=== PATIENT | male | born 1940 | race Caucasian/White ===

== ENCOUNTER 2018-08-09 09:59 | Emergency (ER) | payer MEDICARE, OTHER, SELFPAY ==
[2018-08-09] VITALS (24 sets, daily range): BP systolic 102–160; BP diastolic 39–94; PULSE 69–107; RESP 4–23; TEMP 36.5; O2SAT 95–99
--- NOTE | 2018-08-09 10:22 | W.ED.GENAD ---
Discharge Plan Disposition Patient Disposition: HOME Condition: Good Discharge Details Chief Complaint: Chest Pain Clinical Impression: COPD exacerbation Primary Care Provider: Duncan Mccain ED Provider: Martin Rivera Home Meds and New Rx's Prescriptions: New prednisone 20 mg tablet 40 mg PO DAILY 5 Days Qty: 10 RF: 0 Continue aspirin [Aspir-81] 81 MG tablet,delayed release (DR/EC) 81 mg PO DAILY RF: 0 ascorbic acid (vitamin C) [Vitamin C] 500 MG tablet 500 mg PO DAILY RF: 0 nitroglycerin [Nitrostat] 0.4 MG tablet, sublingual 0.4 mg Sublingual PRN Qty: 25 RF: 4 furosemide 20 MG tablet 20 mg PO DAILY Qty: 60 RF: 6 amlodipine [Norvasc] 10 MG tablet 10 mg PO DAILY Qty: 90 RF: 4 lisinopril 40 MG tablet 40 mg PO DAILY Qty: 90 RF: 4 rosuvastatin [Crestor] 10 MG tablet 10 mg PO DAILY Qty: 90 RF: 4 iron ps [id number] acid [Poly-Iron 150 Forte] 1 EACH capsule 1 tab-cap PO DAILY Qty: 90 RF: 3 clonazepam 0.5 MG tablet 0.5 mg PO HS Qty: 30 RF: 1 Metoprolol Succinate 50 MG TAB.ER.24H 75 mg PO DAILY Qty: 135 RF: 4 Discharge Instructions Instructions: COPD (Chronic Obstructive Pulmonary Disease) (ED) Additional Instructions: Please follow-up with regular doctor for recheck next week. Call for an appointment. May use albuterol, if needed for chest tightness or shortness of breath every 4 hours. Please take prednisone as prescribed Return to the emergency department for any acute returns Medical Decision Making MDM Narrative Medical decision making narrative: This is a 78-year-old male who presents from home with 3 days of right-sided chest discomfort and some complaints of mild weakness and chills. He has end expiratory wheeze bilaterally on exam. He is afebrile and oxygenating normally. Differential diagnosis includes COPD exacerbation, bronchitis, mass, CHF. Patient had IV access established, given DuoNeb updraft, referred for chest x-ray and laboratory. His diagnostic studies are essentially reassuring and without acute findings. He had significant improvement with inhaled DuoNeb therapy. I do feel the cysts with mild COPD exacerbation. I will treat him with a burst of prednisone and offer an inhaler for home. Discussed with him further risk stratification of coronary artery disease including observation repeat troponin at 4 hours, he declines to stay for this. I do not feel he needs to be signed out AGAINST MEDICAL ADVICE, but simply discussed return precautions with patient and his . Patient was seen in the emergency department respiratory therapy and they will initiate outpatient pulmonary function testing. ECG Data Attestation: I personally reviewed and interpreted this ECG (s) as follows: Prior ECG tracings: available for review Interpretation: EKG reveals normal sinus rhythm with left bundle branch block. The rate is 75. There is associated T-wave inversions are unchanged versus comparison dated September 2007 HPI - General Adult General Mode of arrival: ambulatory. Date/Time Provider Initiated Documentation: 08/09/18 10:11. Limitations to Documentation: no limitations. Information obtained by: patient. History of Present Illness 78 year old M presents to the emergency department with the chief complaint of Chest discomfort, described as mild, Quality is described as aching, and is localized to the chest and right. Patient reports no radiation. Patient started experiencing this day(s) and it has been intermittent. No relieving factors improve symptom(s), Movement worsens symptoms . Patient notes cough. Patient did receive the following treatments prior to arrival, none HPI Narrative: 78-year-old male presents with approximately 3 days of achy, intermittent episodes of right chest pain associated with shortness of breath. He states he believes he has had subjective chills. He has had no change to diet. He has had no constant pain. No lower extremity pain or swelling. He is a former smoker who does not currently use an inhaler. He does complain of associated chest congestion Related Data Home Medications Medication Instructions Recorded Confirmed aspirin [Aspir-81] 81 mg PO DAILY tab-cap 04/29/13 08/09/18 ascorbic acid (vitamin C) [Vitamin 500 mg PO DAILY 11/25/14 08/09/18 C] nitroglycerin [Nitrostat] 0.4 mg SUBLINGUAL PRN #25 tab.sl 01/13/16 08/09/18 furosemide 20 mg PO DAILY #60 tab-cap 07/25/17 08/09/18 Previous Rx's Medication Instructions Recorded amlodipine [Norvasc] 10 mg PO DAILY #90 tab-cap 09/22/17 lisinopril 40 mg PO DAILY #90 tab-cap 09/22/17 rosuvastatin [Crestor] 10 mg PO DAILY #90 tab-cap 09/22/17 iron ps [id number] acid 1 tab-cap PO DAILY #90 tab-cap 11/21/17 [Poly-Iron 150 Forte] clonazepam 0.5 mg PO HS #30 tab 12/06/17 prednisone 40 mg PO DAILY 5 Days #10 tab 08/09/18 Allergies Allergy/AdvReac Type Severity Reaction Status Date / Time atorvastatin AdvReac Intermediate MYALGIAS Unverified 08/09/18 10:34 General Stated Complaint: Chest Pain VICTOR MANEUL: 2 Review of Systems Review of Systems 8 systems reviewed, otherwise negative PFSH Family History Mother Essential hypertension Heart disease Hyperlipidemia Father Essential hypertension Heart disease Hyperlipidemia Cerebrovascular accident Sister Essential hypertension Hyperlipidemia Brother Essential hypertension Hyperlipidemia SIBLINGS Diabetes PVD (peripheral vascular disease) Social History Smoking/Tobacco Use Status: Former Tobacco Use Surgical History Appendectomy (~2006) CARDIAC CATH (~2004) Colonoscopy - MAC Splenomegaly Stent placement Exam Narrative Exam Narrative: GEN: awake, alert, oriented 3. Pleasant, well groomed, interactive. HEAD: Normocephalic, atraumatic ENT: Mucous membranes moist, oropharynx unremarkable, External ear exam unremarkable EYES: PERRL, EOMI NECK: Full ROM, no NEGIN, no menigismus CHEST/RESP: Nontender, bilateral end expiratory wheeze, most prominent at the bases CARDIOVASCULAR: RRR, no murmur, rub damien. 2+ Rad pulse bilateral ABDOMEN: Soft, nontender, no mass. +Bowel sounds EXT: Full ROM, no edema, no rash Neuro: Grossly normal neurologic exam, conversant, interactive. Psych: Speech fluent, thoughts congruent, affect normal Course Vital Signs Temperature 36.5 C 08/09/18 10:10 Pulse 77 08/09/18 10:10 Respiratory Rate 17 08/09/18 10:10 Blood Pressure 137/53 L 08/09/18 10:10 Pulse Oximetry 99 08/09/18 10:10 Temperature 36.5 C 08/09/18 10:10 Pulse 77 08/09/18 10:10 Respiratory Rate 17 08/09/18 10:15 Blood Pressure 137/53 L 08/09/18 10:10 Pulse Oximetry 99 08/09/18 10:10
--- NOTE | 2018-08-09 10:25 | ED.GENADUL_ITS ---
Discharge Plan Disposition Patient Disposition: HOME Condition: Good Discharge Details Chief Complaint: Chest Pain Clinical Impression: COPD exacerbation Primary Care Provider: Duncan Mccain ED Provider: Martin Rivera Home Meds and New Rx's Prescriptions: New prednisone 20 mg tablet 40 mg PO DAILY 5 Days Qty: 10 RF: 0 Continue aspirin [Aspir-81] 81 MG tablet,delayed release (DR/EC) 81 mg PO DAILY RF: 0 ascorbic acid (vitamin C) [Vitamin C] 500 MG tablet 500 mg PO DAILY RF: 0 nitroglycerin [Nitrostat] 0.4 MG tablet, sublingual 0.4 mg Sublingual PRN Qty: 25 RF: 4 furosemide 20 MG tablet 20 mg PO DAILY Qty: 60 RF: 6 amlodipine [Norvasc] 10 MG tablet 10 mg PO DAILY Qty: 90 RF: 4 lisinopril 40 MG tablet 40 mg PO DAILY Qty: 90 RF: 4 rosuvastatin [Crestor] 10 MG tablet 10 mg PO DAILY Qty: 90 RF: 4 iron ps [id number] acid [Poly-Iron 150 Forte] 1 EACH capsule 1 tab-cap PO DAILY Qty: 90 RF: 3 clonazepam 0.5 MG tablet 0.5 mg PO HS Qty: 30 RF: 1 Metoprolol Succinate 50 MG TAB.ER.24H 75 mg PO DAILY Qty: 135 RF: 4 Discharge Instructions Instructions: COPD (Chronic Obstructive Pulmonary Disease) (ED) Additional Instructions: Please follow-up with regular doctor for recheck next week. Call for an appointment. May use albuterol, if needed for chest tightness or shortness of breath every 4 hours. Please take prednisone as prescribed Return to the emergency department for any acute returns Medical Decision Making MDM Narrative Medical decision making narrative: This is a 78-year-old male who presents from home with 3 days of right-sided chest discomfort and some complaints of mild weakness and chills. He has end expiratory wheeze bilaterally on exam. He is afebrile and oxygenating normally. Differential diagnosis includes COPD exacerbation, bronchitis, mass, CHF. Patient had IV access established, given DuoNeb updraft, referred for chest x-ray and laboratory. His diagnostic studies are essentially reassuring and without acute findings. He had significant improvement with inhaled DuoNeb therapy. I do feel the cysts with mild COPD exacerbation. I will treat him with a burst of prednisone and offer an inhaler for home. Discussed with him further risk stratification of coronary artery disease including observation repeat troponin at 4 hours, he declines to stay for this. I do not feel he needs to be signed out AGAINST MEDICAL ADVICE, but simply discussed return precautions with patient and his . Patient was seen in the emergency department respiratory therapy and they will initiate outpatient pulmonary function testing. ECG Data Attestation: I personally reviewed and interpreted this ECG (s) as follows: Prior ECG tracings: available for review Interpretation: EKG reveals normal sinus rhythm with left bundle branch block. The rate is 75. There is associated T-wave inversions are unchanged versus comparison dated September 2007 HPI - General Adult General Mode of arrival: ambulatory . Date/Time Provider Initiated Documentation: 08/09/18 10:11 . Limitations to Documentation: no limitations . Information obtained by: patient . History of Present Illness 78 year old M presents to the emergency department with the chief complaint of Chest discomfort, described as mild, Quality is described as aching, and is localized to the chest and right. Patient reports no radiation. Patient started experiencing this day(s) and it has been intermittent. No relieving factors improve symptom(s), Movement worsens symptoms . Patient notes cough. Patient did receive the following treatments prior to arrival, none HPI Narrative: 78-year-old male presents with approximately 3 days of achy, intermittent episodes of right chest pain associated with shortness of breath. He states he believes he has had subjective chills. He has had no change to diet. He has had no constant pain. No lower extremity pain or swelling. He is a former smoker who does not currently use an inhaler. He does complain of associated chest congestion Related Data Home Medications Medication Instructions Recorded Confirmed aspirin [Aspir-81] 81 mg PO DAILY tab-cap 04/29/13 08/09/18 ascorbic acid (vitamin C) [Vitamin 500 mg PO DAILY 11/25/14 08/09/18 C] nitroglycerin [Nitrostat] 0.4 mg SUBLINGUAL PRN #25 tab.sl 01/13/16 08/09/18 furosemide 20 mg PO DAILY #60 tab-cap 07/25/17 08/09/18 Previous Rx's Medication Instructions Recorded amlodipine [Norvasc] 10 mg PO DAILY #90 tab-cap 09/22/17 lisinopril 40 mg PO DAILY #90 tab-cap 09/22/17 rosuvastatin [Crestor] 10 mg PO DAILY #90 tab-cap 09/22/17 iron ps [id number] acid 1 tab-cap PO DAILY #90 tab-cap 11/21/17 [Poly-Iron 150 Forte] clonazepam 0.5 mg PO HS #30 tab 12/06/17 prednisone 40 mg PO DAILY 5 Days #10 tab 08/09/18 Allergies Allergy/AdvReac Type Severity Reaction Status Date / Time atorvastatin AdvReac Intermediate MYALGIAS Unverified 08/09/18 10:34 General Stated Complaint: Chest Pain VICTOR MANUEL: 2 Review of Systems Review of Systems 8 systems reviewed, otherwise negative PFSH Family History Mother Essential hypertension Heart disease Hyperlipidemia Father Essential hypertension Heart disease Hyperlipidemia Cerebrovascular accident Sister Essential hypertension Hyperlipidemia Brother Essential hypertension Hyperlipidemia SIBLINGS Diabetes PVD (peripheral vascular disease) Social History Smoking/Tobacco Use Status: Former Tobacco Use Surgical History Appendectomy (~2006) CARDIAC CATH (~2004) Colonoscopy - MAC Splenomegaly Stent placement Exam Narrative Exam Narrative: GEN: awake, alert, oriented 3. Pleasant, well groomed, interactive. HEAD: Normocephalic, atraumatic ENT: Mucous membranes moist, oropharynx unremarkable, External ear exam unremarkable EYES: PERRL, EOMI NECK: Full ROM, no NEGIN, no menigismus CHEST/RESP: Nontender, bilateral end expiratory wheeze, most prominent at the bases CARDIOVASCULAR: RRR, no murmur, rub damien. 2+ Rad pulse bilateral ABDOMEN: Soft, nontender, no mass. +Bowel sounds EXT: Full ROM, no edema, no rash Neuro: Grossly normal neurologic exam, conversant, interactive. Psych: Speech fluent, thoughts congruent, affect normal Course Vital Signs Temperature 36.5 C 08/09/18 10:10 Pulse 77 08/09/18 10:10 Respiratory Rate 17 08/09/18 10:10 Blood Pressure 137/53 L 08/09/18 10:10 Pulse Oximetry 99 08/09/18 10:10 Temperature 36.5 C 08/09/18 10:10 Pulse 77 08/09/18 10:10 Respiratory Rate 17 08/09/18 10:15 Blood Pressure 137/53 L 08/09/18 10:10 Pulse Oximetry 99 08/09/18 10:10
[2018-08-09] MEDS: Albuterol/Ipratropium 3 ML UPD VIAL UPD (10:29)
[2018-08-09 10:50] LABS: Abs Immature Grans 0.04 k/cumm (0.0-0.09); Absolute Basophil Count 0.03 k/cumm (0.0-0.2); Absolute Eosinophil Count 0.12 k/cumm (0.0-0.7); Absolute Lymphocyte Count 1.65 k/cumm (1.2-3.4); Absolute Monocyte Count 0.73 k/cumm (0.11-0.7); Absolute Neutrophil Count 5.33 k/cumm (1.2-6.7); Basophils % 0.4; Eosinophils % 1.5; HCT 43.4 % (40.0-50.0); HGB 14.8 g/dL (13.5-17.5); Immature Grans % 0.5; Lymphocytes % 20.9; Mean Corp. HGB Concentration 34.1 g/dL (32.0-36.0); Mean Corpuscular Hemoglobin 30.4 pg (27.0-33.0); Mean Corpuscular Volume 89.1 fL (80-95); Mean Platelet Volume 9.4 fL (8.0-11.0); Monocytes % 9.2; Neutrophils % 67.5; Platelet Count 219 x1000/uL (130-400); RBC 4.87 m/cumm (4.50-6.00); RBC Distribution Width 13.5 % (11.8-14.1)
[2018-08-09 11:09] LABS: ALT 28 U/L (12-78); AST 15 U/L (15-37); Alkaline Phosphatase 64 U/L (46-116); Anion Gap 9.6 mmol/L (3-11); BUN 10 mg/dL (7-18); Bilirubin, Total 1.1 mg/dL (0.2-1.0); CO2 27.4 mmol/L (21.0-32.0); CREATININE 0.93 mg/dL (0.70-1.30); Calcium 9.4 mg/dL (8.5-10.1); Chloride 103 mmol/L (98-107); Glucose 114 mg/dL (70-100); NT-proBNP 164 pg/mL; Potassium 4.1 mmol/L (3.5-5.1); Sodium 140 mmol/L (136-145); Total Protein 7.4 g/dL (6.4-8.2)
--- NOTE | 2018-08-09 11:10 | DI.RAD_ITS ---
SYMPTOMS/DIAGNOSIS: COUGH, RT PAIN PA AND LATERAL CHEST: Comparison 02/11/14. The heart size and pulmonary vasculature are within normal limits. Sternal wires are in place. The lungs show no evidence of congestive heart failure or pneumonia. The lungs are hyperinflated suggesting underlying COPD. No effusions or pneumothoraces are identified. Degenerative changes are seen in the spine. IMPRESSION: No acute pulmonary process.
[2018-08-09 11:11] LABS: Troponin I < 0.02 ng/mL (0.00-0.06)
[2018-08-09] MEDS: predniSONE 20 MG TAB 40 MG PO (12:14)
[2018-08-09] MEDS: Albuterol HFA 8 GM 60 PUFF INH IH (12:14)
--- NOTE | 2018-08-09 12:46 | PDOC.ERCMPRO ---
Care Management Progress Note 08/09/18-Pt seen today for Right sided chest pain, chills by Dr. Clarisa Rivera. Request for this cM to instruct Pt on spacer and MDI usage. Pt understands this is only for as needed. Pt has great breath hold technique. This CM went over Pt's smoking history . He quit over 30 years ago and smoked for over 30 years. He says he quit cold turkey as he had to have open heart surgery and dropped his alcohol intake down, as well. Pt states he is experiencing SOB with activity and the inability to bring up secretions in the am upon waking each day. I discussed with Pt the importance of him getting a PFT to see where is lung compliance and capacity is and whether daily MDI's may be beneficial to him. I discussed with Dr. Clarisa Rivera and he agreed. CM has sent referral request too Pt's PCP, Dr. Mccain to for a PFT.
--- NOTE | 2018-08-09 12:53 | CMPROGNOTE_ITS ---
Care Management Progress Note 08/09/18-Pt seen today for Right sided chest pain, chills by Dr. Clarisa Rivera. Request for this cM to instruct Pt on spacer and MDI usage. Pt understands this is only for as needed. Pt has great breath hold technique. This CM went over Pt' s smoking history . He quit over 30 years ago and smoked for over 30 years. He says he quit cold turkey as he had to have open heart surgery and dropped his alcohol intake down, as well. Pt states he is experiencing SOB with activity and the inability to bring up secretions in the am upon waking each day. I discussed with Pt the importance of him getting a PFT to see where is lung compliance and capacity is and whether daily MDI's may be beneficial to him. I discussed with Dr. Clarisa Rivera and he agreed. CM has sent referral request too Pt' s PCP, Dr. Mccain to for a PFT.
== END 2018-08-09 12:45 | disposition home or self-care (01) ==
PROVIDERS: Emergency Provider Emergency Medicine; PCP Emergency Medicine
DX: J44.1 Chronic obstructive pulmonary disease with (acute) exacerbation (principal); R07.9 Chest pain, unspecified; Z87.891 Personal history of nicotine dependence; I10 Essential (primary) hypertension; I25.10 Atherosclerotic heart disease of native coronary artery without angina pectoris; Z95.5 Presence of coronary angioplasty implant and graft; Z95.1 Presence of aortocoronary bypass graft
CPT/HCPCS: 36415; 80053; 93005; 94640; 99285; 71046; 83735; 83880; 84484; 85025; 93010; 99284; J7512; J7620

== ENCOUNTER 2018-09-03 08:10 | Emergency (ER) | payer MEDICARE, OTHER, SELFPAY ==
[2018-09-03] VITALS (31 sets, daily range): BP systolic 78–140; BP diastolic 29–64; PULSE 57–88; RESP 10–22; TEMP 36.5–36.7; O2SAT 97–100
--- NOTE | 2018-09-03 08:18 | DI.CT_ITS ---
SYMPTOMS/DIAGNOSIS: LOWER ABDOMINAL PAIN, BILATERAL LOWER EXTREMITY STENTS 08/31 CTA OF THE ABDOMEN AND PELVIS: CT angiography was performed with multi slice acquisition and multi planar and 3D reconstruction. CT angiography of the abdomen and pelvis was performed. The visualized lung bases are clear. The liver, spleen, gallbladder, bile ducts, pancreas and adrenal glands are unremarkable. The kidneys are unremarkable. There is a Suazo catheter in the urinary bladder. The reproductive organs are unremarkable. There is atherosclerosis of the abdominal aorta. No aneurysmal dilatation is seen. No extravasation of contrast is identified. No focal fluid collection is seen in the inguinal region. There is mild increased attenuation in the subcutaneous tissues in the left inguinal region, likely reflecting the patient' s recent arterial catheterization. There is calcification seen at the origins of the celiac axis, superior mesenteric artery and the renal arteries. The inferior mesenteric artery appears unremarkable. No significant abdominal or pelvic adenopathy, ascites or pneumoperitoneum is present. There is stool seen throughout the colon with a large amount of stool seen in the rectal vault, suggesting constipation. No evidence of a bowel inflammatory or infectious process is appreciated. No findings to suggest an acute appendicitis are present. There is a sclerotic density seen in the left iliac bone. This is unchanged compared to x-ray of the abdomen from 10/03/07. This likely reflects a bone island. Multilevel degenerative changes are present throughout the spine. IMPRESSION: 1. Constipation. 2. Calcification in the abdominal aorta. No evidence of arterial injury. 3. No evidence of an acute abdomen. The findings were discussed with the Emergency Department on the date of the examination.
--- NOTE | 2018-09-03 08:21 | W.ED.GENAD ---
Discharge Plan Disposition Patient Disposition: HOME Condition: Stable Discharge Details Chief Complaint: Abd Prob Clinical Impression: Constipation, Lower gastrointestinal bleed Reason For Visit: [place] Primary Care Provider: Duncan Mccain ED Provider: Domitila Goncalves Home Meds and New Rx's Prescriptions: Continue aspirin [Aspir-81] 81 MG tablet,delayed release (DR/EC) 81 mg PO DAILY RF: 0 ascorbic acid (vitamin C) [Vitamin C] 500 MG tablet 500 mg PO DAILY RF: 0 nitroglycerin [Nitrostat] 0.4 MG tablet, sublingual 0.4 mg Sublingual PRN Qty: 25 RF: 4 amlodipine [Norvasc] 10 MG tablet 10 mg PO DAILY Qty: 90 RF: 4 lisinopril 40 MG tablet 40 mg PO DAILY Qty: 90 RF: 4 rosuvastatin [Crestor] 10 MG tablet 10 mg PO DAILY Qty: 90 RF: 4 iron ps [id number] acid [Poly-Iron 150 Forte] 1 EACH capsule 1 tab-cap PO DAILY Qty: 90 RF: 3 clonazepam 0.5 MG tablet 0.5 mg PO HS Qty: 30 RF: 1 Metoprolol Succinate 50 MG TAB.ER.24H 75 mg PO DAILY Qty: 135 RF: 4 metoprolol succinate [Toprol XL] 50 mg tablet extended release 24 hr 75 mg PO DAILY Qty: 135 RF: 3 furosemide 20 mg tablet 20 mg PO DAILY Qty: 90 RF: 3 clopidogrel [Plavix] 75 mg Tablet 75 mg PO DAILY RF: 0 Discharge Instructions Instructions: Gastrointestinal Bleeding (ED), Constipation (ED) Additional Instructions: Please return immediately to the emergency department if you develop any new or worsening symptoms or if you become otherwise concerned. It is extremely important that you make an appointment to be seen by your primary care doctor within the next 1-2 weeks in follow-up for this visit. Referrals: Duncan Mccain, [Primary Care Provider] - Discharge Data Discharge Date/Time-TO BE ENTERED AT DEPARTURE: 09/03/18 13:15 Medical Decision Making Andrew Blackwood is a 78 y/o man with history of ischemic cardiomyopathy, hyperlipidemia, hypertension, coronary artery disease, anemia who presented to the emergency department with abdominal pain after undergoing balloon angioplasty of RLE several days ago. On exam Pt appears uncomfortable, TTP of the lower abd without peritoneal signs. +Dp pulses b/l. Concern for possible vascular post-procedure complication vs bowel obstruction vs urinary retention vs other. Caballero placed after bladder scan showed >500cc. Less than 500cc output, no change in Pt symptoms after caballero placement. Exam/hx not c/w ACS, PE, thoracic etiology, Plan for EKG, screening labs, CTA abd/pelv, IVF hydration, IV opiate pain control. EKG, labs non-diagnostic. CTA shows constipation. Suspect acute constipation as etiology of pain given pain began while trying to have a bowel movement, atypical constipation for past few days. Pt with significant continued pain. Plan for suppository, enema. No relief with initial enema. Manual disimpaction attempted, small amt of stool removed without significant pain relief, Pt did not tolerate procedure. Plan for second enema. BRB streaking in stool, hemoccult pos. Concern for internal hemorrhoids vs other lower GI bleed. Will obtain 4 hr H&H. 4 hr H&H okay. Pt had large BM after enema with complete resolution of symptoms. Reports that he feels very well and ready to go. Lengthy discussion with Pt re: RTED precautions and importance of outpt f/u with PCP. Pt is amenable to the plan. Medical Records Medical records reviewed: Yes I reviewed the patient's medical records. Imaging Data Radiologic Study: Attestation: I personally reviewed and interpreted this imaging study as follows: Radiologist's impression: CTA OF THE ABDOMEN AND PELVIS: CT angiography was performed with multi slice acquisition and multi planar and 3D reconstruction. CT angiography of the abdomen and pelvis was performed. The visualized lung bases are clear. The liver, spleen, gallbladder, bile ducts, pancreas and adrenal glands are unremarkable. The kidneys are unremarkable. There is a Caballero catheter in the urinary bladder. The reproductive organs are unremarkable. There is atherosclerosis of the abdominal aorta. No aneurysmal dilatation is seen. No extravasation of contrast is identified. No focal fluid collection is seen in the inguinal region. There is mild increased attenuation in the subcutaneous tissues in the left inguinal region, likely reflecting the patient's recent arterial catheterization. There is calcification seen at the origins of the celiac axis, superior mesenteric artery and the renal arteries. The inferior mesenteric artery appears unremarkable. No significant abdominal or pelvic adenopathy, ascites or pneumoperitoneum is present. There is stool seen throughout the colon with a large amount of stool seen in the rectal vault, suggesting constipation. No evidence of a bowel inflammatory or infectious process is appreciated. No findings to suggest an acute appendicitis are present. There is a sclerotic density seen in the left iliac bone. This is unchanged compared to x-ray of the abdomen from 10/03/07. This likely reflects a bone island. Multilevel degenerative changes are present throughout the spine. IMPRESSION: 1. Constipation. 2. Calcification in the abdominal aorta. No evidence of arterial injury. 3. No evidence of an acute abdomen. Lab Data Lab results reviewed: Yes I reviewed the patient's lab results. Laboratory Tests Range/Units 09/03/18 09/03/18 09/03/18 08:42 08:42 08:42 WBC (4.4-10.8) k/cumm 11.27 H RBC (4.50-6.00) m/cumm 4.81 Hgb (13.5-17.5) g/dL 14.7 Hct (40.0-50.0) % 43.1 MCV (80-95) fL 89.6 MCH (27.0-33.0) pg 30.6 MCHC (32.0-36.0) g/dL 34.1 RDW (11.8-14.1) % 13.7 Plt Count (130-400) x1000/uL 263 MPV (8.0-11.0) fL 9.0 Immature Gran % 0.5 Neutrophils % 83.6 Lymphocytes % 7.8 Monocytes % 7.0 Eosinophils % 0.9 Basophils % 0.2 Absolute Neutrophils (1.2-6.7) k/cumm 9.42 H Absolute Lymphocytes (1.2-3.4) k/cumm 0.88 L Absolute Monocytes (0.11-0.7) k/cumm 0.79 H Absolute Eosinophils (0.0-0.7) k/cumm 0.10 Absolute Basophils (0.0-0.2) k/cumm 0.02 Sodium (136-145) mmol/L 139 Potassium (3.5-5.1) mmol/L 3.7 Chloride (98-107) mmol/L 103 Carbon Dioxide (21.0-32.0) mmol/L 25.0 Anion Gap (3-11) mmol/L 11.0 BUN (7-18) mg/dL 15 Creatinine (0.70-1.30) mg/dL 1.05 Estimated GFR/1.73 m2 (mL/min/1.73m2) >= 60.00 Glucose (70-100) mg/dL 154 H Lactate (0.6-1.4) mmol/L 2.0 H Calcium (8.5-10.1) mg/dL 8.9 Total Bilirubin (0.2-1.0) mg/dL 1.1 H AST (15-37) U/L 13 L ALT (12-78) U/L 28 Alkaline Phosphatase (46-116) U/L 68 Total Protein (6.4-8.2) g/dL 6.8 Albumin (3.4-5.0) g/dL 3.7 Lipase (73-393) U/L 135 TSH (0.358-3.74) uIU/mL 2.55 Urine Color (Yellow) Urine Clarity Urine pH (5-8) Ur Specific [place] (1.005-1.025) Urine Protein (Negative) mg/dL Urine Ketones (Negative) mg/dL Urine Blood (Negative) Urine Nitrite (Negative) Urine Bilirubin (Negative) Urine Urobilinogen (Up TO 0.2) EU/dL Ur Leukocyte Esterase (Negative) Urine Glucose (Negative) mg/dL Range/Units 09/03/18 09/03/18 08:45 12:27 WBC (4.4-10.8) k/cumm RBC (4.50-6.00) m/cumm Hgb (13.5-17.5) g/dL 15.1 Hct (40.0-50.0) % 44.5 MCV (80-95) fL MCH (27.0-33.0) pg MCHC (32.0-36.0) g/dL RDW (11.8-14.1) % Plt Count (130-400) x1000/uL MPV (8.0-11.0) fL Immature Gran % Neutrophils % Lymphocytes % Monocytes % Eosinophils % Basophils % Absolute Neutrophils (1.2-6.7) k/cumm Absolute Lymphocytes (1.2-3.4) k/cumm Absolute Monocytes (0.11-0.7) k/cumm Absolute Eosinophils (0.0-0.7) k/cumm Absolute Basophils (0.0-0.2) k/cumm Sodium (136-145) mmol/L Potassium (3.5-5.1) mmol/L Chloride (98-107) mmol/L Carbon Dioxide (21.0-32.0) mmol/L Anion Gap (3-11) mmol/L BUN (7-18) mg/dL Creatinine (0.70-1.30) mg/dL Estimated GFR/1.73 m2 (mL/min/1.73m2) Glucose (70-100) mg/dL Lactate (0.6-1.4) mmol/L Calcium (8.5-10.1) mg/dL Total Bilirubin (0.2-1.0) mg/dL AST (15-37) U/L ALT (12-78) U/L Alkaline Phosphatase (46-116) U/L Total Protein (6.4-8.2) g/dL Albumin (3.4-5.0) g/dL Lipase (73-393) U/L TSH (0.358-3.74) uIU/mL Urine Color (Yellow) Yellow Urine Clarity Clear Urine pH (5-8) 6.5 Ur Specific [place] (1.005-1.025) 1.015 Urine Protein (Negative) mg/dL Negative Urine Ketones (Negative) mg/dL Negative Urine Blood (Negative) Negative Urine Nitrite (Negative) Negative Urine Bilirubin (Negative) Negative Urine Urobilinogen (Up TO 0.2) EU/dL 0.2 Ur Leukocyte Esterase (Negative) Negative Urine Glucose (Negative) mg/dL Negative ECG Data Attestation: I personally reviewed and interpreted this ECG (s) as follows: Interpretation: EKG shows normal sinus rhythm at 82 with normal axis, left bundle branch block present on prior, does not meet STEMI criteria HPI General Mode of arrival: EMS. Date/Time Provider Initiated Documentation: 09/03/18 08:28. Limitations to Documentation: no limitations. Information obtained by: patient. HPI Narrative: Andrew Blackwood is a 78 y/o man with history of ischemic cardiomyopathy, hyperlipidemia, hypertension, coronary artery disease, anemia presenting to the emergency department with abdominal pain. Patient reports that on 08/31 he had balloon angioplasty to the right lower extremity with a left femoral access site. Patient reports that he has had no pain or issues since the procedure was performed. He states that at approximately 6:00 this morning he developed moderate to severe lower abdominal pain that began while he was trying to have a bowel movement. He reports that pain has been constant and unchanged since onset. He does not recall having similar pain in the past. Patient reports that he has not had a bowel movement since the day of the procedure, which is unusual for him. He reports that he is not passing gas. He has been eating and drinking normally and has not had any vomiting. He states that he is unsure when he last urinated but also feels that he cannot urinate. He denies any other pain, shortness of breath, fevers, rash, numbness/tingling/weakness of the lower extremities. Takes Plavix/ASA and no other blood thinners. Related Data Home Medications Medication Instructions Recorded Confirmed aspirin [Aspir-81] 81 mg PO DAILY tab-cap 04/29/13 09/03/18 ascorbic acid (vitamin C) [Vitamin 500 mg PO DAILY 11/25/14 09/03/18 C] nitroglycerin [Nitrostat] 0.4 mg SUBLINGUAL PRN #25 tab.sl 01/13/16 09/03/18 amlodipine [Norvasc] 10 mg PO DAILY #90 tab-cap 09/22/17 09/03/18 lisinopril 40 mg PO DAILY #90 tab-cap 09/22/17 09/03/18 rosuvastatin [Crestor] 10 mg PO DAILY #90 tab-cap 09/22/17 09/03/18 iron ps [id number] acid 1 tab-cap PO DAILY #90 tab-cap 11/21/17 09/03/18 [Poly-Iron 150 Forte] clonazepam 0.5 mg PO HS #30 tab 12/06/17 09/03/18 metoprolol succinate ER 50 mg 75 mg PO DAILY #135 tab 08/22/18 09/03/18 tablet,extended release 24 hr furosemide 20 mg tablet 20 mg PO DAILY #90 tab-cap 08/28/18 09/03/18 clopidogrel [Plavix] 75 mg PO DAILY 09/03/18 09/03/18 Previous Rx's Medication Instructions Recorded amlodipine [Norvasc] 10 mg PO DAILY #90 tab-cap 09/22/17 lisinopril 40 mg PO DAILY #90 tab-cap 09/22/17 rosuvastatin [Crestor] 10 mg PO DAILY #90 tab-cap 09/22/17 iron ps [id number] acid 1 tab-cap PO DAILY #90 tab-cap 11/21/17 [Poly-Iron 150 Forte] clonazepam 0.5 mg PO HS #30 tab 12/06/17 metoprolol succinate ER 50 mg 75 mg PO DAILY #135 tab 08/22/18 tablet,extended release 24 hr furosemide 20 mg tablet 20 mg PO DAILY #90 tab-cap 08/28/18 Allergies Allergy/AdvReac Type Severity Reaction Status Date / Time atorvastatin AdvReac Intermediate MYALGIAS Verified 09/03/18 08:45 General Stated Complaint: Abd Prob VICTOR MANUEL: 2 Review of Systems Review of Systems Constitutional: denies fevers Eyes: denies eye pain ENT: denies facial pain, dental pain, sore throat Cardiovascular: denies chest pain, edema Respiratory: denies SOB, cough GI: reports abdominal pain, constipation, denies vomiting, diarrhea : denies flank pain MSK: denies back pain, neck pain, arthralgias, myalgias Skin: denies rash Neuro: denies headaches, lightheadedness, weakness Exam Narrative Exam Narrative: Constitutional: alert, appears uncomfortable, conversing normally HENT: head atraumatic, normocephalic normal inspection, mucous membranes moist Eyes: conjunctiva normal, sclera normal, pupils 3mm b/l Neck: no stridor, normal ROM, trachea midline Chest: normal inspection Resp: normal work of breathing, LCTAB Cardio: normal rate, normal rhythm, no murmur appreciated GI: abdomen soft, TTP across pelvis and lower abdomen, non-distended. no rebound or guarding. left inguinal insertion site C/D/I, NTTP, no edema, no erythema. : normal penis, testicles NTTP b/l, no scrotal edema, no skin changes Back: normal inspection, no rash Skin: warm, dry, normal color, no rash Neuro: alert, not altered, grossly non-focal, normal tone, b/l LEs 5/5 motor Ext: no edema, b/l feet WWP Psych: normal mood, normal affect, normal behavior Course Vital Signs Temperature 36.5 C 09/03/18 08:11 Pulse 77 09/03/18 08:11 Respiratory Rate 22 09/03/18 08:11 Blood Pressure 140/58 L 09/03/18 08:11 Pulse Oximetry 99 09/03/18 08:11 Temperature 36.5 C 09/03/18 08:11 Temperature Source Temporal Artery Scan 09/03/18 08:11 Pulse 77 09/03/18 08:11 Respiratory Rate 22 09/03/18 08:11 Respiratory Effort Non-Labored 09/03/18 08:18 Blood Pressure 140/58 L 09/03/18 08:11 Blood Pressure Position Supine 09/03/18 08:11 Pulse Oximetry 99 09/03/18 08:11 Oxygen Delivery Method Room Air 09/03/18 08:11 Oxygen Flow Rate 0 09/03/18 08:11 Pain Level 10 09/03/18 08:11
[2018-09-03] MEDS: Normal Saline 250 ML IV (08:30)
[2018-09-03] MEDS: MORPHine 10 MG/ML VIAL 2 MG IVP (08:31)
[2018-09-03] MEDS: Lidocaine 2% Jelly 11 ML SYR (08:40)
[2018-09-03 08:52] LABS: Abs Immature Grans 0.06 k/cumm (0.0-0.09); Absolute Basophil Count 0.02 k/cumm (0.0-0.2); Absolute Lymphocyte Count 0.88 k/cumm (1.2-3.4); Absolute Monocyte Count 0.79 k/cumm (0.11-0.7); Absolute Neutrophil Count 9.42 k/cumm (1.2-6.7); Basophils % 0.2; Eosinophils % 0.9; HCT 43.1 % (40.0-50.0); HGB 14.7 g/dL (13.5-17.5); Immature Grans % 0.5; Lymphocytes % 7.8; Mean Corp. HGB Concentration 34.1 g/dL (32.0-36.0); Mean Corpuscular Hemoglobin 30.6 pg (27.0-33.0); Mean Corpuscular Volume 89.6 fL (80-95); Neutrophils % 83.6; Platelet Count 263 x1000/uL (130-400); RBC 4.81 m/cumm (4.50-6.00); RBC Distribution Width 13.7 % (11.8-14.1); White Blood Cell Count 11.27 k/cumm (4.4-10.8)
[2018-09-03 08:52] LABS: Bilirubin Negative (Negative); Blood Negative (Negative); Clarity Clear; Glucose Negative (Negative); Ketones Negative (Negative); Leukocyte Esterase Negative (Negative); Nitrite Negative (Negative); Specific Gravity 1.015 (1.005-1.025); Urobilinogen 0.2 EU/dL (Up TO 0.2); pH 6.5 (5-8)
[2018-09-03] MEDS: Omnipaque 350 MG/ML 100 ML BTL IJ (09:09)
[2018-09-03] MEDS: Mineral Oil-Enema 133 ML BTL PR (10:29)
[2018-09-03 10:50] LABS: ALT 28 U/L (12-78); AST 13 U/L (15-37); Albumin 3.7 g/dL (3.4-5.0); Alkaline Phosphatase 68 U/L (46-116); BUN 15 mg/dL (7-18); Bilirubin, Total 1.1 mg/dL (0.2-1.0); CREATININE 1.05 mg/dL (0.70-1.30); Calcium 8.9 mg/dL (8.5-10.1); Chloride 103 mmol/L (98-107); Glucose 154 mg/dL (70-100); Lipase 135 U/L (73-393); Potassium 3.7 mmol/L (3.5-5.1); Sodium 139 mmol/L (136-145); TSH (W/Ref FT4) 2.55 uIU/mL (0.358-3.74); Total Protein 6.8 g/dL (6.4-8.2)
[2018-09-03] MEDS: Magnesium Citrate 300 ML BTL 150 ML PO (11:55)
[2018-09-03 12:40] LABS: HCT 44.5 % (40.0-50.0); HGB 15.1 g/dL (13.5-17.5)
== END 2018-09-03 13:15 | disposition home or self-care (01) ==
PROVIDERS: Emergency Provider Student in an Organized Health Care Education/Training Program; PCP Emergency Medicine
DX: K59.00 Constipation, unspecified (principal); K92.1 Melena; I10 Essential (primary) hypertension
CPT/HCPCS: 36415; 51702; 80053; 83690; 93005; 96361; 96374; 99285; 74174; 81003; 83605; 84443; 85014; 85018; 85025; 93010; 99284; J2270; J3490

== ENCOUNTER → 2019-01-07 13:13 | Outpatient (BNVA) | payer MEDICARE, OTHER, SELFPAY | PROVIDERS: PCP Emergency Medicine; Visit Provider Internal Medicine Cardiovascular Disease | DX: I25.10 Atherosclerotic heart disease of native coronary artery without angina pectoris (principal); I73.9 Peripheral vascular disease, unspecified; I25.5 Ischemic cardiomyopathy; I10 Essential (primary) hypertension; E78.5 Hyperlipidemia, unspecified; Z95.818 Presence of other cardiac implants and grafts | CPT/HCPCS: 99213 ==

== ENCOUNTER 2019-05-22 13:58 | Outpatient (CLI) | payer MEDICARE, OTHER, SELFPAY ==
[2019-05-22 14:26] LABS: HCT 45.3 % (40.0-50.0); HGB 15.4 g/dL (13.5-17.5); Mean Corpuscular Volume 91.3 fL (80-95); Mean Platelet Volume 8.9 fL (8.0-11.0); Platelet Count 279 x1000/uL (130-400); RBC 4.96 m/cumm (4.50-6.00); RBC Distribution Width 13.3 % (11.8-14.1); White Blood Cell Count 10.99 k/cumm (4.4-10.8)
[2019-05-22 15:31] LABS: Anion Gap 11.7 mmol/L (3-11); BUN 12 mg/dL (7-18); CO2 26.3 mmol/L (21.0-32.0); CREATININE 0.94 mg/dL (0.70-1.30); Calculated LDL 90 mg/dL; Chloride 104 mmol/L (98-107); Cholesterol 157 mg/dL (50-200); Glucose 113 mg/dL (70-100); HDL Cholesterol 53 mg/dL (40-60); NT-proBNP 105 pg/mL; Potassium 4.3 mmol/L (3.5-5.1); Sodium 142 mmol/L (136-145); TSH 1.81 uIU/mL (0.358-3.74); Triglyceride 74 mg/dL (30-150)
== END 2019-05-22 14:18 ==
PROVIDERS: PCP Emergency Medicine; Visit Provider Emergency Medicine
DX: I10 Essential (primary) hypertension (principal); I42.9 Cardiomyopathy, unspecified; I50.9 Heart failure, unspecified; E03.9 Hypothyroidism, unspecified
CPT/HCPCS: 36415; 80048; 80061; 83721; 85027; 71046; 83880; 84443

== ENCOUNTER 2019-05-22 14:50 | Outpatient (CLI) | payer MEDICARE, OTHER, SELFPAY ==
--- NOTE | 2019-05-22 14:30 | DI.RAD_ITS ---
SYMPTOMS/DIAGNOSIS: DYSPNEA ON EXERTION, CARDIOMYOPATHY, I42.9 PA AND LATERAL CHEST: The heart is not enlarged. There are multiple vascular clips consistent with previous CABG surgery. The lungs are clear and well expanded. No pleural effusions seen. CONCLUSION: No evidence of acute disease.
== END 2019-05-22 15:10 ==
PROVIDERS: PCP Emergency Medicine; Visit Provider Emergency Medicine
DX: I42.9 Cardiomyopathy, unspecified (principal); R06.09 Other forms of dyspnea; Z95.1 Presence of aortocoronary bypass graft
CPT/HCPCS: 71046

== ENCOUNTER 2019-06-18 00:38 | Outpatient (CLI) | payer MEDICARE, OTHER, SELFPAY ==
--- NOTE | 2019-06-18 10:30 | MERGE_ITS ---
*[facility]* *[facility]* [address] [place] [address] Date of study: 06/18/2019 Transthoracic Echocardiography M-mode, complete 2D, complete spectral Doppler, and color Doppler *STUDY CONCLUSIONS* Summary: 1. Left ventricle: The cavity size was normal. Wall thickness was normal. Systolic function was mildly to moderately reduced. The estimated ejection fraction was 40-45%. Severe hypokinesis of the mid-apicalanteroseptal and inferoseptal myocardium. 2. Aortic valve: Sclerosis without stenosis. 3. Right ventricle: The cavity size was normal. Wall thickness was normal. Systolic function was normal. *PATIENT PRESENTATION* Height: 170.2cm (67in ) S/D Pressure: 153 / 56 Weight: 89.8kg (197.6lb ) BSA: 2.09m^2 Test start time: 10:40 AM. Test stop time: 11:30 AM. CONSULTING Duncan Mccain ORDERING Duncan Mccain REFERRING Duncan Mccain PERFORMING Unknown PERFORMING [facility] TERMINAL CLERK [address] (R)(HEATHER)JASON *PROCEDURE DATA* Procedure information: The patient was identified by two identifiers. This study was interpreted by [facility]. Pertinent images and digital data are archived for permanent storage and are available for subsequent review. Comparison was made to the study of 10/26/2017. Study status: Routine. Transthoracic echocardiography. M-mode, complete 2D, complete spectral Doppler, and color Doppler. A Transthoracic Echocardiogram was performed. Scanning was performed from the parasternal, apical, subcostal, and suprasternal notch acoustic windows. Images were obtained using an [id number] cardiac ultrasound machine. Image quality was adequate. Study completion: The patient tolerated the procedure well. History: PMH: MCKNIGHT, CHF, HF, CM i50.9, i42.9. *CARDIAC ANATOMY* Left ventricle: The cavity size was normal. Wall thickness was normal. Systolic function was mildly to moderately reduced. The estimated ejection fraction was 40-45%. Regional wall motion abnormalities: Severe hypokinesis of the mid-apicalanteroseptal and inferoseptal myocardium. Diastolic parameters were not diagnostic. Aortic valve: Trileaflet. Sclerosis without stenosis. Mobility was not restricted. Doppler: Transvalvular velocity was within the normal range. There was no stenosis. There was no significant regurgitation. VTI ratio of LVOT to aortic valve: 0.66. Valve area (VTI): 2cm^2. Indexed valve area (VTI): 1cm^2/m^2. Peak velocity ratio of LVOT to aortic valve: 0.63. Valve area (Vmax): 1.9cm^2. Indexed valve area (Vmax): 0.9cm^2/m^2. Mean velocity ratio of LVOT to aortic valve: 0.67. Valve area (Vmean): 2cm^2. Indexed valve area (Vmean): 1cm^2/m^2. Mean gradient (S): 3.9mm Hg. Peak gradient (S): 6.6mm Hg. Aorta: Aortic root: The aortic root was normal in size. Ascending aorta: The ascending aorta was normal in size. Mitral valve: Structurally normal valve. Mobility was not restricted. Doppler: Transvalvular velocity was within the normal range. There was no evidence for stenosis. There was no significant regurgitation. Valve area by pressure half-time: 3.4cm^2. Indexed valve area by pressure half-time: 1.6cm^2/m^2. Left atrium: The atrium was normal in size. Right ventricle: The cavity size was normal. Wall thickness was normal. Systolic function was normal. Pulmonic valve: Structurally normal valve. Doppler: Transvalvular velocity was within the normal range. There was no evidence for stenosis. There was trivial regurgitation. Peak gradient (S): 5.8mm Hg. Tricuspid valve: Structurally normal valve. Doppler: Transvalvular velocity was within the normal range. There was no evidence for stenosis. There was no significant regurgitation. Pulmonary artery: Systolic pressure could not be accurately estimated. Right atrium: The atrium was normal in size. Pericardium: There was no pericardial effusion. Systemic veins: Inferior vena cava: Well visualized. The vessel was patent and normal in size. The respirophasic diameter changes were in the normal range (greater than or equal to 50%). Baseline ECG: Bradycardia. Measurements Left ventricle Value 10/26/2017 Reference LV ID, ED, PLAX 5.4 cm 4.8 3.5 - 6.0 LV ID, ES, PLAX 3.9 cm 3.6 2.1 - 4.0 LV PW thickness, ED, PLAX 1.1 cm 1.1 LV end-diastolic volume, 113 ml 105 1-p A2C LV ejection fraction, 1-p 49 % 42 A2C LV end-diastolic volume, 105 ml 101 1-p A4C LV ejection fraction, 1-p 41 % 39 A4C LV e', lateral 0.077 m/sec LV E/e', lateral 9 LV e', medial 0.042 m/sec LV E/e', medial 17 LV e', average 0.06 m/sec LV E/e', average 12 Ventricular septum Value 10/26/2017 Reference IVS thickness, ED, PLAX 1.0 cm 1.2 LVOT Value 10/26/2017 Reference LVOT ID, A-P 2.0 cm 1.9 LVOT area 3 cm^2 3 LVOT peak velocity, S 0.81 m/sec 0.77 LVOT mean velocity, S 0.64 m/sec LVOT VTI, S 20.5 cm 18.8 LVOT peak gradient, S 2.6 mm Hg LVOT mean gradient, S 1.7 mm Hg 1.4 Stroke volume (SV), LVOT 62 ml DP Stroke index (SV/bsa), 30 ml/m^2 LVOT DP Aortic valve Value 10/26/2017 Reference Aortic valve peak 1.3 m/sec velocity, S Aortic valve mean 1 m/sec 0 velocity, S Aortic valve VTI, S 31.0 cm Aortic mean gradient, S 3.9 mm Hg 4.3 Aortic peak gradient, S 6.6 mm Hg 7.4 VTI ratio, LVOT/AV 0.66 0.55 Aortic valve area, VTI 2 cm^2 1.6 Velocity ratio, peak, 0.63 0.59 LVOT/AV Aortic valve area, peak 1.9 cm^2 1.8 velocity Velocity ratio, mean, 0.67 LVOT/AV Aortic valve area, mean 2 cm^2 velocity Aortic valve area/bsa, 1 cm^2/m^2 mean velocity Aorta Value 10/26/2017 Reference Aortic root ID, ED 3.3 cm 3.2 Ascending aorta ID, A-P, S 3.2 cm 3.2 Left atrium Value 10/26/2017 Reference LA ID, A-P, ES 4.0 cm LA ID/bsa, A-P 1.9 cm/m^2 <=2.2 LA volume/bsa, ES, 1-p A4C 28 ml/m^2 27 LA volume, ES, 2-p 51 ml LA volume/bsa, ES, 2-p 24 ml/m^2 LA/aortic root ratio 1.21 1.25 Mitral valve Value 10/26/2017 Reference Mitral E-wave peak 0.7 m/sec 0.67 velocity Mitral A-wave peak 0.87 m/sec 0.85 velocity Mitral deceleration time 226 ms 340 150 - 230 Mitral pressure half-time 66 ms 99 Mitral E/A ratio, peak 0.81 0.79 Mitral valve area, PHT, DP 3.4 cm^2 2.2 Pulmonary veins Value 10/26/2017 Reference Pulmonary vein peak 0.58 m/sec 0.52 velocity, S Pulmonary vein peak 0.46 m/sec 0.45 velocity, D Pulmonary vein velocity 1.25 1.16 ratio, peak, S/D Pulmonary vein A-wave 0.35 m/sec 0.32 reversal peak velocity Pulmonary vein A-wave 188 ms 120 reversal duration Tricuspid valve Value 10/26/2017 Reference Tricuspid regurg peak 3 m/sec 2.5 velocity Tricuspid peak RV-RA 35.2 mm Hg 25.9 gradient Right atrium Value 10/26/2017 Reference RA area, ES, A4C 15.7 cm^2 14.6 8.3 - 19.5 Pulmonic valve Value 10/26/2017 Reference Pulmonic peak gradient, S 5.8 mm Hg Legend: (L) and (H) zully values outside specified reference range. I have personally reviewed the images and have reviewed and edited the reported findings. Electronically signed by Caio Syed 06/18/2019 12:21
== END 2019-06-18 00:58 ==
PROVIDERS: PCP Emergency Medicine; Visit Provider Emergency Medicine
DX: I42.9 Cardiomyopathy, unspecified (principal); I50.9 Heart failure, unspecified; R06.02 Shortness of breath; I35.8 Other nonrheumatic aortic valve disorders; I10 Essential (primary) hypertension
CPT/HCPCS: 93306

== ENCOUNTER → 2019-07-11 12:18 | Outpatient (BNVA) | payer MEDICARE, OTHER, SELFPAY | PROVIDERS: PCP Emergency Medicine; Visit Provider Internal Medicine Cardiovascular Disease | DX: I25.10 Atherosclerotic heart disease of native coronary artery without angina pectoris (principal); Z95.1 Presence of aortocoronary bypass graft; I25.5 Ischemic cardiomyopathy; I73.9 Peripheral vascular disease, unspecified; I10 Essential (primary) hypertension; E78.2 Mixed hyperlipidemia | CPT/HCPCS: 99214 ==

== ENCOUNTER → 2020-01-14 12:59 | Outpatient (BNVA) | payer MEDICARE, OTHER, SELFPAY | PROVIDERS: PCP Emergency Medicine; Referring Provider Emergency Medicine; Visit Provider Internal Medicine Cardiovascular Disease | DX: I25.10 Atherosclerotic heart disease of native coronary artery without angina pectoris (principal); I42.9 Cardiomyopathy, unspecified; E78.2 Mixed hyperlipidemia; I10 Essential (primary) hypertension | CPT/HCPCS: 99213 ==

== ENCOUNTER → 2020-12-01 10:37 | Outpatient (BNVA) | payer MEDICARE, OTHER, SELFPAY | PROVIDERS: PCP Emergency Medicine; Referring Provider Emergency Medicine; Visit Provider Internal Medicine Cardiovascular Disease | DX: I25.10 Atherosclerotic heart disease of native coronary artery without angina pectoris (principal); Z95.1 Presence of aortocoronary bypass graft; I42.9 Cardiomyopathy, unspecified; Z87.891 Personal history of nicotine dependence; I10 Essential (primary) hypertension | CPT/HCPCS: 99214; 99213 ==

== ENCOUNTER 2021-02-03 03:47 | Outpatient (CLI) | payer MEDICARE, OTHER, SELFPAY ==
[2021-02-03 13:01] LABS: Anion Gap 10.1 mmol/L (3-11); BUN 14 mg/dL (7-18); CO2 28.9 mmol/L (21.0-32.0); CREATININE 1.1 mg/dL (0.70-1.30); Calcium 9.6 mg/dL (8.5-10.1); Chloride 101 mmol/L (98-107); Glucose 137 mg/dL (74-106); Potassium 5.2 mmol/L (3.5-5.1); Sodium 140 mmol/L (136-145)
== END 2021-02-03 03:48 | disposition home or self-care (01) ==
LOC: LOS 03:48
PROVIDERS: PCP Emergency Medicine; Visit Provider Emergency Medicine
DX: I10 Essential (primary) hypertension (principal)
CPT/HCPCS: 36415; 80048

== ENCOUNTER 2021-03-08 03:56 | Outpatient (CLI) | payer MEDICARE, OTHER, SELFPAY ==
[2021-03-08 13:12] LABS: Anion Gap 8.2 mmol/L (3-11); BUN 18 mg/dL (7-18); CO2 27.8 mmol/L (21.0-32.0); CREATININE 1.2 mg/dL (0.70-1.30); Calcium 9.3 mg/dL (8.5-10.1); Chloride 102 mmol/L (98-107); Estimated GFR 58.11 (mL/min/1.73m2); Glucose 102 mg/dL (74-106); Potassium 5.4 mmol/L (3.5-5.1); Sodium 138 mmol/L (136-145)
== END 2021-03-08 03:57 | disposition home or self-care (01) ==
LOC: LOS 03:56
PROVIDERS: PCP Emergency Medicine; Visit Provider Emergency Medicine
DX: I10 Essential (primary) hypertension (principal)
CPT/HCPCS: 36415; 80048

== ENCOUNTER 2021-03-29 02:18 | Outpatient (CLI) | payer MEDICARE, OTHER, SELFPAY ==
[2021-03-29 12:58] LABS: Anion Gap 10.1 mmol/L (3-11); BUN 15 mg/dL (7-18); CO2 28.9 mmol/L (21.0-32.0); Calcium 9.4 mg/dL (8.5-10.1); Chloride 103 mmol/L (98-107); Glucose 103 mg/dL (74-106); Potassium 4.6 mmol/L (3.5-5.1); Sodium 142 mmol/L (136-145)
== END 2021-03-29 02:19 | disposition home or self-care (01) ==
LOC: LOS 02:19
PROVIDERS: PCP Emergency Medicine; Visit Provider Emergency Medicine
DX: I10 Essential (primary) hypertension (principal)
CPT/HCPCS: 36415; 80048

== ENCOUNTER → 2021-06-28 10:22 | Outpatient (BNVA) | payer MEDICARE, OTHER, SELFPAY | PROVIDERS: PCP Emergency Medicine; Referring Provider Emergency Medicine; Visit Provider Internal Medicine Cardiovascular Disease | DX: I25.10 Atherosclerotic heart disease of native coronary artery without angina pectoris (principal); I73.9 Peripheral vascular disease, unspecified; Z95.1 Presence of aortocoronary bypass graft; I10 Essential (primary) hypertension; Z79.899 Other long term (current) drug therapy | CPT/HCPCS: 99214 ==

== ENCOUNTER 2021-07-09 02:09 | Outpatient (CLI) | payer MEDICARE, OTHER, SELFPAY ==
[2021-07-09 12:54] LABS: Absolute Basophil Count 0.05 10^3/uL (0.0-0.2); Absolute Eosinophil Count 0.39 10^3/uL (0.0-0.7); Absolute Lymphocyte Count 1.72 10^3/uL (1.2-3.4); Absolute Monocyte Count 1.03 10^3/uL (0.1-0.8); Absolute Neutrophil Count 5.73 10^3/uL (1.2-6.7); Basophils % 0.6; Eosinophils % 4.3; HGB 13.4 g/dL (13.5-17.5); Immature Grans % 1.1; Lymphocytes % 19.1; MCH 31.4 pg (27.0-33.0); MCHC 33.5 % (32.0-36.0); MCV 93.7 fL (80-95); MPV 9.2 fL (8.0-11.0); Monocytes % 11.4; Neutrophils % 63.5; Nucleated RBC 0 %; Platelet Count 258 10^3/uL (130-400); RBC 4.27 10^6/uL (4.36-5.78); RDW 12.6 % (11.8-14.1); RDW-SD 43.3 fL; WBC 9.02 10^3/uL (4.4-10.8)
[2021-07-09 13:33] LABS: ALT 27 U/L (16-63); AST 16 U/L (15-37); Albumin 4.5 g/dL (3.4-5.0); Alkaline Phosphatase 59 U/L (46-116); Anion Gap 7.6 mmol/L (3-11); BUN 22 mg/dL (7-18); Bilirubin, Total 0.5 mg/dL (0.2-1.0); CO2 28.4 mmol/L (21.0-32.0); CREATININE 1.1 mg/dL (0.70-1.30); Calcium 9.5 mg/dL (8.5-10.1); Calculated LDL 58 mg/dL (<100); Chloride 103 mmol/L (98-107); Cholesterol 133 mg/dL (<200); GGT 33 U/L (15-85); Glucose 110 mg/dL (74-106); HDL Cholesterol 48 mg/dL (40-60); Sodium 139 mmol/L (136-145); TSH 2.41 uIU/mL (0.36-3.74); Total Protein 7.2 g/dL (6.4-8.2); Triglyceride 139 mg/dL (<150)
== END 2021-07-09 02:10 | disposition home or self-care (01) ==
PROVIDERS: PCP Emergency Medicine; Visit Provider Emergency Medicine
DX: E03.9 Hypothyroidism, unspecified (principal); E78.2 Mixed hyperlipidemia; I73.9 Peripheral vascular disease, unspecified; I25.10 Atherosclerotic heart disease of native coronary artery without angina pectoris; I67.89 Other cerebrovascular disease
CPT/HCPCS: 36415; 80053; 80061; 82977; 84443; 85025

== ENCOUNTER → 2022-06-14 00:44 | Outpatient (CLI) | payer MEDICARE, OTHER, SELFPAY ==
--- OUTSIDE RECORDS SUMMARY | 2022-06-14 00:49 | XMS_ITS | Encounter Summary ---
:1940 Author Organization [facility] [address] Care Team Providers Name Role Phone Duncan Mccain DO Primary Care Provider Encounter Details Date Type Department Care Team Description 06/28/2017 Orders Only Vascular Surgery at [place] Gasparosis of carotid artery, unspecified laterality; [facility] [place] [id number] Social History Tobacco Use Types Packs/Day Years Used Date Former Smoker Quit: 01/07/19 89 Smokeless Tobacco: Never Used Alcohol Use Standard Drinks/Week Comments Yes 1 (1 standard drink = 0.6 oz pure alcoho l) Infrequently [place] Alcohol Habits Answer Date Recorded How often do you have a drink containing Not asked alcohol? How many drinks containing alcohol do you have Not asked on a typical day when you are drinking? How often do you have six or more drinks on one Not asked occasion? Comment: Infrequently [place] 10/25/2016 Sex Assigned at Date Recorded Not on file documented as of this encounter Plan of Treatment Not on filedocumented as of this encounter Results BAKARI, legs, multiple levels (05/04/2018 10:57 AM EDT) Component Value Ref Test Analysis Performed At [facility] [place] Range Method Time Signature VB Text Department: Vascular Surgery Lab VASCUBASE Report Patient: [id number] (MASOUD BLACKWOOD) CPT: 13178 ICD10: I70.213;I73.9 Referring Physician: REYES KHAN ?? Indications: Bilateral LE claudication, R>L, ? peripheral pe rfusion Diabetes mellitus: No ICD10 Diagnosis Code: I70.213, I73.9 Findings: Right ?Pressure (mm Hg) ?? BAKARI ??Waveform ? Brachial Artery ?130 ? Common Femoral Artery ?Triphasic ?? Popliteal Artery ? Monophasic ?? Dorsalis Pedis (Ankle) Arter y ?46 ?0.34 ??Monophasic ?? Posterior Tibial (Ankle) Art abdulaziz ??54 ?0.39 ??Monophasic ?? Left ? Pressure (mm Hg) ?? BAKARI ??Waveform ?? Brachial Artery ?137 ? Common Femoral Artery ?Biphasic ?? Popliteal Artery ? Biphasic ?? Dorsalis Pedis (Ankle) Arter y ?84 ?0.61 ??Biphasic ?? Posterior Tibial (Ankle) Artery ??100 ? 0.73 ??Biphasic ?? Interpretation: RIGHT: Moderately severe lower extremity arterial occl usive disease. Disease level, femoral. LEFT: Mild lower extremity arterial occlusive disease. Comparison: ??No previous study in our vascular lab da tabase for comparison. Electronically Signed by: MENDOZA BE on 2018-05-06 09:19 :39 PM VB Text End of Report VASCUBASE Report Specimen (Source) Anatomical Collection Method Collection Time Re ceived Time Location / / Volume Laterality 05/04/2018 10:57 AM EDT Reyes Khan MD VASCULAR ORDERABLES Performing Organization Address City/State/ZIP Code Phon e Number VASCUBASE Cerebrovascular Duplex, Bilateral (05/04/2018 10:57 AM EDT) Component Value Ref Test Analysis Performed At [facility] Range Method Time Signature VB Text Department: Vascular Surgery Lab VASCUBASE Report Patient: [id number] (MASOUD BLACKWOOD) CPT: 34936 ICD10: I65.23 Referring Physician: REYES KHAN ?? Indications: Bilateral carotid stenosis, hx right CEA, ? babar nosis ICD10 Diagnosis Code: I65.23 Findings: ICA Proximal, Right ? PSV (cm/s): 146 ? EDV (cm/s): 14 ? ICA/CCA: 1.2 ? Plaque Structure: Echogenic ? Plaque Surface: Smooth ? %Stenosis: <15% ICA Distal, Right ? PSV (cm/s): 116 ? EDV (cm/s): 14 ? ICA/CCA: 1.0 CCA Distal, Right ? PSV (cm/s): 118 ? EDV (cm/s): 16 ? %Stenosis: <50% CCA Proximal, Right ? PSV (cm/s): 82 ? EDV (cm/s): 8 External Carotid Artery, Right ? PSV (cm/s): 125 ? EDV (cm/s): 0 ? %Stenosis: <50% Vertebral, Right ? PSV (cm/s): 81 ? EDV (cm/s): 13 ? Direction of Flow: Antegrade ICA Proximal, Left ? PSV (cm/s): 93 ? EDV (cm/s): 12 ? ICA/CCA: 0.8 ? Plaque Structure: Echogenic ? Plaque Surface: Irregular ? %Stenosis: 16-49% ICA Distal, Left ? PSV (cm/s): 80 ? EDV (cm/s): 17 ? ICA/CCA: 0.7 CCA Distal, Left ? PSV (cm/s): 115 ? EDV (cm/s): 11 ? %Stenosis: Minimal CCA Proximal, Left ? PSV (cm/s): 147 ? EDV (cm/s): 17 External Carotid Artery, Left ? PSV (cm/s): 202 ? EDV (cm/s): 0 ? %Stenosis: >50% Vertebral, Left ? PSV (cm/s): 70 ? EDV (cm/s): 11 ? Direction of Flow: Antegrade Interpretation: RIGHT: There is smooth plaque in the proximal in ternal carotid artery causing <15% stenosis when compared to the more distal internal ca rotid artery. The bifurcation level is in the mid neck. No significant change compared to previous exam. LEFT: There is irregular doreen que in the proximal internal carotid artery causing 16-49% stenosis when compared to the more distal internal carotid artery. The bifurcation level is in the mid neck. No significant change compared to previous exam. Vertebral Artery Data: Patent vertebral arteries with normal antegrade Doppler waveforms and velocities bilaterally. Previous Carotid Studies: Date ?RIGHT ICA St enosis ??PSV ?? Ratio ?? LEFT ICA Stenosis ?? PSV ?? Ratio ? 70-99% ? 545 ?? 7.10 ? 16-49% ? 95 ?1.20 ? 70-99% ? 671 ?? 7.40 ? n/a ?n/a ?? n/a ? n/a ?97 ?n/a ?n/a ?n/a ?? n/a ? <15% ? 104 ?? 1.40 ? n/a ?n/a ?? n/a ? <15% ? 108 ?? 1.40 ? 16-49% ? 85 ?0.90 Current Exam ? <15% ? 146 ?? 1.20 ? 16-49% ? 93 ?0.80 Electronically Signed by: MENDOZA BE on 2018-05-06 09:22 :42 PM VB Text End of Report VASCUBASE Report Specimen (Source) Anatomical Collection Method Collection Time Re ceived Time Location / / Volume Laterality 05/04/2018 10:57 AM EDT Reyes Khan MD VASCULAR ORDERABLES Performing Organization Address City/State/ZIP Code Phon e Number VASCUBASE documented in this encounter Visit Diagnoses Diagnosis Stenosis of carotid artery, unspecified laterality Intermittent claudication Peripheral vascular disease, unspecified documented in this encounter Care Teams Plaster Die Maker Relationship Specialty Start Date End Date Duncan Mccain DO PCP - General 04/25/[address] [place] [address] documented as of this encounter
--- OUTSIDE RECORDS SUMMARY | 2022-06-14 00:49 | XMS_ITS | Encounter Summary ---
:1940 Author Organization [place] [address] Care Team Providers Name Role Phone Duncan Mccain DO Primary Care Provider Reason for Visit Reason Comments Carotid Stenosis s/p R CEA Encounter Details Date Type Department Care Team Description 12/26/2016 Office Visit Vascular Surgery at Elder Jha S/P carotid [facility] endarterectomy [facility] [address] [place] VASCULAR SURGERY [id number] [place] [address] [phone] Social History Tobacco Use Types Packs/Day Years Used Date Former Smoker Quit: 01/07/19 89 Smokeless Tobacco: Never Used Alcohol Use Standard Drinks/Week Comments Yes 1 (1 standard drink = 0.6 oz pure alcoho l) Infrequently [place] Alcohol Habits Answer Date Recorded How often do you have a drink containing Not asked alcohol? How many drinks containing alcohol do you have Not asked on a typical day when you are drinking? How often do you have six or more drinks on one Not asked occasion? Comment: Infrequently [place] 10/25/2016 Sex Assigned at Date Recorded Not on file documented as of this encounter Last Filed Vital Signs Vital Sign Reading Time Taken Comments Blood Pressure 152/60 12/26/2016 3:08 PM EST Pulse 82 12/26/2016 3:08 PM EST Temperature - - Respiratory Rate 18 12/26/2016 3:08 PM EST Oxygen Saturation - - Inhaled Oxygen Concentration - - Weight 86.2 kg (190 lb) 12/26/2016 3:08 PM EST Height 170.2 cm (5' 7) 12/26/2016 3:08 PM EST Body Mass Index 29.76 12/26/2016 3:08 PM EST documented in this encounter Progress Notes Elder Jha MD - 12/26/2016 3:30 PM EST Reason for Visit Post-discharge visit following right carotid endarterectomy on 11/29/16. CORRY Blackwood is a 76 year-old man who was found to have a severe but asymptomatic right internal carotid artery stenosis in Aug 2016. He had simultaneous recurrent CAD symptoms, and on 10/25/16 a ZEYAD was placed in his circ. His carotid endarterectomy was uneventful on 11/29/16. In clinic today, he reports feeling well and being entirely asymptomatic. His thinks he has a mild right sided lip droop. They both deny interval TIA, stroke, amaurosis fugax. Mr. Blackwood has a very distant h/o stroke 15 years ago. Symptoms affected his vision, speech and left upper extremity, but they all eventually resolved. He cannot recall the work-up done at that time, but carotid surgery was not recommended. He has had no stroke, TIA or amaurosis fugax symptoms since that single event many years ago. He is a former smoker (quit 1988). He is not a diabetic. He takes aspirin and statin. Past Vascular Hx HTN Hyperlipidemia LBBB CABG in 1988. Coronary stenting in 1998. Nitro responsive angina occurred on 12/03/15. Nuclear stress test on 12/30/15 showed severe scar pattern in the proximal to distal LAD territory with a minimal amount of joe-infarct ischemia. Anteroseptal & apical hypokinesis with a calculated LVEF of 57%. TTE on 08/19/16 showed LV chamber size normal. Normal global LV systolic function. LVEF 64% with hypokinesis at the mid to apical septum - although this is confounded by the LBBB that can contribute to abnormal septal motion. RV normal size. RV global systolic function probably normal. No significant valvular abnormalities. Symptoms c/w intermittent claudication but no ABIs in chart. Cardiac Cath was performed on 10/25/16 with a new drug-eluting stent placed in his left circumflex. The bypass graft to his LAD was patent with moderate diffuse disease. The right coronary was calcified, moderate in size, and had mild diffuse disease through its entire length. Recent history is positive for intermittent MCKNIGHT with occasional chest discomfort concerning for recurrent CAD. Other PMH Minimal PSH CABG 1988 Coronary stents 1998 Coronary ZEYAD 2015 Right CEA 11/29/16 Vascular meds Aspirin Yes Plavix Yes Statin Crestor 10 mg daily Beta elisabeth Metoprolol 50 mg twice daily Coumadin No Other meds Updated and reconciled in eDH Allergies NKDA SH , lives with . Prior smoker. Minimal EtOH. Retired. ROS Constitutional Denies fever, chills, fatigue Cardiac Denies recent chest pain, chest pressure Pulmonary Mostly resolved MCKNIGHT. No chronic cough GI Denies nausea, vomiting, diarrhea, constipation Denies UTI symptoms Musculoskeletal No specific symptoms Endocrine No s/s DM Derm Denies new skin lesions Psyche No s/s psychiatric issues Neuro Denies stroke, TIA, amaurosis fugax, dysarthria Physical Exam General Pleasant senior, NAD, 152/60 RIGHT arm, 85 rrr HEENT Normocephalic. Completely healed right CEA incision. Difficult for me to appreciate a lip droop. Carotid pulses Normal pulses. No bruits Radial pulses Normal pulses bilat Upper extremities Full range of motion, no lesions Lungs / chest Clear Heart Distant sounds, no mgr Abdomen Soft, nontender, aorta not readily palpable Lower extremities Full ROM. No gangrenous toes. No ulcers Femoral pulses Normal bilat Popliteal pulses Not readily palpable DP pulses Palpable right only PT pulses Not readily palpable Neuro Grossly normal Psyche Fully oriented Carotid duplex today Widely patent right carotid bifurcation CTA None since carotid surgery Other studies None Impression Nicely recovered from right CEA. Perhaps a mild marginal mandibular deficit, but resolving if actually present. He remains on Plavix & aspirin. The Plavix is for his recent coronary ZEYAD. No cardiac symptoms. 14-49% LEFT carotid stenosis was not reassessed today. No need to do so. Will recheck when he returns in 6 months. Recommendations Continue meds as current RTC 6 months with bilat carotid duplex. Call sooner for any TIA symptoms. Patient wanted to express thanks to Susan Eldridge???Petty. Signed Elder Jha M.D. [facility] Section of Vascular Surgery CC: Susan Norwood DO???Petty TAMAYO documented in this encounter Plan of Treatment Not on filedocumented as of this encounter Visit Diagnoses Diagnosis S/P carotid endarterectomy Other postprocedural status documented in this encounter Care Teams Dragline Operator Helper Relationship Specialty Start Date End Date Duncan Mccain DO PCP - General 04/25/14 [address] [place] [address] documented as of this encounter
--- OUTSIDE RECORDS SUMMARY | 2022-06-14 00:49 | XMS_ITS | Encounter Summary ---
:1940 Author Organization [facility] [place] [address] Care Team Providers Name Role Phone Duncan Mccain DO Primary Care Provider Reason for Visit Reason Onset Date Comments Other 06/19/2018 Encounter Details Date Type Department Care Team Description 06/19/2018 Telephone Vascular Surgery [place] [facility] [place] [address] Social History Tobacco Use Types Packs/Day Years Used Date Former Smoker Quit: 01/07/19 89 Smokeless Tobacco: Never Used Alcohol Use Standard Drinks/Week Comments Yes 1 (1 standard drink = 0.6 oz pure alcoho l) Infrequently [place] Alcohol Habits Answer Date Recorded How often do you have a drink containing Not asked alcohol? How many drinks containing alcohol do you have Not asked on a typical day when you are drinking? How often do you have six or more drinks on one Not asked occasion? Comment: Infrequently [place] 10/25/2016 Sex Assigned at Date Recorded Not on file documented as of this encounter Miscellaneous Notes Telephone Encounter - Almaz Porras - 06/19/2018 10:46 AM EDT Patient called requesting test results from 06/06/18. Emailed Dr. Rojas the patient information. documented in this encounter Plan of Treatment Not on filedocumented as of this encounter Visit Diagnoses Not on filedocumented in this encounter Care Teams Refractory Tile Helper Relationship Specialty Start Date End Date Duncan Mccain DO PCP - General 04/25/[address] [place] [address] [address] [place] [address] documented as of this encounter
--- OUTSIDE RECORDS SUMMARY | 2022-06-14 00:49 | XMS_ITS | Encounter Summary ---
:1940 Author Organization [facility] [place] [address] Care Team Providers Name Role Phone Duncan Mccain DO Primary Care Provider Encounter Details Date Type Department Care Team Description 06/06/2018 Laboratory Appointment Lab 3L Gilbert Cruz PAD ([facility] artery disease) [place] [address] Social History Tobacco Use Types Packs/Day Years Used Date Former Smoker Quit: 01/07/19 89 Smokeless Tobacco: Never Used Alcohol Use Standard Drinks/Week Comments Yes 1 (1 standard drink = 0.6 oz pure alcoho l) Infrequently [place] Alcohol Habits Answer Date Recorded How often do you have a drink containing Not asked alcohol? How many drinks containing alcohol do you have Not asked on a typical day when you are drinking? How often do you have six or more drinks on one Not asked occasion? Comment: Infrequently [place] 10/25/2016 Sex Assigned at Date Recorded Not on file documented as of this encounter Plan of Treatment Not on filedocumented as of this encounter Procedures Procedure Name Priority Date/Time Associated Diagnosis Comme nts CREATININE STAT 06/06/2018 10:32 AM PAD (peripheral Resul ts for this EDT artery disease) procedure ar e in the results section . documented in this encounter Results Creatinine (06/06/2018 10:32 AM EDT) P athologist Signature Creatinine 1.06 0.80 - GILBERT CRUZ 1.50 mg/dL [facility] Estimated GFR 67 >=60 GILBERT CRUZ mL/min/1.7 [facility] 3 m? [facility] Comment: The eGFR was calculated using the CKD-EP I equation. As with all creatinine based estimates of kidney function, eGFR values calculated with the CKD-EPI equation are not accurate in patients wi th acute kidney failure, extremes of body mass or the acutely ill. [email or web address].comnkdep [email or web address]/kozaza.comMCnkf eGFR 78 >=60 mL/min/1.73 m?? [facility] Comment: The eGFR was calculated using the CKD-EP I equation. As with all creatinine based estimates of kidney function, eGFR values calculated with the CKD-EPI equation are not accurate in patients wi th acute kidney failure, extremes of body mass or the acutely ill. [email or web address].comnkdep http://[employer]/Avenda Systemsnkf Specimen Anatomical Collection Method Collection Time Receive d Time (Source) Location / / Volume Laterality Blood specimen 06/06/2018 10:32 8 (specimen) AM EDT 10:41 AM EDT Resulting Agency Comment Spec In Lab Kain Rojas MD CHEMISTRY ORDERABLES Performing Organization Address City/State/[place] [address] documented in this encounter Visit Diagnoses Diagnosis PAD (peripheral artery disease) Peripheral vascular disease, unspecified documented in this encounter Care Teams Service Clerk Relationship Specialty Start Date End Date Duncan Mccain DO PCP - General 04/25/[address] [place] [address] documented as of this encounter
--- OUTSIDE RECORDS SUMMARY | 2022-06-14 00:49 | XMS_ITS | Encounter Summary ---
:1940 Author Organization [facility] [place] [address] Care Team Providers Name Role Phone Duncan Mccain DO Primary Care Provider Reason for Visit Reason Comments Medication Refill Encounter Details Date Type Department Care Team Description 06/13/2019 Refill Vascular Surgery at [place] Bashir Waddell MD [facility] [place] [address] VASCULAR SURGERY [phone] [place] [id number] (Wo rk) Social History Tobacco Use Types Packs/Day Years Used Date Former Smoker Quit: 01/07/19 89 Smokeless Tobacco: Never Used Alcohol Use Standard Drinks/Week Comments Yes 1 (1 standard drink = 0.6 oz pure alcoho l) Infrequently [place] Light Alcohol Habits Answer Date Recorded How often do you have a drink containing Not asked alcohol? How many drinks containing alcohol do you have Not asked on a typical day when you are drinking? How often do you have six or more drinks on one Not asked occasion? Comment: Infrequently [place] 10/25/2016 Sex Assigned at Date Recorded Not on file documented as of this encounter Plan of Treatment Not on filedocumented as of this encounter Visit Diagnoses Not on filedocumented in this encounter Care Teams Messenger Copy Relationship Specialty Start Date End Date Duncan Mccain DO PCP - General 04/25/[address] [place] [address] documented as of this encounter
--- OUTSIDE RECORDS SUMMARY | 2022-06-14 00:49 | XMS_ITS | Encounter Summary ---
:1940 Author Organization [facility] [place] [address] Care Team Providers Name Role Phone Duncan Mccain DO Primary Care Provider Encounter Details Date Type Department Care Team Description 10/30/2019 Orders Only Vascular Surgery at [place] Gaspar tenosis of carotid artery, unspecified laterality; [facility] [place], RN PAD (peripheral artery dise[place] se) [place] [id number] Social History Tobacco Use Types Packs/Day Years Used Date Former Smoker Quit: 01/07/19 89 Smokeless Tobacco: Never Used Alcohol Use Standard Drinks/Week Comments Yes 1 (1 standard drink = 0.6 oz pure alcoho l) Infrequently [place] Light Alcohol Habits Answer Date Recorded How often do you have a drink containing Not asked alcohol? How many drinks containing alcohol do you have Not asked on a typical day when you are drinking? How often do you have six or more drinks on one Not asked occasion? Comment: Infrequently [place] Light 10/25/2016 Sex Assigned at Date Recorded Not on file documented as of this encounter Plan of Treatment Not on filedocumented as of this encounter Visit Diagnoses Diagnosis Stenosis of carotid artery, unspecified laterality PAD (peripheral artery disease) Peripheral vascular disease, unspecified documented in this encounter Care Teams Batch Maker Relationship Specialty Start Date End Date Duncan Mccain DO PCP - General 04/25/[address] [place] [address] documented as of this encounter
--- OUTSIDE RECORDS SUMMARY | 2022-06-14 00:49 | XMS_ITS | Encounter Summary ---
:1940 Author Organization [facility] [place] [address] Care Team Providers Name Role Phone Duncan Mccain DO Primary Care Provider Reason for Referral Diagnostic Test (Routine) - Closed Specialty Diagnoses / Procedures Referred By Contact Refer red To Contact Radiology Diagnoses PAD (peripheral artery disease) [facility] Vascular Surg [facility] Rad [facility] Scan Procedures CT Angiogram Aorta Lower [place] [address] [place] [address] Phone: Referral ID Status Reason Start Date Expiration Date Visits V isits Requested Authorized [id number] Closed Specialty 05/08/2018 05/08/2019 1 1 Service Requested Encounter Details Date Type Department Care Team Description 05/08/2018 Orders Only Vascular Surgery at [facility], [facility] (per ipheral artery [facility] Tracey Pedersen RN disease) [place] [address] Social History Tobacco Use Types Packs/Day Years Used Date Former Smoker Quit: 01/07/19 89 Smokeless Tobacco: Never Used Alcohol Use Standard Drinks/Week Comments Yes 1 (1 standard drink = 0.6 oz pure alcoho l) Infrequently [place] Alcohol Habits Answer Date Recorded How often do you have a drink containing Not asked alcohol? How many drinks containing alcohol do you have Not asked on a typical day when you are drinking? How often do you have six or more drinks on one Not asked occasion? Comment: Infrequently [place] 10/25/2016 Sex Assigned at Date Recorded Not on file documented as of this encounter Plan of Treatment Not on filedocumented as of this encounter Results CT Angiogram Aorta Lower Extremity Runoff (06/06/2018 1:26 PM EDT) Anatomical Region Laterality Modality Abdomen Computed Tomography Specimen (Source) Anatomical Location Collection Method / Collectio n Time Received Time / Laterality Volume Impressions 06/06/2018 4:23 PM EDT SFA and proximal popliteal artery dominant disease with severe stenoses in the RIGHT and mild to moderate stenosis on t he LEFT as detailed above. Narrative 06/06/2018 4:23 PM EDT EXAMINATION: CT ANGIOGRAM AORTA LOWER EXTREMITY RUNOFF CLINICAL HISTORY: PAD, Right leg rest pa in, left leg claudication TECHNIQUE: Helical CTA of the abdomen, p [place] and lower extremities was performed following intravenous administ ration of 150cc of Omnipaque 350. MPRs were performed. 3-D images were generate d on an independent workstation. COMPARISON: None FINDINGS: VASCULAR FINDINGS Abdominal aorta: No stenosis or aneurysm . Celiac: Mild, less than 50%, focal steno sis at the origin. No splenic artery aneurysm is present. SMA: No stenosis. LEFT renal artery: No stenosis. RIGHT renal artery: There are 2 RIGHT re nal arteries with the accessory renal artery supplying the lower pole having o rigin approximately 9 cm inferior to the dominant vessel coming from the aorta ju st above the bifurcation. MERCEDES: No stenosis. RIGHT LOWER EXTREMITY Common iliac artery: Widely patent. External iliac artery: Widely patent. Internal iliac artery: Widely patent. Common femoral artery: Mild, less than 5 0% stenosis in the proximal half. Superficial femoral artery: 2 cm moderat e to severe stenosis in the mid vessel segment Profundus femoral artery: Widely patent. Popliteal artery: 8 cm long segment of s evere stenosis in the above the joint space popliteal artery. Anterior tibial artery: Widely patent. Tibio-peroneal trunk: Desiccation in the distal segment resulting in moderate to severe stenosis. Posterior tibial artery: Widely patent. Peroneal artery: Widely patent. Dorsalis pedis: Widely patent. Plantar arteries: Widely patent. LEFT LOWER EXTREMITY Common iliac artery: Widely patent. External iliac artery: Widely patent. Internal iliac artery: Widely patent. Common femoral artery: Widely patent. Superficial femoral artery: Approximatel y 8 cm long segment of scattered mild to moderate stenoses in the distal SFA and proximal popliteal artery. Profundus femoral artery: Segment of mil d to moderate stenoses in the proximal popliteal artery segment as detailed abo ve. Popliteal artery: Widely patent Anterior tibial artery: Widely patent. Tibio-peroneal trunk: Widely patent. Posterior tibial artery: Widely patent. Peroneal artery: Widely patent. Dorsalis pedis: Widely patent. Plantar arteries: Widely patent. NON-VASCULAR FINDINGS Lower chest: Normal. Liver: Normal. Bile ducts: Nondilated. Gallbladder: Respiratory motion artifact limits evaluation for the presence of the gallbladder. The gallbladder is pres ent. Is likely decompressed. Pancreas: Normal attenuation without nargis jose e dilatation. Spleen: Normal. Kidneys/adrenals: Normal. Urinary Bladder: Normal. Lymph Nodes: No enlarged lymph nodes. Bowel: Nondilated, no wall thickening. ? ? Peritoneum and mesentery: No ascites, fr ee air, or loculated fluid collection. No mesenteric inflammation. Osseous structures: Mild age-related deg enerative changes present throughout the visualized spine which include anterior disc osteophyte complexes and facet hypertrophy. Procedure Note Elder Chino MD - 06/06/2018Form atting of this note might be different from the original. EXAMINATION: CT ANGIOGRAM AORTA LOWER EX TREMITY RUNOFF CLINICAL HISTORY: PAD, Right leg rest pa in, left leg claudication TECHNIQUE: Helical CTA of the abdomen, p [place] and lower extremities was performed following intravenous administ ration of 150cc of Omnipaque 350. MPRs were performed. 3-D images were generate d on an independent workstation. COMPARISON: None FINDINGS: VASCULAR FINDINGS Abdominal aorta: No stenosis or aneurysm . Celiac: Mild, less than 50%, focal steno sis at the origin. No splenic artery aneurysm is present. SMA: No stenosis. LEFT renal artery: No stenosis. RIGHT renal artery: There are 2 RIGHT re nal arteries with the accessory renal artery supplying the lower pole having o rigin approximately 9 cm inferior to the dominant vessel coming from the aorta ju st above the bifurcation. MERCEDES: No stenosis. RIGHT LOWER EXTREMITY Common iliac artery: Widely patent. External iliac artery: Widely patent. Internal iliac artery: Widely patent. Common femoral artery: Mild, less than 5 0% stenosis in the proximal half. Superficial femoral artery: 2 cm moderat e to severe stenosis in the mid vessel segment Profundus femoral artery: Widely patent. Popliteal artery: 8 cm long segment of s evere stenosis in the above the joint space popliteal artery. Anterior tibial artery: Widely patent. Tibio-peroneal trunk: Desiccation in the distal segment resulting in moderate to severe stenosis. Posterior tibial artery: Widely patent. Peroneal artery: Widely patent. Dorsalis pedis: Widely patent. Plantar arteries: Widely patent. LEFT LOWER EXTREMITY Common iliac artery: Widely patent. External iliac artery: Widely patent. Internal iliac artery: Widely patent. Common femoral artery: Widely patent. Superficial femoral artery: Approximatel y 8 cm long segment of scattered mild to moderate stenoses in the distal SFA and proximal popliteal artery. Profundus femoral artery: Segment of mil d to moderate stenoses in the proximal popliteal artery segment as detailed abo ve. Popliteal artery: Widely patent Anterior tibial artery: Widely patent. Tibio-peroneal trunk: Widely patent. Posterior tibial artery: Widely patent. Peroneal artery: Widely patent. Dorsalis pedis: Widely patent. Plantar arteries: Widely patent. NON-VASCULAR FINDINGS Lower chest: Normal. Liver: Normal. Bile ducts: Nondilated. Gallbladder: Respiratory motion artifact limits evaluation for the presence of the gallbladder. The gallbladder is pres ent. Is likely decompressed. Pancreas: Normal attenuation without nargis jose e dilatation. Spleen: Normal. Kidneys/adrenals: Normal. Urinary Bladder: Normal. Lymph Nodes: No enlarged lymph nodes. Bowel: Nondilated, no wall thickening. Peritoneum and mesentery: No ascites, fr ee air, or loculated fluid collection. No mesenteric inflammation. Osseous structures: Mild age-related deg enerative changes present throughout the visualized spine which include anterior disc osteophyte complexes and facet hypertrophy. IMPRESSION SFA and proximal popliteal artery domina nt disease with severe stenoses in the RIGHT and mild to moderate stenosis on t he LEFT as detailed above. Kain Rojas MD IMG CT ORDERABLES Creatinine (06/06/2018 10:32 AM EDT) P athologist Signature Creatinine 1.06 0.80 - [facility] 1.50 mg/dL [facility] Estimated GFR 67 >=60 [facility] mL/min/1.7 [facility] 3 m?? [facility] Comment: The eGFR was calculated using the CKD-EP I equation. As with all creatinine based estimates of kidney function, eGFR values calculated with the CKD-EPI equation are not accurate in patients wi th acute kidney failure, extremes of body mass or the acutely ill. [email or web address] [email or web address] eGFR 78 >=60 mL/min/1.73 m?? [facility] Comment: The eGFR was calculated using the CKD-EP I equation. As with all creatinine based estimates of kidney function, eGFR values calculated with the CKD-EPI equation are not accurate in patients wi th acute kidney failure, extremes of body mass or the acutely ill. [email or web address] [email or web address]/DHMCnkf Specimen Anatomical Collection Method Collection Time Receive d Time (Source) Location / / Volume Laterality Blood specimen 06/06/2018 10:32 8 (specimen) AM EDT 10:41 AM EDT Resulting Agency Comment Spec In Lab Kain Rojas MD CHEMISTRY ORDERABLES Performing Organization Address City/State/ZIP [place] [address] documented in this encounter Visit Diagnoses Diagnosis PAD (peripheral artery disease) Peripheral vascular disease, unspecified PAD (peripheral artery disease) Peripheral vascular disease, unspecified documented in this encounter Care Teams Exerciser Horse Relationship Specialty Start Date End Date Duncan Mccain DO PCP - General 04/25/[address] [place] [address] documented as of this encounter
--- OUTSIDE RECORDS SUMMARY | 2022-06-14 00:49 | XMS_ITS | Encounter Summary ---
:1940 Author Organization [facility] [place] [address] Care Team Providers Name Role Phone Duncan Mccain DO Primary Care Provider Reason for Visit Reason Onset Date Comments Appointment 04/30/2018 bilateral leg pain x 6 months Encounter Details Date Type Department Care Team Description 04/30/2018 Telephone [facility] at [facility] (bilateral [facility] Nuvia RN leg pain x 6 months) [place] [address] Social History Tobacco Use Types Packs/Day Years Used Date Former Smoker Quit: 01/07/19 89 Smokeless Tobacco: Never Used Alcohol Use Standard Drinks/Week Comments Yes 1 (1 standard drink = 0.6 oz pure alcoho l) Infrequently [place] Alcohol Habits Answer Date Recorded How often do you have a drink containing Not asked alcohol? How many drinks containing alcohol do you have Not asked on a typical day when you are drinking? How often do you have six or more drinks on one Not asked occasion? Comment: Infrequently [place] 10/25/2016 Sex Assigned at Date Recorded Not on file documented as of this encounter Miscellaneous Notes Telephone Encounter - [facility] RN - 04/30/2018 8:10 AM EDT Caller: sydni Morales name & Andrew reports ongoing issue with bilateral leg pain. Last appt in Vascular one year ago. Leg pain is now making it difficult for him to walk outside in the yard. Has increased activity withthe warmer weather. Gave call to [place] to [facility] with Dr Jha or an associate provider Ms Z understands and agrees to plan of care. documented in this encounter Plan of Treatment Not on filedocumented as of this encounter Visit Diagnoses Not on filedocumented in this encounter Care Teams Ship Officer Relationship Specialty Start Date End Date Duncan Mccain DO PCP - General 04/25/14 [address] [place] [address] documented as of this encounter
--- OUTSIDE RECORDS SUMMARY | 2022-06-14 00:49 | XMS_ITS | Encounter Summary ---
:1940 Author Organization [facility] [address] Care Team Providers Name Role Phone Duncan Mccain DO Primary Care Provider Reason for Referral Diagnostic Test (Routine) - Closed Specialty Diagnoses / Procedures Referred By Contact Refer red To Contact Radiology Diagnoses PAD (peripheral artery disease) Kain Rojas MD [facility] Rad Procedures VS Arteriogram Lower Extremity Vascular Surgery [facility] [place] [address] [place] [address] Referral ID Status Reason Start Date Expiration Date Visits V isits Requested Authorized [id number] Closed Specialty 07/06/2018 07/06/2019 1 1 Service Requested Reason for Visit Diagnostic Test (Routine) - Closed Specialty Diagnoses / Procedures Referred By Contact Refer red To Contact Radiology Diagnoses PAD (peripheral artery disease) Kain Rojas MD [facility] Rad Procedures VS Arteriogram Lower Extremity Vascular Surgery [facility] [place] [address] [place] [address] Referral ID Status Reason Start Date Expiration Date Visits V isits Requested Authorized [id number] Closed Specialty 07/06/2018 07/06/2019 1 1 Service Requested Encounter Details Date Type Department Care Team Description 08/31/2018 Hospital Encounter Radiology at [facility] Kain Rojas PAD ([facility] MD artery disease) [place], [place] [address] VASCULAR SURGERY [phone] [place] [address] Social History Tobacco Use Types Packs/Day Years Used Date Former Smoker Quit: 01/07/19 89 Smokeless Tobacco: Never Used Alcohol Use Standard Drinks/Week Comments Yes 1 (1 standard drink = 0.6 oz pure alcoho l) Infrequently [place] Alcohol Habits Answer Date Recorded How often do you have a drink containing Not asked alcohol? How many drinks containing alcohol do you have Not asked on a typical day when you are drinking? How often do you have six or more drinks on one Not asked occasion? Comment: Infrequently [place] Light 10/25/2016 Sex Assigned at Date Recorded Not on file documented as of this encounter Last Filed Vital Signs Vital Sign Reading Time Taken Comments Blood Pressure 112/75 08/31/2018 12:00 PM EDT Pulse 72 08/31/2018 9:45 AM EDT Temperature 36 ??C (96.8 ??F) 08/31/2018 9:55 AM EDT Respiratory Rate 28 08/31/2018 11:30 AM EDT Oxygen Saturation 97% 08/31/2018 12:00 PM EDT Inhaled Oxygen Concentration - - Weight 86.6 kg (191 lb) 08/31/2018 7:00 AM EDT Height - - Body Mass Index 30.83 07/06/2018 1:39 PM EDT documented in this encounter Discharge Instructions Discharge Regis Hammond RN - 08/31/2018 8:47 AM EDT [facility] Interventional Radiology Post Angiography Instructions Procedure: Right Lower Extremity Angiogram Puncture Site: Left Groin Date: 08/31/18 Physician: Dr. Rojas/ Dr. Waddell 1. At home we advise you to rest quietly in bed or on the couch with your hip straight until the next morning. Until the next morning you may get up only to go to the bathroom. 2. Resume your previous diet. Drink 6-8 ounces of fluid per hour for the next 8 hours. Avoid alcoholic or caffeinated beverages for 24 hours. 3. Avoid strenuous activity for the next 48 hours, particularly in the next 24 hours. Stair climbingshould be kept to a minimum. Do not lift objects heavier than 10-15 pounds for the next 48 hours Avoid straining for bowel movements as you can pop open the clot that has formed on the artery. 4. If you develop bulging under the skin or bleeding at the puncture site, put direct pressure on the puncture site for 15 minutes and call your doctor. If the bleeding persists, reapply pressure, and go to your local Emergency Department. 5. If you notice a sudden change in the feeling (numbness, tingling and/or pain) of your leg on the side of the puncture call your doctor. 6. You may develop a bruise at the puncture site. This should go away within a week to 10 days. If abulge develops after the first three days, call your doctor or the Radiology/Vascular Department here. Report signs of infection (redness, swelling, discharge, soreness, or fever) to your doctor. 7. Leave the bandage on for 24-48 hours. You may shower the following day after the procedure. You should NOT swim or tub bathe for [address] for 24 hours after the procedure. Do not sign any important documents or smoke unattended for 24 hours. You may return to work with the above restrictions on . 9. If you have any questions or concerns, please call Interventional Radiology Department at until 6pm. After 6pm, or on weekends or hoildays, call and ask for the vice president network correctional nurse. OR XX Vascular Department at until 4:45pm. After 4:45pm call and ask forthe Vascular resident correctional nurse. 10. If you are a diabetic and take Metformin or Janumet, Do not take it for 2 days after the procedure. XX You have received medication during your procedure to help lesson anxiety and keep you comfortable and which affects judgement and reaction time. We recommend that you do not drive, operate equipment, sign any important documents, or smoke unattended for 24 hours following your procedure. Because of the sedation please be careful on stairs, as you may be unsteady on your feet. You may resume your regular diet as tolerated. IV site -- slight redness, or tenderness is normal, you can use a warm compress. If tenderness and redness increases or foul drainage occurs, please contact your M. D. Revised 12/11/15 documented in this encounter Medications at Time of Discharge Medication Sig Dispensed Refills Start Date End Date furosemide (LASIX) 20 0 07/01/2018 mg Tablet metoprolol succinate 0 06/26/2018 (TOPROL-XL) 50 mg Tablet Sustained Release 24 hr acetaminophen (TYLENOL) Take 1 tablet by mouth 30 tablet 1 11/30/2016 500 mg Tablet every 4 hours as needed for Pain or Fever. ascorbic acid, vitamin Take 500 mg by mouth. 0 C, (VITAMIN C) 500 mg Tablet, Chewable FLUZONE HIGH-DOSE 0 08/18/20152014-, PF, 180 mcg/0.5 mL Syringe POLY-IRON 150 FORTE 0 12/23/2015 150-25-1 mg-mcg-mg Capsule amLODIPine (NORVASC) 10 Take 10 mg by mouth 0 11/2015 mg Tablet daily. metoprolol tartrate Take 50 mg by mouth 2 0 (LOPRESSOR) 50 mg times daily. tabletIndications: Indications: hypertension Hypertension aspirin 81 mg EC Take 81 mg by mouth 0 tabletIndications: daily. Indications: thrombosis prevention Thrombosis Prevention after PCI after PCI lisinopril Take 40 mg by mouth 0 (PRINIVIL;ZESTRIL) 40 daily. Indications: mg tabletIndications: Hypertension hypertension nitroGLYcerin Place 0.4 mg under the 0 (NITROSTAT) 0.4 mg SL tongue every 5 minutes tabletIndications: as needed. Reported on angina 11/15/2016 Indications: Angina rosuvastatin (CRESTOR) Take 10 mg by mouth 0 10 mg tablet daily. clopidogrel (PLAVIX) 75 Take 1 tablet by mouth 90 tablet 0 08/31/2018 11/29/2018 mg Tablet daily for 90 days. documented as of this encounter Progress Notes Regis Cochran RN - 08/31/2018 7:40 AM EDT To procedure room 1 via stretcher. Onto table Supine. All monitors, O2, safety strap in place. Med'sper protocol. Angio only post procedure: Time sheath removed: 932 Side: LEFT Closure device used: Mynx Hematoma present? No Site release time: 944 Anticipated up time: 1145 Regis Cochran RN - 08/28/2018 10:21 AM EDT ANGIO NURSING DATABASE Name: MASOUD BLACKWOOD Date of : 1940 AGE 78 y.o. Address: [address] [place] [phone] (home) Mobile: No relevant phone numbers on file. Referring Provider: Kain Rojas REASON FOR VISIT: Laterality Right Reason for exam and clinical history: PVD Exam/Procedure requested: RLE angio/intervention Is the patient on anticoagulant / anitplatelet therapy ? Aspirin continue Date/time of procedure: 08/31 @ 3206 Pertinent info from Pre-call (if any): Labs ordered: Creatinine Med's stopped: Furosemide to hold that day A/P: 78yo male s/p R CEA in 2017 for asymptomatic severe stenosis, now with worsening short distanceRLE claudication. Plan for RLE angiogram/intervention. ?? -con't asa and statin -RLE angiogram/intervention, tentatively scheduled for 08/31/18 -will need repeat carotid duplex in 04/2019 ?? Kain Rojas MD No Known Allergies Pertinent PMH: Patient Active Problem List Diagnosis Code ??? ASCVD (arteriosclerotic cardiovascular disease) I25.10 ??? Elevated blood pressure [id number] ??? Hyperlipemia E78.5 ??? LBBB (left bundle branch block) I44.7 ??? Carotid stenosis I65.29 ??? PAD (peripheral artery disease) I73.9 Pertinent PSH: Past Surgical History: Procedure Laterality Date ??? PRO COLONOSCOPY, DIAGNOSTIC 05/28/2014 COLONOSCOPY, DIAGNOSTIC performed by Philippe Khan MD at [facility] ENDOSCOPY ??? PRO THROMBOENDARTECTMY NECK, NECK INCIS Right 11/29/2016 @ENDARTERECTOMY, CAROTID, VERTEBRAL,SUBCLAVIAN W\WO PATCH GRAFT (WRVU 21.16) performed by Elder Jha MD at [facility] MAIN OR ??? PRO UPPER GI ENDOSCOPY, DIAGNOSTIC 05/28/2014 EGD, UPPER GI ENDOSCOPY performed by Philippe Khan MD at [facility] ENDOSCOPY Date/Procedure Med's given/comments 08/31/18 RLE Angiogram Fentanyl 225 mcg IV Versed 3 mg IV Ancef 2 gm IV Heparin 8000 units IV Protamine 20 mg IVPB Laboratory Results: Lab Results Component Value Date CREATININE 1.06 06/06/2018 Lab Results Component Value Date K 4.2 11/15/2016 Lab Results Component Value Date PLATELET 278 11/15/2016 Medications: Prior to Admission medications Medication Sig Start Date End Date Taking? Authorizing Provider furosemide (LASIX) 20 mg Tablet 07/01/18 PROVIDER, HISTORICAL metoprolol succinate (TOPROL-XL) 50 mg Tablet Sustained Release 24 hr 06/26/18 PROVIDER, HISTORICAL acetaminophen (TYLENOL) 500 mg Tablet Take 1 tablet by mouth every 4 hours as needed for Pain or Fever. 11/30/16 Elder Jha MD ascorbic acid, vitamin C, (VITAMIN C) 500 mg Tablet, Chewable Take 500 mg by mouth. PROVIDER, HISTORICAL FLUZONE HIGH-DOSE , PF, 180 mcg/0.5 mL Syringe 08/18/15 PROVIDER, HISTORICAL POLY-IRON 150 FORTE 150-25-1 mg-mcg-mg Capsule 12/23/15 PROVIDER, HISTORICAL amLODIPine (NORVASC) 10 mg Tablet Take 10 mg by mouth daily. 12/28/15 PROVIDER, HISTORICAL metoprolol tartrate (LOPRESSOR) 50 mg tablet Take 50 mg by mouth 2 times daily. Indications: Hypertension PROVIDER, HISTORICAL aspirin 81 mg EC tablet Take 81 mg by mouth daily. Indications: Thrombosis Prevention after PCI PROVIDER, HISTORICAL lisinopril (PRINIVIL;ZESTRIL) 40 mg tablet Take 40 mg by mouth daily. Indications: Hypertension PROVIDER, HISTORICAL nitroGLYcerin (NITROSTAT) 0.[address] 0.4 mg under the tongue every 5 minutes as needed. Reported on 11/15/2016 Indications: Angina PROVIDER, HISTORICAL rosuvastatin (CRESTOR) 10 mg tablet Take 10 mg by mouth daily. PROVIDER, HISTORICAL documented in this encounter H&P Notes Bashir Waddell MD - 08/31/2018 7:10 AM EDT Vascular Surgery History and Physical HPI: Masoud Blackwood is a 78 y.o. male with history of HTN, HLD, CAD s/p CABG (1988) and PCI (1994 & 2015), CVA (2001) without residual deficits, UBALDO s/p R CEA (2016) for asymptomatic stenosis and RLE claudication following only 2-3 minutes of ambulation. Denies rest pain or tissue loss. Patient presents today for RLE arteriogram with intervention as indicated. Patient denies recent changes to his health. Denies recent CP, SOB, MCKNIGHT, PND, orthopnea. Patient is maintained on daily ASA and statin (previously took plavix). Review of Systems: A full review encompassing at least 10 organ systems including general, neuro, pulm, cardiac, GI, , MSK, Endo, and psych was negative other than that listed in the HPI. Past Medical History: Past Medical History: Diagnosis Date ??? Carotid stenosis 09/13/2016 Past Surgical History: Past Surgical History: Procedure Laterality Date ??? PRO COLONOSCOPY, DIAGNOSTIC 05/28/2014 COLONOSCOPY, DIAGNOSTIC performed by Philippe Khan MD at [facility] ENDOSCOPY ??? PRO THROMBOENDARTECTMY NECK, NECK INCIS Right 11/29/2016 @ENDARTERECTOMY, CAROTID, VERTEBRAL,SUBCLAVIAN W\WO PATCH GRAFT (WRVU 21.16) performed by Elder Jha MD at [facility] MAIN OR ??? PRO UPPER GI ENDOSCOPY, DIAGNOSTIC 05/28/2014 EGD, UPPER GI ENDOSCOPY performed by Philippe Khan MD at [facility] ENDOSCOPY Functional Status/Social Hx: Lives at home, Former smoker Family Hx: Negative for Thrombosis, Bleeding Disorders Medications: Current Outpatient Prescriptions on File Prior to Encounter Medication Sig Dispense Refill ??? ascorbic acid, vitamin C, (VITAMIN C) 500 mg Tablet, Chewable Take 500 mg by mouth. ??? POLY-IRON 150 FORTE 150-25-1 mg-mcg-mg Capsule 0 ??? amLODIPine (NORVASC) 10 mg Tablet Take 10 mg by mouth daily. 0 ??? aspirin 81 mg EC tablet Take 81 mg by mouth daily. Indications: Thrombosis Prevention after PCI ??? lisinopril (PRINIVIL;ZESTRIL) 40 mg tablet Take 40 mg by mouth daily. Indications: Hypertension ??? rosuvastatin (CRESTOR) 10 mg tablet Take 10 mg by mouth daily. ??? acetaminophen (TYLENOL) 500 mg Tablet Take 1 tablet by mouth every 4 hours as needed for Pain orFever. 30 tablet 1 ??? FLUZONE HIGH-DOSE 2014-, PF, 180 mcg/0.5 mL Syringe 0 ??? metoprolol tartrate (LOPRESSOR) 50 mg tablet Take 50 mg by mouth 2 times daily. Indications: Hypertension ??? nitroGLYcerin (NITROSTAT) 0.[address] 0.4 mg under the tongue every 5 minutes as needed. Reported on 11/15/2016 Indications: Angina No current facility-administered medications on file prior to encounter. Allergies: Review of patient's allergies indicates no known allergies. Physical Exam: Temp: -- Heart Rate: -- Resp: -- BP: -- SpO2: -- Heart Rate from SPO2: -- General: NAD, resting comfortably HEENT: PERRL, anicteric sclerae CVS: Regular rate Pulm: Clear bilaterally Abd: Soft, non tender, non distended Ext: RLE: No edema. Skin warm and pink. No tissue loss. LLE: No edema. Skin warm and pink. No tissue loss. Neuro: Grossly nonfocal, moving all extremities. Vascular Exam: R L Carotid 2/2 2/2 Radial 2/2 2/2 Femoral 2/2 2/2 DP Signal Signal PT Signal Signal Labs: No results for input(s): WBC, HGB, HCT, PLATELET in the last 72 hours. No results for input(s): NA, K, CL, CO2, BUN, CREATININE, PHOS, CALCIUM in the last 72 hours. Studies/Imaging: CTA BLE Runoff (06/06/2018): SFA and proximal popliteal artery dominant disease with severe stenoses in the RIGHT and mild to moderate stenosis on the LEFT as detailed above. ABIs (05/04/2018): Findings: Right ?Pressure (mm Hg) ?? BAKARI ??Waveform ? Brachial Artery ?130 ? Common Femoral Artery ?Triphasic ?? Popliteal Artery ? Monophasic ?? Dorsalis Pedis (Ankle) Artery ?46 ?0.34 ??Monophasic ?? Posterior Tibial (Ankle) Artery ??54 ?0.39 ??Monophasic ?? Left ? Pressure (mm Hg) ?? BAKARI ??Waveform ?? Brachial Artery ?137 ? Common Femoral Artery ?Biphasic ?? Popliteal Artery ? Biphasic ?? Dorsalis Pedis (Ankle) Artery ?84 ?0.61 ??Biphasic ?? Posterior Tibial (Ankle) Artery ??100 ? 0.73 ??Biphasic ?? Interpretation: RIGHT: Moderately severe lower extremity arterial occlusive disease. Disease level, femoral. LEFT: Mild lower extremity arterial occlusive disease. Assessment and Plan: Masoud Blackwood is a 78 y.o. male with history as outlined above with RLE claudication. Plan for RLE arteriogram with intervention as indicated. Risks, benefits, and alternatives were discussed and patient elects to proceed. ASA: 3 Mal: II Cr: PENDING this AM Sedation Plan: Moderate sedation with versed & fentanyl Sindhu Waddell Vascular Surgery, PGY3 Pager #[phone] documented in this encounter Procedure Notes Bashir Waddell MD - 08/31/2018 9:30 AM EDT Vascular Surgery Procedure Note Pre-procedure Dx: RLE claudication Post-procedure Dx: R SFA and popliteal arterial occlusive disease Procedure: 1. left femoral arterial access under ultrasound and fluoroscopic guidance 2. Selective catheterization of R peroneal artery 3. RLE angiogram 4. Balloon angioplasty of R SFA and AK pop with 5x220 Ridge balloon 5. Mynx closure Surgeons: Sindhu Rojas Anesthesia: Conscious sedation, local 6 cc 1% lidocaine Medications: Fentanyl: 225 mcg Versed: 3 mg Heparin: 8000 units Antibiotics: Ancef 2 gm Protamine: 20 mg Fluoro Time: 18.1 min Contrast: 60 cc EBL: 10cc Indications for the Procedure: 78 y.o. male with history of HTN, HLD, CAD s/p CABG (1988) and PCI (1994 & 2015), CVA (2001) without residual deficits, UBALDO s/p R CEA (2016) for asymptomatic stenosisand RLE claudication following only 2-3 minutes of ambulation. Denies rest pain or tissue loss. Patient presents today for RLE arteriogram with intervention as indicated. ?? Patient denies recent changes to his health. Denies recent CP, SOB, MCKNIGHT, PND, orthopnea. Patient is maintained on daily ASA and statin (previously took plavix). Findings: - Sheath access in left groin. - RLE angiogram demonstrated: Patent R [employer]. Patent R profunda femoris with mild ostial stenosis. R SFA patent with diffuse severe disease beginning at the mid- portion of the artery and extending into the popliteal artery to the level of the joint space. Remainder of popliteal patent and minimally disease. R AT patent with runoff to the foot visualized. R TPT with mild disease. R peroneal artery patent with flow visualized to just proximal to the ankle. R PT patent with runoff visualized to the foot. - Intervention: Balloon angioplasty of SFA and AK pop with 5x220 Ridge balloon - Completion angiogram demonstrated: Significant improvement in R SFA and AK popliteal arteries without evidence of dissection or extravasation. - Closure device: Mynx Technical Procedure: The patient was correctly identified in the pre-procedure holding area. After a discussion of the risks and benefits, operative consent was obtained. The patient was brought to the angio suite and placed supine upon the angio table. The patient was prepped and draped in the usual sterile fashion. A time-out was performed by the attending surgeon. Retrograde percutaneous access was obtained in the left common femoral artery via micropuncture technique under ultrasound and flouroscopic guidance afterinfiltration with local anesthetic. This was then up-sized to a 10 cm 5F sheath over a stiff glide wire. The wire was advanced into the infra-renal aorta. A 5F omni-flush catheter was advanced into the infrarenal aorta over the wire. Diagnostic aortography was performed with the above findings. The wire and catheter were then used to selectively catheterize the right common iliac artery. The wire was advanced down to the common femoral artery. Catheter was exchanged for a Vert catheter whichwas advanced to the level of the common femoral artery. The right lower extremity was then imaged inbolus-gerardo fashion. Findings are as described above. The stiff glide wire was then used to select the R SFA and the sheath was exchanged for 6F 65cm Destination. The stiff glide was then used to cross the heavily diseased R SFA and popliteal artery. TheR peroneal artery was selected. Palmer catheter was inserted but wound not cross the lesion. Wire was exchanged for V18 and 0.018 QuickCross catheter was inserted and intra-arterial location was confirmed with hand injection. 0.018 ThroughWay was then inserted and the R SFA and AK pop were treated with Ridge 5x220 for 3 inflations for 2 minutes each. Completion arteriogram was performed in stationed fashion. Findings are as described above. The sheath was then exchanged for 10cm 6F over stiff glide wire. Closure and sheath removal was performed with a Mynx under flouroscopic guidance. Direct pressure was held for 15 minutes. Excellent hemostasis was achieved. The puncture site was dressed with a dry gauze and tegaderm. Dr. Rojas, the attending surgeon, was scrubbed and present for the entire procedure. Due to the painful nature of the procedure, split doses of fentanyl and Versed were administered by the IR nurse during continuous monitoring of pulse, blood pressure and oxygen saturation. Closure method: Mynx Complications: None apparent Disposition: To recovery, flat for 2 hours Plavix 300 mg in recovery Plavix 75mg and ASA 81 daily for 3 months, prescription provided ASA 81 daily thereafter Follow up in [address] Rojas with ABIs Associated attestation - Kain Rojas MD - 09/05/2018 6:40 PM EDT I was the attending physician supervising the resident/fellow in the above care and I was present with the resident/fellow for the entire procedure. ? I was present during the intraservice time as documented by the sedation RN. Kain Rojas MD documented in this encounter Plan of Treatment Not on filedocumented as of this encounter Procedures Procedure Name Priority Date/Time Associated Comments Diagnosis VS ARTERIOGRAM LOWER Routine 08/31/2018 8:40 AM PAD (periphera l Results for this EXTREMITY VASCULAR EDT artery disease) proced ure are in SURGERY the results section. documented in this encounter Results VS Arteriogram Lower Extremity Vascular Surgery (08/31/2018 8:40 AM EDT) Anatomical Region Laterality Modality X-Ray Angiography Specimen (Source) Anatomical Location Collection Method / Collectio n Time Received Time / Laterality Volume Narrative 09/10/2018 2:27 PM EDT I was the attending physician supervising the resident/fellow in the above care and I was present with the resident/fell ow for the entire procedure. ?? I was present during the intraservice ti me as documented by the sedation RN. Kain Rojas MD Vascular Surgery Procedure Note Pre-procedure Dx: RLE claudication Post-procedure Dx: R SFA and popliteal a rterial occlusive disease Procedure: 1. left femoral arterial access under ul trasound and fluoroscopic guidance 2. Selective catheterization of R perone al artery 3. RLE angiogram 4. Balloon angioplasty of R SFA and AK p op with 5x220 Ridge balloon 5. Mynx closure Surgeons: Sindhu Rojas Anesthesia: Conscious sedation, local 6 cc 1% lidocaine Medications: Fentanyl: 225 mcg ?? Versed: 3 mg Heparin: 8000 units ?? Antibiotics: Ancef 2 gm Protamine: 20 mg Fluoro Time: 18.1 min Contrast: 60 cc EBL: 10cc Indications for the Procedure: 78 y.o. m jake with history of HTN, HLD, CAD s/p CABG (1988) and PCI (1994 & 2015), CVA ( 2001) without residual deficits, UBALDO s/p R CEA (2016) for asymptomatic stenos is and RLE claudication following only 2-3 minutes of ambulation. Denies rest p ain or tissue loss. Patient presents today for RLE arteriogram with intervent ion as indicated. Patient denies recent changes to his hea lth. Denies recent CP, SOB, MCKNIGHT, PND, orthopnea. Patient is maintained on dipak y ASA and statin (previously took plavix). Findings: - Sheath access in left groin. - RLE angiogram demonstrated: Patent R C FA. Patent R profunda femoris with mild ostial stenosis. R SFA patent with diffu se severe disease beginning at the mid-portion of the artery and extending into the popliteal artery to the level of the joint space. Remainder of poplite al patent and minimally disease. R AT patent with runoff to the foot visualize d. R TPT with mild disease. R peroneal artery patent with flow visualized to ju st proximal to the ankle. R PT patent with runoff visualized to the foot. - Intervention: Balloon angioplasty of S FA and AK pop with 5x220 Ridge balloon - Completion angiogram demonstrated: Sig nificant improvement in R SFA and AK popliteal arteries without evidence of d issection or extravasation. - Closure device: Mynx Technical Procedure: ?The patient was correc tly identified in the pre-procedure holding area. ??After a discussion of the risks and benefits, operative consent was obtained. ??The patient was brought to [facility] angio suite and placed supine upon the angio table. The patient was prepped and draped in the usual sterile fashion. A time-out was performed by the attending surgeon. Retrograde percutaneous access was obtained in the left common femoral artery via micropuncture technique under ultrasound and flouroscopic guidance aft er infiltration with local anesthetic. This was then up-sized to a 10 cm 5F she ath over a stiff glide wire. The wire was advanced into the infra-renal aorta. A 5F omni-flush catheter was advanced into the infrarenal aorta over the wire. Diagnostic aortography was performed with the above findings. ?The wire and catheter were then used to selectively catheterize the right common iliac artery. The wire was advanced down to the common femoral artery. Catheter was exchanged for a Eva t catheter which was advanced to the level of the common femoral artery. The right lower extremity was then imaged in bolus-gerardo fashion. ??Findings are as d escribed above. ?The stiff glide wire w as then used to select the R SFA and the sheath was exchanged for 6F 65cm Destina tion. The stiff glide was then used to cross the heavily diseased R SFA and pop liteal artery. The R peroneal artery was selected. Palmer catheter was inserted but wound not cross the lesion. Wire was exchanged for V18 and 0.018 QuickCross c atheter was inserted and intra-arterial location was confirmed with hand injecti on. 0.018 ThroughWay was then inserted and the R SFA and AK pop were treated wi th Ridge 5x220 for 3 inflations for 2 minutes each. Completion arteriogram was performed in stationed fashion. Findings are as described above. ?The sheath was then ex changed for 10cm 6F over stiff glide wire. Closure and sheath removal was performed with a Mynx under flouroscopic guidance. Direct pressure was held for 1 5 minutes. Excellent hemostasis was achieved. The puncture site was dressed with a dry gauze and tegaderm. ?Dr. Rojas, the attendin g surgeon, was scrubbed and present for the entire procedure. ??Due to the painful n ature of the procedure, split doses of fentanyl and Versed were administered by the IR nurse during continuous monitoring of pulse, blood pressure and oxygen saturation. Closure method: Mynx Complications: None apparent Disposition: To recovery, flat for 2 hours Plavix 300 mg in recovery Plavix 75mg and ASA 81 daily for 3 month s, prescription provided ASA 81 daily thereafter Follow up in [address] Rojas with ABIs Procedure Note Kain Rojas MD - 09/10/2018 I was the attending physician supervisin g the resident/fellow in the above care and I was present with the resident/fell ow for the entire procedure. I was present during the intraservice ti me as documented by the sedation RN. Kain Rojas MD Vascular Surgery Procedure Note Pre-procedure Dx: RLE claudication Post-procedure Dx: R SFA and popliteal a rterial occlusive disease Procedure: 1. left femoral arterial access under ul trasound and fluoroscopic guidance 2. Selective catheterization of R perone al artery 3. RLE angiogram 4. Balloon angioplasty of R SFA and AK p op with 5x220 Ridge balloon 5. Mynx closure Surgeons: Sindhu Rojas Anesthesia: Conscious sedation, local 6 cc 1% lidocaine Medications: Fentanyl: 225 mcg Versed: 3 mg Heparin: 8000 units Antibiotics: Ancef 2 gm Protamine: 20 mg Fluoro Time: 18.1 min Contrast: 60 cc EBL: 10cc Indications for the Procedure: 78 y.o. m jake with history of HTN, HLD, CAD s/p CABG (1988) and PCI (1994 & 2015), CVA ( 2001) without residual deficits, UBALDO s/p R CEA (2016) for asymptomatic stenos is and RLE claudication following only 2-3 minutes of ambulation. Denies rest p ain or tissue loss. Patient presents today for RLE arteriogram with intervent ion as indicated. Patient denies recent changes to his hea lth. Denies recent CP, SOB, MCKNIGHT, PND, orthopnea. Patient is maintained on dipak y ASA and statin (previously took plavix). Findings: - Sheath access in left groin. - RLE angiogram demonstrated: Patent R C FA. Patent R profunda femoris with mild ostial stenosis. R SFA patent with diffu se severe disease beginning at the mid-portion of the artery and extending into the popliteal artery to the level of the joint space. Remainder of poplite al patent and minimally disease. R AT patent with runoff to the foot visualize d. R TPT with mild disease. R peroneal artery patent with flow visualized to ju st proximal to the ankle. R PT patent with runoff visualized to the foot. - Intervention: Balloon angioplasty of S FA and AK pop with 5x220 Ridge balloon - Completion angiogram demonstrated: Sig nificant improvement in R SFA and AK popliteal arteries without evidence of d issection or extravasation. - Closure device: Mynx Technical Procedure: The patient was correctly identified in the pre-procedure holding area. After a discussion of the risks an d benefits, operative consent was obtained. The patient was brought to the angio suite and placed supine upon the angio table. The patient was prepped and draped in the usual sterile fashion. A time-out was performed by the attending surgeon. Retrograde percutaneous access was obtained in the left common femoral artery via micropuncture technique under ultrasound and flouroscopic guidance aft er infiltration with local anesthetic. This was then up-sized to a 10 cm 5F she ath over a stiff glide wire. The wire was advanced into the infra-renal aorta. A 5F omni-flush catheter was advanced into the infrarenal aorta over the wire. Diagnostic aortography was performed with the above findings. The wire and catheter were then used to selectively catheterize the right common iliac artery. The wire was advanced down to the common femoral artery. Catheter was exchanged for a Eva t catheter which was advanced to the level of the common femoral artery. The right lower extremity was then imaged in bolus-gerardo fashion. Findings are as javy cribed above. The stiff glide wire was then used to s elect the R SFA and the sheath was exchanged for 6F 65cm Destina tion. The stiff glide was then used to cross the heavily diseased R SFA and pop liteal artery. The R peroneal artery was selected. Palmer catheter was inserted but wound not cross the lesion. Wire was exchanged for V18 and 0.018 QuickCross c atheter was inserted and intra-arterial location was confirmed with hand injecti on. 0.018 ThroughWay was then inserted and the R SFA and AK pop were treated wi th Ridge 5x220 for 3 inflations for 2 minutes each. Completion arteriogram was performed in stationed fashion. Findings are as described above. The sheath was then exchanged for 10cm 6F over stiff glide wire. Closure and sheath removal was performed with a Mynx under flouroscopic guidance. Direct pressure was held for 1 5 minutes. Excellent hemostasis was achieved. The puncture site was dressed with a dry gauze and tegaderm. Dr. Rojas, the attending surgeon, was sc rubbed and present for the entire procedure. Due to the painful maria [place] carmen ure of the procedure, split doses of fentanyl and Versed were administered by the IR nurse during continuous monitoring of pulse, blood pressure and oxygen saturation. Closure method: Mynx Complications: None apparent Disposition: To recovery, flat for 2 hours Plavix 300 mg in recovery Plavix 75mg and ASA 81 daily for 3 month s, prescription provided ASA 81 daily thereafter Follow up in [address] Rojas with ABIs Kain Rojas MD IMG IR ORDERABLES documented in this encounter Visit Diagnoses Diagnosis PAD (peripheral artery disease) Peripheral vascular disease, unspecified documented in this encounter Administered Medications Inactive Administered Medications - up to 3 most recent administrations Medication Order MAR Action Action Date Dose Rate Site ceFAZolin (ANCEF) 2g in New Bag 08/31/2018 7:49 AM EDT 2 g 200 mL/hr dextrose 5% 100 mL 2 g, Intravenous, ONCE, 1 dose, On Mon08/31/18 at 0745, Administer over 30 Minutes, Redose every 3 hours if CrCl is greater than 20. Redose every 8 hours if CrCl is less than 20., Angio/IR (Intra-Procedure), Indication for (Active or Suspected): Prophylaxis clopidogrel (PLAVIX) tablet 300 mg Given 08/31/2018 11:44 AM EDT 300 mg 300 mg, Oral, ONCE, 1 dose, On Mon08/31/18 at 1030, Routine fentaNYL 50 mcg/mL multi-dose injection Given 08/31/2018 9:38 AM EDT 25 mcg 25-50 mcg, Intravenous, EVERY 5 MIN PRN, Starting on Mon08/31/18 at 0716, Until Mon08/31/18 at 0943, Pain, per unit protocol, - Start dose 50 mcg (reduce dose to 25 mcg if history of sedation sensitivity). - Titration dose 25-50 mcg IV, (based on patient response) every 3 minutes PRN, to maintain procedural pain less than 2 per pain Scale. Maximum dose: 50 mcg/dose, 250 mcg/hour For use in Interventional Radiology (IR) only for procedural sedation with direct provider supervision and verbal order., Angio/IR (Intra-Procedure), Routine Given 08/31/2018 9:21 AM EDT 25 mcg Given 08/31/2018 8:41 AM EDT 25 mcg heparin (porcine) injection 1,000-10,000 Given 018 8:23 AM EDT 8,000 Units Units 1,000-10,000 Units, Intravenous, ONCE, 1 dose, On Mon08/31/18 at 0745, For use in Interventional Radiology (IR) only for procedural sedation with direct provider supervision and verbal order., Angio/IR (Intra-Procedure), Routine iodixanol (VISIPAQUE) 320 mg iodine/mL Given 08/31/2018 1:35 PM EDT 60 mLs injection 150 mL 150 mL, Intra-arterial, ONCE PRN, 1 dose, Starting on Mon08/31/18 at 1335, Until Mon08/31/18 at 1335, Per Protocol, Angio/IR (Intra-Procedure), Routine lidocaine (XYLOCAINE) 10 mg/mL (1 %) injection Given 1 8:24 AM EDT 10 mg 10 mg 10 mg, Subcutaneous, ONCE, 1 dose, On Mon08/31/18 at 0745, For use in Interventional Radiology (IR) only for procedure with direct provider supervision and verbal order., Angio/IR (Intra-Procedure), Routine midazolam (PF) (VERSED) 1 mg/mL multi-dose Given 08/31/2018 8:41 AM EDT 0.5 mg injection 0.5-1 mg 0.5-1 mg, Intravenous, EVERY 3 MIN PRN, Starting on Mon08/31/18 at 0716, Until Mon08/31/18 at 0943, Sleep, - Start dose; 1 mg (Reduce dose to 0.5 mg if history of sedation sensitivity). - Titration dose: 0.5 mg - 1 mg (based on patient response) every 3 minutes PRN to obtain RASS score of -3. Maximum dose: 1 mg per dose, 5 mg/hour. For use in Interventional Radiology (IR) only for procedural sedation with direct provider supervision and verbal order., Angio/IR (Intra-Procedure), Routine Given 08/31/2018 8:35 AM EDT 0.5 mg Given 08/31/2018 8:06 AM EDT 1 mg protamine injection 10-40 mg Given 08/31/2018 9:29 AM EDT 20 mg 10-40 mg, Intravenous, ONCE, 1 dose, On Mon08/31/18 at 0745, Angio/IR (Intra-Procedure), Routine sodium chloride 0.9% infusion New Bag 08/31/2018 7:45 AM EDT 1,000 mLs 100 mL/hr 1,000 mL, at 100 mL/hr, Intravenous, CONTINUOUS, Starting on Mon08/31/18 at 0745, Until Mon08/31/18 at 1209, Angio/IR (Intra-Procedure) documented in this encounter Care Teams Manager Occupational Relationship Specialty Start Date End Date Duncan Mccain DO PCP - General 04/25/14 [address] [place] [address] documented as of this encounter
--- OUTSIDE RECORDS SUMMARY | 2022-06-14 00:49 | XMS_ITS | Encounter Summary ---
:1940 Author Organization [facility] [place] [address] Care Team Providers Name Role Phone Duncan Mccain DO Primary Care Provider Encounter Details Date Type Department Care Team Description 08/31/2018 Laboratory Appointment Lab at [facility] PAD ([facility] artery di [place]ase) [place] [id number] Social History Tobacco Use Types Packs/Day Years Used Date Former Smoker Quit: 01/07/19 89 Smokeless Tobacco: Never Used Alcohol Use Standard Drinks/Week Comments Yes 1 (1 standard drink = 0.6 oz pure alcoho l) Infrequently [place] Light Alcohol Habits Answer Date Recorded How often do you have a drink containing Not asked alcohol? How many drinks containing alcohol do you have Not asked on a typical day when you are drinking? How often do you have six or more drinks on one Not asked occasion? Comment: Infrequently [place] Light 10/25/2016 Sex Assigned at Date Recorded Not on file documented as of this encounter Plan of Treatment Not on filedocumented as of this encounter Procedures Procedure Name Priority Date/Time Associated Diagnosis Comme nts CREATININE STAT 08/31/2018 6:28 AM PAD (peripheral Result s for this EDT artery disease) procedure ar e in the results section . documented in this encounter Results Creatinine (08/31/2018 6:28 AM EDT) P athologist Signature Creatinine 0.85 0.80 - [place] 1.50 mg/dL [facility] Estimated GFR 83 >=60 [place] mL/min/1.7 [facility] 3 m?? [facility] Comment: The eGFR was calculated using the CKD-EP I equation. As with all creatinine based estimates of kidney function, eGFR values calculated with the CKD-EPI equation are not accurate in patients wi th acute kidney failure, extremes of body mass or the acutely ill. http://[employer]/[facility] eGFR 97 >=60 mL/min/1.73 m?? [facility] Comment: The eGFR was calculated using the CKD-EP I equation. As with all creatinine based estimates of kidney function, eGFR values calculated with the CKD-EPI equation are not accurate in patients wi th acute kidney failure, extremes of body mass or the acutely ill. http://[employer]/[facility]nkf Specimen Anatomical Collection Method Collection Time Receive d Time (Source) Location / / Volume Laterality Blood specimen 08/31/2018 6:28 AM 018 6:39 (specimen) EDT AM EDT Resulting Agency Comment Spec In Lab Kain Rojas MD CHEMISTRY ORDERABLES Performing Organization Address City/State/[place] [address] documented in this encounter Visit Diagnoses Diagnosis PAD (peripheral artery disease) Peripheral vascular disease, unspecified documented in this encounter Care Teams Hose Tubing Backer Relationship Specialty Start Date End Date Duncan Mccain DO PCP - General 04/25/[address] [place] [address] documented as of this encounter
--- OUTSIDE RECORDS SUMMARY | 2022-06-14 00:49 | XMS_ITS | Encounter Summary ---
:1940 Author Organization [facility] [place] [address] Care Team Providers Name Role Phone Duncan Mccain DO Primary Care Provider Reason for Visit Reason Comments Medication Refill Encounter Details Date Type Department Care Team Description 07/26/2019 Refill Vascular Surgery at [facility] Bashir Waddell MD [facility] [place] [address] VASCULAR SURGERY [phone] [place] [id number] (Wo rk) Social History Tobacco Use Types Packs/Day Years Used Date Former Smoker Quit: 01/07/19 89 Smokeless Tobacco: Never Used Alcohol Use Standard Drinks/Week Comments Yes 1 (1 standard drink = 0.6 oz pure alcoho l) Infrequently [place] Light Alcohol Habits Answer Date Recorded How often do you have a drink containing Not asked alcohol? How many drinks containing alcohol do you have Not asked on a typical day when you are drinking? How often do you have six or more drinks on one Not asked occasion? Comment: Infrequently [place] 10/25/2016 Sex Assigned at Date Recorded Not on file documented as of this encounter Plan of Treatment Not on filedocumented as of this encounter Visit Diagnoses Not on filedocumented in this encounter Care Teams Auto Striper Relationship Specialty Start Date End Date Duncan Mccain DO PCP - General 04/25/[address] [place] [address] documented as of this encounter
--- OUTSIDE RECORDS SUMMARY | 2022-06-14 00:49 | XMS_ITS | Encounter Summary ---
:1940 [place] [address] Care Team Providers Name Role Phone Duncan Mccain DO Primary Care Provider Encounter Details Date Type Department Care Team Description 12/26/2016 Hospital Encounter Vascular Lab at [facility] [place], Stenosis of right [facility] [place] [phone] Social History Tobacco Use Types Packs/Day Years Used Date Former Smoker Quit: 01/07/19 89 Smokeless Tobacco: Never Used Alcohol Use Standard Drinks/Week Comments Yes 1 (1 standard drink = 0.6 oz pure alcoho l) Infrequently [place] Light Alcohol Habits Answer Date Recorded How often do you have a drink containing Not asked alcohol? How many drinks containing alcohol do you have Not asked on a typical day when you are drinking? How often do you have six or more drinks on one Not asked occasion? Comment: Infrequently [place] 10/25/2016 Sex Assigned at Date Recorded Not on file documented as of this encounter Medications at Time of Discharge Medication Sig Dispensed Refills Start Date End Date acetaminophen (TYLENOL) Take 1 tablet by mouth 30 tablet 1 11/30/2016 500 mg Tablet every 4 hours as needed for Pain or Fever. ascorbic acid, vitamin Take 500 mg by mouth. 0 C, (VITAMIN C) 500 mg Tablet, Chewable FLUZONE HIGH-DOSE 0 08/18/20152014-16, PF, 180 mcg/0.5 mL Syringe POLY-IRON 150 [...] 40 mg by mouth 0 (PRINIVIL;ZESTRIL) 40 mg daily. Indications: tabletIndications: Hypertension hypertension nitroGLYcerin Place 0.4 mg under the 0 (NITROSTAT) 0.4 mg SL tongue every 5 minutes tabletIndications: as needed. Reported on angina 11/15/2016 Indications: Angina rosuvastatin (CRESTOR) Take 10 mg by mouth 0 10 mg tablet daily. documented as of this encounter Plan of Treatment Not on filedocumented as of this encounter Procedures Procedure Name Priority Date/Time Associated Comments Diagnosis CAROTID DUPLEX, Routine 12/26/2016 2:34 PM Stenosis of right R esults for this UNILATERAL EST carotid artery procedure are in the results section. documented in this encounter Results Carotid Duplex, Unilateral (12/26/2016 2:34 PM EST) Component Value Ref Test Analysis Performed At [facility] Range Method Time Signature VB Text Department: Vascular Surgery Lab [facility] Report Patient: [id number] (MASOUD BLACKWOOD) CPT: 94991 ICD10: I65.21 Referring Physician: REYES KHAN ?? Indications: ??s/p RIGHT CEA, ? patency ICD10 Diagnosis Code: I65.21 Findings: ICA Proximal, Right ? PSV (cm/s): 104 ? EDV (cm/s): 13 ? ICA/CCA: 1.2 ? Plaque Structure: Echogenic ? Plaque Surface: Irregular ? %Stenosis: <15% ICA Distal, Right ? PSV (cm/s): 127 ? EDV (cm/s): 25 ? ICA/CCA: 1.4 CCA Distal, Right ? PSV (cm/s): 88 ? EDV (cm/s): 9 ? %Stenosis: <50% CCA Proximal, Right ? PSV (cm/s): 67 ? EDV (cm/s): 6 External Carotid Artery, Right ? PSV (cm/s): 231 ? EDV (cm/s): 6 ? %Stenosis: >50% Vertebral, Right ? PSV (cm/s): 72 ? EDV (cm/s): 10 ? Direction of Flow: Antegrade Interpretation: RIGHT: There is minimal hyperplasia in the proximal network internship al carotid artery causing <15 stenosis when compared to th e more distal internal carotid artery. The bifurcation level is in the mid neck. Improved com pared to pre-operative exam done . Vertebral Artery Data: Patent vertebral artery with no rmal antegrade Doppler waveforms and velocities. Previous Carotid Studies: Date ?RIGHT ICA St enosis ??PSV ?? Ratio ?? LEFT ICA Stenosis ?? PSV ?? Ratio ? 70-99% ? 545 ?? 7.10 ? 16-49% ? 95 ?1.20 ? 70-99% ? 671 ?? 7.40 ? n/a ?n/a ?? n/a Current Exam ? <15% ? 104 ?? 1.40 ? n/a ?n/a ?? n/a Electronically Signed by: REYES KHAN on 2016-12-26 03:34: 46 PM VB Text End of Report [facility] Report Specimen (Source) Anatomical Collection Method Collection Time Re ceived Time Location / / Volume Laterality 12/26/2016 2:34 PM EST Reyes Khan MD VASCULAR ORDERABLES Performing Organization Address City/State/ZIP Code Phon e Number [facility] documented in this encounter Visit Diagnoses Diagnosis Stenosis of right carotid artery Occlusion and stenosis of carotid artery without mention of cerebral infarction documented in this encounter Care Teams Precision Lens Polisher Relationship Specialty Start Date End Date Dunacn Mccain DO PCP - General 04/25/[address] [place] [address] documented as of this encounter
--- OUTSIDE RECORDS SUMMARY | 2022-06-14 00:49 | XMS_ITS | Encounter Summary ---
:1940 Author Organization [place] [address] Care Team Providers Name Role Phone Duncan Mccain DO Primary Care Provider Reason for Visit Reason Comments Carotid Stenosis S/P R CEA Leg Pain PT ALSOE REPORT RLE CALF ALLA N WHILE AMBULATING AND AT NIGHT UPON SLEEPING PT STATES AT TIME H E NEED TO GET UP AND WALK AROUND TO GET THE PAIN TO GO AWAY Encounter Details Date Type Department Care Team Description 06/26/2017 Office Visit Vascular Surgery at [facility] S/P carotid endarterectomy[place] [facility] Atherosclerosis of [place] artery of rig t lower extremity with intermittent claudication [facility] DR Urbina MD VASCULAR SURGERY [address] [place] [address] [phone] Social History Tobacco Use Types Packs/Day Years Used Date Former Smoker Quit: 01/07/19 89 Smokeless Tobacco: Never Used Alcohol Use Standard Drinks/Week Comments Yes 1 (1 standard drink = 0.6 oz pure alcoho l) Infrequently [place] Alcohol Habits Answer Date Recorded How often do you have a drink containing Not asked alcohol? How many drinks containing alcohol do you have Not asked on a typical day when you are drinking? How often do you have six or more drinks on one Not asked occasion? Comment: Infrequently [place] 10/25/2016 Sex Assigned at Date Recorded Not on file documented as of this encounter Last Filed Vital Signs Vital Sign Reading Time Taken Comments Blood Pressure 132/60 06/26/2017 2:12 PM EDT Pulse 72 06/26/2017 2:12 PM EDT Temperature - - Respiratory Rate 18 06/26/2017 2:12 PM EDT Oxygen Saturation - - Inhaled Oxygen Concentration - - Weight 88.5 kg (195 lb) 06/26/2017 2:12 PM EDT Height 167.6 cm (5' 6) 06/26/2017 2:12 PM EDT Body Mass Index 31.47 06/26/2017 2:12 PM EDT documented in this encounter Progress Notes Elder Jha MD - 06/26/2017 2:00 PM EDT Reason for Visit Post right carotid endarterectomy surveillance. CORRY Blackwood is a 77 year-old man who underwent CEA for a critical asymptomatic right internal carotid artery stenosis on 11/29/16. He did well post-operatively. In clinic today, he reports feeling well and being entirely asymptomatic from the perspective of cerebrovascular symptoms. He denies TIA, stroke, amaurosis fugax. He does complain of recurrent fatigue, and he believes the symptoms are similar to those he sufferedbefore his most recent coronary ZEYAD that was placed on 10/25/16. Mr. Blackwood also c/o right calf pain when walking uphill. He denies calf pain when walking on flatground. He has no symptoms of critical limb ischemia. Mr. Blackwood has a very distant h/o stroke 15 years ago. Symptoms affected his vision, speech and left upper extremity, but they all eventually resolved. He cannot recall the work-up done at that time, but carotid surgery was not recommended. He is a former smoker (quit 1988). He is not a diabetic. He takes aspirin, Plavix and statin. He is anxious to d/c Plavix. I reviewed his chart, and he was started on Plavix at the time of his ZEYAD in Sep 2016. Past Vascular Hx HTN Hyperlipidemia LBBB CABG [...] systolic function probably normal. No significant valvular abnormality Cardiac Cath was performed on 10/25/16 with a new drug-eluting stent placed in his left circumflex. The bypass graft to his LAD was patent with moderate diffuse disease. The right coronary was calcified, moderate in size, and had mild diffuse disease through its entire length. Stroke in 2001. Other PMH Minimal PSH CABG 1988 Coronary [...] dysarthria Physical Exam General Pleasant senior, NAD, 122/58 RIGHT arm, 132/60 LEFT arm, 72 rrr HEENT Normocephalic. Completely healed right CEA [...] Popliteal pulses Not readily palpable DP pulses Weakly palpable on RIGHT, normal on LEFT PT pulses Not palpable RIGHT, normal on LEFT Neuro Grossly normal Psyche Fully oriented Carotid duplex today Widely patent right carotid bifurcation. 16-49% LEFT ICA stenosis CTA None since carotid surgery Other studies None Impression Remains asymptomatic 6 months s/p right CEA. Right carotid bifurcation is widely patent. Ongoing medical therapy with recheck in one year is indicated. 14-49% LEFT carotid stenosis was not reassessed today. No need to do so. Will recheck in one year. Right lower extremity pain when walking uphill or stressing the limb could likely be vascular. Thesesymptoms are not lifestyle limiting for him. When I brought up possibility of More formal assessment, he said no. Will order ABIs for his next visit in one year. He remains on Plavix & aspirin. The Plavix is for his recent coronary ZEYAD. I told him he needs to check with Cards regarding possibility to D/C. He is worried that his recurrent fatigue may reflect a cardiac etiology. This could certainly be possible. He does not have a Cardiology RTC scheduled. He is seeing PCP, Dr. Mccain, tomorrow. It maybe that Cardiology follow-up is indicated. There [place] none scheduled currently [place] [facility] [place] I can find. Recommendations Continue aspirin, Plavix, statin as current Ask Cardiology if safe to d/c Plavix since has a ZEYAD. Ask Cardiology to reach out to him. RTC 12 months with bilat carotid duplex. Call sooner for any TIA symptoms. Will check ABIs when he returns in one year I warned him to call anytime if his leg symptoms worsen. Signed Elder Jha M.D. [facility] Section of Vascular Surgery CC: Susan Norwood DO???Petty TAMAYO documented in this encounter Plan of Treatment Not on filedocumented as of this encounter Visit Diagnoses Diagnosis S/P carotid endarterectomy Other postprocedural status Atherosclerosis of port gra[place] artery of righ t lower extremity with intermittent claudication Atherosclerosis of [place] arteries of th e extremities with intermittent claudication documented in this encounter Care Teams Gate Services Supervisor Relationship Specialty Start Date End Date Duncan Mccain DO PCP - General 04/25/[address] [place] [address] [address] [place] [address] documented as of this encounter
--- OUTSIDE RECORDS SUMMARY | 2022-06-14 00:49 | XMS_ITS | Encounter Summary ---
:1940 Author Organization [facility] [place] [address] Care Team Providers Name Role Phone Duncan Mccain DO Primary Care Provider Reason for Referral Diagnostic Test (Routine) - Closed Specialty Diagnoses / Procedures Referred By Contact Refer red To Contact Radiology Diagnoses PAD (peripheral artery disease) [facility] Vascular Surg [address] [place] [address] Angiogram Aorta Lower [place] [address] [place] [address] Phone: Referral ID Status Reason Start Date Expiration Date Visits V isits Requested Authorized [id number] Closed Specialty 05/08/2018 05/08/2019 1 1 Service Requested Reason for Visit Diagnostic Test (Routine) - Closed Specialty Diagnoses / Procedures Referred By Contact Refer red To Contact Radiology Diagnoses PAD (peripheral artery disease) [facility] Vascular Surg [address] [place] [address] Angiogram Aorta Lower [place] [address] [place] [address] Phone: Referral ID Status Reason Start Date Expiration Date Visits V isits Requested Authorized [id number] Closed Specialty 05/08/2018 05/08/2019 1 1 Service Requested Encounter Details Date Type Department Care Team Description 06/06/[address] Scan at [facility] Kain Rojas PAD (peripheral [facility] MD artery disease) [place], [place] CATINA SMITH [address] VASCULAR SURGERY [phone] [place] [address] Social History Tobacco Use Types Packs/Day Years Used Date Former Smoker Quit: 01/07/19 89 Smokeless Tobacco: Never Used Alcohol Use Standard Drinks/Week Comments Yes 1 (1 standard drink = 0.6 oz pure alcoho l) Infrequently [place] Alcohol Habits Answer Date Recorded How often do you have a drink containing Not asked alcohol? How many drinks containing alcohol do you have Not asked on a typical day when you are drinking? How often do you have six or more drinks on one Not asked occasion? Comment: Infrequently [place] 10/25/2016 Sex Assigned at Date Recorded [...] Name Priority Date/Time Associated Diagnosis Comme nts CT ANGIOGRAM AORTA Routine 06/06/2018 1:26 PM PAD (peripheral Results for this LOWER EXTREMITY EDT artery disease) procedure are in RUNOFF the results section. documented in this encounter Results CT Angiogram Aorta Lower [...] above. Kain Rojas MD IMG CT ORDERABLES documented in this encounter Visit Diagnoses Diagnosis PAD (peripheral artery disease) Peripheral vascular disease, unspecified documented in this encounter Administered Medications Inactive Administered Medications - up to 3 most recent administrations Medication Order MAR Action Action Date Dose Rate Site iohexol (OMNIPAQUE) 350 mg/mL Given 06/06/2018 1:11 PM EDT 150 m Ls solution 150 mL 150 mL, Intravenous, ONCE PRN, 1 dose, Starting on Mon06/06/18 at 1311, Until Mon06/06/18 at 1311, Per Protocol, Warning Vesicant/Irritant Medication , Routine documented in this encounter Care Teams Air Press Operator Relationship Specialty Start Date End Date Duncan Mccain DO PCP - General 04/25/[address] [place] [address] documented as of this encounter
--- OUTSIDE RECORDS SUMMARY | 2022-06-14 00:49 | XMS_ITS | Encounter Summary ---
:1940 Author Organization [place] [address] Care Team Providers Name Role Phone Duncan Mccain DO Primary Care Provider Reason for Visit Reason Comments Medication Refill Encounter Details Date Type Department Care Team Description 10/28/2019 Refill Vascular Surgery at [facility] Bashir Waddell MD [facility] [place] [address] VASCULAR SURGERY [phone] [place] [id number] (Wo rk) Social History Tobacco Use Types Packs/Day Years Used Date Former Smoker Quit: 01/07/19 89 Smokeless Tobacco: Never Used Alcohol Use Standard Drinks/Week Comments Yes 1 (1 standard drink = 0.6 oz pure alcoho l) Infrequently [place] Alcohol Habits Answer Date Recorded How often do you have a drink containing Not asked alcohol? How many drinks containing alcohol do you have Not asked on a typical day when you are drinking? How often do you have six or more drinks on one Not asked occasion? Comment: Infrequently [place] 10/25/2016 Sex Assigned at Date Recorded Not on file documented as of this encounter Plan of Treatment Not on filedocumented as of this encounter Visit Diagnoses Not on filedocumented in this encounter Care Teams Motion Picture Cameraman Relationship Specialty Start Date End Date Duncan Mccain DO PCP - General 04/25/[address] [place] [address] documented as of this encounter
--- OUTSIDE RECORDS SUMMARY | 2022-06-14 00:49 | XMS_ITS | Encounter Summary ---
:1940 [place] [address] Care Team Providers Name Role Phone Duncan Mccain DO Primary Care Provider Encounter Details Date Type Department Care Team Description 06/26/2017 [facility], [place] [id number] Social History Tobacco Use Types Packs/Day Years Used Date Former Smoker Quit: 01/07/19 89 Smokeless Tobacco: Never Used Alcohol Use Standard Drinks/Week Comments Yes 1 (1 standard drink = 0.6 oz pure alcoho l) Infrequently [place] Light Alcohol Habits Answer Date Recorded How often do you have a drink containing Not asked alcohol? How many drinks containing alcohol do you have Not asked on a typical day when you are drinking? How often do you have six or more drinks on one Not asked occasion? Comment: Infrequently [place] 10/25/2016 Sex Assigned at Date Recorded [...] Name Priority Date/Time Associated Diagnosis Comme nts CAROTID DUPLEX, Routine 06/26/2017 1:04 PM Bilateral carotid R esults for this BILATERAL EDT artery stenosis procedure ar e in the results section. documented in this encounter Results Cerebrovascular Duplex, Bilateral (06/26/2017 1:04 PM EDT) Component Value Ref Test Analysis Performed At [facility] [employer] Range Method Time Signature VB Text Department: Vascular Surgery Lab VASCUBASE Report Patient: [id number] (MASOUD BLACKWOOD) CPT: 52211 ICD10: I65.23 Referring Physician: REYES KHAN ?? Indications: Right CEA, ? carotid stenosis ICD10 Diagnosis Code: I65.23 Findings: ICA Proximal, Right ? PSV (cm/s): 108 ? EDV (cm/s): 12 ? ICA/CCA: 1.1 ? Plaque Structure: Echogenic ? Plaque Surface: Smooth ? %Stenosis: <15% ICA Distal, Right ? PSV (cm/s): 130 ? EDV (cm/s): 19 ? ICA/CCA: 1.4 CCA Distal, Right ? PSV (cm/s): 96 ? EDV (cm/s): 14 ? %Stenosis: <50% CCA Proximal, Right ? PSV (cm/s): 74 ? EDV (cm/s): 10 External Carotid Artery, Right ? PSV (cm/s): 126 ? EDV (cm/s): 0 ? %Stenosis: <50% Vertebral, Right ? PSV (cm/s): 90 ? EDV (cm/s): 7 ? Direction of Flow: Antegrade ICA Proximal, Left ? PSV (cm/s): 85 ? EDV (cm/s): 9 ? ICA/CCA: 0.9 ? Plaque Structure: Echogenic ? Plaque Surface: Irregular ? %Stenosis: 16-49% ICA Distal, Left ? PSV (cm/s): 77 ? EDV (cm/s): 11 ? ICA/CCA: 0.8 CCA Distal, Left ? PSV (cm/s): 96 ? EDV (cm/s): 8 ? %Stenosis: Minimal CCA Proximal, Left ? PSV (cm/s): 122 ? EDV (cm/s): 12 External Carotid Artery, Left ? PSV (cm/s): 174 ? EDV (cm/s): 10 ? %Stenosis: <50% Vertebral, Left ? PSV (cm/s): 66 ? EDV (cm/s): 12 ? Direction of Flow: Antegrade Interpretation: RIGHT: There is minimal smooth plaque in the pro ximal internal carotid artery causing <15% stenosis when c ompared to the more distal internal carotid artery. The bifurcation level is in the mid neck. No significant c hange compared to previous exam. LEFT: There is [...] 7.40 ? n/a ?n/a ?? n/a ? <15% ? 104 ?? 1.40 ? n/a ?n/a ?? n/a Current Exam ? <15% ? 108 ?? 1.40 ? 16-49% ? 85 ?0.90 Electronically Signed by: REYES KHAN on 2017-06-26 02:12: 04 PM VB Text End of Report VASCUBASE Report Specimen (Source) Anatomical Collection Method Collection Time Re ceived Time Location / / Volume Laterality 06/26/2017 1:04 PM EDT Reyes Khan MD VASCULAR ORDERABLES Performing Organization Address City/State/ZIP Code Phon e Number VASCUBASE documented in this encounter Visit Diagnoses Diagnosis Bilateral carotid artery stenosis Occlusion and stenosis of multiple and b ilateral precerebral arteries without mention of cerebral infarction documented in this encounter Care Teams Pensionholder Information Clerk Relationship Specialty Start Date End Date Duncan Mccain DO PCP - General 04/25/[address] [place] [address] documented as of this encounter
--- OUTSIDE RECORDS SUMMARY | 2022-06-14 00:49 | XMS_ITS | Encounter Summary ---
:1940 Author Organization [facility] [place] [address] Care Team Providers Name Role Phone Duncan Mccain DO Primary Care Provider Reason for Visit Reason Comments Medication Refill Encounter Details Date Type Department Care Team Description 12/14/2019 Refill Vascular Surgery at [facility] Bashir Waddell MD [facility] Jaz[facility]yn [facility] [place] [address] VASCULAR SURGERY [phone] [place] [id number] (Wo rk) Social History Tobacco Use Types Packs/Day Years Used Date Former Smoker Quit: 01/07/19 89 Smokeless Tobacco: Never Used Alcohol Use Standard Drinks/Week Comments Yes 1 (1 standard drink = 0.6 oz pure alcoho l) Infrequently [place] Alcohol Habits Answer Date Recorded How often do you have a drink containing Not asked alcohol? How many drinks containing alcohol do you have Not asked on a typical day when you are drinking? How often do you have six or more drinks on one Not asked occasion? Comment: Infrequently [place] 10/25/2016 Sex Assigned at Date Recorded Not on file documented as of this encounter Plan of Treatment Not on filedocumented as of this encounter Visit Diagnoses Not on filedocumented in this encounter Care Teams Franchise Broker Relationship Specialty Start Date End Date Duncan Mccain DO PCP - General 04/25/[address] [place] [address] documented as of this encounter
--- OUTSIDE RECORDS SUMMARY | 2022-06-14 00:49 | XMS_ITS | Encounter Summary ---
:1940 Author Organization [facility] [place] [address] Care Team Providers Name Role Phone Duncan Mccain DO Primary Care Provider Reason for Referral Diagnostic Test (Routine) - Closed Specialty Diagnoses / Procedures Referred By Contact Refer red To Contact Radiology Diagnoses PAD (peripheral artery disease) Kain Rojas MD [facility] Interventionl Rad Procedures VS Arteriogram Lower Extremity Vascular Surgery [facility] [place] [address] [place] [address] Referral ID Status Reason Start Date Expiration Date Visits V isits Requested Authorized [id number] Closed Specialty 07/06/2018 07/06/2019 1 1 Service Requested Reason for Visit Reason Comments Follow-up PT HERE FOR F/U AND PLAN OF CARE Encounter Details Date Type Department Care Team Description 07/06/2018 Office Visit Vascular Surgery at Alysha Rojas MD PAD (peripheral artery [facility] Adolfo VASCULAR SURGERY [place], [place] [phone] Social History Tobacco Use Types Packs/Day Years Used Date Former Smoker Quit: 01/07/19 89 Smokeless Tobacco: Never Used Alcohol Use Standard Drinks/Week Comments Yes 1 (1 standard drink = 0.6 oz pure alcoho l) Infrequently [place] Alcohol Habits Answer Date Recorded How often do you have a drink containing Not asked alcohol? How many drinks containing alcohol do you have Not asked on a typical day when you are drinking? How often do you have six or more drinks on one Not asked occasion? Comment: Infrequently [place] 10/25/2016 Sex Assigned at Date Recorded Not on file documented as of this encounter Last Filed Vital Signs Vital Sign Reading Time Taken Comments Blood Pressure 146/48 07/06/2018 1:39 PM EDT Pulse 88 07/06/2018 1:39 PM EDT Temperature - - Respiratory Rate 18 07/06/2018 1:39 PM EDT Oxygen Saturation - - Inhaled Oxygen Concentration - - Weight 89.4 kg (197 lb) 07/06/2018 1:39 PM EDT Height 167.6 cm (5' 6) 07/06/2018 1:39 PM EDT Body Mass Index 31.8 07/06/2018 1:39 PM EDT documented in this encounter Progress Notes Kain Rojas MD - 07/06/2018 1:45 PM EDT Vascular Surgery Clinic Visit July 06, 2018 CC: Patient is a 78 y.o. male who is here for follow up of RLE claudication. 11/2016 R CEA for asymptomatic severe stenosis (Dr Jha) Last seen on 05/04/18. Has undergone CTA with BLE runoff since his last visit for further evaluation of RLE claudication.?? Reports worsening RLE claudication - now only able to walk 2-3 minutes before getting symptoms. Denies rest pain or non-healing wounds. Continues to deny any symptoms concerning for stroke, TIA, or amaurosis fugax. ?? ROS significant for history of CAD s/p CABG , PTCA . No recent CP or SOB. History of stroke in affecting his vision, speech, and LUE. No residual symptoms. Patient cannotrecall work up at that time but there was no mention of need for carotid surgery. No history of DM. Past smoker, having quit in 1988. ? PMH: h/o of stroke in as above, CAD s/p CABG /PTCA , HTN, HLD All: NKDA Meds include: asa, norvasc, lopresor, lisinopril, crestor Tob: quit 1988 Physical Exam: On exam, patient in NAD. Neuro non-focal with well-healed incision on the right neck. Palpable carotid and radial pulses bilaterally. Palpable femoral pulses. No open lesions on either foot. Labs: 2 Year Olds Preschool Teacher (06/06/18): 1.06 Lipids (10/26/16): TC 111, HDL 42, LDL 55 No results available for HA1C. Imaging studies: I have personally reviewed the following imaging studies. CTA with BLE runoff (06/06/18): IMPRESSION SFA and proximal popliteal artery dominant disease with severe stenoses in the RIGHT and mild to moderate stenosis on the LEFT as detailed above. A/P: 78yo male s/p R CEA in 2017 for asymptomatic severe stenosis, now with worsening short distanceRLE claudication. Plan for RLE angiogram/intervention. -con't asa and statin -RLE angiogram/intervention, tentatively scheduled for 08/31/18 -will need repeat carotid duplex in 04/2019 ?? Kain Rojas MD documented in this encounter Plan of Treatment Not on filedocumented as of this encounter Results VS Arteriogram Lower Extremity [...] was obtained. ??The [facility] angio suite and placed supine upon [...] artery. The R peroneal artery was selected. [place] catheter was inserted but wound not cross [...] [address] Rojas with ABIs Electronically signed by: Kain [facility] Radiology, at 09/10/2018 2:27 PM Procedure Note Kain Rojas MD - 09/10/2018 [...] artery. The R peroneal artery was selected. [place] catheter was inserted but wound not cross [...] ABIs Kain Rojas MD IMG IR ORDERABLES Creatinine (08/31/2018 6:28 AM EDT) athologist Signature Creatinine 0.85 0.80 - [facility] 1.50 mg/dL [facility] Estimated GFR 83 >=[address] [facility] mL/min/1.7 [facility] 3 ?? HOSPITAL LABOR[facility]ORY Comment: The eGFR was calculated using the CKD-EP I equation. As with all creatinine based estimates of kidney function, eGFR values calculated with the CKD-EPI equation are not accurate in patients wi th acute kidney failure, extremes of body mass or the acutely ill. [email or web address]/[facility] MUSKOGEEnkf eGFR 97 >=60 mL/min/1.73 m?? [facility] Comment: The eGFR was calculated using the CKD-EP I equation. As with all creatinine based estimates of kidney function, eGFR values calculated with the CKD-EPI equation are not accurate in patients wi th acute kidney failure, extremes of body mass or the acutely ill. [email or web address]/[facility]GEEnkf Specimen Anatomical Collection Method Collection Time Receive d Time (Source) Location / / Volume Laterality Blood specimen 08/31/2018 6:28 AM 018 6:39 (specimen) EDT AM EDT Resulting Agency Comment Spec In Lab Kain Rojas MD CHEMISTRY ORDERABLES Performing Organization Address City/State/ZIP [place] [address] documented in this encounter Visit Diagnoses Diagnosis PAD (peripheral artery disease) Peripheral vascular disease, unspecified PAD (peripheral artery disease) Peripheral vascular disease, unspecified documented in this encounter Care Teams Legal Secretary Receptionist Relationship Specialty Start Date End Date Duncan Mccain DO PCP - General 04/25/[address] [place] [address] [address] [place] [address] documented as of this encounter
--- OUTSIDE RECORDS SUMMARY | 2022-06-14 00:49 | XMS_ITS | Encounter Summary ---
:1940 [place] [address] Care Team Providers Name Role Phone Duncan Mccain DO Primary Care Provider Encounter Details Date Type Department Care Team Description 05/04/2018 Hospital Encounter Vascular Lab at [facility], [place] Intermittent claudication; [facility], RVT Stenosis of carotid artery, [place] [phone] Social History Tobacco Use Types Packs/Day Years Used Date Former Smoker Quit: 01/07/19 89 Smokeless Tobacco: Never Used Alcohol Use Standard Drinks/Week Comments Yes 1 (1 standard drink = 0.6 oz pure alcoho l) Infrequently [place] Alcohol Habits Answer Date Recorded How often do you have a drink containing Not asked alcohol? How many drinks containing alcohol do you have Not asked on a typical day when you are drinking? How often do you have six or more drinks on one Not asked occasion? Comment: Infrequently [place] 10/25/2016 Sex Assigned at Date Recorded [...] Name Priority Date/Time Associated Diagnosis Comme nts BAKARI, LEGS, MULTIPLE Routine 05/04/2018 10:57 Intermittent Resu lts for this LEVELS AM EDT claudication procedure are i n the results section. CAROTID DUPLEX, Routine 05/04/2018 10:57 Stenosis of carotid R esults for this BILATERAL AM EDT artery, unspecified procedur e are in laterality the results section. documented in this encounter Results Cerebrovascular Duplex, Bilateral (05/04/2018 10:57 AM EDT) Component Value Ref Test Analysis Performed At [facility] Range Method Time Signature VB Text Department: Vascular Surgery Lab VASCUBASE Report Patient: [id number] (MASOUD BLACKWOOD) CPT: 18806 ICD10: I65.23 Referring Physician: REYES KHAN ?? [...] Address City/State/ZIP Code Phon e Number VASCUBASE BAKARI, legs, multiple levels (05/04/2018 10:57 AM EDT) Component Value Ref Test Analysis Performed At [facility] Range Method Time Signature VB Text Department: Vascular Surgery Lab VASCUBASE Report Patient: [id number] (MASOUD BLACKWOOD) CPT: 15057 ICD10: I70.213;I73.9 Referring Physician: REYES KHAN ?? [...] documented in this encounter Visit Diagnoses Diagnosis Intermittent claudication Peripheral vascular disease, unspecified Stenosis of carotid artery, unspecified laterality documented in this encounter Care Teams Project Asst Relationship Specialty Start Date End Date Duncan Mccain DO PCP - General 04/25/14 [address] [place] [address] documented as of this encounter
--- OUTSIDE RECORDS SUMMARY | 2022-06-14 00:49 | XMS_ITS | Encounter Summary ---
:1940 Author Organization [facility] [place] [address] Care Team Providers Name Role Phone Duncan Mccain DO Primary Care Provider Reason for Visit Reason Comments Medication Refill Encounter Details Date Type Department Care Team Description 09/11/2019 Refill Vascular Surgery at [facility] Bashir Waddell MD [facility] [place] [phone] VASCULAR SURGERY [phone] [place] [id number] (Wo rk) Social History Tobacco Use Types Packs/Day Years Used Date Former Smoker Quit: 01/07/19 89 Smokeless Tobacco: Never Used Alcohol Use Standard Drinks/Week Comments Yes 1 (1 standard drink = 0.6 oz pure alcoho l) Infrequently [place] Alcohol Habits Answer Date Recorded How often do you have a drink containing Not asked alcohol? How many drinks containing alcohol do you have Not asked on a typical day when you are drinking? How often do you have six or more drinks on one Not asked occasion? Comment: Infrequently [place] 10/25/2016 Sex Assigned at Date Recorded Not on file documented as of this encounter Plan of Treatment Not on filedocumented as of this encounter Visit Diagnoses Not on filedocumented in this encounter Care Teams Auction Assistant Relationship Specialty Start Date End Date Duncan Mccain DO PCP - General 04/25/[address] [place] [address] documented as of this encounter
--- OUTSIDE RECORDS SUMMARY | 2022-06-14 00:49 | XMS_ITS | Encounter Summary ---
:1940 Author Organization [facility] [place] [address] Care Team Providers Name Role Phone Duncan Mccain DO Primary Care Provider Encounter Details Date Type Department Care Team Description 12/27/2016 Orders Only Vascular Surgery at [facility] carotid [facility] [address] Social History Tobacco Use Types Packs/Day Years Used Date Former Smoker Quit: 01/07/19 89 Smokeless Tobacco: Never Used Alcohol Use Standard Drinks/Week Comments Yes 1 (1 standard drink = 0.6 oz pure alcoho l) Infrequently [place] Light Alcohol Habits Answer Date Recorded How often do you have a drink containing Not asked alcohol? How many drinks containing alcohol do you have Not asked on a typical day when you are drinking? How often do you have six or more drinks on one Not asked occasion? Comment: Infrequently [place] 10/25/2016 Sex Assigned at Date Recorded Not on file documented as of this encounter Plan of Treatment Not on filedocumented as of this encounter Results Cerebrovascular Duplex, Bilateral (06/26/2017 1:04 PM EDT) Component Value Ref Test Analysis Performed At [facility] reBounces Range Method Time Signature VB Text Department: Vascular Surgery Lab VASCUBASE Report Patient: [id number] (MASOUD BLACKWOOD) CPT: 25763 ICD10: I65.23 Referring Physician: REYES KHAN ?? [...] infarction documented in this encounter Care Teams Channeler Relationship Specialty Start Date End Date Duncan Mccain DO PCP - General 04/25/14 [address] [place] [address] documented as of this encounter
--- OUTSIDE RECORDS SUMMARY | 2022-06-14 00:49 | XMS_ITS | Encounter Summary ---
:1940 Author Organization [facility] Address [facility] [place] [address] Care Team Providers Name Role Phone Duncan Mccain DO Primary Care Provider Encounter Details Date Type Department Care Team Description 05/04/2018 [facility]osis of right [facility] artery; [facility] PVD (peripheral vascular dis ease) with claudication [facility] [address] VASCULAR SURGERY [place] [phone] Social History Tobacco Use Types Packs/Day Years Used Date Former Smoker Quit: 01/07/19 89 Smokeless Tobacco: Never Used Alcohol Use Standard Drinks/Week Comments Yes 1 (1 standard drink = 0.6 oz pure alcoho l) Infrequently [place] Alcohol Habits Answer Date Recorded How often do you have a drink containing Not asked alcohol? How many drinks containing alcohol do you have Not asked on a typical day when you are drinking? How often do you have six or more drinks on one Not asked occasion? Comment: Infrequently [place] 10/25/2016 Sex Assigned at Date Recorded Not on file documented as of this encounter Last Filed Vital Signs Vital Sign Reading Time Taken Comments Blood Pressure 140/70 05/04/2018 11:58 AM EDT Pulse 70 05/04/2018 11:58 AM EDT Temperature - - Respiratory Rate - - Oxygen Saturation - - Inhaled Oxygen Concentration - - Weight 88.5 kg (195 lb) 05/04/2018 11:58 AM EDT Height 170.2 cm (5' 7) 05/04/2018 11:58 AM EDT Body Mass Index 30.54 05/04/2018 11:58 AM EDT documented in this encounter Progress Notes Yadira Krishnamurthy MD - 05/04/2018 1:30 PM EDT Reason for Visit 1. Right lower extremity short distance calf claudication, mild rest pain 2. Hx R CEA 1, surveillance HPI Andrew Blackwood is a 78 year-old man with significant coronary artery disease (KEENAN to LAD CABG at age 49, multiple coronary stents) followed by vascular surgery for right carotid disease sp R CEA (asymptomatic carotid stenosis) and right leg claudication. The patient has a history of bilateral lower extremity pain. The notes from summer 2016 the patient was having right calf claudication with long distance ambulation no claudication on the left. Patientnotes that over the last few months his symptoms have progressed. He now has quite severe claudication in the right calf after walking about 100 feet and claudication in the left calf after walking 300-500 feet. In addition while at night he has some numbness in the forefoot on the right side. He has no ulcerations or tissue loss that he has noted. With respect to his carotid he remained asymptomatic. No symptoms of TIA or stroke. The patient is maintained on daily aspirin and statin. He has been taking Plavix following a drug-eluting stent in 2016 but per cardiology he stopped approximately 12 months after the accident. The patient is able to walk for a few minutes. He does not have any chest pain with walking but on occasion he does have dyspnea. The patient underwent a one-vessel CABG at age 49, KEENAN to LAD. He then underwent stenting in 1998 and a drug-eluting stent to the left circumflex in 2015 that was done at [facility]. He has never had harvesting of his greater saphenous vein. Mr. Blackwood has a very distant h/o stroke 15 years ago. Symptoms affected his vision, speech and left upper extremity, but they all eventually resolved. He cannot recall the work-up done at that time, but carotid surgery was not recommended. He is a former smoker (quit 1988). His is currently undergoing radiation treatments for cancer. He helps in her care and she is due for radiation in the next 2 weeks therefore in terms of follow-up he would like to be seen at approximately 4 weeks. The patient follows with a food truck caterer who comes to [place] from [place]. He was scheduled to see this food truck caterer at the end of the month. Past Vascular Hx HTN Hyperlipidemia LBBB CABG [...] CEA 11/29/16 Vascular meds Aspirin Yes Plavix No (stopped several months ago) Statin Crestor 10 mg daily Beta elisabeth Metoprolol 50 mg twice daily Coumadin No Other meds Updated and reconciled in eDH Allergies NKDA [facility] , lives with . Prior smoker - quit 1988. Minimal EtOH. Retired. ROS Constitutional Denies fever, chills, fatigue Cardiac Denies recent chest pain, chest pressure +dyspnea with exertion Pulmonary Dyspnea. No chronic cough GI Denies nausea, vomiting, diarrhea, constipation Denies UTI symptoms Musculoskeletal No specific symptoms Endocrine No s/s DM Derm Denies new skin lesions Psyche No s/s psychiatric issues Neuro Denies stroke, TIA, amaurosis fugax, dysarthria Physical Exam General Pleasant senior Walks independently Most Recent Vitals: 05/04/18 1158 BP: 140/70 Pulse: 70 PainSc: 8 HEENT Normocephalic. Completely healed right CEA incision. Carotid pulses Normal pulses. No bruits Radial pulses Normal pulses bilat Upper extremities Full range of motion, no lesions Lungs / chest Clear Heart Distant sounds, no mgr Abdomen Soft, nontender, aorta not readily palpable Lower extremities Full ROM. No gangrenous toes. No ulcers Femoral pulses Palpable femoral pulses bilaterally, not bounding but pulses are palpable Popliteal pulses Not readily palpable DP pulses Weakly palpable left DP, unable to palpate right DP PT pulses Not palpable Neuro Grossly normal Psyche Fully oriented Carotid duplex today Widely patent right carotid bifurcation. 16-49% LEFT ICA stenosis CTA None since carotid surgery Other studies None Impression 78M with significant coronary hx (KEENAN to LAD bypass at age 49, stents in 1998 and 2015) with bilateral claudication - short distance claudication on right with mild forefoot numbness at night. Mild claudication on left. BAKARI 0.4 on right and 0.7 on left. On asa statin, plavix has been discon tinued (see HPI). Cr 0.8 in 2016. Femoral pulses weakly palpable bilaterally. Considering cardiac hx it would be preferable if pt could undergo endovascular rather than open intervention. He will require something soon as with mild forefoot numbness sx consistent with rest pain. We will plan for a CTA aorta with lower ext runoff in one month with appt with MD following to discuss revascularization options. Pt is scheduled to see food truck caterer at the end of this month. I asked him to mention to his food truck caterer that we are considering endovascular intervention and he should call if there are any concerns. With respect to his carotid disease, his R carotid remains widely patent sp R CEA in Nov, 2016. Leftcarotid has very mild disease. Carotid duplex should be repeated in one year. Remains asymptomatic 6 months s/p right CEA. Right carotid bifurcation is widely patent. Ongoing medical therapy with recheck in one year is indicated. 14-49% LEFT carotid stenosis was not reassessed today. No need to do so. Will recheck in one year. Recommendations Continue aspirin, statin as current Ask Cardiology to contact our office if there are concerns for endovascular intervention (pt has appt later this month) RTC in 1 month with CTA to determine appropriate intervention for RLE short distance claudication/mild rest pain (would hope to avoid open bypass considering high cardiac risk in this patient and proceed with endovascular intervention if possible) Pt should call if he develops any ulcerations/tissue loss to be seen sooner Signed Yadira Krishnamurthy MD/Kain Rojas MD [facility] Section of Vascular Surgery CC: Duncan Mccain DO, Susan Eldridge???Petty TAMAYO I have seen the patient and reviewed the resident's above history and I agree with the details as written. The assessment and plan were formulated in discussion with me and I agree with them as documented. Briefly, this is a 78yo male here for follow up of carotid stenosis and RLE claudication. 11/2016 R CEA for asymptomatic severe stenosis (Dr Jha) Denies any symptoms concerning for stroke, TIA, or amaurosis fugax. Reports worsening RLE claudication - has had symptoms for many years but now only able to walk 2-3 minutes before getting symptoms. Denies rest pain or non-healing wounds. ROS significant for history of CAD s/p CABG , PTCA //. No recent CP or SOB. History of stroke in affecting his vision, speech, and LUE. No residual symptoms. Patient cannotrecall work up at that time but there was no mention of need for carotid surgery. No history of DM. Past smoker, having quit in 1988. Medications include: asa, norvasc, lopresor, lisinopril, crestor On exam, patient in NAD. Neuro non-focal with well-healed incision on the right neck. Palpable carotid and radial pulses bilaterally. Palpable right femoral pulse, diminished left femoral pulse. No open lesions on either foot. Carotid duplex - right carotid widely patent s/p CEA, left with mild stenosis. ABIs - R 0.39, L 0.73. A/P: 78yo male s/p R CEA for asymptomatic severe stenosis with widely patent carotid and no significant stenosis on the contralateral side. Does have worsening RLE claudication affecting his daily activities. Will plan for CTA with BLE runoff for further evaluation. -con't asa and statin -CTA with BLE runoff -f/u after above -will need repeat carotid duplex in 1 year Kain Rojas MD documented in this encounter Plan of Treatment Not on filedocumented as of this encounter Visit Diagnoses Diagnosis Stenosis of right carotid artery Occlusion and stenosis of carotid artery without mention of cerebral infarction PVD (peripheral vascular disease) with c laudication Peripheral vascular disease, unspecified documented in this encounter Care Teams Hand Expansion Envelope Maker Relationship Specialty Start Date End Date Duncan Mccain DO PCP - General 04/25/[address] [place] [address] documented as of this encounter
--- OUTSIDE RECORDS SUMMARY | 2022-06-14 00:50 | XMS_ITS | Encounter Summary ---
:1940 Author Organization [facility] [place] [address] Care Team Providers Name Role Phone Adán Duncan HICKS Primary Care Provider Encounter Details Date Type Department Care Team Description 11/15/2016 Clinical Support Same Day at [facility] Stenosis of right [facility] [place] [address] Social History Tobacco Use Types Packs/Day Years Used Date Former Smoker Quit: 01/07/19 89 Smokeless Tobacco: Never Used Alcohol Use Standard Drinks/Week Comments Yes 1 (1 standard drink = 0.6 oz pure alcoho l) Infrequently [place] Alcohol Habits Answer Date Recorded How often do you have a drink containing Not asked alcohol? How many drinks containing alcohol do you have Not asked on a typical day when you are drinking? How often do you have six or more drinks on one Not asked occasion? Comment: Infrequently [place] 10/25/2016 Sex Assigned at Date Recorded Not on file documented as of this encounter Progress Notes Bella Degroot RN - 11/15/2016 4:00 PM EST PAT questionnaire reviewed with patient and umair while in Pre Admission testing. Pt has tolerated anesthesia in the past. +VIKRAM will bring CPAP on DOS. Pre-operative instruction booklet reviewed. Patient verbalizes a good understanding of all information reviewed. PLAN: Testing: Blood work. EKG Special medication instructions: Per cardiology note pt to continue plavix and aspirin. Procedure date: Not booked Dr Jha documented in this encounter Plan of Treatment Not on filedocumented as of this encounter Procedures Procedure Name Priority Date/Time Associated Comments Diagnosis EKG 12-LEAD Routine 11/15/2016 4:38 PM Stenosis of right Resu lts for this EST carotid artery procedure are in the results section. HEMOGRAM Routine 11/15/2016 4:28 PM Stenosis of right Resu lts for this EST carotid artery procedure are in the results section. PREALBUMIN Routine 11/15/2016 4:28 PM Stenosis of right Resu lts for this EST carotid artery procedure are in the results section. BASIC METABOLIC Routine 11/15/2016 4:28 PM Stenosis of right R esults for this PANEL (NON-FASTING) EST carotid artery proced ure are in the results section. documented in this encounter Results EKG 12 Lead (11/15/2016 4:38 PM EST) Component Value Ref Range Test Analysis Performed Pathologis t Method Time At Signature Ventricular rate 73 BPM MUSE SYSTEM Atrial Rate 73 BPM MUSE SYSTEM P-R Interval 172 ms MUSE SYSTEM QRS Duration 168 ms MUSE SYSTEM Q-T Interval 432 ms MUSE SYSTEM QTC Calculated 475 ms MUSE SYSTEM (Bezet) Calculated P [place] -17 degrees MUSE SYSTEM Calculated R [place] 37 degrees MUSE SYSTEM Calculated T [place] -171 degrees MUSE SYSTEM INTERPRETATION Normal sinus rhythm MUSE SYSTEM Left bundle branch block Abnormal ECG When compared with ECG of 26-OCT-2016 07:12, No significant change was found Confirmed by MD MICHAEL, NAVID ([id number]) on 11/16/2016 1:26:22 PM Specimen Anatomical Collection Method Collection Time Receive d Time (Source) Location / / Volume Laterality 11/15/2016 4:38 PM 6 1:26 EST PM EST Elder Jha MD ECG ORDERABLES Performing Organization Address City/State/ZIP Code Phon e Number MUSE SYSTEM Prealbumin (11/15/2016 4:28 PM EST) P athologist Signature Prealbumin 29 20 - 40 [place] mg/dL [facility] Comment: Prealbumin levels are generally lower in the pediatric population; adult concentrations are usually attained near puberty. Specimen Anatomical Collection Method Collection Time Receive d Time (Source) Location / / Volume Laterality Blood specimen 11/15/2016 4:28 PM 016 4:36 (specimen) EST PM EST Resulting Agency Comment Spec In Lab Elder Jha MD CHEMISTRY ORDERABLES Performing Organization Address City/State/[place] [address] (ABNORMAL) Basic Metabolic Panel (non-fasting) (11/15/2016 4:28 PM EST) P athologist Signature Glucose Lvl 108 65 - 199 [facility] mg/dL [facility] Comment: Diabetes: >=200 mg/dL plus symp toms BUN 12 10 - 20 mg/dL [facility] Creatinine 0.98 0.80 - 1.50 mg/dL [facility] Comment: Please note that the pediatric reference intervals supplied above were not validated at [facility]. Results from pediatri c patients should be interpreted in conjunction to the patient's age, height and muscle mass. Sodium 140 135 - 145 mmol/L [facility] Potassium 4.2 3.5 - 5.0 mmol/L [facility] Comment: Please note: ??Patients with WBC >100,00 0 may have falsely elevated Potassium levels. ??For accurate Potassium quantif ication in these patients send serum separator tube (gold top) for subsequent determinations. ??Contact the Clinical Chemistry Laboratory if there are any qu estions. Chloride 100 98 - 107 mmol/L [facility] CO2 24 22 - 31 mmol/L [facility] Anion Gap 16 (H) 5 - 15 mmol/L [facility] Calcium 9.6 8.5 - 10.5 mg/dL [facility] Estimated GFR >60 >=60 [facility] Comment: This estimated GFR (eGFR) value was calc ulated using the MDRD equation which has been validated on patients between t he ages of 18 and 70. The MDRD should not be used to assess kidney function in patients < 18 years of age or in patients with extremes of body mass, or in patients with acute kidney failure. This value should be multiplied by 1.2 f or patients. For further information please copy and past e the following links into your internet browser. [email or web address]/DHnkdep http://[email or web address]/DHMCnkf Specimen Anatomical Collection Method Collection Time Receive d Time (Source) Location / / Volume Laterality Blood specimen 11/15/2016 4:28 PM 016 4:35 (specimen) EST PM EST Resulting Agency Comment Spec In Lab Elder Jha MD CHEMISTRY ORDERABLES Performing Organization Address City/[facility]/[place] [address] (ABNORMAL) Hemogram (11/15/2016 4:28 PM EST) P athologist Signature WBC 9.8 (H) 4.0 - 9.5 [facility] x[facility](3[facility] LABORATORY RBC 5.24 4.58 - [place] 5.54 [facility] x10(6)/[facility] LABORATORY Hemoglobin 15.8 13.7 - [facility] [place] 16.5 gm/dL [facility] Hematocrit 46.6 40.5 - [place] 48.5 % [facility] MCV 88.9 82.9 - [facility] [place] 93.1 [facility] LABORATORY MCH 30.2 27.5 - Ordr.inG[facility] 32.1 pg [facility] MCHC 33.9 32.0 - [place] 35.7 gm/dL [facility] Platelets 278 145 - 357 [facility] x10(3)/[facility] LABORATORY RDWSD 40.8 36.0 - [facility] [place] 45.0 [facility] LABORATORY RDWCV 12.5 11.4 - [place] 13.8 % [facility] MPV 8.5 7.6 - 12.9 [facility] nRBC % Auto 0.0 % [facility] nRBC Abs Auto 0.000 0.000 - [place] 0.000 [facility] x10(3)/[facility] LABORATORY Specimen Anatomical Collection Method Collection Time Receive d Time (Source) Location / / Volume Laterality Blood specimen 11/15/2016 4:28 PM 016 4:35 (specimen) EST PM EST Resulting Agency Comment Spec In Lab Elder Jha MD HEMATOLOGY ORDERABLES Performing Organization Address City/State/[place] [address] documented in this encounter Visit Diagnoses Diagnosis Stenosis of right carotid artery Occlusion and stenosis of carotid artery without mention of cerebral infarction documented in this encounter Care Teams Family Development Extension Specialist Relationship Specialty Start Date End Date Duncan Mccain DO PCP - General 04/25/[address] [place] [address] documented as of this encounter
--- OUTSIDE RECORDS SUMMARY | 2022-06-14 00:50 | XMS_ITS | Encounter Summary ---
:1940 Author Organization [facility] [place] [address] Care Team Providers Name Role Phone Duncan Mccain DO Primary Care Provider Reason for Referral Consultation (Routine) - Closed Specialty Diagnoses / Procedures Referred By Contact Refer red To Contact Vascular Surgery Diagnoses ASCVD (arteriosclerotic cardiovascular disease) Tuan Gibbs PA [facility] Vascular Surg [facility] D R 3[place] [address] [place] [address] Phone: Referral ID Status Reason Start Date Expiration Date Visits V isits Requested Authorized [id number] Closed Consult, 09/02/2016 09/02/2017 1 1 Test & Treat Encounter Details Date Type Department Care Team Description 09/02/2016 Orders Only Cardiology [place] [facility] [place]uan Gibbs ASCVD (arteriosclerotic [facility] RONI Davis cardiovascular disease) [place], [place] C[place] [address] CARDIOLOGY DEPT. [phone] [place] [id number] Social History Tobacco Use Types Packs/Day Years Used Date Former Smoker Quit: 01/07/19 89 Sex Assigned at Date Recorded Not on file documented as of this encounter Plan of Treatment Scheduled Referrals Name Type Priority Associated Diagnoses Order S chedule Referral to Outpatient Referral Routine ASCVD (arteriosclerot ic Ordered: Vascular Surgery cardiovascular disease) 09/02/2016 documented as of this encounter Visit Diagnoses Diagnosis ASCVD (arteriosclerotic cardiovascular d isease) Unspecified cardiovascular disease documented in this encounter Care Teams Kelp Gatherer Relationship Specialty Start Date End Date Duncan Mccain DO PCP - General 04/25/14 [address] [place] [address] documented as of this encounter
--- OUTSIDE RECORDS SUMMARY | 2022-06-14 00:50 | XMS_ITS | Encounter Summary ---
:1940 [place] [address] Care Team Providers Name Role Phone Duncan Mccain DO Primary Care Provider Reason for Visit Auth/Cert Specialty Diagnoses / Procedures Referred By Contact Refer red To Contact Diagnoses Carotid stenosis carotid stenosis . Procedures PRO THROMBOENDARTECTMY NECK, NECK INCIS @ENDARTERECTOMY, CAROTID, VERTEBRAL,SUBCLAVIAN W\WO PATCH GRAFT (WRVU 21.16) Referral ID Status Reason Start Date Expiration Date Visits Requ ested Visits Authorized [id number] 1 1 Encounter Details Date Type Department Care Team Description 11/29/2016 Hospital Encounter [place] [address] Social History Tobacco Use Types Packs/Day Years Used Date Former Smoker Quit: 01/07/19 89 Smokeless Tobacco: Never Used Alcohol Use Standard Drinks/Week Comments Yes 1 (1 standard drink = 0.6 oz pure alcoho l) Infrequently [place] Alcohol Habits Answer Date Recorded How often do you have a drink containing Not asked alcohol? How many drinks containing alcohol do you have Not asked on a typical day when you are drinking? How often do you have six or more drinks on one Not asked occasion? Comment: Infrequently [place] 10/25/2016 Sex Assigned at Date Recorded [...] 500 mg Tablet, Chewable FLUZONE HIGH-DOSE 0 08/18/2015 2015-16, PF, 180 mcg/0.5 mL Syringe POLY-IRON 150 [...] on filedocumented in this encounter Care Teams Coal Mine Inspector Relationship Specialty Start Date End Date Duncan Mccain DO PCP - General 04/25/[address] [place] [address] documented as of this encounter
--- OUTSIDE RECORDS SUMMARY | 2022-06-14 00:50 | XMS_ITS | Encounter Summary ---
:1940 Author Organization [facility] [address] Care Team Providers Name Role Phone AdánDuncan lim DO Primary Care Provider Reason for Visit Reason Comments Carotid Stenosis carotid critical stenosis Encounter Details Date Type Department Care Team Description 10/04/2016 Office Visit Vascular Surgery at [facility] J[facility] Ste nosis of right carotid artery; [facility] ASCVD (arteriosclerotic cardiovascular d isease) [facility] [address] [place] VASCULAR SURGERY [id number] [place] [address] [phone] Social History Tobacco Use Types Packs/Day Years Used Date Former Smoker Quit: 01/07/19 89 Sex Assigned at Date Recorded Not on file documented as of this encounter Last Filed Vital Signs Vital Sign Reading Time Taken Comments Blood Pressure 178/56 10/04/2016 10:49 AM EST Pulse 60 10/04/2016 10:33 AM EST Temperature - - Respiratory Rate 18 10/04/2016 10:33 AM EST Oxygen Saturation - - Inhaled Oxygen Concentration - - Weight 90.7 kg (200 lb) 10/04/2016 10:33 AM EST Height 167.6 cm (5' 6) 10/04/2016 10:33 AM EST Body Mass Index 32.28 10/04/2016 10:33 AM EST documented in this encounter Progress Notes Elder Jha MD - 10/04/2016 9:30 AM EST Reason for Visit Review carotid CTA results, discuss treatment options HPI Andrew Blackwood is a 76 year-old man who was found to have a 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 A high-pitched bruit was noted on 09/02/16 by Susan Eldridge???Petty in the Cardiology clinic, and a 70-99% right ICA stenosis was identified by carotid duplex ultrasound. Mr. Blackwood has a very distant h/o stroke 15 years ago. Symptoms affected his vision, speech and left upper extremity, but they all eventually resolved. He cannot recall the work-up performed at thattime, but carotid surgery was not recommended. He has had no stroke, TIA or amaurosis fugax symptoms since that single event many years ago. He is a former smoker (quit 1988). He is not a diabetic. He takes aspirin and statin. Recent history is positive for intermittent MCKNIGHT with occasional chest discomfort. Symptoms are not reminiscent of what he experienced prior to CABG in 1988, or those prior to subsequent coronary stenting in 1998. Nitro responsive angina on 12/03/15. Nuclear stress test on 12/30/15 [...] function probably normal. No significant valvular abnormalities. Cardiac Cath was discussed with patient on 09/02/16, but he deferred. Regular exercise was recommended at that cardiology visit. The patient told me today he can climb one flight of stairs without stopping. 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 Past Vascular Hx HTN Hyperlipidemia LBBB Symptoms c/w intermittent claudication but no ABIs in chart. Other PMH Minimal PSH CABG 1988 Coronary stents 1998 Vascular meds Aspirin Yes Plavix No Statin Crestor 10 mg daily Beta elisabeth Metoprolol 50 mg twice daily Coumadin No Other meds Updated and reconciled in eDH Allergies NKDA [facility] , lives with . Prior smoker. Minimal EtOH. Retired. ROS Constitutional Denies fever, chills, fatigue Cardiac Denies recent chest pain, chest pressure Pulmonary +++ MCKNIGHT. No chronic cough GI Denies nausea, vomiting, diarrhea, constipation Denies UTI symptoms Musculoskeletal No specific symptoms Endocrine No s/s DM Derm Denies new skin lesions Psyche No s/s psychiatric issues Neuro Denies stroke, TIA, amaurosis fugax, dysarthria Physical Exam General Pleasant senior, NAD, 151/59 RIGHT arm, 178/56 LEFT arm, 60 rrr HEENT Normocephalic, unremarkable Carotid pulses Normal pulses, bruit on right Radial pulses Normal pulses bilat Upper extremities [...] Grossly normal Psyche Fully oriented Carotid duplex 09/02/16 I reviewed all images. Some plaque in RT CCA, not severe. Agree with 70-99% RUSTAM stenosis. Patent ICA beyond focal plaque. 14-49% LEFT ICA stenosis. Patent verts. CT scan I reviewed all images. Very tight RUSTAM stenosis. Mild plaque in arch vessels. Left carotid bifurcation with minimal stenosis. Vertebrals with mild stenosis bilat. Intracranial arteries unremarkable. 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 Other studies None Impression Severe RIGHT internal carotid artery stenosis described as 70-99% by duplex ultrasound, and ???with minimal residual lumen?? by CTA. Patient has had prior right hemispheric strokes, but no recent strokes or TIAs. He is on maximal medical therapy, with the exception of possibly adding Plavix, or switching aspirin to Plavix. I discussed RIGHT carotid endarterectomy with patient and . His natural history for unheralded stroke is in the 3% range annually. Risk for CEA-related stroke would be less than that in our hands, but risk for cardiac complication would be substantially higher than average. We discussed carotid stenting briefly, but stroke risk associated with carotid stenting in patients >75 years of age is substantially higher than that of carotid endarterectomy. Overall, I think the chances are good that we could get him through a right CEA safely, but I was very clear that he is higher risk than most asymptomatic patients we operate on. One driving factor here is that his stenosis is very tight. By duplex, his right PSV is 545 and EDV is 174. By CTA, it is difficult to actually see the lumen on several of the images. Mr. Blackwood did not make a decision in clinic. He plans to think about this and get back to us. Cira to discuss the issue with his PCP, Dr. Mccain. I will arrange a follow-up appointment in one month as a backstop. I warned him to call immediately should he suffer any TIA symptoms. Recommendations Suggest begin Plavix 75 mg daily. Overlap Plavix with aspirin x 1 week, then d/c aspirin Continue Crestor Call if any symptoms of LEFT arm or leg weakness/numbness Will CC Dr. Arechiga in case he has additional thoughts from Cardiology perspective RTC one month as back-up appointment Signed Elder Jha M.D. [facility] Section of Vascular Surgery CC: Duncan Mccain DO documented in this encounter Plan of Treatment Not on filedocumented as of this encounter Visit Diagnoses Diagnosis Stenosis of right carotid artery Occlusion and stenosis of carotid artery without mention of cerebral infarction ASCVD (arteriosclerotic cardiovascular d isease) Unspecified cardiovascular disease documented in this encounter Care Teams Car Oiler Relationship Specialty Start Date End Date Duncan Mccain DO PCP - General 04/25/[address] [place] [address] [address] [place] [address] documented as of this encounter
--- OUTSIDE RECORDS SUMMARY | 2022-06-14 00:50 | XMS_ITS | Encounter Summary ---
:1940 [place] [address] Care Team Providers Name Role Phone Adán Duncan HICKS Primary Care Provider Encounter Details Date Type Department Care Team Description 09/02/2016 [facility] [place] ([facility] cardiovascular [facility] disease) [place] [phone] Social History Tobacco Use Types Packs/Day Years Used Date Former Smoker Quit: 01/07/19 89 Sex Assigned at Date Recorded Not on file documented as of this encounter Medications at Time of Discharge Medication Sig Dispensed Refills Start Date End Date FLUZONE HIGH-DOSE 0 08/18/20152014-16, PF, 180 mcg/0.5 [...] Associated Diagnosis Comme nts CAROTID DUPLEX, Routine 09/02/2016 1:59 PM ASCVD (arterioscler otic Results for this BILATERAL EDT cardiovascular disease) proc edure are in the results section. documented in this encounter Results Cerebrovascular Duplex, Bilateral (09/02/2016 1:59 PM EDT) Component Value Ref Test Analysis Performed At [facility] Range Method Time Signature VB Text Department: Vascular Surgery Lab VASCUBASE Report Patient: [id number] (MASOUD BLACKWOOD) CPT: 42967 ICD10: I25.10 Referring Physician: ROSA CLARK ?? Indications: ??Asymptomatic R carotid bruit ICD10 Diagnosis Code: I25.10 Findings: ICA Proximal, Right ? PSV (cm/s): 545 ? EDV (cm/s): 174 ? ICA/CCA: 7.1 ? Plaque Structure: Echogenic ? Plaque Surface: Irregular ? %Stenosis: 70-99% ICA Middle, Right ? PSV (cm/s): 123 ? EDV (cm/s): 6 ? ICA/CCA: 1.6 ICA Distal, Right ? PSV (cm/s): 63 ? EDV (cm/s): 22 ? ICA/CCA: 0.8 CCA Distal, Right ? PSV (cm/s): 77 ? EDV (cm/s): 16 ? %Stenosis: <50% CCA Proximal, Right ? PSV (cm/s): 104 ? EDV (cm/s): 10 External Carotid Artery, Right ? PSV (cm/s): 157 ? EDV (cm/s): 4 ? %Stenosis: <50% Vertebral, Right ? PSV (cm/s): 89 ? EDV (cm/s): 16 ? Direction of Flow: Antegrade ICA Proximal, Left ? PSV (cm/s): 95 ? EDV (cm/s): 19 ? ICA/CCA: 1.1 ? Plaque Structure: Echogenic ? Plaque Surface: Irregular ? %Stenosis: 16-49% ICA Distal, Left ? PSV (cm/s): 104 ? EDV (cm/s): 23 ? ICA/CCA: 1.2 CCA Distal, Left ? PSV (cm/s): 87 ? EDV (cm/s): 14 ? %Stenosis: <50% CCA Proximal, Left ? PSV (cm/s): 96 ? EDV (cm/s): 10 External Carotid Artery, Left ? PSV (cm/s): 149 ? EDV (cm/s): 5 ? %Stenosis: <50% Vertebral, Left ? PSV (cm/s): 52 ? EDV (cm/s): 13 ? Direction of Flow: Antegrade Interpretation: RIGHT: Plaque is present in the distal common carotid luis ry causing 20-25% stenosis by e-calipers. There is bulky irregular calcified p laque in the proximal internal carotid artery causing 70-99% stenosis when compared to the more distal internal carotid artery. The bifurcation level is in the upper mid neck. LEFT: Plaque is present in the distal common carotid artery causing 20-25% stenosis by e-calipers. Ther e is bulky irregular plaque in the proximal internal carotid artery causing 16-49% stenosis (at low e nd of range) when compared to the more distal internal carotid artery. The bifurcati on level is in the mid neck. Vertebral Artery Data: Patent vertebral arteries with normal antegrade Doppler waveforms and velocities bilaterally. Comments: RONI [place] ??was notified of the findings. No previous exam for comparison. Electronically Signed by: HALLIE VILLATORO on 2016-09-02 05:31 :42 PM VB Text End of Report VASCUBASE Report Specimen (Source) Anatomical Collection Method Collection Time Re ceived Time Location / / Volume Laterality 09/02/2016 1:59 PM EDT Rosa Clark MD VASCULAR ORDERABLES Performing Organization Address City/State/ZIP Code Phon e Number VASCUBASE documented in this encounter Visit Diagnoses Diagnosis ASCVD (arteriosclerotic cardiovascular d isease) Unspecified cardiovascular disease documented in this encounter Care Teams Junior Account Executive Relationship Specialty Start Date End Date Duncan Mccain DO PCP - General 04/25/[address] [place] [address] documented as of this encounter
--- OUTSIDE RECORDS SUMMARY | 2022-06-14 00:50 | XMS_ITS | Encounter Summary ---
:1940 Author Organization [place] [address] Care Team Providers Name Role Phone Duncan Mccain DO Primary Care Provider Reason for Visit Reason Onset Date Comments Other 08/24/2016 Please call MD Encounter Details Date Type Department Care Team Description 08/24/2016 Telephone Cardiology at [facility] Leif Arechiga Other (Please call MD ) [place] [address] CARDIOLOGY DEPT. [place] [id number] (Wo rk) Social History Tobacco Use Types Packs/Day Years Used Date Former Smoker Quit: 01/07/19 89 Sex Assigned at Date Recorded Not on file documented as of this encounter Miscellaneous Notes Telephone Encounter - Darling Hardy - 08/24/2016 9:[address] Adán Burrell would like to speak to you in regards to Andrew Katie - Patient has increased angina and will need appointment in 1-2 weeks per PCP. You are book out to 09/15 here at [place] - wherewould you like to add on if you deem this necessary? Dr. Mccain- [phone] 8-5 excluding 12-. Thank you, Darling documented in this encounter Plan of Treatment Not on filedocumented as of this encounter Visit Diagnoses Not on filedocumented in this encounter Care Teams Adoption Coordinator Relationship Specialty Start Date End Date Duncan Mccain DO PCP - General 04/25/[address] [place] [address] documented as of this encounter
--- OUTSIDE RECORDS SUMMARY | 2022-06-14 00:50 | XMS_ITS | Encounter Summary ---
:1940 Author Organization [facility] [address] Care Team Providers Name Role Phone Duncan Mccain DO Primary Care Provider Encounter Details Date Type Department Care Team Description 10/10/2016 Orders Only Vascular Surgery at [facility] S tenosis of carotid [facility] DEPARTMENT CLERK artery, unspecified [facility] [place] [phone] Social History Tobacco Use Types Packs/Day Years Used Date Former Smoker Quit: 01/07/19 89 Sex Assigned at Date Recorded Not on file documented as of this encounter Plan of Treatment Not on filedocumented as of this encounter Results Carotid Duplex, Unilateral (11/15/2016 2:32 PM EST) Component Value Ref Test Analysis Performed At [facility] Range Method Time Signature VB Text Department: Vascular Surgery Lab VASCUBASE Report Patient: [id number] (MASOUD BLACKWOOD) CPT: 48237 ICD10: I65.29;I65.21 Referring Physician: REYES KHAN ?? Indications: Carotid stenosis, ? progression in right ICA st enosis ICD10 Diagnosis Code: I65.21 Findings: ICA Proximal, Right ? PSV (cm/s): 671 ? EDV (cm/s): 178 ? ICA/CCA: 7.4 ? Plaque Structure: Echogenic ? Plaque Surface: Irregular ? %Stenosis: 70-99% ICA Middle, Right ? PSV (cm/s): 590 ? EDV (cm/s): 113 ? ICA/CCA: 6.5 ICA Distal, Right ? PSV (cm/s): 69 ? EDV (cm/s): 18 ? ICA/CCA: 0.8 CCA Distal, Right ? PSV (cm/s): 91 ? EDV (cm/s): 10 ? %Stenosis: <50% CCA Proximal, Right ? PSV (cm/s): 92 ? EDV (cm/s): 9 External Carotid Artery, Right ? PSV (cm/s): 128 ? EDV (cm/s): 7 ? %Stenosis: <50% Vertebral, Right ? PSV (cm/s): 103 ? EDV (cm/s): 9 ? Direction of Flow: Antegrade Interpretation: RIGHT: There is bulky irregular plaque i n the proximal internal carotid artery causing 70-99% stenosis when compared to the more distal int ernal carotid artery. The bifurcation leve l is in the mid neck. There has been an increase in PSV and ICA/CCA ratio in the proximal ICA, compared to the p revious exam, however, no change in disease category. Vertebral Artery Data: Patent vertebral arteries with normal antegrade Doppler waveforms and velocities. Previous Carotid Studies: Date ?RIGHT ICA St enosis ??PSV ?? Ratio ?? LEFT ICA Stenosis ?? PSV ?? Ratio ? 70-99% ? 545 ?? 7.10 ? 16-49% ? 95 ?1.20 Current Exam ? 70-99% ? 671 ?? 7.40 ? n/a ?n/a ?? n/a Electronically Signed by: REYES KHAN on 2016-11-15 03:08: 08 PM VB Text End of Report VASCUBASE Report Specimen (Source) Anatomical Collection Method Collection Time Re ceived Time Location / / Volume Laterality 11/15/2016 2:32 PM EST Reyes Khan MD VASCULAR ORDERABLES Performing Organization Address City/State/ZIP Code Phon e Number VASCUBASE documented in this encounter Visit Diagnoses Diagnosis Stenosis of carotid artery, unspecified laterality documented in this encounter Care Teams Flight Information Expediter Relationship Specialty Start Date End Date Duncan Mccain DO PCP - General 04/25/[address] [place] [address] documented as of this encounter
--- OUTSIDE RECORDS SUMMARY | 2022-06-14 00:50 | XMS_ITS | Encounter Summary ---
:1940 Author Organization [facility] [place] [address] Care Team Providers Name Role Phone Duncan Mccain DO Primary Care Provider Encounter Details Date Type Department Care Team Description 10/19/2016 Orders Only Cardiology at [facility] Tuan Gibbs ASCVD (arteriosclerotic [facility] [place] cardiovascular disease) [place], [place] CENTER [id number] CARDIOLOGY DEPT. [phone] [place] [id number] Social History Tobacco Use Types Packs/Day Years Used Date Former Smoker Quit: 01/07/19 89 Smokeless Tobacco: Never Used Alcohol Use Standard Drinks/Week Comments Yes 1 (1 standard drink = 0.6 oz pure alcoho l) Infrequently [place] Alcohol Habits Answer Date Recorded How often do you have a drink containing Not asked alcohol? How many drinks containing alcohol do you have Not asked on a typical day when you are drinking? How often do you have six or more drinks on one Not asked occasion? Comment: Infrequently [place] 10/25/2016 Sex Assigned at Date Recorded Not on file documented as of this encounter Plan of Treatment Not on filedocumented as of this encounter Procedures Procedure Name Priority Date/Time Associated Diagnosis Comme nts CARDIAC CATHETERIZATION Routine 10/25/2016 11:36 ASCVD Results for this AM EST (arteriosclerotic procedure are in cardiovascular the results disease) section. documented in this encounter Results CARDIAC CATHETERIZATION (10/25/2016 11:36 AM EST) Specimen (Source) Anatomical Location Collection Method / Collectio n Time Received Time / Laterality Volume Narrative CARDIOMAC SYSTEM - 10/25/2016 12:[address] ?[facility] ? Cardiac Cathete rization/Intervention Report ? Patient Name: Zebrowski, Andrew J. ? Procedure Date: 10/25/2016 ? A #: [id number] ? Primary Physician: Jaye, Fish Zayas ? Case #: [id number] ? File Name: [id number] ? Catheterization Order Number: [id number] ? [facility] ? Final Report [place], [place] ? Patient Name: ? Andrew espinosa ? ID#: ?[id number] ? : ?1940 ? Procedure Date: ? October 25, 16 ?Case #: ? [id number] ? Room: ? 1 ? Case Physician: ? Dagmar Tate ? Start: ?10:28 ?Fellow: ? Che caldera, M.D. ? Admission: ??10/25/2016 ? Discharge: ??10/26/2016 ? Referring Physician: ??Duncan Mccain M.D. ? Procedures: ?* Coronary Angiography ?* Left Heart Catheterization ?* Bypass Graft Study ?* Coronary Instantaneous Wave-F ree Ratio (iFR) ?* Coronary Stent Insertion ?* Access Site Angiography ? History ?Andrew Blackwood is a 76 ye ar old man. He has hypertension. The ?patient has a history of smokin g. He has hypercholesterolemia managed ?with lipid therapy. The patient has stable angina, a history of chest ?pain and a prior history of cor onary artery disease. He had a remote ?coronary intervention procedure . The patient had remote coronary artery ?bypass surgery. He has a histor y of dyspnea with NYHA functional class ?II. The patient has a history o f carotid artery disease. He also has a ?history of an abnormal EKG, an abnormal stress test and an abnormal ?echocardiogram. Prior to the in itiation of this procedure, the patient ?was designated as ASA Class III . ? Patient Status at Catheterization: ?The patient presented with: sta ble angina (w/i 42 days). [place] ?Cardiovascular Society angina c lass was II. This patient was on beta ?blockers prior to the procedure . No stress or imaging studies were ?performed prior to this procedu re ? Technique: ?A 6Fr sheath was inserted in th e right femoral artery utilizing the ?Seldinger technique. The left c oronary artery was injected utilizing a ?6Fr JL 4.5 catheter. A 6Fr MERCEDES catheter was used to inject the right ?coronary artery. The mammary ar andie was injected utilizing a 6Fr MERCEDES ?catheter. Left ventricular pres sure was performed with a 6Fr MERCEDES ?catheter. Coronary stent insert ion was performed and the equipment ?utilized will be described in [facility] intervention summary section. 7,000 ?units of heparin were administe red. Intracoronary nitroglycerin was given ?during this case. A total of 20 0cc of Omnipaque were opened, 125cc of ?Omnipaque were administered and 75cc of Omnipaque were wasted. Radiation: ?Fluoro time was 11.2 minutes, d ose area product was 111,099 mGYcm2 and ?air kerma was 1,606 mGY. ?The patient received the follow ing medications prior to and during the ?procedure: Aspirin (any), Clopi dogrel and Unfractionated Heparin (any). ? Hemodynamics: ?Left Heart Pressures ? Resting: ? Syst D iast ? EDP ?a ?v ? m ?Ao 140 ?? 45 ?48 ?LV 145 ? 15 ? Post Contrast: ? Syst D iast ? EDP ?a ?v ? m ?Ao 146 ?? 50 ?LV 146 ? 15 ?Comments: ??No gradient on pull back from proximal left subclavian to ? descending aort a. ? Coronary Angiography: ?Dominance: Right ?Left Main ?Left Anterior Descending ? There was a single discr ete total occlusion of the ostial segment of ? the left anterior descen ding artery (LAD). ??Distal flow was via a ? bypass graft. ??The prox imal segment of the LAD had moderate diffuse ? disease. ?Left Circumflex ? There was mild diffuse d isease of the proximal segment of the left ? circumflex artery (LCX). ??The mid segment of the LCX had an ? eccentric single discret e 80% stenosis. ?Right Coronary Artery ? There was mild diffuse d isease of the entire vessel segment of the ? right coronary artery (R CA) and it was calcified. ??The RCA was ? moderate in size. ?Ramus ? There was a 20% single d iscrete stenosis of the proximal segment of ? the ramus. ??The ramus w as small. ? Intravascular Imaging/Physiology: ?Instantaneous wave-free ratio ( iFR) was determined across the 80% ?stenosis in the mid LCX using a 6 Fr EBU 4.0 guiding catheter and a ?Verrata wire. ??Wire delivery w as successful. ??The IFR across the 80% mid ?LCX lesion was 0.85. ??This les ion was hemodynamically significant. ?Lesions are generally considere d to be hemodynamically significant if the ?iFR is less than or equal to 0. 85, and are considered to be indeterminate ?in the range from 0.86 to 0.93. ? Bypass Grafts: ?There was one bypass graft eval uated during this procedure. ?1. ?? Left internal mammary art abdulaziz graft to the LAD ? There was a left interna l mammary artery graft with a single ? anastomosis to the left anterior descending artery (LAD). ? There was no evidence of obstruction in this graft. Distal flow was ? normal. ? Indication for Intervention: ?Coronary intervention was indic ated for treatment of stable angina, CCS ?Class II. Left ventricular Ejec tion Fraction was estimated at 64 percent. ?The priority for the procedure was Elective. The NCDR indication for the ?procedure was Stable angina. ? Intervention Summary: ?Left Circumflex Artery ? Mid 80% ? Stent insertion was performed on the 80% stenosis in the mid ? segment of the LCX. This was a de stacey lesion. According to ? the ACC/AHA cla ssification system, this lesion was a type B1 ? low risk lesion . Primary prevention of restenosis was the ? indication for stent insertion. This was the culprit lesion. ? Vessel flow pre intervention was BRAULIO 3. ? Stent insertion was accomplished through a 6 Fr. EBU 4.0 ? guide. ??The carlo salazaron was predilated with a 2.25mm NC EMERGE 12 ? MM balloon with a maximum inflation pressure of 14 ? atmospheres. ?? A premounted 2.50 x 14 mm Resolute (ZEYAD) was ? deployed with a maximum inflation pressure of 16 atmospheres. ? Following stent deployment, the lesion was dilated using a ? 2.50mm NC EMERG E 12 MM balloon with a maximum inflation ? pressure of 20 atmospheres. ? The final outco me was defined as successful. There was no ? residual stenos is following this intervention. The final BRAULIO ? flow was 3. ? Typical chest p ain with vessel manipulation. ? Vascular Access: ?Vascular Access Angiogram: ? A selective angiogram at the right femoral artery revealed mild ? diffuse disease. A closu re device is contraindicated due to ? calcification of vessel. ?Vascular Access Management: ? Manual Compression of th e right femoral artery access site was ? performed. ? Conclusions: ?* Two vessel coronary artery di sease (LAD and LCX) ?* Patent left internal mammary artery graft to the LAD ?* Successful stent insertion of the mid LCX lesion ?* ZEYAD (drug eluting stent) plac ed in mid LCX. ? Complications/Events: ?The patient had no complication s during these procedures. ? Recommendations: ?The patient's medical regimen w as changed as follows: Drug eluting stent ?implanted in treatment of stabl e ischemic heart disease (SIHD). 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 Recommend dual antiplatelet ?therapy (DAPT) with low dose as pirin (81 mg daily) + clopidogrel 75 mg ?daily for a minimum 6 months. L ow dose aspirin to be continued ?indefinitely unless contraindic ated. ?The attending physician was presen t for the entire procedure. ?Dr. Fish Cee M.D. performed t he coronary angiography, left heart ?catheterization, bypass graft stud y, IFR-coronary, stent insertion-coronary ?and access site angiography. ? Fish Cee, M.D. ? Electronically Signed by: Fish Cee, M.D. ? Report Finalized: 10/25/2016 ??12:00 ? Report Last Ammended: 01/19/2017 ??14:22 ? Procedure Note Fish Cee MD - 01/19/2017 [facility] Cardiac Catheterization/Intervention Re port Patient Name: Andrew Blackwood Procedure Date: 10/25/2016 A #: [id number] Primary Physician: Fish Cee Case #: [id number] File Name: [id number] Catheterization Order Number: [id number] [facility] Final Report [place], [place] Patient Name: Andrew Blackwood ID#: [id number] : 1940 Procedure Date: October 25, 2016 Case # : [id number] Room: 1 Case Physician: Fish Cee M.D. Start : 10:28 Fellow: Che Lawson M.D. Admission: 1 12/25/2015 Discharge: 10/26/2016 Referring Physician: Dagmar Norwood Procedures: * Coronary Angiography * Left Heart Catheterization * Bypass Graft Study * Coronary Instantaneous Wave-Free Rati o (iFR) * Coronary Stent Insertion * Access Site Angiography History Andrew Blackwood is a 76 year old m an. He has hypertension. The patient has a history of smoking. He cardona s hypercholesterolemia managed with lipid therapy. The patient has sta ble angina, a history of chest pain and a prior history of coronary ar andie disease. He had a remote coronary intervention procedure. The precious lisa had remote coronary artery bypass surgery. He has a history of dys pnea with NYHA functional class II. The patient has a history of caroti d artery disease. He also has a history of an abnormal EKG, an abnormal stress test and an abnormal echocardiogram. Prior to the initiation of this procedure, the patient was designated as ASA Class III. Patient Status at Catheterization: The patient presented with: stable zarina na (w/i 42 days). [place] Cardiovascular Society angina class was II. This patient was on beta blockers prior to the procedure. No str ess or imaging studies were performed prior to this procedure Technique: A 6Fr sheath was inserted in the right femoral artery utilizing the Seldinger technique. The left coronary artery was injected utilizing a 6Fr JL 4.5 catheter. A 6Fr MERCEDES catheter was used to inject the right coronary artery. The mammary artery was injected utilizing a 6Fr MERCEDES catheter. Left ventricular pressure was performed with a 6Fr MERCEDES catheter. Coronary stent insertion was performed and the equipment utilized will be described in the inter vention summary section. 7,000 units of heparin were administered. Int racoronary nitroglycerin was given during this case. A total of 200cc of O mnipaque were opened, 125cc of Omnipaque were administered and 75cc of Omnipaque were wasted. Radiation: Fluoro time was 11.2 minutes, dose area product was 111,099 mGYcm2 and air kerma was 1,606 mGY. The patient received the following medi cations prior to and during the procedure: Aspirin (any), Clopidogrel a nd Unfractionated Heparin (any). Hemodynamics: Left Heart Pressures Resting: Syst Diast EDP a v m Ao 140 45 48 LV 145 15 Post Contrast: Syst Diast EDP a v m Ao 146 50 LV 146 15 Comments: No gradient on pullback from proximal left subclavian to descending aorta. Coronary Angiography: Dominance: Right Left Main Left Anterior Descending There was a single discrete total occlu lubna of the ostial segment of the left anterior descending artery (LA D). Distal flow was via a bypass graft. The proximal segment of t he LAD had moderate diffuse disease. Left Circumflex There was mild diffuse disease of the p roximal segment of the left circumflex artery (LCX). The mid segmen t of the LCX had an eccentric single discrete 80% stenosis. Right Coronary Artery There was mild diffuse disease of the e ntire vessel segment of the right coronary artery (RCA) and it was calcified. The RCA was moderate in size. Ramus There was a 20% single discrete stenosi s of the proximal segment of the ramus. The ramus was small. Intravascular Imaging/Physiology: Instantaneous wave-free ratio (iFR) was determined across the 80% stenosis in the mid LCX using a 6 Fr EB U 4.0 guiding catheter and a Verrata wire. Wire delivery was success ful. The IFR across the 80% mid LCX lesion was 0.85. This lesion was he modynamically significant. Lesions are generally considered to be hemodynamically significant if the iFR is less than or equal to 0.85, and are considered to be indeterminate in the range from 0.86 to 0.93. Bypass Grafts: There was one bypass graft evaluated du ring this procedure. 1. Left internal mammary artery graft t o the LAD There was a left internal mammary arter y graft with a single anastomosis to the left anterior descen ding artery (LAD). There was no evidence of obstruction in this graft. Distal flow was normal. Indication for Intervention: Coronary intervention was indicated for treatment of stable angina, CCS Class II. Left ventricular Ejection Fra ction was estimated at 64 percent. The priority for the procedure was Elec tive. The NCDR indication for the procedure was Stable angina. Intervention Summary: Left Circumflex Artery Mid 80% Stent insertion was performed on the 80 % stenosis in the mid segment of the LCX. This was a de stacey lesion. According to the ACC/AHA classification system, this lesion was a type B1 low risk lesion. Primary prevention of restenosis was the indication for stent insertion. This wa s the culprit lesion. Vessel flow pre intervention was BRAULIO 3 . Stent insertion was accomplished throug h a 6 Fr. EBU 4.0 guide. The lesion was predilated with a 2.25mm NC EMERGE 12 MM balloon with a maximum inflation pre ssure of 14 atmospheres. A premounted 2.50 x 14 mm Resolute (ZEYAD) was deployed with a maximum inflation press ure of 16 atmospheres. Following stent deployment, the lesion was dilated using a 2.50mm NC EMERGE 12 MM balloon with a m aximum inflation pressure of 20 atmospheres. The final outcome was defined as succes sful. There was no residual stenosis following this interv ention. The final BRAULIO flow was 3. Typical chest pain with vessel manipula tion. Vascular Access: Vascular Access Angiogram: A selective angiogram at the right femo ral artery revealed mild diffuse disease. A closure device is co ntraindicated due to calcification of vessel. Vascular Access Management: Manual Compression of the right femoral artery access site was performed. Conclusions: * Two vessel coronary artery disease (L AD and LCX) * Patent left internal mammary artery g raft to the LAD * Successful stent insertion of the mid LCX lesion * ZEYAD (drug eluting stent) placed in mi d LCX. Complications/Events: The patient had no complications during these procedures. Recommendations: The patient's medical regimen was vazquez ed as follows: Drug eluting stent implanted in treatment of stable ischem ic heart disease (SIHD). Loading dose of clopidogrel 600 mg given in cat h lab. Recommend dual antiplatelet therapy (DAPT) with low dose aspirin (8 1 mg daily) + clopidogrel 75 mg daily for a minimum 6 months. Low dose aspirin to be continued indefinitely unless contraindicated. The attending physician was present for the entire procedure. Dr. Fish Cee M.D. performed the co ronary angiography, left heart catheterization, bypass graft study, IF R-coronary, stent insertion-coronary and access site angiography. Fish Cee M.D. Electronically Signed by: Fish Cee M.D. Report Finalized: 10/25/2016 12:00 Report Last Ammended: 01/19/2017 14:22 Fish Cee MD CARDIAC CATH ORDERABLES Performing Organization Address City/State/ZIP Code Phon e Number CARDIOMAC SYSTEM documented in this encounter Visit Diagnoses Diagnosis ASCVD (arteriosclerotic cardiovascular d isease) Unspecified cardiovascular disease ASCVD (arteriosclerotic cardiovascular d isease) Unspecified cardiovascular disease documented in this encounter Care Teams Line Closer Relationship Specialty Start Date End Date Duncan Mccain DO PCP - General 04/25/[address] [place], [place] [address]Y [address] [place] [address] documented as of this encounter
--- OUTSIDE RECORDS SUMMARY | 2022-06-14 00:50 | XMS_ITS | Encounter Summary ---
:1940 [place] [address] Care Team Providers Name Role Phone Duncan Mccain DO Primary Care Provider Reason for Visit Auth/Cert Specialty Diagnoses / Procedures Referred By Contact Refer red To Contact Diagnoses Carotid stenosis carotid stenosis . Procedures PRO THROMBOENDARTECTMY NECK, NECK INCIS @ENDARTERECTOMY, CAROTID, VERTEBRAL,SUBCLAVIAN W\WO PATCH GRAFT (WRVU 21.16) Referral ID Status Reason Start Date Expiration Date Visits Requ ested Visits Authorized [id number] 1 1 Encounter Details Date Type Department Care Team Description 11/29/2016 - Hospital Encounter 4 Lynch Reyes Small s of right 11/30/2016 [facility] MD [place] [facility] [address] [place] [id number] [phone] Social History Tobacco Use Types Packs/Day Years Used Date Former Smoker Quit: 01/07/19 89 Smokeless Tobacco: Never Used Alcohol Use Standard Drinks/Week Comments Yes 1 (1 standard drink = 0.6 oz pure alcoho l) Infrequently [place] Alcohol Habits Answer Date Recorded How often do you have a drink containing Not asked alcohol? How many drinks containing alcohol do you have Not asked on a typical day when you are drinking? How often do you have six or more drinks on one Not asked occasion? Comment: Infrequently [place] 10/25/2016 Sex Assigned at Date Recorded Not on file documented as of this encounter Last Filed Vital Signs Vital Sign Reading Time Taken Comments Blood Pressure 126/56 11/30/2016 8:10 AM EST Pulse 92 11/30/2016 8:10 AM EST Temperature 37.2 ??C (99 ??F) 11/30/2016 8:10 AM EST Respiratory Rate 12 11/30/2016 8:10 AM EST Oxygen Saturation 91% 11/30/2016 8:10 AM EST Inhaled Oxygen Concentration - - Weight 87 kg (191 lb 12.8 oz) 11/29/2016 6:20 AM EST Height 167.6 cm (5' 6) 11/29/2016 6:20 AM EST Body Mass Index 30.96 11/29/2016 6:20 AM EST documented in this encounter Discharge Summaries Bashir Waddell MD - 11/30/2016 9:31 AM EST Inpatient - Discharge Summary Patient Name: Masoud Blackwood Patient Age: 76 y.o. Birthdate: 1940 Admit date: 11/29/2016 Discharge date and time: 11/30/2016 Attending Physician: Reyes Khan MD Discharge Diagnoses (Hospital Problems) and Secondary Diagnoses (Chronic Problems): Active Hospital Problems Diagnosis ??? Carotid stenosis 11/29/2016: Right carotid endarterectomy Resolved Hospital Problems Diagnosis Date Resolved No resolved problems to display. Active Non-Hospital Problems Diagnosis ??? ASCVD (arteriosclerotic cardiovascular disease) ?? CABG [facility] about 1988 ?? Stent to unspecified coronary artery 1994 ?? Episode of nitro-responsive angina 12/03/15 ?? Regadenoson sestamibi 12/30/15 showing a severe predominantly fixed perfusion defect in the proximal to distal anteroseptal wall extending to the apex with minimal border reversibility; normal perfusion elsewhere; severe hypokinesia of the mid to distal anterior septal wall and apex with ejection fraction of 57% ??? Elevated blood pressure ??? Hyperlipemia ??? LBBB (left bundle branch block) Operations/Major Procedures: 11/29/2016: Right carotid endarterectomy History of Presentation: 76 y/o M found to have a severe but asymptomatic R ICA stenosis. A high-pitched bruit was noted on 09/02/16 by Susan Eldridge???Petty in the Cardiology clinic, and a 70-99% right ICA stenosis was identified by carotid duplex ultrasound.? Mr. Blackwood has a very distant h/o stroke 15 years ago. Symptoms affected his vision, speech and left upper extremity, but they all eventually resolved. He cannot recall the work-up performed at thattime, but carotid surgery was not recommended. He has had no stroke, TIA or amaurosis fugax symptomssince that single event many years ago. He is a former smoker (quit 1988). He is not a diabetic. He takes aspirin and statin. ??Recent history is positive for intermittent MCKNIGHT with occasional chest discomfort concerning for recurrent CAD. He has undergone CABG in 1988 and coronary stenting in 1998. Nitro responsive angina occurred [...] No significant valvular abnormalities. Cardiac Cath was performed on 10/25/16 with a new drug-eluting stent placed in his left circumflex. The bypass graft to his LAD was patent with moderate diffuse disease. The right coronary was calcified, moderate in size, and had mild diffuse disease through its entire length. ??He denies recent fevers/chills, CP SOB. He denies any interval neurologic symptoms. Last took ASA last night and Plavix this morning. ?? Hospital Course: In surgery, nearly occlusive friable carotid bifurcation plaque. Peak velocity of completion duplex was 80 cm/s. Pt admitted for postop monitoring. Caballero removed at [place] and pt voiding spontaneously with minimal PVR. Minimal pain complaints, relieved with PO meds. Neuro intact, good PO intake and independent ambulation. Pt's right neck incisional toño removed and replaced with steri-strips, c/d/i. Cleared for d/c to home on all home meds. BP 126/56 (BP Location (NBP): Right arm) Pulse 92 Temp 37.2 ??C (99 ??F) (Oral) Resp 12 Ht 167.6 cm (5' 6) Wt 87 kg (191 lb 12.8 oz) SpO2 91% BMI 30.96 kg/m2 Important Studies and Lab Data: Labs: none Studies: none Discharge Conditions/Prognosis: Good Discharge to: Home Discharge Medications: Your Medications New Medications Dose Details acetaminophen 500 mg Tab Commonly known as: TYLENOL Take 1 tablet by mouth every 4 hours as needed for Pain or Fever. 500 mg Quantity: 30 tablet Refills: 1 Continued medications, unchanged Dose Details amLODIPine 10 mg Tab Commonly known as: NORVASC Take 10 mg by mouth daily. 10 mg Refills: 0 ascorbic acid (vitamin C) 500 mg Chew Commonly known as: VITAMIN C Take 500 mg by mouth. 500 mg Refills: 0 aspirin 81 mg Tbec Take 81 mg by mouth daily. Indications: Thrombosis Prevention after PCI 81 mg Refills: 0 clopidogrel 75 mg Tab Commonly known as: PLAVIX Take 1 tablet by mouth daily. 75 mg Quantity: 90 tablet Refills: 1 CRESTOR 10 mg Tab Take 10 mg by mouth daily. Generic drug: rosuvastatin 10 mg Refills: 0 FLUZONE HIGH-DOSE (PF) 180 mcg/0.5 mL Syrg Generic drug: flu vacc ts (65yr+)(PF) Refills: 0 lisinopril 40 mg Tab Commonly known as: PRINIVIL;ZESTRIL Take 40 mg by mouth daily. Indications: Hypertension 40 mg Refills: 0 meTOPROLOL tartrate 50 mg Tab Commonly known as: LOPRESSOR Take 50 mg by mouth 2 times daily. Indications: Hypertension 50 mg Refills: 0 NITROSTAT 0[address] 0.4 mg under the tongue every 5 minutes as needed. Reported on 11/15/2016 Indications: Angina Generic drug: nitroGLYcerin 0.4 mg Refills: 0 POLY-IRON 150 FORTE 150-25-1 mg-mcg-mg Cap Generic drug: Iron Polysacch [place]-N01-FR Refills: 0 Updated Allergies/ADRs: No Known Allergies Instructions Given to Patient at Discharge: Patient Instructions You were admitted to the hospital after having a right carotid endarterectomy. This operation went very well. Dr. Khan will want you to be seen in approximately one month with a carotid ultrasound ofyour neck first. This will be scheduled and sent to you in the mail. If for some reason you don't receive this in a week, please call our office at the number below as your follow-up is very important. Call your doctor if: Any change in vision, numbness or inability to move any extremity, inability tospeak and or a headache unresponsive to Tylenol. Activity level: up as tolerated but take it easy for a week or so. Diet: regular Driving: ok after a week if you feel perfect and you were driving before Shower/Bath: showering or bath is ok Wound Care: wash with soap and water, careful shaving as your neck may be a little numb. This will gradually disappear. You should see your Primary Care Physician within 1-2 weeks for a post hospital follow-up. For any problems or questions please call our office at [phone] FLAVIA Almendarez, territory service representative Nurse Clinician For issues on weeknights after 5pm and weekends please call [phone] and ask for the Vascular Fellow director of operations for therapy. General Instructions None Future Appointments and Orders Future Appointments Provider Department Dept Phone 12/26/2016 2:30 PM [place] [facility] [phone] 12/26/2016 3:30 PM Ryees Khan MD Vascular Surgery [phone] Future Orders Complete By Expires Carotid Duplex, Unilateral [VAS2 Custom] 12/31/2016 (Approximate) 11/30/2017 Process Instructions: Scheduling Instructions: Please schedule with one month clinic f/u Questions: Laterality: Right Indication for study/signs & symptoms: s/p right carotid endarterectomy Question to be answered: patency Should this service/procedure be billed to the research sponsor?: Which location will this be performed?: [place] Discharge References/Attachments: Discharge References/Attachments None Electronically Signed By: Bashir Waddell MD 11/30/2016 documented in this encounter Discharge Instructions Patient Bridgett Ozuna RN - 11/29/2016 5:40 PM EST You were admitted to the hospital after having a right carotid endarterectomy. This operation went very well. Dr. Khan will want you to be seen in approximately one month with a carotid ultrasound ofyour neck first. This will be scheduled and sent to you in the mail. If for some reason you don't receive this in a week, please call our office at the number below as your follow-up is very important. Call your doctor if: Any change in vision, numbness or inability to move any extremity, inability tospeak and or a headache unresponsive to Tylenol. Activity level: up as tolerated but take it easy for a week or so. Diet: regular Driving: ok after a week if you feel perfect and you were driving before Shower/Bath: showering or bath is ok Wound Care: wash with soap and water, careful shaving as your neck may be a little numb. This will gradually disappear. You should see your Primary Care Physician within 1-2 weeks for a post hospital follow-up. For any problems or questions please call our office at [phone] FLAVIA Almendarez, territory service representative Nurse Clinician For issues on weeknights after 5pm and weekends please call [phone] and ask for the Vascular Fellow director of operations for therapy. documented in this encounter Medications at Time [...] tablet daily. documented as of this encounter Progress Notes Crystal Loera RN - 11/30/2016 11:46 AM EST Record reviewed and patient discussed with multidisciplinary team. Patient is medically ready to discharge to home today. No discharge needs identified at this time. María Reynoso RN - 11/30/2016 10:30 AM EST Pt and were given DC instructions, they verbalized their understanding. IV's have been removed,belongings packed, instructions in hand. Pt going home today now to avoid weather instead of stayingin a hotel as previously planned. Wheeled out with . Raj Esquivel RN - 11/29/2016 12:07 PM EST 1207: Break relief; pt resting quietly, denies HACKETT; VSS 1217: Paged Mehnaz RODRIGUEZ to clarify order for plavix (Pt took 75 mg at 0430 today); stated she would like Plavix to be given on 11/30/16 a.m., but would like Aspirin started in PACU as ordered. 1227: Pt to 2L NC; also encouraged deep breathing. Reyes Khan MD - 11/29/2016 11:43 AM EST Vascular Surgery Inpatient Progress Note Patient Name: Masoud BOWER; Age: 3 1940; 76 y.o. Room/Bed: [address] Today's Date: 11/29/16 ID: Masoud Blackwood is a 76 y.o. male with PMH HTN, HLD, LBBB, and PVD who is now Day of Surgery s/p RIGHT CEA for severe ICA stenosis. OR Findings: Nearly occlusive friable carotid bifurcation plaque. Peak velocity of completion duplexwas 80 cm/s Subjective: Denies headache, pain, chest pain, shortness of breath, nausea, or vomiting. O: Physical Exam VS - (Temp: [36.6 ??C (97.9 ??F)-36.9 ??C (98.4 ??F)] ) Temp: 36.8 ??C (98.2 ??F), (Heart Rate: [62-85] ) Heart Rate: 67, (BP: (110-141)/(43-53) ) BP: 117/52, (Resp: [6-18] ) Resp: 13, (SpO2: [87 %-100%] ) SpO2: 99 % GP - NAD, resting comfortably Neuro - awake and alert, CN grossly intact, extremity motor/sensation grossly intact HEENT - EOMI CV - RRR Pulm - non-labored breathing Abd - non-distended, nontender Incisions - RIGHT neck dressings with light serosanguinous saturation Extr - warm, well-perfused; distal pulses 2+ bilaterally Drain - caballero with clear yellow OP 24 Hour I/O's: Not recorded. Labs: No results for input(s): WBC, HGB, HCT, PLATELET, PT, INR, PTT in the last 72 hours. No results for input(s): NA, K, CL, CO2, BUN, CREATININE, GLUCOSE, CALCIUM, MAGNESIUM, PHOS in the last 72 hours. Assessment & Plan: Masoud Blackwood is a 76 y.o. male Day of Surgery s/p RIGHT CEA. - monitor for headache resilient to tylenol and please notify MD - maintain SBP <150 with PRN hydralazine/labetalol - plavix and aspirin - LR @ 75cc/hr - remove arterial line and transfer to the floor Georgie Arellano MD 11/29/2016 Vascular Surgery, [id number] Vascular attending addendum I also evaluated Mr. Blackwood in the PACU and found him without complaint. He denied chest pain, neck pain, dyspnea. Exam was notable for normal vital signs and absence of neck hematoma. Motor and sensory exams were intact. Tongue is midline. Impression: Doing very well following right CEA. Plan: Ongoing neurovascular checks. Reyes Khan M.D. Section of Vascular Surgery Mariana Delaney RN - 11/29/2016 11:41 AM EST Pt to PACU via bed from OR; monitors applied, alarms set and audible. VSS, no neuro deficits. 1300: in to bedside. Her phone/room # at [facility] left on front of chart ( reports no cell phone service there). 1400: VSS, no c/o headache. documented in this encounter H&P Notes Reyes Khan MD - 11/29/2016 6:48 AM EST Vascular Surgery - H&P Patient Name: Masoud Blackwood : [id number] MR#: [id number] (Not on file) Hospital Day 0 days HPI: 76 year-old man who was found to have a 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 A high-pitched bruit was noted on 09/02/16 by Susan Eldridge??Jason in the Cardiology clinic, and a 70-99% right ICA stenosis was identified by carotid duplex ultrasound. ?? Mr. Blackwood has a very distant h/o stroke 15 years ago. Symptoms affected his vision, speech and left upper extremity, but they all eventually resolved. He cannot recall the work-up performed at thattime, but carotid surgery was not recommended. ?? He has had no stroke, TIA or amaurosis fugax symptoms since that single event many years ago. He is a former smoker (quit 1988). He is not a diabetic. He takes aspirin and statin. ?? Recent history is positive for intermittent MCKNIGHT with occasional chest discomfort concerning for recurrent CAD. He has undergone CABG in 1988 and coronary stenting in 1998. Nitro responsive angina occurred on 12/03/15. Nuclear stress test on 12/30/15 showed severe scar pattern in the proximal to distal LADterritory with a minimal amount of joe-infarct ischemia. Anteroseptal & apical hypokinesis witha calculated LVEF of 57%. TTE on 08/19/16 showed LV chamber size normal. Normal global LV systolic function. LVEF 64% with hypokinesis at the mid to apical septum - although this is confounded by the LBBB that can contribute to abnormal septal motion. RV normal size. RV global systolic function probably normal. No significant valvular abnormalities. Cardiac Cath was performed on 10/25/16 with a new drug-eluting stent placed in his left circumflex. The bypass graft to his LAD was patent with moderate diffuse disease. The right coronary was calcified, moderate in size, and had mild diffuse disease through its entire length. ?? He denies recent fevers/chills, CP SOB. He denies any interval neurologic symptoms. Last took ASA last night and Plavix this morning. Past Medical and Surgical History: HTN HLD VIKRAM on CPAP LBBB Symptoms c/w intermittent claudication but no ABIs in chart. Sp CABG 1988 Sp Coronary stents 1998 and 2015 ([facility]YAD). Allergies/Intolerances: No Known Allergies Medications: Amlodipine 10mg daily ASA 81mg daily Plavix 75mg daily Lisinopril 40mg daily Metoprolol 50mg BID Crestor 10mg daily Social History and Habits: . Lives with . Prior smoker. Minimal EtOH. Retired. Physical Exam: Gen: Awake and alert, in NAD Card: Regular by periphery Pulm: Non-labored breathing Abd: Soft, NT; no appreciable pulsatile masses Neuro: Normal speech, no facial droop; 5/5 strength in UE and LE; LTSI throughout. Laboratory: 11-15-16 WBC 9.8 Hgb 15.8 Plts 278 Lytes WNL Cr 0.98 Imaging/Studies: Carotid Duplex 11-15-16: R ICA PSV 671, EDV 178, 70-99% stenosis L carotid not assessed since : PSV 95, EDV 19, ratio 16-49% EKG 11-15-16: NSR. LBBB. No change from . CTA 10-04-16: IMPRESSION 1. High-grade stenosis/near occlusion of the right ICA at the carotid bifurcation. 2. No left ICA stenosis. There are areas of narrowing of the vertebral arteries due to osteophyte, most pronounced on the right side. 3. Multifocal areas of hypodensity in the brain consistent with prior infarct including in the rightPCA territory, right anterolateral frontal lobe, and adjacent to the left caudate head. CXR: none performed Assessment/Plan: 76yo man with severe RIGHT internal carotid artery stenosis who has had prior righthemispheric strokes, but no recent strokes or TIAs. He is on maximal medical therapy, which now includes Plavix and aspirin. His cardiac symptoms have improved. Cardiac risk is now acceptable for surgery. He thus presents today for R CEA. MIRIAN VILLALOBOS MD 11/25/2016 Vascular Attending Addendum I interviewed and examined Mr. Blackwood this morning. He is alert and denies chest pain or dyspnea.He reports being able to climb a flight of stairs without difficulty. He denies neuro symptoms sinceI saw him in clinic. He took both aspirin and Plavix in the last 12 hours. He expressed understanding of the risks associated with surgery, and he asked us to proceed. Reyes Khan M.D. Section of Vascular Surgery documented in this encounter Miscellaneous Notes Plan of Care - Lolita Matthew RN - 11/30/2016 4:32 AM EST Problem: Patient Care Overview Goal: Plan of Care Review Outcome: Ongoing (Interventions Implemented as Appropriate) 11/29/16199911/30/16 0428 Plan of Care Review Progress -- improving Coping/Psychosocial Plan Of Care Reviewed With patient -- OUTCOME EVALUATION NOTE: OUTCOME SUMMARY: Matt had a great night. He reported being in good spirits and being happy with care. He slept the majority of the night. He reported excitement about the possibility of going home. PLAN MOVING FORWARD: Ensure Matt is able to void post caballero removal; good PO intake; safe ambulation INDIVIDUALIZED FALL PREVENTION INTERVENTIONS: Patient-specific fall risk factors per assessment: [current deficits]: Age related changes, IV access, intermittent pain, generalized weakness Assistance [level of assistance required for transfers and ambulation]: 1 assist Supervision [direct monitoring required during toileting and ADLs]: Hands on Surveillance [continuous indirect monitoring]: [place]ac Patient-specific fall prevention interventions for sensory deficits provided, if applicable: [X] N/A CPG GOAL OUTCOME EVALUATION: Goal: Fall Prevention-Safe Patient Handling Outcome: Ongoing (Interventions Implemented as Appropriate) 11/29/16199911/29/16 2100 [place] Fall Risk History of Falling 0 -- Secondary Diagnosis 15 -- Ambulatory Aids 0 -- Intravenous Therapy/Heparin/Saline Lock 20 -- Gait/Transferring 10 -- Mental Status 0 -- Score 45 -- OTHER [place] Fall Risk High -- Restraint Interventions Safety Promotion/Fall Prevention activity supervised;nonskid shoes/slippers when out of bed;muscle strengthening facilitated;safety round/check completed -- Positioning Body Position -- independent Goal: Infection Control Outcome: Ongoing (Interventions Implemented as Appropriate) 11/29/161999 Safety Interventions Isolation Precautions standard precautions maintained Infection Prevention personal protective equipment utilized;rest/sleep promoted Coping Strategies Supportive Measures active listening utilized;decision-making supported;goal setting facilitated;relaxation techniques promoted Goal: Discharge Needs Assessment Outcome: Ongoing (Interventions Implemented as Appropriate) 11/29/16 1756 Discharge Needs Assessment Concerns To Be Addressed no discharge needs identified;denies needs/concerns at this time Readmission Within The Last 30 Days no previous admission in last 30 days Equipment Needed After Discharge none Current Health Anticipated Changes Related to Illness none Activity/Self Care Review of Systems Equipment Currently Used at Home none Living Environment Transportation Available family or friend will provide Goal: Interdisciplinary Rounds/Family Conf Outcome: Ongoing (Interventions Implemented as Appropriate) 11/30/16 0428 Interdisciplinary Rounds/Family Conf Participants nursing;patient Plan of Care - María Reynoso RN - 11/29/2016 6:00 PM EST Problem: Patient Care Overview Goal: Plan of Care Review Outcome: Ongoing (Interventions Implemented as Appropriate) 11/29/16 1625 Coping/Psychosocial Plan Of Care Reviewed With patient OUTCOME EVALUATION NOTE: OUTCOME SUMMARY: Matt has been tired since arriving to the unit, he has not eaten his dinner but has tolerated sips of remington jake. He has no c/o nausea, no HACKETT, just fatigue. His incision is noted for a firmness at the top, MD aware. Small amount of serous drainage at bottom of dressing, MD noted, no change since arriving to floor. He is otherwise resting comfortably, will continue to monitor. PLAN MOVING FORWARD: [place] caballero at 0000. Monitor pain, especially HACKETT, SBP between 90-150. INDIVIDUALIZED FALL PREVENTION INTERVENTIONS: Patient-specific fall risk factors per assessment: [current deficits]: Fatigue, IV pole Assistance [level of assistance required for transfers and ambulation]: Not OOB yet, 1-2 assist for first time up. Supervision [direct monitoring required during toileting and ADLs]: Eyes on for first time Surveillance [continuous indirect monitoring]: Masimo, purposeful rounding, call trevino in reach. CPG GOAL OUTCOME EVALUATION: Goal: Fall Prevention-Safe Patient Handling Outcome: Ongoing (Interventions Implemented as Appropriate) 11/29/16 1625 [place] Fall Risk History of Falling 0 Secondary Diagnosis 15 Ambulatory Aids 0 Intravenous Therapy/Heparin/Saline Lock 20 Gait/Transferring 10 Mental Status 0 Score 45 OTHER [place] Fall Risk High Restraint Interventions Safety Promotion/Fall Prevention nonskid shoes/slippers when out of bed;activity supervised Positioning Body Position independent Goal: Infection Control Outcome: Ongoing (Interventions Implemented as Appropriate) 11/29/16 1625 Safety Interventions Isolation Precautions standard precautions maintained Infection Prevention environmental surveillance performed Coping Strategies Supportive Measures active listening utilized;self-care encouraged Goal: Discharge Needs Assessment Outcome: Ongoing (Interventions Implemented as Appropriate) 11/29/16 1756 Discharge Needs Assessment Concerns To Be Addressed no discharge needs identified;denies needs/concerns at this time Readmission Within The Last 30 Days no previous admission in last 30 days Equipment Needed After Discharge none Current Health Anticipated Changes Related to Illness none Activity/Self Care Review of Systems Equipment Currently Used at Home none Living Environment Transportation Available family or friend will provide Op Note - Mirian Villalobos - 11/29/2016 1:30 PM EST [facility] [place] Patient Name: Masoud Blackwood : [id number] MR#: [id number] Case Date: 11/29/2016 ?? Surgeon: Surgeon(s) and Role: * Reyes Khan MD - Primary * Mirian Villalobos MD - Fellow ?? Preoperative diagnosis: Severe right internal carotid stenosis ?? Postoperative diagnosis: Severe right internal carotid stenosis ?? Procedure: Right carotid endarterectomy with bovine pericardial patch angioplasty using Mahmood-Inahara shunt and completion duplex exam Anesthesia: General ET ?? Findings: Nearly occlusive friable carotid bifurcation plaque. Peak velocity of completion duplex was 80 cm/s ?? Complications: None ? Fluids: 1500 mL crystalloid ?? Estimated Blood Loss: 200 mL ?? Drains: None ?? Disposition: awakened from anesthesia, extubated and taken to the recovery room in a stable condition, having suffered no apparent untoward event. ?? Condition: doing well without problems ?? Implants: ?? Implant Name Type Inv. Item Serial No. Distributed Generation Project Manager Lot No. LRB No. Used Action PATCH,BIOL,XENOSURE,.8X8CM ([id number]) - [id number] IMPLANTS PATCH,BIOL,XENOSURE,.8X8CM ([id number]) ?[employer] - [id number] Right 1 Implanted ? Specimen: None ?? Infection Bundle used? 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 He is on maximal medical therapy, whichnow includes Plavix and aspirin. He underwent cardiac cath with stent in September. Cardiac risk is now acceptable for surgery. He thus presents today for R CEA. Procedure Description: After informed consent was obtained the patient was brought back to the operating room and placed supine on the OR table. General anesthesia was induced and the patient was intubated with an ETT. Additional support lines (caballero, arterial line, PIVs) were placed. Preoperative antibiotics were given. A timeout was performed. Attention was then turned to the patient's right neck, which was prepped and draped in the standard sterile fashion. A longituidnal incision was made along the anterior border of the sternocleidomastoid. The subcutaneous tissue and platysma were divided using a combination of blunt, sharp, and electrocautery dissection. The sternocleidomastoid and internal jugular vein was retracted laterally to expose the bifurcation. The common carotid artery, external carotid artery, superior thyroid artery and internal carotid artery were each circumferentially dissected and encircled with vessel loops.The vagus and hypoglossal nerves were identified and preserved. Satisfied with our exposure, systemic heparin was given. Next, the internal, common and external carotid arteries were clamped. An arteriotomy was performed in a longitudinal fashion with an 11 blade. This was extended onto the common carotid artery proximally and the internal carotid artery distally using Pott's scissors. A Mahmood-Inahara shunt was placed into the common and internal carotid artery in standard fashion. Despite clamps there was persistent backbleeding into the carotid. Eventually we were able to identify and dissect out a very proximal, posterior branch of the ECA and clamp this with a Yasargil. Using a Frederick elevator, endarterectomy of the common carotid and internal carotid arteries was performed. The distal internal carotid artery plaque was feathered off, leaving a smooth endpoint. Eversion endarterectomy of the external carotid artery was performed and the carotid plaque was removed. Once this was removed, the endarterectomy site was inspected for loose arterial wall tissue that was removed with fine forceps. The endarterectomy endpoints were inspected to ensure that they were adequate. Tacking sutures using 7-0 prolene were placed along the distal endpoint of the internal carotid artery. Once we were satisfied with our dissection endarterectomy, bovine pericardial patch angioplasty was performed in a standard fashion with 6-0 Prolene. Once this was nearly complete, the shunt was removed; and the arteries were flushed to expel any air or debris. The patch angioplasty was then completed, and the carotid artery was re-perfused. Several repair stitches were placedusing 6-0 prolene. Completion duplex ultrasonography was performed with the above findings. Once we were satisfied with our results on ultrasound, protamine was administered to reverse the heparin. Hemostasis was achieved with thrombin-soaked gelfoam, fibrillar and surgiflo. The wound was then closed by reapproximating the sternocleidomastoid muscle in one layer followed by the platysma in a second la mya. Skin was closed with toño and then a dry sterile dressing. The patient was awoken from anesthesia, noted to be neurologically intact and transferred to the Recovery Room in stable condition. Dr. Khan, was present and scrubbed for the entire procedure. Associated attestation - Reyes Khan MD - 11/29/2016 7:34 PM EST Attestation: Case Date: 11/29/2016 I participated in Mr. Blackwood's operation, and I supervised Dr. Villalobos throughout. REYES KHAN MD 11/29/2016 Brief Op Note - Reyes Khan MD - 11/29/2016 11:15 AM EST Brief Operative Note Patient Name: Masoud Blackwood : [id number] MR#: [id number] Case Date: 11/29/2016 Surgeon: Surgeon(s) and Role: * Reyes Khan MD - Primary * Mirian Villalobos MD - Fellow Preoperative diagnosis: Severe right internal carotid stenosis Postoperative diagnosis: Severe right internal carotid stenosis Procedure: Right carotid endarterectomy using Mahmood-Inahara shunt and completion duplex eam Anesthesia: General Findings: Nearly occlusive friable carotid bifurcation plaque. Peak velocity of completion duplex was 80 cm/s Complications: None Fluids: 1500 mL crystalloid Estimated Blood Loss: 200 mL Drains: None Disposition: awakened from anesthesia, extubated and taken to the recovery room in a stable condition, having suffered no apparent untoward event. Condition: doing well without problems Implants: Implant Name Type Inv. Item Serial No. Distributed Generation Project Manager Lot No. LRB No. Used Action PATCH,BIOL,XENOSURE,.8X8CM ([id number]) - [id number] IMPLANTS PATCH,BIOL,XENOSURE,.8X8CM ([id number]) [facility] [employer] - [id number] Right 1 Implanted Specimen: None Infection Bundle used? N/A Reyes Khan M.D. Section of Vascular Surgery documented in this encounter Plan of Treatment Not on filedocumented as of this encounter Procedures Procedure Name Priority Date/Time Associated Comments Diagnosis IMPLANTABLE DEVICES 12/01/2016 12:00 SCAN AM EST ECG SCAN 12/01/2016 12:00 AM EST CAROTID DUPLEX, Routine 11/29/2016 9:54 AM Result s for this UNILATERAL EST procedure are i n the results section. BLOOD GAS 2 ARTERIAL Routine 11/29/2016 8:15 AM R esults for this EST procedure are i n the results section. @ENDARTERECTOMY, 11/29/2016 7:33 AM Stenosis of right CAROTID, EST carotid artery VERTEBRAL,SUBCLAVIAN W\WO PATCH GRAFT (WRVU 21.16) documented in this encounter Results Carotid Duplex, Unilateral (12/26/2016 2:34 PM EST) Component Value Ref Test Analysis Performed At [facility] CVRx Range Method Time Signature VB Text Department: Vascular Surgery Lab VASCUBASE Report Patient: [id number] (MASOUD BLACKWOOD) CPT: 85563 ICD10: I65.21 Referring Physician: REYES KHAN ?? [...] There is minimal hyperplasia in the proximal customer experience intern al carotid artery causing <15 stenosis when [...] Address City/State/ZIP Code Phon e Number VASCUBASE SCAN DOC: IMPLANTABLE DEVICES (12/01/2016 12:00 AM EST) Narrative This result has an attachment that is no t available. Scanning Provider MEDIA MGR SCAN EXT ORDR/RSLT SCAN DOC: ECG (12/01/2016 12:00 AM EST) Narrative This result has an attachment that is no t available. Scanning Provider MEDIA MGR SCAN EXT ORDR/RSLT Carotid Duplex, Unilateral (11/29/2016 9:54 AM EST) Component Value Ref Test Analysis Performed At [facility] Method Time Signature VB Text Department: Vascular Surgery Lab VASCUBASE Report Patient: [id number] (MASOUD BLACKWOOD) CPT: 85006 ICD10: I65.21 Referring Physician: REYES KHAN ?? Indications: s/p RT CEA,intra op completion duplex. ICD10 Diagnosis Code: I65.21 Findings: Right ? PSV (cm/s) ??EDV (cm/s) ?? ICA Proximal ?97 ?17 ?? ICA Distal ?72 ?12 ?? CCA Distal ?58 ? 9 ?? Interpretation: RIGHT: There is a focal area of residual posterior wal l plaque noted at/just beyond the distal margin of the CEA site causing disturbed Doppler flow signals just distal to this. No foca l velocity step up or flap identified. Widely patent carotid bifurcation with no evidence of flap or residual stenosis. Significantly improved compared to the preoperative exam 11/15/2016 Electronically Signed by: REYES KHAN on 2016-12-03 10:06: 10 PM VB Text End of Report VASCUBASE Report Specimen (Source) Anatomical Collection Method Collection Time Re ceived Time Location / / Volume Laterality 11/29/2016 9:54 AM EST Reyes Khan MD VASCULAR ORDERABLES Performing Organization Address City/State/ZIP Code Phon e Number VASCUBASE (ABNORMAL) BLOOD GAS 2 ARTERIAL (11/29/2016 8:15 AM EST) Analysis Performed At Patho logist Time Signature pH Art 7.40 7.35 - [facility] 7.45 [facility] pCO2 Art 36 35 - 45 [facility] mmHg [facility] pO2 Art 304 (H) 85 - 104 [facility] HCO3 Art 21.7 20.0 - [facility] 26.0 [facility] mmol/L [facility] BE Art -3.1 (L) -3.0 - 3.0 [facility] mmol/L [facility] Hgb Blood Gas 14.3 13.7 - [facility] 16.5 gm/dL [facility] O2HB Art 98.5 (H) 94.0 - [facility] 97.0 % [facility] COHB Art 1.0 % [facility] Comment: Nonsmokers: 0.5-1.5% COHB Smokers: Variable, but usually less than 10% Toxic: 20-30% COHB Lethal: Greater than 60% COHB METHB Art 0.1 <=1.5 % [facility] Na Whole Blood 131 (L) 135 - 145 mmol/L [facility] K Whole Blood 3.9 3.5 - 5.0 mmol/L [facility] Comment: Please note: Patients with WBC >100,000 may have falsely elevated Potassium levels. Contact the Clinical Chemistry L aboratory if there are any questions. ICa Whole Blood 1.18 1.15 - 1.33 mmol/L [facility] Comment: Note: ??Total bilirubin higher than 20 m g/dL may lead to falsely low ionized calcium. CL Whole Blood 106 98 - 107 mmol/L [facility] Gluc Whole Bld 126 65 - 199 mg/dL [facility] Comment: Diabetes: >=200 mg/dL plus symp toms. Lactate WB 1.1 0.5 - 2.2 mmol/L [facility] Specimen Anatomical Collection Method Collection Time Receive d Time (Source) Location / / Volume Laterality Blood specimen 11/29/2016 8:15 AM 017 8:15 (specimen) EST AM EST Reyes Khan MD CHEMISTRY ORDERABLES Performing Organization Address City/State/[place] [address] documented in this encounter Visit Diagnoses Diagnosis Stenosis of right carotid artery Occlusion and stenosis of carotid artery without mention of cerebral infarction Carotid stenosis Occlusion and stenosis of carotid artery without mention of cerebral infarction documented in this encounter Admitting Diagnoses Diagnosis Carotid stenosis Occlusion and stenosis of carotid artery without mention of cerebral infarction documented in this encounter Administered Medications Inactive Administered Medications - up to 3 most recent administrations Medication Order MAR Action Action Date Dose Rate Site acetaminophen (TYLENOL) tablet 500 Given 11/30/2016 5:35 AM EST 500 mg mg 500 mg, Oral, EVERY 4 HOURS PRN, Starting on Mon11/29/16 at 1143, Until Mon11/30/16 at 1346, Pain, Fever, Maximum dose of acetaminophen is 4000 mg from all sources in 24 hours., Routine Given 11/30/2016 12:21 AM EST 500 mg Given 11/29/2016 12:53 PM EST 500 mg amLODIPine (NORVASC) tablet 10 mg Given 11/30/2016 9:04 AM EST 10 mg 10 mg, Oral, DAILY, First dose on Mon11/30/16 at 0900, Until Discontinued, Routine aspirin EC tablet 81 mg Given 11/30/2016 9:04 AM EST 81 mg 81 mg, Oral, DAILY, First dose on Mon11/29/16 at 1200, Until Discontinued, Routine Given 11/29/2016 12:24 PM EST 81 mg ceFAZolin (ANCEF) 2g in dextrose 5% 50 Given 11/29/2016 7:52 PM EST 2 g 100 mL/hr mL 2 g, Intravenous, EVERY 8 HOURS, 2 doses, First dose on Mon11/29/16 at 1200, Last dose on Mon11/29/16 at 2000, Administer over 30 Minutes, Redose after 4 hours., Recovery (Recovery-Hospital Unit), Indication for (Active or Suspected): Prophylaxis Given 11/29/2016 3:16 PM EST 2 g 100 mL/hr clopidogrel (PLAVIX) tablet 75 mg Given 11/30/2016 9:04 AM EST 75 mg 75 mg, Oral, DAILY, First dose on Mon11/29/16 at 1200, Until Discontinued, Routine lactated ringers infusion New Bag 11/30/2016 1:27 AM EST 75 mL/hr 75 mL/hr 75 mL/hr, Intravenous, CONTINUOUS, Starting on Mon11/29/16 at 1200, Until Mon11/30/16 at 1346 New Bag 11/29/2016 11:52 AM EST 75 mL/hr 75 mL/hr lisinopril (PRINIVIL;ZESTRIL) tablet 40 mg Given 11/30/2016 9:04 AM EST 40 mg 40 mg, Oral, DAILY, First dose on Mon11/30/16 at 0900, Until Discontinued, Routine meTOPROLOL tartrate (LOPRESSOR) tablet 5 0 mg Given 11/30/2016 9:04 AM EST 50 mg 50 mg, Oral, 2 TIMES DAILY, First dose on Mon11/29/16 at 1200, Until Discontinued, Routine Given 11/29/2016 8:05 PM EST 50 mg ondansetron (ZOFRAN) injection 4 mg 4 mg, Intravenous, EVERY 8 HOURS PRN, Starting on Mon11/29/16 at 1618, Until Mon11/30/16 at 1346, Nausea, May repeat times one in 30 min utes if ineffective ondansetron (ZOFRAN) tablet 4 mg 4 mg, Oral, EVERY 8 HOURS PRN, Starting on Mon11/29/16 at 1618, Until Mon11/30/16 at 1346, Nausea, Vomiting, If multiple antiemetics are ordered, use ondansetron first. PO Preferred. If patient unable to take PO, may give IV if ordered. May repeat times one in 45 minutes if ineffective. , Miguel Ángeli aleah rosuvastatin (CRESTOR) tablet 10 mg 10 mg, Oral, EVERY EVENING, First dose ( after last reorder) on Mon11/30/16 at 1700, Until Discontinued, Routine documented in this encounter Active and Recently Administered Medications Times are shown in EST. Scheduled Medication Order 11/28/2016 11/29/2016 11/30/2016 amLODIPine (NORVASC) tablet 10 mg 0904 (Given - Provider: María Reynoso RN) 10 mg, Oral, DAILY, First dose on 03/13 at 0900, Until Discontinued, Routine aspirin EC tablet 81 mg 1224 (Given - Provider: Raj Esquivel RN) 0904 (Given - Provider: María Reynoso RN) 81 mg, Oral, DAILY, First dose on 02/10 at 1200, Until Discontinued, Routine ceFAZolin (ANCEF) 2g in dextrose 5% 50 mL (COMPLETED) 0809 (Given - Provider: Gera Powell CRNA)1109 (Given - Provider: Gera Powell CRNA) 2 g, Intravenous, ONCE, 1 dose, Mon at 0645, Administer over 30 Minutes, Redose every 3 hours if CrCl is greater than 20. Redose every 8 hours if CrCl is less than 20., Day of Surgery (Day of Pro cedure), Indication for (Active or Suspected): Prophylaxis ceFAZolin (ANCEF) 2g in dextrose 5% 50 mL (COMPLETED) 1516 (Given - Provider: Mariana Delaney, RN)195 (Given - Provider: Lolita Matthew RN) 2 g, Intravenous, EVERY 8 HOURS, 2 doses , First dose on Mon11/29/16 at 1200, Last dose on Mon11/29/16 at 2000, Administer over 30 Minutes, Redose after 4 hours., Recovery (Recovery-Hospital Unit), Indication for (Active or Suspected): Prophylaxis clopidogrel (PLAVIX) tablet 75 mg 1200 ( Not Given - Provider: Raj Esquivel RN - Reason: Order parameters not met - Comment: Pt took 75 mg dose at home todat at 0430; Mehnaz RODRIGUZE aware) 903 (Given - Provider: María Reynoso RN) 75 mg, Oral, DAILY, First dose on 02/10 at 1200, Until Discontinued, Routine lisinopril (PRINIVIL;ZESTRIL) tablet 40 mg 903 (Given - Provider: María Reynoso RN) 40 mg, Oral, DAILY, First dose on 03/13 at 0900, Until Discontinued, Routine meTOPROLOL tartrate (LOPRESSOR) tablet 50 mg 1200 (Not Given - Provider: Mariana Delaney RN - Reason: See comment - Comment: pt took at 0430)2004 (Given - Provider: Lolita Matthew RN) 09 (Given - Provider: María Reynoso RN) 50 mg, Oral, 2 TIMES DAILY, First dose o n Mon11/29/16 at 1200, Until Discontinued, Routine rosuvastatin (CRESTOR) tablet 10 mg 10 mg, Oral, EVERY EVENING, First dose o n Mon11/30/16 at 1700, Until Discontinued, Routine Continuous Medication Order 11/28/2016 11/29/2016 11/30/2016 lactated ringers infusion 1152 (New Bag - Provid er: Mariana Delaney RN) 0127 (New Bag - Provider: Lolita Matthew RN)0905 (Stopped - Provider: María Reynoso RN) 75 mL/hr, at 75 mL/hr, Intravenous, CONT INUOUS, Starting Mon11/29/16 at 1200, Until Mon11/30/16 at 1346 PRN Medication Order 11/28/2016 11/29/2016 11/30/2016 acetaminophen (TYLENOL) tablet 500 mg 12 53 (Given - Provider: Mariana Delaney, RN) 0021 (Given - Provider: Lolita palmer, ARTUR)0535 (Given - Provider: Lolita Matthew, ARTUR) 500 mg, Oral, EVERY 4 HOURS PRN, Startin g Mon11/29/16 at 1143, Until Mon11/30/16 at 1346, Pain, Fever, Maximum dose of acetaminophen is 4000 mg from all sources in 24 hours., Routine gelatin adsorbable (GELFOAM) sponge (CANCELED) 1043 (Given - Provider: Reyes Khan MD - Comment: Soaked in 5,000 units of Thrombin) ONCE PRN, Starting e 11/29/16 at 1043, Intra-Operative (Intra-Pr ocedure) hydrALAZINE (APRESOLINE) injection 10 mg 10 mg, Intravenous, EVERY 1 HOUR PRN, St arting Mon11/29/16 at 1143, Until Mon11/30/16 at 1346, High Blood Pressure, for blood pressure > 150 for maximum of 2 doses then jesse RODRIGUEZ, Use if 2 doses of labetalol ineffective in achieving goal., Routine labetalol (NORMODYNE,TRANDATE) injection 10 mg 10 mg, Intravenous, EVERY 1 HOUR PRN, St arting e 11/29/16 at 1143, Until Mon11/30/16 at 1346, High Blood Pressure, for SBP > 150, hold for HR < 60 for maximum of 2 doses, then jesse RODRIGUEZ., May repeat 10 mg in 15 minutes once if SBP goal not achieved, Routine ondansetron (ZOFRAN) injection 4 mg(Linked Group 1) 4 mg, Intravenous, EVERY 8 HOURS PRN, St arting e 11/29/16 at 1618, Until Mon11/30/16 at 1346, Nausea, May repeat times one in 30 minutes if ineffective ondansetron (ZOFRAN) tablet 4 mg(Linked Group 1) 4 mg, Oral, EVERY 8 HOURS PRN, Starting e 11/29/16 at 1618, Until Mon11/30/16 at 1346, Nausea, Vomiting, If multiple antiemetics are ordered, use ondansetron first. PO Preferred. If patient unable t o take PO, may give IV if ordered. May r epeat times one in 45 minutes if ineffective. , Routine papaverine injection (CANCELED) 0900 (Given - Pr ovider: Reyes Khan MD) ONCE PRN, Starting Mon11/29/16 at 0900, U ntil Mon11/30/16 at 1346, Intra-Operative (Intra-Procedure), Routine thrombin (bovine) (THROMBIN-JMI) solution (CANCELED) 1043 (Given - Provider: Reyes Khan MD) ONCE PRN, Starting Mon11/29/16 at 1043, Intra-Operative (Intra-Pr ocedure) Linked Groups Order Group 1: ondansetron (ZOFRAN) tablet 4 mgJump to med 4 mg, Oral, EVERY 8 HOURS PRN, Starting Mon11/29/16 at 1618, Until Mon11/30/16 at 1346, Nausea, Vomiting
If multiple antiemetics are ordered, use ondansetron first. PO Preferred. I f patient unable to take PO, may give IV if ordered. May repeat times one in 45 minutes if ineffective.
Routine Or ondansetron (ZOFRAN) injection 4 mgJump to med 4 mg, Intravenous, EVERY 8 HOURS PRN, St arting Mon11/29/16 at 1618, Until Mon11/30/16 at 1346, Nausea
May repeat times one in 30 minutes if ineffective
documented in this encounter Care Teams Glass Lathe Operator Relationship Specialty Start Date End Date Duncan Mccain DO PCP - General 04/25/[address] [place] [address] documented as of this encounter
--- OUTSIDE RECORDS SUMMARY | 2022-06-14 00:50 | XMS_ITS | Encounter Summary ---
:1940 Author Organization [facility] [place] [address] Care Team Providers Name Role Phone Duncan Mccain DO Primary Care Provider Encounter Details Date Type Department Care Team Description 11/15/2016 Laboratory Appointment Lab at [facility] [place] [id number] Social History Tobacco Use Types Packs/Day Years Used Date Former Smoker Quit: 01/07/19 89 Smokeless Tobacco: Never Used Alcohol Use Standard Drinks/Week Comments Yes 1 (1 standard drink = 0.6 oz pure alcoho l) Infrequently [place] Alcohol Habits Answer Date Recorded How often do you have a drink containing Not asked alcohol? How many drinks containing alcohol do you have Not asked on a typical day when you are drinking? How often do you have six or more drinks on one Not asked occasion? Comment: Infrequently [place] 10/25/2016 Sex Assigned at Date Recorded Not on file documented as of this encounter Plan of Treatment Not on filedocumented as of this encounter Visit Diagnoses Not on filedocumented in this encounter Care Teams Linseed Oil Refiner Relationship Specialty Start Date End Date Duncan Mccain DO PCP - General 04/25/[address] [place], [place] [id number] documented as of this encounter
--- OUTSIDE RECORDS SUMMARY | 2022-06-14 00:50 | XMS_ITS | Encounter Summary ---
:1940 Author Organization [facility] [place] [address] Care Team Providers Name Role Phone Duncan Mccain DO Primary Care Provider Reason for Visit Diagnostic Test (Routine) - Closed Specialty Diagnoses / Procedures Referred By Contact Refer red To Contact Radiology Diagnoses Unstable angina Duncan Mccain DO [facility] Rad Nuclear Med Procedures NM myocardial perfusion scan, pharmacologic NM stress myocardial perfusion scan single- pharmacologic [facility] [address] [place] [address] Phone: Fax: Referral ID Status Reason Start Date Expiration Date Visits V isits Requested Authorized [id number] Closed Specialty 12/23/2015 12/22/2016 1 1 Service Requested Encounter Details Date Type Department Care Team Description 12/30/2015 Hospital Encounter Nuclear Medicine at Duncan Mccain DO [facility] [address] [address] [place] [address] [phone] Social History Tobacco Use Types Packs/Day Years Used Date Never Assessed Sex Assigned at Date Recorded Not on file documented as of this encounter Medications at Time of Discharge Medication Sig Dispensed Refills Start Date End Date FLUZONE HIGH-DOSE 0 08/18/20152014-, PF, 180 mcg/0.5 [...] by mouth 0 10 mg tablet daily. ferrous sulfate 325 mg 0 10/20/2015 (65 mg iron) Tablet omeprazole (PRILOSEC) Take 10 mg by mouth 0 09/02/2016 10 mg capsule daily. documented as of this encounter Plan of Treatment Not on filedocumented as of this encounter Procedures Procedure Name Priority Date/Time Associated Comments Diagnosis NM PHARMACOLOGIC Routine 12/30/2015 2:39 PM Unstable angina Re sults for this STRESS AND REST EST procedure ar pietro in MYOCARDIAL PERFUSION the res ults section. documented in this encounter Results NM myocardial perfusion scan, pharmacologic (12/30/2015 2:39 PM EST) Anatomical Region Laterality Modality Nuclear Medicine Specimen (Source) Anatomical Location Collection Method / Collectio n Time Received Time / Laterality Volume Impressions 12/30/2015 5:38 PM EST IMPRESSION: 1. ??Severe scar pattern in the proximal to distal LAD territory with a minimal amount of joe-infarct ischemia. 2. ??Anteroseptal and apical hypokinesis with a calculated LVEF of 57%. I have personally reviewed the image(s) and the residents interpretation and agree with the findings, Al Smith at 12/30/2015 5:38 PM Narrative 12/30/2015 5:38 PM EST EXAMINATION: NM MYOCARDIAL PERFUSION SCAN, PHARMACOLOGIC CLINICAL HISTORY: unstable angina TECHNIQUE: During rest, 12.8 mCi of tech netium-99m sestamibi was administered intravenously. Approximately 20 minutes later, SPECT images of the heart were obtained with reconstruction in the shor t, vertical long and horizontal long axis. The patient then received regadenoson in travenously at a dose of 0.4 mg. 20 seconds later, 36.2 mCi of technetium-99 m sestamibi was administered intravenously. Images of the heart were then again obtained with SPECT reconstruction. A low-dose CT scan was acquired for the purpose of attenuation correction COMPARISON: None FINDINGS: A severe predominantly fixed perfusion d efect is present in the proximal to distal anteroseptal wall extending into the apex with a minimal amount of border zone reversibility. Normal perfusion all other regions of the LV myocardium on stress and rest images. Functional analysis: Myocardial function: There is severe hyp okinesis of the mid to distal anterior septal wall and apex. Left ventricular ejection fraction: 57 % (normal greater than than 50%). Procedure Note Al Smith MD - 12/30/2015Formatti ng of this note might be different from the original. EXAMINATION: NM MYOCARDIAL PERFUSION SCA N, PHARMACOLOGIC CLINICAL HISTORY: unstable angina TECHNIQUE: During rest, 12.8 mCi of tech netium-99m sestamibi was administered intravenously. Approximately 20 minutes later, SPECT images of the heart were obtained with reconstruction in the shor t, vertical long and horizontal long axis. The patient then received regadenoson in travenously at a dose of 0.4 mg. 20 seconds later, 36.2 mCi of technetium-99 m sestamibi was administered intravenously. Images of the heart were then again obtained with SPECT reconstruction. A low-dose CT scan was acquired for the purpose of attenuation correction COMPARISON: None FINDINGS: A severe predominantly fixed perfusion d efect is present in the proximal to distal anteroseptal wall extending into the apex with a minimal amount of border zone reversibility. Normal perfusion all other regions of the LV myocardium on stress and rest images. Functional analysis: Myocardial function: There is severe hyp okinesis of the mid to distal anterior septal wall and apex. Left ventricular ejection fraction: 57 % (normal greater than than 50%). IMPRESSION IMPRESSION: 1. Severe scar pattern in the proximal t o distal LAD territory with a minimal amount of jeo-infarct ischemia. 2. Anteroseptal and apical hypokinesis w ith a calculated LVEF of 57%. I have personally reviewed the image(s) and the residents interpretation and agree with the findings, Al Smith at 12/30/2015 5:38 PM Duncan Mccain DO IMG NM ORDERABLES documented in this encounter Visit Diagnoses Not on filedocumented in this encounter Care Teams Pediatrician Managing Partner Relationship Specialty Start Date End Date Duncan Mccain DO PCP - General 04/25/[address] [place] [address] documented as of this encounter
--- OUTSIDE RECORDS SUMMARY | 2022-06-14 00:50 | XMS_ITS | Encounter Summary ---
:1940 Author Organization [facility] [place] [address] Care Team Providers Name Role Phone Duncan Mccain DO Primary Care Provider Reason for Referral Diagnostic Test (Routine) - Closed Specialty Diagnoses / Procedures Referred By Contact Refer red To Contact Radiology Diagnoses Bilateral carotid artery stenosis Janet Glover, PRODUCT DEVELOPMENT ECOLOGIST [facility] Rad Ct Scan Procedures CT Carotids & [place] w Contrast [facility] [place] [address] [place] [address] Referral ID Status Reason Start Date Expiration Date Visits V isits Requested Authorized [id number] Closed Specialty 09/13/2016 09/13/2017 1 1 Service Requested Reason for Visit Reason Comments Carotid Stenosis PT HERE FOR F/U CAROTID STEN OSIS Consultation (Routine) - Closed Specialty Diagnoses / Procedures Referred By Contact Refer red To Contact Vascular Surgery Diagnoses ASCVD (arteriosclerotic cardiovascular disease) Tuan Gibbs PA [facility] D R 3v [place] [address] [place] [address] Phone: Referral ID Status Reason Start Date Expiration Date Visits V isits Requested Authorized [id number] Closed Consult, 09/02/2016 09/02/2017 1 1 Test & Treat Encounter Details Date Type Department Care Team Description 09/13/2016 Office Visit Vascular Surgery at Janet Glover, Bi lateral carotid [facility] PRODUCT DEVELOPMENT ECOLOGIST artery stenosis [facility] [address] [place], [place] VASCULAR SURGERY [address] [place] [address] [phone] Social History Tobacco Use Types Packs/Day Years Used Date Former Smoker Quit: 01/07/19 89 Sex Assigned at Date Recorded Not on file documented as of this encounter Last Filed Vital Signs Vital Sign Reading Time Taken Comments Blood Pressure 155/50 09/13/2016 2:59 PM EDT Pulse 66 09/13/2016 2:59 PM EDT Temperature - - Respiratory Rate 18 09/13/2016 2:59 PM EDT Oxygen Saturation - - Inhaled Oxygen Concentration - - Weight 93 kg (205 lb) 09/13/2016 2:59 PM EDT Height 165.1 cm (5' 5) 09/13/2016 2:59 PM EDT Body Mass Index 34.11 09/13/2016 2:59 PM EDT documented in this encounter Patient Instructions Patient InstructionsStJanet sampson APRN - 09/13/2016 3:30 PM EDT Continue with cardiac w/u. Continue ASA and stain. If you experience numbness, tingling, weakness ofarm and or leg, change in vision, or difficulty speaking please call 911 and notify your medical provider. Recommend CTA carotids with COW and see one of the vascular surgeons with in next months. Sentfor Cr today documented in this encounter Progress Notes Janet Glover APRN - 09/13/2016 3:30 PM EDT This is a new patient to the practice who is being evaluated for carotid stenosis and was referred by DUNCAN MCCAIN DO. 76 yo male with hx ASCVD s/p CABG and stent, HTN, LBBB found to have carotid bruit. Carotid duplex with right carotid stenosis 70-99%. He is asymptomatic. He is currently having cardiac work up. DeniesTIA's, CVA, SOB, chest pain. C/o B leg tiredness with walking. C/o fatigue. PMHx: Past Medical History Diagnosis Date ??? Carotid stenosis 09/13/2016 PSxHx: Past Surgical History Procedure Laterality Date ??? Pro upper gi endoscopy, diagnostic 05/28/2014 EGD, UPPER GI ENDOSCOPY performed by Philippe Khan MD at [facility] ENDOSCOPY ??? Pro colonoscopy, diagnostic 05/28/2014 COLONOSCOPY, DIAGNOSTIC performed by Philippe Khan MD at [facility] ENDOSCOPY Family Hx: No family history on file. Social Hx: Social History Substance Use Topics ??? Smoking status: Former Smoker Quit date: 01/07/1989 ??? Smokeless tobacco: Not on file ??? Alcohol use Not on file Medications: Medications 09/13/16 1504 Medication Sig Taking? FLUZONE HIGH-DOSE , PF, 180 mcg/0.5 mL Syringe Yes POLY-IRON 150 FORTE 150-25-1 mg-mcg-mg Capsule Yes amLODIPine (NORVASC) 10 mg Tablet Take 10 mg by mouth daily. Yes metoprolol tartrate (LOPRESSOR) 50 mg tablet Take 50 mg by mouth 2 times daily. Indications: Hypertension Yes aspirin 81 mg EC tablet Take 81 mg by mouth daily. Indications: Thrombosis Prevention after PCI Yes lisinopril (PRINIVIL;ZESTRIL) 40 mg tablet Take 40 mg by mouth daily. Indications: Hypertension Yes nitroGLYcerin (NITROSTAT) 0.[address] 0.4 mg under the tongue every 5 minutes as needed. Indications: Angina Yes rosuvastatin (CRESTOR) 10 mg tablet Take 10 mg by mouth daily. Yes Allergies: No Known Allergies Physical Exam: Vitals: Vitals: 09/13/16 1459 BP: 155/50 Pulse: 66 Resp: 18 General: NAD, appears well Neuro: Alert and oriented, motor sensory grossly intact Lungs: CTA Heart: RRR distant Abd: Soft, NT, ND, no palpable pulsatile masses Extremity - [place], warm, no ulceration, brisk capillary refill, no edema Vascular: R L Carotid 2/2 bruit (y) 2/2 bruit (n) Radial 2/2 2/2 Femoral 2/2 2/2 Popliteal -/2 -/2 DP 2/2 -/2 PT 1/2 1/2 Carotid duplex. 10/7/16 ICA Proximal, Right ?PSV (cm/s): 545 ?EDV (cm/s): 174 ?ICA/CCA: 7.1 ?Plaque Structure: Echogenic ?Plaque Surface: Irregular ?%Stenosis: 70-99% ICA Middle, Right ?PSV (cm/s): 123 ?EDV (cm/s): 6 ?ICA/CCA: 1.6 ICA Distal, Right ?PSV (cm/s): 63 ?EDV (cm/s): 22 ?ICA/CCA: 0.8 CCA Distal, Right ?PSV (cm/s): 77 ?EDV (cm/s): 16 ?%Stenosis: <50% CCA Proximal, Right ?PSV (cm/s): 104 ?EDV (cm/s): 10 External Carotid Artery, Right ?PSV (cm/s): 157 ?EDV (cm/s): 4 ?%Stenosis: <50% Vertebral, Right ?PSV (cm/s): 89 ?EDV (cm/s): 16 ?Direction of Flow: Antegrade ICA Proximal, Left ?PSV (cm/s): 95 ?EDV (cm/s): 19 ?ICA/CCA: 1.1 ?Plaque Structure: Echogenic ?Plaque Surface: Irregular ?%Stenosis: 16-49% ICA Distal, Left ?PSV (cm/s): 104 ?EDV (cm/s): 23 ?ICA/CCA: 1.2 CCA Distal, Left ?PSV (cm/s): 87 ?EDV (cm/s): 14 ?%Stenosis: <50% CCA Proximal, Left ?PSV (cm/s): 96 ?EDV (cm/s): 10 External Carotid Artery, Left ?PSV (cm/s): 149 ?EDV (cm/s): 5 ?%Stenosis: <50% Vertebral, Left ?PSV (cm/s): 52 ?EDV (cm/s): 13 ?Direction of Flow: Antegrade Interpretation: RIGHT: Plaque is present in the distal common carotid artery causing 20-25% stenosis by e-calipers. There is bulky irregular calcified plaque in the proximal internal carotid artery causing 70-99% stenosis when compared to the more distal internal carotid artery. The bifurcation level is in the upper mid neck. LEFT: Plaque is present in the distal common carotid artery causing 20-25% stenosis by e-calipers. There is bulky irregular plaque in the proximal internal carotid artery causing 16-49% stenosis (at low end of range) when compared to the more distal internal carotid artery. The bifurcation level is in the mid neck. Vertebral Artery Data: Patent vertebral arteries with normal antegrade Doppler waveforms and velocities bilaterally. Assessment/Plan: 76 yo male with hx ASCVD s/p CABG and stent, HTN, LBBB found to have carotid bruit.Carotid duplex with right carotid stenosis 70-99%. Asymptomatic critical right internal carotid artery stenosis. Continue with cardiac w/u. Continue ASA and stain. If you experience numbness, tingling, weakness of arm and or leg, change in vision, or difficulty speaking please call 911 and notify yourmedical provider. Recommend CTA carotids with COW and see one of the vascular surgeons with in next months. Sent for Cr today documented in this encounter Plan of Treatment Not on filedocumented as of this encounter Procedures Procedure Name Priority Date/Time Associated Diagnosis Comme nts CREATININE Routine 09/13/2016 3:41 PM Bilateral carotid Resu lts for this EDT artery stenosis procedure ar e in the results section . documented in this encounter Results CT Carotids & [place] w Contrast (10/04/2016 10:15 AM EST) Anatomical Region Laterality Modality Neck, Head Computed Tomography Specimen (Source) Anatomical Location Collection Method / Collectio n Time Received Time / Laterality Volume Impressions 10/04/2016 11:35 AM EST 1. ??High-grade stenosis/near occlusion of the right ICA at the carotid bifurcation. 2. ??No left ICA stenosis. There are are as of narrowing of the vertebral arteries due to osteophyte, most pronounced on th e right side. 3. ??Multifocal areas of hypodensity in the brain consistent with prior infarct including in the right BUILDING CODE ADMINISTRATOR territory, ri ght anterolateral frontal lobe, and adjacent to the left caudate head. Narrative 10/04/2016 11:35 AM EST EXAMINATION: CT CAROTIDS AND [place] W CONTRAST CLINICAL HISTORY: right carotid critical stenosis TECHNIQUE: CTA of the carotid and [place] performed following intravenous administration of 65 cc of 3 50. 3-D and MIP images created. COMPARISON: None FINDINGS: There is mild atherosclerotic plaque on the arch without stenosis of the origins of vessels. Right carotid: Common carotid origin is normal. There is plaque along course of the common carotid without stenosis belo w the bifurcation. Calcified and noncalcified plaque is present at the bi furcation with with minimal residual lumen. No other focal stenosis of the IC A. Left carotid: Common carotid origin is n ormal. There is plaque along the course of the common carotid without stenosis. There is plaque at the bifurcation without stenosis of the ICA. Cervical IC A is normal in caliber. Right vertebral artery: There is plaque at the origin with minimal narrowing. There are areas of mild to moderate narr owing by osteophyte in the neck, most pronounced at the C4 level. There is kelvin cification at the level of the C1 loop without significant stenosis. Left vertebral artery: There is calcifie d plaque at the origin and along the course of the proximal vertebral artery with mild narrowing. There are several areas of mild narrowing by osteophyte in the neck. No severe focal stenosis. Intracranial circulation: There is ather osclerotic calcification of the cavernous portions of the carotids bilat erally without significant focal stenosis. MCA, MAGNUS, and major visualized intracranial branches remain normal in caliber. There is atherosclerotic calcif ication of the intradural vertebral arteries with no more than mild narrowin g. The basilar artery and posterior cerebral arteries are normal in caliber. Nonvascular findings: There is a area of hypoattenuation in the right BUILDING CODE ADMINISTRATOR territory consistent with prior infarct. There is a focal area of hypodensity in the right frontal lobe likely representi ng ischemic injury. This focal hypodensity adjacent to the left caudate head. There is no soft tissue mass or pathologic adenopathy identified in the neck. There is evidence of prior coronary artery bypass graft. Procedure Note Kurt Kurtz MD - 10/04/2016Format ting of this note might be different from the original. EXAMINATION: CT CAROTIDS AND [place] CONTRAST CLINICAL HISTORY: right carotid critical stenosis TECHNIQUE: CTA of the carotid and [place] performed following intravenous administration of 65 cc of 3 50. 3-D and MIP images created. COMPARISON: None FINDINGS: There is mild atherosclerotic plaque on the arch without stenosis of the origins of vessels. Right carotid: Common carotid origin is normal. There is plaque along course of the common carotid without stenosis belo w the bifurcation. Calcified and noncalcified plaque is present at the bi furcation with with minimal residual lumen. No other focal stenosis of the IC A. Left carotid: Common carotid origin is n ormal. There is plaque along the course of the common carotid without stenosis. There is plaque at the bifurcation without stenosis of the ICA. Cervical IC A is normal in caliber. Right vertebral artery: There is plaque at the origin with minimal narrowing. There are areas of mild to moderate narr owing by osteophyte in the neck, most pronounced at the C4 level. There is kelvin cification at the level of the C1 loop without significant stenosis. Left vertebral artery: There is calcifie d plaque at the origin and along the course of the proximal vertebral artery with mild narrowing. There are several areas of mild narrowing by osteophyte in the neck. No severe focal stenosis. Intracranial circulation: There is ather osclerotic calcification of the cavernous portions of the carotids bilat erally without significant focal stenosis. MCA, MAGNUS, and major visualized intracranial branches remain normal in caliber. There is atherosclerotic calcif ication of the intradural vertebral arteries with no more than mild narrowin g. The basilar artery and posterior cerebral arteries are normal in caliber. Nonvascular findings: There is a area of hypoattenuation in the right BUILDING CODE ADMINISTRATOR territory consistent with prior infarct. There is a focal area of hypodensity in the right frontal lobe likely representi ng ischemic injury. This focal hypodensity adjacent to the left caudate head. There is no soft tissue mass or pathologic adenopathy identified in the neck. There is evidence of prior coronary artery bypass graft. IMPRESSION 1. High-grade stenosis/near occlusion of the right ICA at the carotid bifurcation. 2. No left ICA stenosis. There are areas of narrowing of the vertebral arteries due to osteophyte, most pronounced on th e right side. 3. Multifocal areas of hypodensity in th e brain consistent with prior infarct including in the right BUILDING CODE ADMINISTRATOR territory, ri ght anterolateral frontal lobe, and adjacent to the left caudate head. Martin Avila MD IMG CT ORDERABLES Creatinine (09/13/2016 3:41 PM EDT) athologist Signature Creatinine 1.10 0.80 - 1.50 [facility] mg/dL [facility] Comment: Please note that the pediatric reference intervals supplied above were not validated at [facility]. Results from pediatri c patients should be interpreted in conjunction to the patient's age, height and muscle mass. Estimated GFR >60 >=60 [facility] [...] the following links into your internet browser. [email or web address] Specimen Anatomical Collection Method Collection Time Receive d Time (Source) Location / / Volume Laterality Blood specimen 09/13/2016 3:41 PM 016 3:45 (specimen) EDT PM EDT Resulting Agency Comment Spec In Lab Martin Avila MD CHEMISTRY ORDERABLES Performing Organization Address City/State/ZIP Code Phon e Number [place] [phone] documented in this encounter Visit Diagnoses Diagnosis Bilateral carotid artery stenosis Occlusion and stenosis of multiple and b ilateral precerebral arteries without mention of cerebral infarction Bilateral carotid artery stenosis Occlusion and stenosis of multiple and b ilateral precerebral arteries without mention of cerebral infarction documented in this encounter Care Teams Actionscript Developer Relationship Specialty Start Date End Date Duncan Mccain DO PCP - General 04/25/14 [address] [place] [address] documented as of this encounter
--- OUTSIDE RECORDS SUMMARY | 2022-06-14 00:50 | XMS_ITS | Encounter Summary ---
:1940 Author Organization [facility] [place] [address] Care Team Providers Name Role Phone Adán Duncan HICKS Primary Care Provider Reason for Visit Reason Comments Shortness of Breath Follow-up Coronary Artery Disease Encounter Details Date Type Department Care Team Description 09/02/2016 Office Visit Cardiology at [facility] [place] Tuan Gibbs ASCVD (arteriosclerotic [facility] RONI Davis cardiovascular disease) [facility] [place] [facility] [place] [address] CARDIOLOGY DEPT. [phone] [place], [place] [address] Social History Tobacco Use Types Packs/Day Years Used Date Former Smoker Quit: 01/07/19 89 Sex Assigned at Date Recorded Not on file documented as of this encounter Last Filed Vital Signs Vital Sign Reading Time Taken Comments Blood Pressure 168/70 09/02/2016 12:38 PM EDT Pulse 68 09/02/2016 12:38 PM EDT Temperature - - Respiratory Rate - - Oxygen Saturation 97% 09/02/2016 12:38 PM EDT Inhaled Oxygen Concentration - - Weight 91.5 kg (201 lb 11.2 oz) 09/02/2016 12:38 PM EDT Height 162.6 cm (5' 4) 09/02/2016 12:38 PM EDT Body Mass Index 34.62 09/02/2016 12:38 PM EDT documented in this encounter Progress Notes Tuan Gibbs PA - 09/02/2016 1:00 PM EDT Hydrea about that of a bare HPI: Mr. Blackwood is here for consideration of cardiac catheterization. Apparently over the last severalmonths he's developed intermittent exertional shortness of breath with occasional chest discomfort. He reports that these symptoms are not reminiscent to that which he experienced prior to his coronarybypass in 1988 and subsequent stenting in 1998. He has not required nitroglycerin other than one time back earlier this winter. At that point he underwent a nuclear stress test that showed normal ejection fraction however there was anterior scar and no ischemia. He has a chronic left bundle branch block. He has MERCEDES graft to the LAD. It is not clear where his stents are given available information. He reports his symptoms are not reliably reproducible. He can do certain physical activities on one day and have some shortness of breath and the following day do the same thing and did not experience symptoms. We talked about cardiac catheterization and he would prefer to avoid that for now. An echocardiogram performed recently showed an ejection fraction of 64% with only minimal anterior/apical wall motion abnormalities thought more consistent with the prior bypass and left bundle branch block. The most definitive way to pursue this would be with a catheterization although I don't think it is urgent at this point. We had a long discussion as to how to proceed without catheterization and I suggested he try to engage in more regular exercise and to note whether or not there is a pattern developing as relates to his exertional symptoms. I'll also he is clearly deconditioned. His physical exam reveals a high-pitched right carotid bruit that I was able to have an ultrasound performed today. (Preliminary results below). Interpretation: RIGHT: Plaque is present in the [...] bifurcation level is in the mid neck. Patient Active Problem List Diagnosis ??? ASCVD (arteriosclerotic cardiovascular disease) ?? CABG [facility] about 1988 ?? Stent to unspecified [...] Hyperlipemia ??? LBBB (left bundle branch block) Current Outpatient Prescriptions Medication Sig Note Dispense Refill ??? FLUZONE HIGH-DOSE , PF, 180 mcg/0.5 mL Syringe 01/07/2016: Received from: External Pharmacy 0 ??? POLY-IRON 150 FORTE 150-25-1 mg-mcg-mg Capsule 01/07/2016: Received from: External Pharmacy 0 ??? amLODIPine (NORVASC) 10 mg Tablet Take 10 mg by mouth daily. 01/07/2016: Received from: External Pharmacy 0 ??? metoprolol tartrate (LOPRESSOR) 50 mg tablet Take 50 mg by mouth 2 times daily. Indications: Hypertension ??? aspirin 81 mg EC tablet Take 81 mg by mouth daily. Indications: Thrombosis Prevention after PCI ??? lisinopril (PRINIVIL;ZESTRIL) 40 mg tablet Take 40 mg by mouth daily. Indications: Hypertension ??? nitroGLYcerin (NITROSTAT) 0.[address] 0.4 mg under the tongue every 5 minutes as needed. Indications: Angina ??? rosuvastatin (CRESTOR) 10 mg tablet Take 10 mg by mouth daily. Allergies: Review of patient's allergies indicates no known allergies. Interval ROS: Patient denies cough, fever, PND, orthopnea, activity intolerance, leg swelling, change in bowel habit, presyncope or syncope. Physical Exam: Blood pressure 168/70, pulse 68, height 162.6 cm (5' 4), weight 91.5 kg (201 lb 11.2 oz), SpO2 97 %. General: WD, WN HEENT: No JVD High pitched right carotid bruit. Lungs: Clear to A+P Cor: RR, normal S1, S2. PMI not displaced. No murmur or gallop Ext: Pulses preserved, no edema, cyanosis or clubbing Assessment: History of coronary disease status post coronary bypass in 1988 and subsequent stenting with possible recurrent symptoms although not clearly reminiscent of that which he experienced prior to his otherprocedures. At this point he would like to hold off on cardiac catheterization. He is a 75-99% right internal carotid artery stenosis currently asymptomatic. Plan: I've encouraged him to begin an exercise program. I will contact him with the findings of the carotid ultrasound. He will likely be referred to vascular surgery for their input. I will see him in follow-up in cardiology in a few weeks. Tyrell Ceballos MD - 09/02/2016 1:00 PM EDT Pt followed by Dr. Arechiga. I discussed this case in detail with Zeina Gibbs and in light ofthe minimal chest discomfort and the patient's preference to avoid an invasive approach, I supporteda conservative approach with planned follow up. Tyrell Ceballos MD [facility] documented in this encounter Plan of Treatment Not on filedocumented as of this encounter Results Cerebrovascular Duplex, Bilateral (09/02/2016 1:59 PM EDT) Component Value Ref Test Analysis Performed At [facility] Range Method Time Signature VB Text Department: Vascular Surgery Lab VASCUBASE Report Patient: [id number] (MASOUD BLACKWOOD) CPT: 37259 ICD10: I25.10 Referring Physician: ROSA CLARK ?? [...] disease documented in this encounter Care Teams Finish Filer Relationship Specialty Start Date End Date Duncan Mccain DO PCP - General 04/25/[address] [place] [address] documented as of this encounter
--- OUTSIDE RECORDS SUMMARY | 2022-06-14 00:50 | XMS_ITS | Encounter Summary ---
:1940 Author Organization [facility] Address [facility] [address] [place] [address] Care Team Providers Name Role Phone Duncan Mccain DO Primary Care Provider Encounter Details Date Type Department Care Team Description 10/12/2016 Telephone Cardiology at [facility] [place]uan Gibbs [place] [facility] [place] [address] CARDIOLOGY DEPT. [phone] [place], [place] [address] (Wo rk) Social History Tobacco Use Types Packs/Day Years Used Date Former Smoker Quit: 01/07/19 89 Sex Assigned at Date Recorded Not on file documented as of this encounter Miscellaneous Notes Telephone Encounter - Azalea Zee - 10/12/2016 1:[address] Meraz's recommendation I reached out to pt. & do have him scheduled for a cath on 10/25/2016 @ 9am with Dr. Cee-will wait for Susan to return on 10/18 and prepare orders. Pt's wifewants to thank everyone for responding quickly, and scheduling cath harmeet. documented in this encounter Plan of Treatment Not on filedocumented as of this encounter Visit Diagnoses Not on filedocumented in this encounter Care Teams Ruling Machine Set Up Operator Relationship Specialty Start Date End Date Duncan Mccain DO PCP - General 04/25/[address] [place] [address] documented as of this encounter
--- OUTSIDE RECORDS SUMMARY | 2022-06-14 00:50 | XMS_ITS | Encounter Summary ---
:1940 [place] [address] Care Team Providers Name Role Phone Duncan Mccain DO Primary Care Provider Reason for Visit Auth/Cert Specialty Diagnoses / Procedures Referred By Contact Refer red To Contact Diagnoses Carotid stenosis carotid stenosis . Procedures PRO THROMBOENDARTECTMY NECK, NECK INCIS @ENDARTERECTOMY, CAROTID, VERTEBRAL,SUBCLAVIAN W\WO PATCH GRAFT ([facility] 21.16) Referral ID Status Reason Start Date Expiration Date Visits Requ ested Visits Authorized [id number] 1 1 Encounter Details Date Type Department Care Team Description 11/29/2016 Surgery Main Operating Room Josep Khan MD @ENDARTERECTOMY, [facility] CAROTID, [facility] [address] WANG,SUBCLAVIAN [facility] VASCULAR SURG HEATH W\WO [place]ATCH [place]RA[place] ([place] [address] 21.16) [place] [address] [phone] Social History Tobacco Use Types Packs/Day Years Used Date Former Smoker Quit: 01/07/19 89 Smokeless Tobacco: Never Used Alcohol Use Standard Drinks/Week Comments Yes 1 (1 standard drink = 0.6 oz pure alcoho l) Infrequently [place]on Light Alcohol Habits Answer Date Recorded How often do you have a drink containing Not asked alcohol? How many drinks containing alcohol do you have Not asked on a typical day when you are drinking? How often do you have six or more drinks on one Not asked occasion? Comment: Infrequently Forreston Light 10/25/2016 Sex Assigned at Date Recorded Not on file documented as of this encounter Last Filed Vital Signs Vital Sign Reading Time Taken Comments Blood Pressure 110/47 11/29/2016 11:45 AM EST Pulse 64 11/29/2016 11:45 AM EST Temperature 36.6 ??C (97.9 ??F) 11/29/2016 11:30 AM EST Respiratory Rate 11 11/29/2016 11:45 AM EST Oxygen Saturation 99% 11/29/2016 11:45 AM EST Inhaled Oxygen Concentration - - [...] ??? ASCVD (arteriosclerotic cardiovascular disease) ?? CABG [facility] about 1988 ?? Stent to unspecified [...] 150-25-1 mg-mcg-mg Cap Generic drug: Iron Polysacch [id number] Refills: 0 Updated Allergies/ADRs: No Known Allergies [...] or questions please call our office at [phone] FLAVIA Almendarez, sleeve setter Nurse Clinician For issues on weeknights after 5pm and weekends please call [phone] and ask for the Vascular Fellow second grade teacher. General Instructions None Future Appointments and Orders Future Appointments Provider Department Dept Phone 12/26/2016 2:30 PM [place] [facility] [phone] 12/26/2016 3:30 PM Reyes Khan MD Vascular Surgery [phone] Future Orders Complete By Expires Carotid Duplex, Unilateral [VAS2 Custom] 12/31/2016 (Approximate) 11/30/2017 Process Instructions: Scheduling Instructions: Please schedule with one month clinic f/u Questions: Laterality: Right Indication for study/signs & symptoms: s/p right carotid endarterectomy Question to be answered: patency Should this service/procedure be billed to the research sponsor?: Which location will this be performed?: [place] Discharge References/Attachments: Discharge References/Attachments None Electronically Signed By: Bashir Waddell MD 11/30/2016 documented in this encounter Discharge Instructions Patient Bridgett Ozuna, RN - 11/29/2016 5:40 PM EST You [...] or questions please call our office at [phone] FLAVIA Almendarez, sleeve setter Nurse Clinician For issues on weeknights after 5pm and weekends please call [phone] and ask for the Vascular Fellow second grade teacher. documented in this encounter Medications at Time [...] pt resting quietly, denies HACKETT; VSS 1217: Buster Villalobos MD to clarify order for plavix (Pt took [...] BOWER; Age: 3 1940; 76 y.o. [facility] Today's Date: 11/29/16 ID: Masoud Blackwood is [...] - H&P Patient Name: Masoud Blackwood : [id number] MR#: [id number] (Not on file) Hospital Day 0 days [...] his dinner but has tolerated sips of rmeington jake. He has no c/o nausea, no [...] Mirian Villalobos - 11/29/2016 1:30 PM EST [facility] Operative Note Patient Name: Masoud Blackwood : [id number] MR#: [id number] Case Date: 11/29/2016 ?? Surgeon: Surgeon(s) and [...] Implant Name Type Inv. Item Serial No. Wigs Salesperson Lot No. LRB No. Used Action PATCH,BIOL,XENOSURE,.8X8CM ([id number]) - [id number] IMPLANTS PATCH,BIOL,XENOSURE,.8X8CM ([id number]) ?[employer] - [id number] Right 1 Implanted ? Specimen: None ?? [...] clamp this with a Yasargil. Using a [place] elevator, endarterectomy of the common carotid and [...] EST Brief Operative Note Patient Name: Masoud lBackwood : [id number] MR#: [id number] Case Date: 11/29/2016 Surgeon: Surgeon(s) and Role: [...] Implant Name Type Inv. Item Serial No. Wigs Salesperson Lot No. LRB No. Used Action PATCH,BIOL,XENOSURE,.8X8CM ([id number]) - [id number] IMPLANTS PATCH,BIOL,XENOSURE,.8X8CM ([id number]) [facility] [employer] - [id number] Right 1 Implanted Specimen: None Infection Bundle [...] Component Value Ref Test Analysis Performed At [facility] [employer] Method Time Signature VB Text Department: Vascular Surgery Lab VASCUBASE Report Patient: [id number] (MASOUD BLACKWOOD) CPT: 88312 ICD10: I65.21 Referring Physician: REYES KHAN ?? [...] There is minimal hyperplasia in the proximal sports team marketing intern al carotid artery causing <15 stenosis [...] Volume Laterality 12/26/2016 2:34 PM EST Reyes Khna MD VASCULAR ORDERABLES Performing Organization Address City/State/ZIP [...] Component Value Ref Test Analysis Performed At Patholo gist Range Method Time Signature VB Text Department: Vascular Surgery Lab VASCUBASE Report Patient: [id number] (MASOUD BLACKWOOD) CPT: 98780 ICD10: I65.21 Referring Physician: REYES KHAN ?? [...] Time Signature pH Art 7.40 7.35 - [facility] 7.[address] [facility] pCO2 Art 36 35 - 45 [facility] pO2 Art 304 (H) 85 - 104 [facility] HCO3 Art 21.7 20.0 - [facility] 26.0 [facility] mmol/L [facility] BE Art -3.1 (L) -3.0 - 3.0 [facility] mmol/L [facility] Hgb Blood Gas 14.3 13.7 - [facility] 16.5 gm/dL [facility] O2HB Art 98.5 (H) 94.0 - [facility] 97.0 % [facility] COHB Art 1.0 % [facility] Comment: Nonsmokers: 0.5-1.5% COHB Smokers: Variable, but usually less than 10% Toxic: 20-30% COHB Lethal: Greater than 60% COHB METHB Art 0.1 <=1.5 % [facility] Na Whole Blood 131 (L) 135 - 145 mmol/L [facility] K Whole Blood 3.9 3.5 - 5.0 mmol/L [facility] Comment: Please note: Patients with WBC >100,000 may have falsely elevated Potassium levels. Contact the Clinical Chemistry L aboratory if there are any questions. ICa Whole Blood 1.18 1.15 - 1.33 mmol/L [facility] Comment: Note: ??Total bilirubin higher than 20 m g/dL may lead to falsely low ionized calcium. CL Whole Blood 106 98 - 107 mmol/L [facility] Gluc Whole Bld 126 65 - 199 mg/dL [facility] Comment: Diabetes: >=200 mg/dL plus symp toms. Lactate WB 1.1 0.5 - 2.2 mmol/L [facility] Specimen Anatomical Collection Method Collection Time Receive d Time (Source) Location / / Volume Laterality Blood specimen 11/29/2016 8:15 AM 017 8:15 (specimen) EST AM EST Reyes Khan MD CHEMISTRY ORDERABLES Performing Organization Address City/State/[place] [address] documented in this encounter Visit Diagnoses Diagnosis Stenosis of right carotid artery Occlusion and stenosis of carotid artery without mention of cerebral infarction Carotid stenosis Occlusion and stenosis of carotid artery without mention of cerebral infarction Stenosis of right carotid artery Occlusion and [...] Given 11/29/2016 12:24 PM EST 81 mg clopidogrel (PLAVIX) tablet 75 mg Given 11/30/2016 9:04 AM EST 75 mg 75 mg, Oral, DAILY, First dose on Mon11/29/16 at 1200, Until Discontinued, Routine gelatin adsorbable (GELFOAM) Given 11/29/2016 10:43 AM 3 each 19- Surgical Site sponge EST ONCE PRN, Starting on Mon11/29/16 at 1043, Until Mon11/30/16 at 1346, Intra-Operative (Intra-Procedure) lactated ringers infusion New Bag 11/30/2016 1:27 [...] 45 minutes if ineffective. , Miguel Ángeli ne papaverine injection Given 11/29/2016 9:00 AM 22.5 mg 19- Surgi kelvin Site ONCE PRN, Starting on Mon EST 11/29/16 at 0900, Until Mon11/30/16 at 1346, Intra-Operative (Intra-Procedure), Routine rosuvastatin (CRESTOR) tablet 10 mg 10 mg, Oral, EVERY EVENING, First dose ( after last reorder) on Mon11/30/16 at 1700, Until Discontinued, Routine thrombin (bovine) (THROMBIN-JMI) Given 11/29/2016 10:43 AM EST 5 ,000 Units solution ONCE PRN, Starting on Mon11/29/16 at 1043, Until Mon11/30/16 at 1346, Intra-Operative (Intra-Procedure) documented in this encounter Active and Recently Administered Medications Times are shown in EST. Scheduled Medication Order 11/28/2016 11/29/2016 11/30/2016 amLODIPine (NORVASC) tablet 10 mg 0904 (Given - Provider: María Reynoso, ARTUR) 10 mg, Oral, DAILY, First dose on 03/13 at 0900, Until Discontinued, Routine aspirin EC tablet 81 mg 1224 (Given - Provider: Raj Esquivel RN) 0904 (Given - Provider: María Reynoso, ARTUR) 81 mg, Oral, DAILY, First dose on 02/10 at 1200, Until Discontinued, Routine ceFAZolin (ANCEF) 2g in dextrose 5% 50 mL (COMPLETED) 0809 (Given - Provider: Gera Powell CRNA)110 (Given - Provider: Gera Powell CRNA) 2 g, Intravenous, ONCE, 1 dose, Mon at 0645, Administer over 30 Minutes, Redose every 3 hours if CrCl is greater than 20. Redose every 8 hours if CrCl is less than 20., Day of Surgery (Day of Pro cedure), Indication for (Active or Suspected): Prophylaxis ceFAZolin (ANCEF) 2g in dextrose 5% 50 mL (COMPLETED) 1515 (Given - Provider: Mariana Delaney RN)1951 (Given - Provider: Lolita Matthew RN) 2 [...] dose at home todat at 0430; Mehnaz RODRIGUEZ aware) 903 (Given - Provider: María Reynoso [...] took at 0430)2004 (Given - Provider: Lolita Matthwe RN) 903 (Given - Provider: María Reynoso RN) 50 mg, Oral, 2 TIMES DAILY, First dose o n Mon11/29/16 at 1200, Until Discontinued, Routine rosuvastatin (CRESTOR) tablet 10 mg 10 mg, Oral, EVERY EVENING, First dose o n Mon11/30/16 at 1700, Until Discontinued, Routine Continuous Medication Order 11/28/2016 11/29/2016 11/30/2016 lactated ringers infusion 1152 (New Bag - Provid er: Mariana Delaney, RN) 0127 (New Bag - Provider: Lolita Matthew RN)0905 (Stopped - Provider: María Reynoso RN) 75 mL/hr, at 75 mL/hr, Intravenous, CONT INUOUS, Starting Mon11/29/16 at 1200, Until Mon11/30/16 at 1346 PRN Medication Order 11/28/2016 11/29/2016 11/30/2016 acetaminophen (TYLENOL) tablet 500 mg 12 53 (Given - Provider: Mariana Delaney RN) 0021 (Given - Provider: Lolita palmer RN)0535 (Given - Provider: Lolita Matthew RN) 500 mg, Oral, EVERY 4 HOURS PRN, [...] ineffective
documented in this encounter Care Teams Party Host/Hostess Relationship Specialty Start Date End Date Duncan Mccain DO PCP - General 04/25/[address] [place] [address] documented as of this encounter
--- OUTSIDE RECORDS SUMMARY | 2022-06-14 00:50 | XMS_ITS | Encounter Summary ---
:1940 Author Organization [facility] [place] [address] Care Team Providers Name Role Phone Duncan Mccain DO Primary Care Provider Encounter Details Date Type Department Care Team Description 10/20/2016 Notes Only Vascular Surgery Elder Jha MD [facility] [place] [place] [address] VASCULAR SURGERY [phone] [place], [place] [address] (Wo rk) Social History Tobacco Use Types Packs/Day Years Used Date Former Smoker Quit: 01/07/19 89 Sex Assigned at Date Recorded Not on file documented as of this encounter Progress Notes Elder Jha MD - 10/20/2016 8:52 AM EST Vascular Attending Update Mr. Blackwood is a patient I evaluated on 10/04/16 for a critical RIGHT internal carotid artery stenosis that has been asymptomatic to date. The patient also has very significant CAD with a positive stress test several months ago. He has been reticent to undergo cardiac cath, but increasing dyspnea over the last 2 weeks have apparently help convince him that cath is the right thing to do. This procedure is scheduled for 10/25/16. By means of this note, I will ask Garima Jhonathan [facility]. We would also be happy to evaluate him as inpatient if he's admitted after the cath if there are anyconcerns regarding his carotid status. Please give us a call. Elder Jha M.D. Section of Vascular Surgery documented in this encounter Plan of Treatment Not on filedocumented as of this encounter Visit Diagnoses Not on filedocumented in this encounter Care Teams Time Buyer Relationship Specialty Start Date End Date Duncan Mccain DO PCP - General 04/25/[address] [place] [address] documented as of this encounter
--- OUTSIDE RECORDS SUMMARY | 2022-06-14 00:50 | XMS_ITS | Encounter Summary ---
:1940 Author Organization [facility] [place] [address] Care Team Providers Name Role Phone Duncan Mccain DO Primary Care Provider Reason for Referral Diagnostic Test (Routine) - Closed Specialty Diagnoses / Procedures Referred By Contact Refer red To Contact Radiology Diagnoses Bilateral carotid artery stenosis Janet Glover APRN [facility] Rad Ct Scan Procedures CT Carotids & [place] Contrast [facility] [place] [address] [place] [address] Referral ID Status Reason Start Date Expiration Date Visits V isits Requested Authorized [id number] Closed Specialty 09/13/2016 09/13/2017 1 1 Service Requested Reason for Visit Diagnostic Test (Routine) - Closed Specialty Diagnoses / Procedures Referred By Contact Refer red To Contact Radiology Diagnoses Bilateral carotid artery stenosis Janet Glover APRN [facility] Rad Ct Scan Procedures CT Carotids & [place] Contrast [facility] [place] [address] [place] [address] Referral ID Status Reason Start Date Expiration Date Visits V isits Requested Authorized [id number] Closed Specialty 09/13/2016 09/13/2017 1 1 Service Requested Encounter Details Date Type Department Care Team Description 10/04/[address] Scan at [facility] Martin Avila Bilateral carotid [facility] MD [address] artery stenosis [address] [place], [place] [address] VASCULAR SURGERY [phone] [place] [address] Social History Tobacco Use Types Packs/Day Years Used Date Former Smoker Quit: 01/07/19 89 Sex Assigned at Date Recorded Not on file documented as of this encounter Medications at Time of Discharge Medication Sig Dispensed Refills Start Date End Date ascorbic acid, vitamin Take 500 mg by [...] Priority Date/Time Associated Diagnosis Comme nts CT CAROTIDS AND Routine 10/04/2016 10:15 AM Bilateral carotid Results for this [place] EST artery stenosis proced ure are in CONTRAST the results section. documented in this encounter Results CT Carotids & [place] Contrast (10/04/2016 10:15 AM [...] with prior infarct including in the right LPN territory, ri ght anterolateral frontal lobe, and adjacent to the left caudate head. Narrative 10/04/2016 11:35 AM EST EXAMINATION: CT CAROTIDS AND [place] CONTRAST CLINICAL HISTORY: right carotid critical stenosis TECHNIQUE: CTA of the carotid and [place] performed following intravenous administration of [...] a area of hypoattenuation in the right LPN territory consistent with prior infarct. There is [...] from the original. EXAMINATION: CT CAROTIDS AND [place] CONTRAST CLINICAL HISTORY: right carotid critical stenosis TECHNIQUE: CTA of the carotid and [place] performed following intravenous administration of [...] a area of hypoattenuation in the right LPN territory consistent with prior infarct. There is [...] with prior infarct including in the right LPN territory, ri ght anterolateral frontal lobe, and adjacent to the left caudate head. Martin Avila MD IMG CT ORDERABLES documented in this encounter Visit Diagnoses Diagnosis Bilateral carotid artery stenosis Occlusion and stenosis of multiple and b ilateral precerebral arteries without mention of cerebral infarction documented in this encounter Administered Medications Inactive Administered Medications - up to 3 most recent administrations Medication Order MAR Action Action Date Dose Rate Site iohexol (OMNIPAQUE) 350 mg/mL Given 10/04/2016 10:14 AM EST 22,7 50 mg solution 22,750 mg 22,750 mg (65 mL), Intravenous, ONCE PRN, 1 dose, Starting on 10/04/16 at 0832, Until 10/04/16 at 1014, Per Protocol, Warning Vesicant/Irritant Medication , Routine documented in this encounter Care Teams Welder Tech Relationship Specialty Start Date End Date Duncan Mccain DO PCP - General 04/25/14 [address] [place] [address] documented as of this encounter
--- OUTSIDE RECORDS SUMMARY | 2022-06-14 00:50 | XMS_ITS | Encounter Summary ---
:1940 Author Organization [facility] [place] [address] Care Team Providers Name Role Phone Duncan Mccain DO Primary Care Provider Reason for Visit Reason Comments Carotid Stenosis Discuss right CEA Encounter Details Date Type Department Care Team Description 11/15/2016 Office Visit Vascular Surgery at [facility] Ste nosis of right [facility] MD carotid artery [address] [place] V[place]ULAR SURGERY [address] [place] [address] [phone] Social History Tobacco Use Types Packs/Day Years Used Date Former Smoker Quit: 01/07/19 89 Smokeless Tobacco: Never Used Alcohol Use Standard Drinks/Week Comments Yes 1 (1 standard drink = 0.6 oz pure alcoho l) Infrequently [place] Alcohol Habits Answer Date Recorded How often do you have a drink containing Not asked alcohol? How many drinks containing alcohol do you have Not asked on a typical day when you are drinking? How often do you have six or more drinks on one Not asked occasion? Comment: Infrequently [place] 10/25/2016 Sex Assigned at Date Recorded Not on file documented as of this encounter Last Filed Vital Signs Vital Sign Reading Time Taken Comments Blood Pressure 159/54 11/15/2016 3:06 PM EST Pulse 74 11/15/2016 3:06 PM EST Temperature - - Respiratory Rate - - Oxygen Saturation - - Inhaled Oxygen Concentration - - Weight 90.7 kg (200 lb) 11/15/2016 3:06 PM EST Height 167.6 cm (5' 6) 11/15/2016 3:06 PM EST Body Mass Index 32.28 11/15/2016 3:06 PM EST documented in this encounter Progress Notes [facility] Jha MD - 11/15/2016 3:00 PM EST Reason for Visit Reconsider right carotid endarterectomy following recent percutaneous coronary intervention. CORRY Blackwood is a 76 year-old man [...] stress test on 12/30/15 showed severe scar patternin the proximal to distal LAD territory with a minimal amount of joe-infarct ischemia. Anteroseptal& apical hypokinesis with a calculated LVEF of [...] mild diffuse disease through its entire length. In clinic today he reports relief of his dyspnea symptoms. He feels well and is anxious to discuss carotid endarterectomy. He denies any interval neurologic symptoms. Past Vascular Hx HTN Hyperlipidemia LBBB Symptoms c/w intermittent claudication but no ABIs in chart. Other PMH Minimal PSH CABG 1988 Coronary stents 1998 Coronary ZEYAD 2016 Vascular meds Aspirin Yes Plavix Yes Statin [...] dysarthria Physical Exam General Pleasant senior, NAD, 159/54 LEFT arm, 74 rrr HEENT Normocephalic, unremarkable Carotid pulses Normal [...] Grossly normal Psyche Fully oriented Carotid duplex 11/15/16 I reviewed all images. Some plaque in RT CCA, not severe. RIGHT internal carotid PSV and EDV have worsened, but ICA/CCA ratio remains one tick below the 80% stenosis threshold. Overall, this was called 70- 99% RUSTAM stenosis in the report, but it is worse than 2 months ago, and Ibelieve we should more likely have diagnosed this as an 80-99% stenosis by duplex. Patent ICA beyondfocal plaque. 14-49% LEFT ICA stenosis. Patent verts. CTA neck & head 10/04/16 I reviewed all images. Very tight RUSTAM stenosis. Mild plaque in arch vessels. Left carotid bifurcation with minimal stenosis. Vertebrals with mild stenosis bilat. Intracranial arteries unremarkable. 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 Other studies None Impression Very severe RIGHT internal carotid artery stenosis, at least 70% by duplex ultrasound, but probably in the upper end of stated range. ???Minimal residual lumen?? by CTA. Patient has had prior right hemispheric strokes, but no recent strokes or TIAs. He is on maximal medical therapy, which now includes Plavix and aspirin. His cardiac symptoms have improved. I discussed RIGHT carotid endarterectomy with patient and . His natural history for unheralded stroke is at least 3% annually, much higher if there has been progression of stenosis over 2 consecutive duplex studies. Risk for CEA- related stroke would be less than natural history in our hands. Cardiac risk is now acceptable for surgery. In patients >75 years of age carotid stenting carries a substantially higher stroke risk than carotid endarterectomy. Overall, I endorse right CEA at this time, but I was clear that this is an elective decision on his part. I answered all of his questions and those of his . Mr. Blackwood decided to proceed with surgery. We have tentatively scheduled his operation for November 29, 2016. I warned him to call immediately should he suffer any TIA symptoms. Recommendations Continue Plavix 75 mg daily. Continue aspirin Continue Crestor Call if any symptoms of LEFT arm or leg weakness/numbness Patient sent to preoperative testing today. Signed [facility] M.D. [facility] Section of Vascular Surgery CC: Duncan Mccain, I spent 25 minutes of [id number]-[id number]-lpri time with Mr. Blackwood and his . The majority of that was involved in counseling and coordination of care. documented in this encounter Plan of Treatment Not on filedocumented as of this encounter Procedures Procedure Name Priority Date/Time Associated Diagnosis Comme nts ENDART, CAROTID, Routine 11/15/2016 3:28 PM EST Stenosis of ri ght VERTEBRAL,SUBCLAVIAN carotid artery W\WO PATCH GRAFT, BY NECK INCIS documented in this encounter Results EKG 12 [...] 475 ms MUSE SYSTEM (Bezet) Calculated P [place] -17 degrees MUSE SYSTEM Calculated R [place] 37 degrees MUSE SYSTEM Calculated T [place] -171 degrees MUSE SYSTEM INTERPRETATION Normal sinus [...] MUSE SYSTEM Prealbumin (11/15/2016 4:28 PM EST) athologist Signature Prealbumin 29 20 - [address] mg/dL [facility] Comment: Prealbumin levels are generally lower in the pediatric population; adult concentrations are usually attained near puberty. Specimen Anatomical Collection Method Collection Time Receive d Time (Source) Location / / Volume Laterality Blood specimen 11/15/2016 4:28 PM 016 4:36 (specimen) EST PM EST Resulting Agency Comment Spec In Lab [facility] MD CHEMISTRY ORDERABLES Performing Organization Address City/[facility]/[place] [address] (ABNORMAL) Basic Metabolic Panel (non-fasting) (11/15/2016 4:28 PM EST) athologist Signature Glucose Lvl 108 65 - 199 [facility] mg/dL [facility] Comment: Diabetes: >=200 mg/dL plus symp toms BUN 12 10 - 20 mg/dL [facility] Creatinine 0.98 0.80 - 1.50 mg/dL [facility] Comment: Please note that the pediatric reference intervals supplied above were not validated at [facility]. Results from pediatri c patients should be interpreted in conjunction to the patient's age, height and muscle mass. Sodium 140 135 - 145 mmol/L [facility] Potassium 4.2 3.5 - 5.0 mmol/L [facility] Comment: Please note: ??Patients with WBC >100,00 0 may have falsely elevated Potassium levels. ??For accurate Potassium quantif ication in these patients send serum separator tube (gold top) for subsequent determinations. ??Contact the Clinical Chemistry Laboratory if there are any qu estions. Chloride 100 98 - 107 mmol/L [facility] CO2 24 22 - 31 mmol/L [facility] Anion Gap 16 (H) 5 - 15 mmol/L [facility] Calcium 9.6 8.5 - 10.5 mg/dL [facility] Estimated GFR >60 >=60 [facility] Comment: This estimated GFR (eGFR) [...] the following links into your internet browser. [email or web address] Specimen Anatomical Collection Method Collection Time Receive d Time (Source) Location / / Volume Laterality Blood specimen 11/15/2016 4:28 PM 016 4:35 (specimen) EST PM EST Resulting Agency Comment Spec In Lab [facility] MD CHEMISTRY ORDERABLES Performing Organization Address City/State/ZIP Code Phon e Number [place] [id number] (ABNORMAL) Hemogram (11/15/2016 4:28 PM EST) P athologist Signature WBC 9.8 (H) 4.0 - 9.5 [facility] x10(3)/[facility] LABORATORY RBC 5.24 4.58 - [facility] 5.54 [facility] x10(6)/[facility] LABORATORY Hemoglobin 15.8 13.7 - [facility] 16.5 gm/dL [facility] Hematocrit 46.6 40.5 - [facility] 48.5 % [facility] MCV 88.9 82.9 - [facility] 93.1 fL [facility] MCH 30.2 27.5 - [facility] 32.1 pg [facility] MCHC 33.9 32.0 - [facility] 35.7 gm/dL [facility] Platelets 278 145 - 357 [facility] x10(3)/[facility] LABORATORY RDWSD 40.8 36.0 - [facility] 45.0 [facility] LABORATORY RDWCV 12.5 11.4 - [facility] 13.8 % [facility] MPV 8.5 7.6 - 12.9 [facility] LABORATORY nRBC % Auto 0.0 % [facility] nRBC Abs Auto 0.000 0.000 - [facility] 0.000 [facility] x10(3)/[facility] LABORATORY Specimen Anatomical Collection Method Collection Time Receive d Time (Source) Location / / Volume Laterality Blood specimen 11/15/2016 4:28 PM 016 4:35 (specimen) EST PM EST Resulting Agency Comment Spec In Lab [facility] MD HEMATOLOGY ORDERABLES Performing Organization Address City/State/[place] [address] documented in this encounter Visit Diagnoses Diagnosis Stenosis of right carotid artery Occlusion and stenosis of carotid artery without mention of cerebral infarction documented in this encounter Care Teams Real Estate Administrative Assistant Relationship Specialty Start Date End Date Duncan Mccain DO PCP - General 04/25/[address] [place] [address] documented as of this encounter
--- OUTSIDE RECORDS SUMMARY | 2022-06-14 00:50 | XMS_ITS | Encounter Summary ---
:1940 [place] [address] Care Team Providers Name Role Phone Duncan Mccain DO Primary Care Provider Reason for Visit Auth/Cert Specialty Diagnoses / Procedures Referred By Contact Refer red To Contact Diagnoses ASCVD (arteriosclerotic cardiovascular disease) ASCVD Procedures CARDIAC CATHETERIZATION Referral ID Status Reason Start Date Expiration Date Visits Requ ested Visits Authorized [id number] 1 1 Encounter Details Date Type Department Care Team Description 10/25/2016 Surgery Desk Maker Evette Melvin MD CARDIAC CATHETERIZATION [facility] [address] [place] [address] [place] [address] [phone] (Wo rk) Social History Tobacco Use Types Packs/Day Years Used Date Former Smoker Quit: 01/07/19 89 Smokeless Tobacco: Never Used Alcohol Use Standard Drinks/Week Comments Yes 1 (1 standard drink = 0.6 oz pure alcoho l) Infrequently Lefor Light Alcohol Habits Answer Date Recorded How often do you have a drink containing Not asked alcohol? How many drinks containing alcohol do you have Not asked on a typical day when you are drinking? How often do you have six or more drinks on one Not asked occasion? Comment: Infrequently Lefor Light 10/25/2016 Sex Assigned at Date Recorded Not on file documented as of this encounter Last Filed Vital Signs Vital Sign Reading Time Taken Comments Blood Pressure 156/56 10/25/2016 8:33 AM EST Pulse 85 10/25/2016 8:33 AM EST Temperature 36.4 ??C (97.5 ??F) 10/25/2016 8:33 AM EST Respiratory Rate 20 10/25/2016 8:33 AM EST Oxygen Saturation 100% 10/25/2016 8:33 AM EST Inhaled Oxygen Concentration - - Weight 90.7 kg (200 lb) 10/25/2016 8:33 AM EST Height 167.6 cm (5' 6) 10/25/2016 8:33 AM EST Body Mass Index 32.28 10/25/2016 8:33 AM EST documented in this encounter Discharge Summaries Che Lawson MD - 10/26/2016 8:36 AM EST Discharge Summary Patient Name: Andrew Blackwood Patient Age: 76 y.o. Language: Tamazight Race: White Ethnicity: Not nor Admit date: 10/25/2016 Discharge date and time: 10/26/2016 Attending Physician: Fish Cee MD Discharge Physician: Fish Cee MD Follow-up Recommendations for Providers: - dual antiplatelet regimen as follows: - aspirin 81 mg daily lifelong - clopidogrel 75 mg daily daily for minimum 6 months after PCI - recommend follow up with cardiology as scheduled on 11-15-2016 (KOFFI Penaloza) Inpatient Provider Contact Information: Fish Cee MD - attending Discharge Diagnoses (Hospital Problems) and Secondary Diagnoses (Chronic Problems): Active Hospital Problems Diagnosis ??? ASCVD (arteriosclerotic cardiovascular disease) ?? CABG [facility] about 1988 ?? Stent to unspecified coronary artery 1994 ?? Episode of nitro-responsive angina 12/03/15 ?? Regadenoson sestamibi 12/30/15 showing a severe predominantly fixed perfusion defect in the proximal to distal anteroseptal wall extending to the apex with minimal border reversibility; normal perfusion elsewhere; severe hypokinesia of the mid to distal anterior septal wall and apex with ejection fraction of 57% Resolved Hospital Problems Diagnosis Date Resolved No resolved problems to display. Active Non-Hospital Problems Diagnosis ??? Carotid stenosis ??? Elevated blood pressure ??? Hyperlipemia ??? LBBB (left bundle branch block) Operations/Major Procedures: Operations: Procedure(s) with comments: CARDIAC CATHETERIZATION - Procedure: Coronary Angiography History of Presentation: Mr Blackwood is a 76M with known CAD s/p CABG with KEENAN-LAD in 1988, HTN, HLD, who is undergoing evaluation for invasive management of right carotid artery stenosis, with noted symptoms of exertional chest tightness and dyspnea. He underwent a nuclear stress test that showed normal ejection fraction however there was anterior scar and no ischemia. An echocardiogram performed recently showed an ejection fraction of 64% with only minimal anterior/apical wall motion abnormalities thought more consistent with the prior bypass and left bundle branch block. He was referred for cardiac catheterization formore definitive evaluation. Hospital Course: The patient was admitted following cardiac catheterization with placement of a 2.50 x 14 mm Resolute(ZEYAD) to the mid LCX, for overnight monitoring and observation. The patient did well overnight without significant chest pain or arrhythmias on telemetry. The right femoral access site was evaluated and the femoral pulse was palpable with no evidence of vascular compromise to the right groin. Cardiac biomarkers and a repeat ECG were reviewed with no evidence of active ischemia (values likely reflect post-PCI state). VS and renal function remained stable. The patient ambulated with nursing without chest discomfort or exertional dyspnea. The patient met criteria for discharge, and was released home in stable condition. Functional and Cognitive Status: Independent in ALDs and IADLs, A&O x 3, at baseline Important Studies and Lab Data: Labs: Lab Results Component Value Date WBC 8.3 10/26/2016 HGB 14.7 10/26/2016 HCT 42.5 10/26/2016 PLATELET 211 10/26/2016 No results for input(s): INR in the last 168 hours. Lab Results Component Value Date NA 141 10/26/2016 K 4.0 10/26/2016 CL 103 10/26/2016 CO2 24 10/26/2016 BUN 8 (L) 10/26/2016 CREATININE 0.86 10/26/2016 Recent Labs 10/26/16 0455 10/25/16 1130 CK 204* 100 TROPONINT 0.26* <0.03 Lab Results Component Value Date CHLPL 111 10/26/2016 HDL 42 10/26/2016 CHOLHDL 2.6 10/26/2016 TRIG 71 10/26/2016 LDLCHOL 55 10/26/2016 Coronary Angiography 10-25-2016: Dominance: Right ? Left Main ? Left Anterior Descending There was a single discrete total occlusion of the ostial segment of the left anterior descending artery (LAD). Distal flow was via a bypass graft. The proximal segment of the LAD had moderate diffuse disease. ? Left Circumflex There was mild diffuse disease of the proximal segment of the left circumflex artery (LCX). The mid segment of the LCX had an eccentric single discrete 80% stenosis. ? Right Coronary Artery There was mild diffuse disease of the entire vessel segment of the right coronary artery (RCA) and it was calcified. The RCA was moderate in size. ? Ramus There was a 20% single discrete stenosis of the proximal segment of the ramus. The ramus was small. ? Intravascular Imaging/Physiology: Instantaneous wave-free ratio (iFR) was determined across the 80% stenosis in the mid LCX using a 6 Fr EBU 4.0 guiding catheter and a Verrata wire. Wire delivery was successful. The IFR across the 80% mid LCX lesion was 0.85. This lesion was hemodynamically significant. Lesions are generally considered to be hemodynamically significant if the iFR is less than or equal to 0.85, and are considered to be indeterminate in the range from 0.86 to 0.93. ? Bypass Grafts: There was one bypass graft evaluated during this procedure. 1. Left internal mammary artery graft to the LAD There was a left internal mammary artery graft with a single anastomosis to the left anterior descending artery (LAD). There was no evidence of obstruction in this graft. Distal flow was normal. ? Intervention Summary: Left Circumflex Artery Mid 80% Stent insertion was performed on the 80% stenosis in the mid segment of the LCX. This was a de stacey lesion. According to the ACC/AHA classification system, this lesion was a type B1 low risk lesion. Primary prevention of restenosis was the indication for stent insertion. This was the culprit lesion. Vessel flow pre intervention was BRAULIO 3. Stent insertion was accomplished through a 6 Fr. EBU 4.0 guide. The lesion was predilated with a 2.25mm NC EMERGE 12 MM balloon with a maximum inflation pressure of 14 atmospheres. A premounted 2.50 x 14 mm Resolute (ZEYAD) was deployed with a maximum inflation pressure of 16 atmospheres. Following stent deployment, the lesion was dilated using a 2.50mm NC EMERGE 12 MM balloon with a maximum inflation pressure of 20 atmospheres. The final outcome was defined as successful. There was no residual stenosis following this intervention. The final BRAULIO flow was 3. Typical chest pain with vessel manipulation. ? Vascular Access Angiogram: A selective angiogram at the right femoral artery revealed mild diffuse disease. A closure device iscontraindicated due to calcification of vessel. ? Vascular Access Management: Manual Compression of the right femoral artery access site was performed. ? Conclusions: * Two vessel coronary artery disease (LAD and LCX) * Patent left internal mammary artery graft to the LAD * Successful stent insertion of the mid LCX lesion * ZEYAD (drug eluting stent) placed in mid LCX. ? Complications/Events: The patient had no complications during these procedures. ? Recommendations: The patient's medical regimen was changed as follows: Drug eluting stent implanted in treatment of stable ischemic heart disease (SIHD). Loading dose of clopidogrel 600 mg given in calibration laboratory technician. Recommend dual antiplatelet therapy (DAPT) with low dose aspirin (81 mg daily) + clopidogrel 75 mg daily for a minimum 6 months. Low dose aspirin to be continued indefinitely unless contraindicated. Pending Studies and Lab Data: None Discharge Conditions/Prognosis: Good Discharge to: Home Updated Allergies/ADRs: No Known Allergies Immunizations Given this Hospitalization: There is no immunization history on file for this patient. Discharge Medications: Your Medications New Medications Dose Details clopidogrel 75 mg Tab Commonly known as: PLAVIX Take 1 tablet by mouth daily. 75 mg Quantity: 90 tablet Refills: 1 Continued medications, unchanged Dose [...] Prevention after PCI 81 mg Refills: 0 CRESTOR 10 mg Tab Take 10 mg [...] every 5 minutes as needed. Indications: Angina Generic drug: nitroGLYcerin 0.4 mg Refills: 0 POLY-IRON 150 FORTE 150-25-1 mg-mcg-mg Cap Generic drug: Iron Polysacch Rycycoc-H63-TE Refills: 0 Smoking Status at Discharge: History Smoking Status ??? Former Smoker ??? Quit date: 01/07/1989 Smokeless Tobacco ??? Never Used Instructions Given to Patient at Discharge: Patient Instructions Cardiology Instructions Call your doctor if: Chest pain, dyspnea, pain or swelling in legs occurs. If you have non-emergent questions between now and the time of your follow up appointments: -During 8am-5pm Monday through Monday call [phone] to speak with a nurse in the cardiology clinic -All other times call [phone] and ask to speak to the nutrition intern automobile contract clerk. MEDICATIONS - you need to be on daily Plavix for at least 6 months and aspirin for lifetime to help prevent clots forming inside of your stent. - keep nitroglycerin with you at all times, if you have chest pain, can take 1 tablet under your tongue every 5 minutes up to 3 tablets. If your pain does not resolve you need to call 911. Return to work/ usual actvities: 1 week, as tolerated. Do not lift anything greater than 1 gallon for milk for 1 week You can shower the day after your procedure, but don't take any tub baths or soak in pools for 1 week after your procedure. Driving: No driving for 48 hours after catheterization. Follow up Appointments: Primary care provider: Cardiology: Duncan Mccain DO [phone] Follow up as planned or as needed. KOFFI Penaloza [phone] 11-15-2016 General Instructions None Future Appointments and Orders Future Appointments Provider Department Dept Phone 11/15/2016 1:30 PM Tuan Gibbs PA Cardiology [phone] 11/15/2016 2:30 PM Petty [facility] [phone] 11/15/2016 3:00 PM Elder Jha MD Vascular Surgery [phone] Discharge References/Attachments None documented in this encounter Discharge Instructions Patient InstructionsChe Lawson MD - 10/25/2016 5:34 PM EST Cardiology Instructions Call your doctor if: Chest pain, dyspnea, pain or swelling in legs occurs. If you have non-emergent questions between now and the time of your follow up appointments: -During 8am-5pm Monday through Monday call [phone] to speak with a nurse in the cardiology clinic -All other times call [phone] and ask to speak to the nutrition intern automobile contract clerk. MEDICATIONS - you need to be on daily Plavix for at least 6 months and aspirin for lifetime to help prevent clots forming inside of your stent. - keep nitroglycerin with you at all times, if you have chest pain, can take 1 tablet under your tongue every 5 minutes up to 3 tablets. If your pain does not resolve you need to call 911. Return to work/ usual actvities: 1 week, as tolerated. Do not lift anything greater than 1 gallon for milk for 1 week You can shower the day after your procedure, but don't take any tub baths or soak in pools for 1 week after your procedure. Driving: No driving for 48 hours after catheterization. Follow up Appointments: Primary care provider: Cardiology: Duncan Mccain DO [phone] Follow up as planned or as needed. KOFFI Penaloza [phone] 11-15-2016 documented in this encounter Medications at Time [...] documented as of this encounter Progress Notes Mirna Maynard RN - 10/26/2016 9:41 AM EST The patient has met discharge criteria per policy. Discharge instruction reviewed and patient discharged to responsible adult. Patient???s pain level has been assessed and patient states that his/her level is tolerable at this time. The After Visit Summary (AVS) and accompanying hand-outs have been reviewed with the patient; the patient verbalizes understanding at this time. Opportunity for clarification provided. All new medications have been reviewed with the patient and the appropriate hand-outs have been given to the patient. Reportable sign and symptoms have been reviewed with patient. Che Andrea MD - 10/26/2016 8:31 AM EST Patient Name: Andrew Blackwood Patient Age: 76 y.o. Birthdate: 1940 Admit date: 10/25/2016 Attending Physician: Fish eCe MD Inpatient Interventional Cardiology Discharge Day Note Patient Name: Andrew Blackwood Service: interventional cardiology Responsible Attending: Dr Fish Cee MD Reason for continued hospitalization: Overnight observation after PCI Pending discharge today Active Problems: Active Hospital Problems Diagnosis ??? ASCVD (arteriosclerotic cardiovascular disease) Resolved Hospital Problems Diagnosis Date Resolved No resolved problems to display. Interval History: - uneventful night - no angina or dyspnea - no access site pain - no arrhythmia on temetry Telemetry: reviewed Meds: ??? amLODIPine 10 mg Oral Daily ??? aspirin 81 mg Oral Daily ??? lisinopril 40 mg Oral Daily ??? meTOPROLOL tartrate 50 mg Oral BID ??? rosuvastatin 10 mg Oral Daily ??? clopidogrel 75 mg Oral Daily Physical Exam: Vital Signs: reviewed Physical Exam Gen: NAD HEENT: No pallor, no jaundice CV: RRR, no m/g/r, JVP at 7 cmH2O Pulm: CTAB, no w/r/r Abd: Soft, NT, ND, +BS Vasc: 2+ radial and femoral pulses bilat. Access site c/d/i without hematoma or ecchymosis, drsg c/d/i Extr: Wwp, no c/c/e Lab Comments: Lab Results Component Value Date WBC 8.3 10/26/2016 HGB 14.7 10/26/2016 HCT 42.5 10/26/2016 MCV 88.9 10/26/2016 PLATELET 211 10/26/2016 Lab Results Component Value Date CREATININE 0.86 10/26/2016 BUN 8 (L) 10/26/2016 NA 141 10/26/2016 K 4.0 10/26/2016 CL 103 10/26/2016 CO2 24 10/26/2016 Lab Results Component Value Date CK 204 (H) 10/26/2016 TROPONINT 0.26 (H) 10/26/2016 Pertinent Radiographic/Diagnostic Results: ECG: reviewed Discharge Medication Checklist: Aspirin 81mg daily for lifetime Clopidogrel/prasugrel clopidogrel 75mg daily for at least 6 months Kelby inhibitor/or ARB continue lisinopril Beta Jun continue metoprolol Lipid Lowering Continue rosuvastatin Nitroglycerin continue SL NTG PRN Assessment: Andrew Blackwood is a 76 y.o. male who is POD #1 s/p PCI to mid LCx who was admitted overnight for observation. Labs reviewed and likely reflect PCI vs actual pathological new ischemia. There were no overnight events, patient tolerated cardiac walk without angina or dyspnea, remained hemodynamically stable, no evidence of active ischemia or vascular complications, stable renal fx. Patient is stable for discharge today. Plan: 1. Discharge today 2. F/U with cardiology on 11-15-2016 Che Lawson MD Interventional Captain'S Assistant Associated attestation - Fish Cee MD - 10/27/2016 6:25 PM EST Staff Interventional Cardiology: I saw the patient independently and agree with the findings and assessment as recorded by Dr. Lawson. Mr. Blackwood is ready for discharge; < 30 min spent on the shelton coordinating and arranging discharge and follow-up. MD Lazara WESTBROOK Nicole A, RN - 10/26/2016 6:06 AM EST Activity Summary: By discharge, patient will be able to perform self care, walk 5-7 minutes and go up and down stairs without signs or symptoms of ischemia. Date /Initials Baseline Response Symptoms/Comments 10/26/16 @ 0606 Activity HR 83 90 HR increased to 120's with activity but returned to the 80's- 90's at rest. Walking briskly from unit to CVCC, up the stair sand back BP 140/56 137/99 Denies CP/SOP. O2 Sat 97 96 ECG NSR/LBBB NSR/LBBB Tolerates this rhythm well. Mirna Brown RN - 10/25/2016 6:02 PM EST Buster RODRIGUEZ regarding pt's c/o chest tightness. EKG unchanged. VSS. in to assess. Will continue to monitor. Mirna Brown RN - 10/25/2016 2:24 PM EST Pt arrived to the floor via stretcher. Pt moved from the stretcher to the bed using a slipp and 3 staff members. Pt denies chest pain/pressure or SOB. Telemetry showing LBBB. Right groin site is CD&I with no evidence of hematoma. Pulses weak but palpable. VSS. Pt oriented to the room. Will continue to monitor. documented in this encounter H&P Notes Che Lawson MD - 10/25/2016 1:27 PM EST Post-PCI Admission History and Physical PCP: Duncan Mccain DO Referring: KOFFI Penaloza Date of Admission: 10/25/2016 Admission Diagnosis: S/p PCI Problem List: Patient Active Problem List Diagnosis ??? Carotid stenosis ??? ASCVD (arteriosclerotic cardiovascular disease) Overview Note: ?? CABG [facility] about 1988 ?? Stent to unspecified [...] Hyperlipemia ??? LBBB (left bundle branch block) HPI: This 76 y.o. male is admitted with a chief complaint of CAD s/p PCI to LCx (ZEYAD) I have reviewed the available records, interviewed and examined the patient. This patient is admitted post PCI for IV hydration, pain management, access site management in the setting of anticoagulation, serial cardiac biomarker monitoring, telemetry monitoring, evaluation of their medical condition, and cardiac rehabilitation. ROS/PMHx/Fam Hx/Soc Hx: Reviewed, see outpatient note. Physical Exam BP 162/67 Pulse 62 Temp 36.4 ??C (97.5 ??F) (Oral) Resp 12 Ht 167.6 cm (5' 6) Wt 90.7 kg (200 lb) SpO2 96% BMI 32.28 kg/m2 General: WD, WN HEENT: No JVD High pitched right carotid bruit. Lungs: Clear to A+P Cor: RR, normal S1, S2. PMI not displaced. No murmur or gallop Ext: Pulses preserved, no edema, cyanosis or clubbing Vasc: 2+ radial and femoral pulses, access site c/d/i Labs: Lab Results Component Value Date WBC 10.1 (H) 10/25/2016 HGB 16.3 10/25/2016 HCT 48.5 10/25/2016 MCV 89.5 10/25/2016 PLATELET 288 10/25/2016 Lab Results Component Value Date CREATININE 0.95 10/25/2016 BUN 12 10/25/2016 NA 140 10/25/2016 K 4.0 10/25/2016 CL 100 10/25/2016 CO2 24 10/25/2016 Lab Results Component Value Date CK 100 10/25/2016 TROPONINT <0.03 10/25/2016 Assessment/ Plan: #CAD, s/p PCI to mid LCx via right femoral arteriotomy access - Admit for overnight monitoring - Telemetry, serial ECGs, cycle cardiac biomarkers - Dual antiplatelet therapy - IVF - Monitor access site - Cardiac rehab consult - Anticipate discharge in am Che Lawson MD Interventional Captain'S Assistant Tuan Gibbs PA - 10/25/2016 9:42 AM EST Pre-Cardiac Catheterization 24 hr Update Please see my note dated and Dr. Jha's for full details regarding reason for referral for cardiac catheterization. There has been no significant interval change in clinical status since that visit. Lungs clear Heart RRR Ext: no edema Neck: rt. carotid bruit Consent obtained Labs okay documented in this encounter Miscellaneous Notes Consult Note - Kitty Sun, ARTUR - 10/26/2016 9:44 AM EST Andrew Blackwood was seen today by Cardiac Rehabilitation for: SD/PCi (x ) An activity evaluation - Done by [facility] nursing staff. Margarita well (x ) Educational packet regarding CAD, cardiac risk factors, and managing angina given to patient. Patient had prior CABG. Has tried to stay active but does better in the summer than he does in the winter. Participated in cardiac rehab before. Given parameters for home exercise. He is considering purchasing a treadmill for home. Reviewed managing angina /use of sl nitroglycerin. (x ) Participation to the outpatient cardiac rehabilitation program at [facility] vs. [facility] was discussed. Patient adamantly declines a referral to either program. He would rather exercise at home and not drive. Enc him to discuss with his local PCP should he change his mind. Plan of Care - Tawny Haile RN - 10/26/2016 5:59 AM EST Problem: Patient Care Overview Goal: Plan of Care Review Outcome: Ongoing (Interventions Implemented as Appropriate) 10/25/16194110/26/16 0553 Plan of Care Review Progress -- improving Coping/Psychosocial Plan Of Care Reviewed With patient -- OUTCOME EVALUATION NOTE: OUTCOME SUMMARY: Patient received in bed, A&O, VSS, denies pain or additional complaint. R groin site CDI, B/L pedal pulses palpable. NSR with a LBBB on tele, tolerates this rhythm well. Ambulates in halls, voidingadequate amounts of clear yellow urine. Comfort and safety measures maintained, CBIR. PLAN MOVING FORWARD: CTM I/O, labs, VS, pain, advance activity and diet as toelrated. D/C home when able. INDIVIDUALIZED FALL PREVENTION INTERVENTIONS: Patient-specific fall risk factors per assessment: [current deficits]: IV access, secondary diagnosis Assistance [level of assistance required for transfers and ambulation]: Standby/Independnet Supervision [direct monitoring required during toileting and ADLs]: A&O, uses call trevino appropriately Surveillance [continuous indirect monitoring]: Hourly rounding Patient-specific fall prevention interventions for sensory deficits provided, if applicable: NA CPG GOAL OUTCOME EVALUATION: documented in this encounter Plan of Treatment Not on filedocumented as of this encounter Procedures Procedure Name Priority Date/Time Associated Diagnosis Comme nts EKG 12-LEAD Routine 10/26/2016 7:12 AM ASCVD (arterioscleroti c Results for this EST cardiovascular disease) proc edure are in the results section. BMP W/FASTING Routine 10/26/2016 4:55 AM Results for this GLUCOSE EST procedure are i n the results section. HEMOGRAM Routine 10/26/2016 4:55 AM Results f or this EST procedure are i n the results section. DIFFERENTIAL, Routine 10/26/2016 4:55 AM Results for this AUTOMATED EST procedure are i n the results section. CARDIAC ENZYMES Routine 10/26/2016 4:55 AM Result s for this ([facility]) EST procedure are i n the results section. CBC (WITH DIFF) Routine 10/26/2016 4:55 AM EST LIPID PANEL Routine 10/26/2016 4:55 AM Results f or this (REFLEX DIRECT EST procedure are in LDL) the results section. SHOOTER HELPER 10/26/2016 12:00 SCAN AM EST EKG 12-LEAD Routine 10/25/2016 5:53 PM Chest tightness or Res ults for this EST pressure procedure are i n the results section. EKG 12-LEAD STAT 10/25/2016 12:09 Chest tightness or Resul ts for this PM EST pressure procedure are i n the results section. CARDIAC ENZYMES STAT 10/25/2016 11:30 Results for this ([facility]) AM EST procedure are i n the results section. EKG 12-LEAD Routine 10/25/2016 8:56 AM ASCVD (arterioscleroti c Results for this EST cardiovascular disease) proc edure are in the results section. BMP W/FASTING STAT 10/25/2016 8:05 AM ASCVD (arteriosclerot ic Results for this GLUCOSE EST cardiovascular disease) proc edure are in the results section. HEMOGRAM STAT 10/25/2016 8:05 AM ASCVD (arterioscleroti c Results for this EST cardiovascular disease) proc edure are in the results section. DIFFERENTIAL, STAT 10/25/2016 8:05 AM ASCVD (arteriosclerot ic Results for this AUTOMATED EST cardiovascular disease) proc edure are in the results section. CBC (WITH DIFF) STAT 10/25/2016 8:05 AM ASCVD (arterioscler otic EST cardiovascular disease) documented in this encounter Results EKG 12 Lead (10/26/2016 7:12 AM EST) Component Value Ref Range Test Analysis Performed Pathologis t Method Time At Signature Ventricular rate 71 BPM MUSE SYSTEM Atrial Rate 71 BPM MUSE SYSTEM P-R Interval 182 ms MUSE SYSTEM QRS Duration 170 ms MUSE SYSTEM Q-T Interval 422 ms MUSE SYSTEM QTC Calculated 458 ms MUSE SYSTEM (Bezet) Calculated R Commodore 42 degrees MUSE SYSTEM Calculated T Commodore 164 degrees MUSE SYSTEM INTERPRETATION Normal sinus rhythm MUSE SYSTEM Left bundle branch block Abnormal ECG When compared with ECG of 25-OCT-2016 17:53, (unconfirmed) No significant change was found Confirmed by MD Geni, Leif ([id number]) on 10/26/2016 6:06:1 1 PM Specimen Anatomical Collection Method Collection Time Receive d Time (Source) Location / / Volume Laterality 10/26/2016 7:12 AM 6 6:06 EST PM EST Fish Cee MD ECG ORDERABLES Performing Organization Address City/State/ZIP Code Phon e Number MUSE SYSTEM (ABNORMAL) Differential, Automated (10/26/2016 4:55 AM EST) [facility] Method Time Signature Neutrophils % 79.3 % [facility] Neutr Abs (ANC) 6.58 (H) 1.70 - [facility] 6.10 [facility] x10(3)/[facility] LABORATORY Lymphocytes % 7.1 % [facility] Lymphocytes Abs 0.6 (L) 0.9 - 3.2 [facility] x10(3)/[facility] LABORATORY Monocytes % 10.5 % [facility] Monocyte Abs 0.9 0.3 - 0.9 [facility] x10(3)/[facility] LABORATORY Eosinophils % 2.0 % [facility] Eosinophils Abs 0.2 0.0 - 0.4 [facility] x10(3)/[facility] LABORATORY Basophils % 0.6 % [facility] Basophils Abs 0.0 0.0 - 0.1 [facility] x10(3)/[facility] LABORATORY Immature Gran % 0.50 % [facility] Comment: Immature granulocytes(IG's)percentage an d absolute count will include metamyelocytes, myelocytes, and promyelo cytes. Blood smears from CBCs yielding IG's will be scanned manually for concor dance. If this scan disagrees with the automated IG or if promyelocytes are not ed, a manual differential will be performed. [place]ita Gran Abs 0.04 0.00 - 0.04 x10(3)/[facility] LABORATORY Specimen Anatomical Collection Method Collection Time Receive d Time (Source) Location / / Volume Laterality Blood specimen 10/26/2016 4:55 AM 016 5:03 (specimen) EST AM EST Resulting Agency Comment Spec In Lab Fish Cee MD HEMATOLOGY ORDERABLES Performing Organization Address City/State/[place] [address] Hemogram (10/26/2016 4:55 AM EST) P athologist Signature WBC 8.3 4.0 - 9.5 [facility] LABORATORY RBC 4.78 4.58 - [facility] 5.54 [facility] x10(6)/[facility] LABORATORY Hemoglobin 14.7 13.7 - [facility] 16.5 gm/dL [facility] Hematocrit 42.5 40.5 - [facility] 48.5 % [facility] MCV 88.9 82.9 [facility] LABORATORY MCH 30.8 27.5 - [facility] 32.1 pg [facility] MCHC 34.6 32.0 - [facility] 35.7 gm/dL [facility] Platelets 211 145 - 357 [facility] x10(3)/[facility] LABORATORY RDWSD 41.6 36.0 - [facility] [address] [facility] LABORATORY RDWCV 12.7 11.4 - [facility] 13.8 % [facility] MPV 8.7 7.6 - 12.9 [facility] LABORATORY nRBC % Auto 0.0 % [facility] nRBC Abs Auto 0.000 0.000 - [place] 0.000 [facility] x10(3)/[facility] LABORATORY Specimen Anatomical Collection Method Collection Time Receive d Time (Source) Location / / Volume Laterality Blood specimen 10/26/2016 4:55 AM 016 5:03 (specimen) EST AM EST Resulting Agency Comment Spec In Lab Fish Cee MD HEMATOLOGY ORDERABLES Performing Organization Address City/State/[place] [address] Lipid Panel (10/26/2016 4:55 AM EST) athologist Signature Chol, Total 111 <=199 mg/dL [facility] Comment: Recommendations of the NCEP Adult Treatm ent Panel for the following risk cutoff thresholds for the [place] popul[place] n: Desirable: <200 mg/dL Borderline High: 200-239 mg/dL High: > or = 240 mg/dL Triglycerides 71 <=149 mg/dL [facility] Comment: Reference Range: Normal triglycerides: ??<150 mg/dL Borderline high: ??150-199 mg/dL High: ??200-499 mg/dL Very high: ??>rn=519 mg/dL MAN 2001; 285(19):8182-8659 HDL 42 >=40 mg/dL [facility] Comment: Reference range: ??Low HDL: ?? < 40 mg/dL ??Normal: ?40-60 mg/dL ??Desirable: > 60 mg/dL MAN 2001; 285(19):3326-1069 LDL Cholesterol 55 <=99 mg/dL [facility] Comment: Reference range: ?? Optimal: ?<100 mg/dL ?? Near Optimal/Above Optimal: ?? 100-1 29 mg/dL ?? Borderline high: ?130-159 mg/dL ?? High: ? 160-189 mg/dL ?? Very high: ?>gt=129 mg/dL MAN 2001: 285(19):4090-2414 Chol/HDL Ratio 2.6 ratio [facility] Comment: A Cholesterol to HDL ratio below 4:1 is desirable. ??Studies suggest that increased CAD risk occurs at ratios abov e 5 for females and above 6 for men. ? [place] [employer] ??(htt p://www.americanheart.org) ? Daisy Int Med, 1994; 121:641 ? AM J Med, 1998; 105(1A):48S Specimen Anatomical Collection Method Collection Time Receive d Time (Source) Location / / Volume Laterality Blood specimen 10/26/2016 4:55 AM 016 5:03 (specimen) EST AM EST Resulting Agency Comment Spec In Lab Fish Cee MD CHEMISTRY ORDERABLES Performing Organization Address City/State/[place] [address] (ABNORMAL) BMP w/fasting Glucose (10/26/2016 4:55 AM EST) athologist Signature Glucose 113 (H) 65 - 99 [facility] Fasting mg/dL [facility] Comment: ?Fasting* Glucose Interpretive C riteria Normal ?65-99 mg/dL Impaired Fasting glucose ?100-125 mg/dL Consistent with Diabetes Mellitus ? >or= 126 mg/dL *Fasting is defined as no caloric intake for at least 8 hours In the absence of unequivocal hypergly cemia a plasma glucose value of >or= 126 mg/dL should be repeated on a subseq uent day. Diagnosis and Classification of Diabetes Mellitus, Position Statement from the [place] [employer]. ??Diabete s Care, Volume 33, Supplement 1, Nov 2009 BUN 8 (L) 10 - 20 mg/dL [facility] Creatinine 0.86 0.80 - 1.50 mg/dL [facility] Comment: Please note that the pediatric reference intervals supplied above were not validated at [facility] Results from pediatri c patients should be interpreted in conjunction to the patient's age, height and muscle mass. Sodium 141 135 - 145 mmol/L [facility] Potassium 4.0 3.5 - 5.0 mmol/L [facility] Comment: Please note: ??Patients with WBC >100,00 0 may have falsely elevated Potassium levels. ??For accurate Potassium quantif ication in these patients send serum separator tube (gold top) for subsequent determinations. ??Contact the Clinical Chemistry Laboratory if there are any qu estions. Chloride 103 98 - 107 mmol/L [facility] CO2 24 22 - 31 mmol/L [facility] Anion Gap 14 5 - 15 mmol/L [facility] Calcium 8.9 8.5 - 10.5 mg/dL [facility] Estimated GFR >60 >=60 [facility] Comment: This estimated GFR [...] the following links into your internet browser. [email or web address] [email or web address] Specimen Anatomical Collection Method Collection Time Receive d Time (Source) Location / / Volume Laterality Blood specimen 10/26/2016 4:55 AM 016 5:03 (specimen) EST AM EST Resulting Agency Comment Spec In Lab Fish Cee MD CHEMISTRY ORDERABLES Performing Organization Address City/State/[place] [address] (ABNORMAL) Cardiac Enzymes (10/26/2016 4:55 AM EST) P athologist Signature Troponin-T 0.26 (H) <=0.03 [facility] ng/mL [facility] Comment: 0.03 ng/mL: Represents the 99th percenti le upper reference limit for normals. >0.03 ng/mL: Elevated cardiac troponin T level indicative of myocardial damage. Diagnosis of acute, evolving or recent M I requires a typical rise and gradual fall of cTnT with at least ONE of the fo llowing: a) Ischemic symptoms b) Development of pathologic Q waves on the ECG c) ECG changes indicative of eschemia (S -T segment elevation/depression) d) Coronary artery intervention Serial bloods should be obtained for rakesh ting on admission, at 6 to 9 hrs and again at 12 to 24 hrs if earlier samples are negative and the clinical index of suspicion is high. Reference: [Myocardial infarction redefined? a consensus document of the Joint Society of Cardiology/[place] [employer] o f [employer]iology Committee for the redefinition of myocardial infarction. ? ?Journal of the [place] College [employer]iology 2000; 36: 959-969] CK, Total 204 (H) 0 - 200 unit/L [facility] Comment: result [id number] Specimen Anatomical Collection Method Collection Time Receive d Time (Source) Location / / Volume Laterality Blood specimen 10/26/2016 4:55 AM 016 5:03 (specimen) EST AM EST Resulting Agency Comment Spec In Lab Fish Cee MD CHEMISTRY ORDERABLES Performing Organization Address City/State/ZIP Code Phon e Number [place] [id number] LAB[address]ORY [address] SCAN DOC: SHOOTER HELPER (10/26/2016 12:00 AM EST) Narrative This result has an attachment that is no t available. Scanning Provider MEDIA MGR SCAN EXT ORDR/RSLT EKG 12 Lead (10/25/2016 5:53 PM EST) Component Value Ref Range Test Analysis Performed Pathologis t Method Time At Signature Ventricular rate 79 BPM MUSE SYSTEM Atrial Rate 79 BPM MUSE SYSTEM P-R Interval 184 ms MUSE SYSTEM QRS Duration 178 ms MUSE SYSTEM Q-T Interval 420 ms MUSE SYSTEM QTC Calculated 481 ms MUSE SYSTEM (Bezet) Calculated P Commodore 55 degrees MUSE SYSTEM Calculated R Commodore 48 degrees MUSE SYSTEM Calculated T Commodore -161 degrees MUSE SYSTEM INTERPRETATION Normal sinus rhythm MUSE SYSTEM Left bundle branch block Abnormal ECG When compared with ECG of 25-OCT-2016 12:09, (unconfirmed) Inverted T waves have replac ed nonspecific T wave abnormality in Inferior leads Confirmed by MD Geni, Leif ([id number]) on 10/26/2016 6:06:0 7 PM Specimen Anatomical Collection Method Collection Time Receive d Time (Source) Location / / Volume Laterality 10/25/2016 5:53 PM 6 6:06 EST PM EST Fish Cee MD ECG ORDERABLES Performing Organization Address City/[facility]/ZIP Code Phon e Number MUSE SYSTEM EKG 12 Lead (10/25/2016 12:09 PM EST) Component Value Ref Range Test Analysis Performed Pathologis t Method Time At Signature Ventricular rate 62 BPM MUSE SYSTEM Atrial Rate 62 BPM MUSE SYSTEM P-R Interval 192 ms MUSE SYSTEM QRS Duration 172 ms MUSE SYSTEM Q-T Interval 470 ms MUSE SYSTEM QTC Calculated 477 ms MUSE SYSTEM (Bezet) Calculated P Commodore 76 degrees MUSE SYSTEM Calculated R Commodore 45 degrees MUSE SYSTEM Calculated T Commodore 129 degrees MUSE SYSTEM INTERPRETATION Normal sinus rhythm MUSE SYSTEM Left bundle branch block Abnormal ECG When compared with ECG of 25-OCT-2016 08:56, No significant change was found Confirmed by MD Geni, Leif ([id number]) on 10/26/2016 6:06:0 4 PM Specimen Anatomical Collection Method Collection Time Receive d Time (Source) Location / / Volume Laterality 10/25/2016 12:09 10/26/2016 6:06 PM EST PM EST Fish Cee MD ECG ORDERABLES Performing Organization Address [facility] Phon e Number MUSE SYSTEM Cardiac Enzymes (10/25/2016 11:30 AM EST) P athologist Signature Troponin-T <0.03 <=0.03 [facility] ng/mL [facility] Comment: 0.03 ng/mL: Represents the 99th percenti le upper reference limit for normals. >0.03 ng/mL: Elevated cardiac troponin T level indicative of myocardial damage. Diagnosis of acute, evolving or recent M I requires a typical rise and gradual fall of cTnT with at least ONE of the fo llowing: a) Ischemic symptoms b) Development of pathologic Q waves on the ECG c) ECG changes indicative of eschemia (S -T segment elevation/depression) d) Coronary artery intervention Serial bloods should be obtained for rakesh ting on admission, at 6 to 9 hrs and again at 12 to 24 hrs if earlier samples are negative and the clinical index of suspicion is high. Reference: [Myocardial infarction redefined? a consensus document of the Joint Society of Cardiology/[place] [employer] o f [employer]iology Committee for the redefinition of myocardial infarction. ? ?Journal of the [place] College of Cardiology 2000; 36: 959-969] CK, Total 100 0 - 200 unit/L [facility] Specimen Anatomical Collection Method Collection Time Receive d Time (Source) Location / / Volume Laterality Blood specimen 10/25/2016 11:30 6 (specimen) AM EST 12:04 PM EST Resulting Agency Comment Spec In Lab Fish Cee MD CHEMISTRY ORDERABLES Performing Organization Address City/State/[place] [address] EKG 12 Lead (10/25/2016 8:56 AM EST) Component Value Ref Range Test Analysis Performed Pathologis t Method Time At Signature Ventricular rate 78 BPM MUSE SYSTEM Atrial Rate 78 BPM MUSE SYSTEM P-R Interval 178 ms MUSE SYSTEM QRS Duration 172 ms MUSE SYSTEM Q-T Interval 430 ms MUSE SYSTEM QTC Calculated 490 ms MUSE SYSTEM (Bezet) Calculated P Commodore 72 degrees MUSE SYSTEM Calculated R Commodore 38 degrees MUSE SYSTEM Calculated T Commodore 154 degrees MUSE SYSTEM INTERPRETATION Normal sinus rhythm MUSE SYSTEM Left bundle branch block Abnormal ECG When compared with ECG of 07-JAN-2016 10:33, No significant change was found Confirmed by MD Geni, Leif ([id number]) on 10/26/2016 6:06:0 1 PM Specimen Anatomical Collection Method Collection Time Receive d Time (Source) Location / / Volume Laterality 10/25/2016 8:56 AM 6 6:06 EST PM EST Fish Cee MD ECG ORDERABLES Performing Organization Address City/[facility]/ZIP Code Phon e Number MUSE SYSTEM (ABNORMAL) Differential, Automated (10/25/2016 8:05 AM EST) Patholo gist Method Time Signature Neutrophils % 71.8 % [facility] Neutr Abs (ANC) 7.23 (H) 1.70 - [facility] 6.10 [facility] x10(3)/[facility] LABORATORY Lymphocytes % 17.8 % [facility] Lymphocytes Abs 1.8 0.9 - 3.2 [facility] x10(3)/[facility] LABORATORY Monocytes % 8.0 % [facility] Monocyte Abs 0.8 0.3 - 0.9 [facility] x10(3)/[facility] LABORATORY Eosinophils % 1.2 % [facility] Eosinophils Abs 0.1 0.0 - 0.4 [facility] x10(3)/[facility] LABORATORY Basophils % 0.6 % [facility] Basophils Abs 0.1 0.0 - 0.1 [facility] x10(3)/[facility] LABORATORY Immature Gran % 0.60 % [facility] Comment: Immature granulocytes(IG's)percentage an d absolute count will include metamyelocytes, myelocytes, and promyelo cytes. Blood smears from CBCs yielding IG's will be scanned manually for concor dance. If this scan disagrees with the automated IG or if promyelocytes are not ed, a manual differential will be performed. [place]ita Gran Abs 0.06 (H) 0.00 - 0.04 x10(3)/[facility] LABORATORY Specimen Anatomical Collection Method Collection Time Receive d Time (Source) Location / / Volume Laterality Blood specimen 10/25/2016 8:05 AM 016 8:09 (specimen) EST AM EST Resulting Agency Comment Spec In Lab Fish Cee MD HEMATOLOGY ORDERABLES Performing Organization Address City/State/[place] [address] (ABNORMAL) Hemogram (10/25/2016 8:05 AM EST) Analysis Performed At Patho logist Time Signature WBC 10.1 (H) 4.0 - 9.5 [facility] x10(3)/[facility] LABORATORY RBC 5.42 4.58 - [facility] 5.54 [facility] x10(6)/[facility] LABORATORY Hemoglobin 16.3 13.7 - [facility] gm/dL [facility] Hematocrit 48.5 40.5 - [facility] 48.5 % [facility] MCV 89.5 82.9 - [facility] 93.1 fL [facility] MCH 30.1 27.5 - [facility] 32.1 pg [facility] MCHC 33.6 32.0 - [facility] 35.7 gm/dL [facility] Platelets 288 145 - 357 [facility] x10(3)/[facility] LABORATORY RDWSD 41.2 36.0 - [facility] 45.[address] [facility] LABORATORY RDWCV 12.5 11.4 - [facility] 13.8 % [facility] MPV 8.8 7.6 - 12.9 [facility] LABORATORY nRBC % Auto 0.0 % [facility] nRBC Abs Auto 0.000 0.000 - [facility] 0.000 [facility] x10(3)/[facility] LABORATORY Specimen Anatomical Collection Method Collection Time Receive d Time (Source) Location / / Volume Laterality Blood specimen 10/25/2016 8:05 AM 016 8:09 (specimen) EST AM EST Resulting Agency Comment Spec In Lab Fish Cee MD HEMATOLOGY ORDERABLES Performing Organization Address City/State/[place] [address] (ABNORMAL) BMP w/fasting Glucose (10/25/2016 8:05 AM EST) athologist Signature Glucose 141 (H) 65 - 99 [facility] Fasting mg/dL [facility] Comment: ?Fasting* Glucose Interpretive C riteria Normal ?65-99 mg/dL Impaired Fasting glucose ?100-125 mg/dL Consistent with Diabetes Mellitus ? >or= 126 mg/dL *Fasting is defined as no caloric intake for at least 8 hours In the absence of unequivocal hypergly cemia a plasma glucose value of >or= 126 mg/dL should be repeated on a subseq uent day. Diagnosis and Classification of Diabetes Mellitus, Position Statement from the [place] [employer]. ??Diabete s Care, Volume 33, Supplement 1, Nov 2009 BUN 12 10 - 20 mg/dL [facility] Creatinine 0.95 0.80 - 1.50 mg/dL [facility] Comment: Please note that the pediatric reference intervals supplied above were not validated [place] [facility] Results from pediatri c patients should be interpreted in conjunction to the patient's age, height and muscle mass. Sodium 140 135 - 145 mmol/L [facility] Potassium 4.0 3.5 - 5.0 mmol/L [facility] Comment: Please note: ??Patients with WBC >100,00 0 may have falsely elevated Potassium levels. ??For accurate Potassium quantif ication in these patients send serum separator tube (gold top) for subsequent determinations. ??Contact the Clinical Chemistry Laboratory if there are any qu estions. Chloride 100 98 - 107 mmol/L [facility] CO2 24 22 - 31 mmol/L [facility] Anion Gap 16 (H) 5 - 15 mmol/L [facility] Calcium 9.7 8.5 - 10.5 mg/dL [facility] Estimated GFR >60 >=60 [facility] Comment: This estimated GFR [...] the following links into your internet browser. [email or web address] [email or web address] Specimen Anatomical Collection Method Collection Time Receive d Time (Source) Location / / Volume Laterality Blood specimen 10/25/2016 8:05 AM 016 8:09 (specimen) EST AM EST Resulting Agency Comment Spec In Lab Fish Cee MD CHEMISTRY ORDERABLES Performing Organization Address City/State/[place] [address] documented in this encounter Visit Diagnoses Diagnosis ASCVD (arteriosclerotic cardiovascular d isease) Unspecified cardiovascular disease Chest tightness or pressure Other chest pain ASCVD (arteriosclerotic cardiovascular d isease) Unspecified cardiovascular disease documented in this encounter Administered Medications Inactive Administered Medications - up to 3 most recent administrations Medication Order MAR Action Action Date Dose Rate Site amLODIPine (NORVASC) tablet 10 mg Given 10/25/2016 5:41 PM EST 10 mg 10 mg, Oral, DAILY, First dose on Mon10/25/16 at 1530, Until Discontinued, Routine aspirin EC tablet 81 mg Given 10/25/2016 5:41 PM EST 81 mg 81 mg, Oral, DAILY, First dose on Mon10/25/16 at 1430, Until Discontinued, Routine clopidogrel (PLAVIX) tablet 75 mg Given 10/26/2016 8:32 AM EST 75 mg 75 mg, Oral, DAILY, First dose on Mon10/26/16 at 0900, Until Discontinued, Recovery (Recovery-Hospital Unit), Routine clopidogrel (PLAVIX) tablet Given 10/25/2016 11:31 AM EST 600 mg ONCE PRN, Starting on Mon10/25/16 at 1131, Until Mon10/25/16 at 1140, Intra-Operative (Intra-Procedure), Routine fentaNYL 50 mcg/mL multi-dose injection Given 10/25/2016 10:34 AM EST 25 mcg ONCE PRN, Starting on Mon10/25/16 at 1034, Until Mon10/25/16 at 1140, Intra-Operative (Intra-Procedure), Routine heparin (porcine) injection Given 10/25/2016 11:07 AM EST 4,000 Units ONCE PRN, Starting on Mon10/25/16 at 1043, Until Mon10/25/16 at 1140, Cath (Intra-Procedure), Routine Given 10/25/2016 10:43 AM EST 3,000 Units iohexol (OMNIPAQUE) 350 mg/mL solution Given 10/25/2016 11:39 AM EST 125 mLs ONCE PRN, Starting on Mon10/25/16 at 1139, Until Mon10/25/16 at 1140, Cath (Intra-Procedure), Routine lisinopril (PRINIVIL;ZESTRIL) tablet 40 mg Given 10/25/2016 5:40 PM EST 40 mg 40 mg, Oral, DAILY, First dose on Mon10/25/16 at 1530, Until Discontinued, Routine meTOPROLOL tartrate (LOPRESSOR) tablet 5 0 mg Given 10/26/2016 8:32 AM EST 50 mg 50 mg, Oral, 2 TIMES DAILY, First dose on Mon10/25/16 at 1430, Until Discontinued, Routine Given 10/25/2016 5:41 PM EST 50 mg midazolam (PF) (VERSED) 1 mg/mL multi-dose Given 10/25/2016 10:3 5 AM EST 1 mg injection ONCE PRN, Starting on Mon10/25/16 at 1035, Until Mon10/25/16 at 1140, Cath (Intra-Procedure), Routine nitroGLYcerin 100 mcg/mL intracoronary Given 10/25/2016 11:14 AM EST 200 mcg dilution ONCE PRN, Starting on Mon10/25/16 at 1114, Until Mon10/25/16 at 1140, Cath (Intra-Procedure), Routine nitroGLYcerin 100 mcg/mL intracoronary Given 10/25/2016 11:30 AM EST 200 mcg dilution ONCE PRN, Starting on Mon10/25/16 at 1130, Until Mon10/25/16 at 1140, Cath (Intra-Procedure), Routine rosuvastatin (CRESTOR) tablet 10 mg Given 10/25/2016 5:41 PM EST 10 mg 10 mg, Oral, DAILY, First dose on Mon10/25/16 at 1530, Until Discontinued, Routine sodium chloride 0.9% infusion New Bag 10/25/2016 12:30 PM EST 150 mL/hr 150 mL/hr 150 mL/hr, Intravenous, CONTINUOUS, Starting on Mon10/25/16 at 1230, Until Mon10/25/16 at 1629, Recovery (Recovery-Hospital Unit) documented in this encounter Active and Recently Administered Medications Times are shown in EST. Scheduled Medication Order 10/24/2016 10/25/2016 10/26/2016 amLODIPine (NORVASC) tablet 10 mg 1740 (Given - Provider: Mirna Maynard RN) 10 mg, Oral, DAILY, First dose on Mon at 1530, Until Discontinued, Routine aspirin EC tablet 81 mg 174 (Given - Provider: Mirna Maynard RN) 81 mg, Oral, DAILY, First dose on Mon at 1430, Until Discontinued, Routine clopidogrel (PLAVIX) tablet 75 mg 0832 (Given - Provider: Mirna Maynard RN) 75 mg, Oral, DAILY, First dose on Mon at 0900, Until Discontinued, Recovery (Recovery-Hospital Unit), Routine lisinopril (PRINIVIL;ZESTRIL) tablet 40 mg 1740 (Given - Provider: Mirna Maynard RN) 40 mg, Oral, DAILY, First dose on Mon at 1530, Until Discontinued, Routine meTOPROLOL tartrate (LOPRESSOR) tablet 50 mg 1430 (Not Given - Provider: Mirna Maynard RN - Reason: Patient/family refused - Comment: will take tonight)1741 (Given - Provider: Mirna Maynard RN) 0832 (Given - Provider: Mirna Maynard RN) 50 mg, Oral, 2 TIMES DAILY, First dose o n Mon10/25/16 at 1430, Until Discontinued, Routine 2100 (Not Given - Provider: Tawny Haile RN - Reason: See comment - Comment: Too close to previous dose) rosuvastatin (CRESTOR) tablet 10 mg 174 (Given - Provider: Mirna Maynard RN) 10 mg, Oral, DAILY, First dose on Mon at 1530, Until Discontinued, Routine Continuous Medication Order 10/24/2016 10/25/2016 10/26/2016 sodium chloride 0.9% infusion () 1230 (New Bag - Provider: Tracey Sandoval RN)1742 (Stopped - Provider: Mirna Maynard RN) 150 mL/hr, at 150 mL/hr, Intravenous, CO NTINUOUS, Starting Mon10/25/16 at 1230, Until Mon10/25/16 at 1629, Recovery (Recovery-Hospital Unit) PRN Medication Order 10/24/2016 10/25/2016 10/26/2016 clopidogrel (PLAVIX) tablet (CANCELED) 1 131 (Given - Provider: Viv Flores, ARTUR) ONCE PRN, Starting Mon10/25/16 at 1131, Until Mon10/25/16 at 1140, Intra- Operative (Intra-Procedure), Routine fentaNYL 50 mcg/mL multi-dose injection (CANCELED) 1034 (Given - Provider: Viv Flores, ARTUR) ONCE PRN, Starting Mon10/25/16 at 1034, Until Mon10/25/16 at 1140, Intra- Operative (Intra-Procedure), Routine heparin (porcine) injection (CANCELED) 1 043 (Given - Provider: Viv Flores, RN)1107 (Given - Provider: Che Lawson MD) ONCE PRN, Starting Mon10/25/16 at 1043, Until Mon10/25/16 at 1140, Cath (Intra-Procedure), Routine iohexol (OMNIPAQUE) 350 mg/mL solution (CANCELED) 1139 (Given - Provider: Fish Cee MD) ONCE PRN, Starting Mon10/25/16 at 1139, Until Mon10/25/16 at 1140, Cath (Intra-Procedure), Routine midazolam (PF) (VERSED) 1 mg/mL multi-dose injection (CANCEL ED) 1035 (Given - Provider: Viv Flores, ARTUR) ONCE PRN, Starting Mon10/25/16 at 1035, Until Mon10/25/16 at 1140, Cath (Intra-Procedure), Routine nitroGLYcerin (NITROSTAT) SL tablet 0.4 mg 0.4 mg, Sublingual, EVERY 5 MIN PRN, Sta rting Mon10/25/16 at 1412, Until 10/26/16 at 1212, Chest pain, SL nitroglycerin may be repeated every 5 minutes as needed up to 3 doses, Routine nitroGLYcerin 100 mcg/mL intracoronary dilution (CANCELED) 1114 (Given - Provider: Viv Flores, RN) ONCE PRN, Starting Mon10/25/16 at 1114, Until Mon10/25/16 at 1140, Cath (Intra-Procedure), Routine nitroGLYcerin 100 mcg/mL intracoronary dilution (CANCELED) 1130 (Given - Provider: Viv Flores, RN) ONCE PRN, Starting Mon10/25/16 at 1130, Until Mon10/25/16 at 1140, Cath (Intra-Procedure), Routine documented in this encounter Care Teams 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
--- OUTSIDE RECORDS SUMMARY | 2022-06-14 00:50 | XMS_ITS | Encounter Summary ---
:1940 [place] [address] Care Team Providers Name Role Phone Duncan Mccain DO Primary Care Provider Reason for Visit Auth/Cert Specialty Diagnoses / Procedures Referred By Contact Refer red To Contact Diagnoses Carotid stenosis carotid stenosis . Procedures PRO THROMBOENDARTECTMY NECK, NECK INCIS @ENDARTERECTOMY, CAROTID, VERTEBRAL,SUBCLAVIAN W\WO PATCH GRAFT (WRVU 21.16) Referral ID Status Reason Start Date Expiration Date Visits Requ ested Visits Authorized [id number] 1 1 Encounter Details Date Type Department Care Team Description 11/29/2016 Anesthesia Event Main Operating Room Tamika Mary MD [facility] [place] [place] [address] [facility] [place] [place] [address] [facility] [place] [address] Anesthesia Record Procedure Summary Procedure Name Responsible Anesthesia Start Anesthesia Stop Time Anesthesiologist Time @ENDARTERKenneth BRITT Kathleen H, MD 11/29/16 0731 11/29 1132 CAROTID, VERTEBRAL,SUBCLAVIA N W\WO PATCH GRAFT (WRVU 21.16) (Right Neck) Events Date Time Event Comment 11/29/2016 0658 0731 Start 0734 AN Verify 0734 An Start Data 0742 An Induction 0744 An Intubation 0752 Anesthesia Ready 0815 ABG Data Arterial Blood G as result: pH 7.40 pCO2 35.7 pO2 303.9 HCO3 2 1.7 BE -3.1 Hb 14.3 Glucose 126 K 3.89 0820 Skin Incision 0857 Heparin 0908 Vascular Clamp ON 0912 Quick Note shunted 1014 Vascular Clamp ON 1020 Vascular Clamp OFF 1039 Protamine 1115 Extubation/LMA Out 1120 an stop data 1131 Recovery or ICU Handoff Patient care was transferred to the destination unit staff after review of the patient's medica l history, current anesthetic/surgi kelvin status and plan, according to the Provider Handoff Checklist. 1132 Stop Name Total fentaNYL 250 mcg IV Lidocaine 100 mg Propofol 140 mg Rocuronium 70 mg PHENYLephrine 320 mcg Ondansetron 8 mg Esmolol 20 mg PHENYLephrine INF 7,720 mcg ceFAZolin (ANCEF) 2g in dextrose 5% 50 mL 4 g Heparin 12,000 Units Protamine 30 mg Lactated Ringers 500 mL Lactated Ringers 1,000 mL Agents Name O2 Air N2O Sevoflurane (et) Blood No blood administrations on file. Lines, Drains, and Airways Type Details Placement Removal Incision 11/29/16; 0833; neck; 11/29/16 0833 by vertical Susan Drummond RN PIV 11/29/16; 0703; median 11/29/16 0703 by 11/30/16 1030 by cubital vein (antecubital Evelia Holbrook, María Mendieta, fossa), left; RN [id number] catheter system; 18 gauge; Fish Cannon RN; distraction, intradermal injection; 11/30/16; 1030 Arterial Line 11/29/16; 0742; radial 11/29/16 0742 by 11/29/16 1628 by artery, right; 20 gauge; Gera Powell, María Norman Chaimberg, MD; Sterile PREPRESS OPERATOR RN Prep, Sterile Gloves; 11/29/16; 1628 ETT Mask Ventilation: Adjunct 11/29/16 0749 by 11/29 1115 by (2); ETT Type: Cuffed, Gera Powell, Gera Brothers, Oral; ETT Size: 7.5 mm; AMBAR VILLALTA Mac Blade: 4; Notes: Asleep, Pre-O2, Cricoid Pressure, Stylette; Attempts: 1; Laryngoscopy Grade: 1; Secured at Teeth: 22 cm (dentures removed and given to circulating RN); Inserted by: AMBAR Powell Urethral Catheter 11/29/16; 0750; Surgery 11/29/16 0750 by 11/30 0040 by longer than 2 hours, Susan Drummond Andres, Jose Jimmy Physician order; RN C, PHANI Prolonged Immobilization; indwelling double lumen catheter; latex; 14; 1; 5; 10; other (see comments) (General anesthesia); drainage bag to dependent drainage; Inserted without difficulty by Angelo Tanner RN with clear yellow urine to gravity.; 11/30/16; 0040 PIV 11/29/16; 0752; 11/29/16 0752 by 11/30/16 1030 b y metacarpal vein (top of Andre, Gera Russo, María Chowdary, hand), right; AMBAR SIDDIQUI [id number] catheter system; 16 gauge; 11/30/16; 1030 documented in this encounter Social History Tobacco Use Types Packs/Day Years Used Date Former Smoker Quit: 01/07/19 89 Smokeless Tobacco: Never Used Alcohol Use Standard Drinks/Week Comments Yes 1 (1 standard drink = 0.6 oz pure alcoho l) Infrequently [place] Alcohol Habits Answer Date Recorded How often do you have a drink containing Not asked alcohol? How many drinks containing alcohol do you have Not asked on a typical day when you are drinking? How often do you have six or more drinks on one Not asked occasion? Comment: Infrequently [place] 10/25/2016 Sex Assigned at Date Recorded Not on file documented as of this encounter OR Notes Anesthesia Postprocedure Evaluation - Tamika Sanchez MD - 11/29/2016 12:05 PM EST [facility] [place] Department of Anesthesiology Post-procedure Note Patient: Andrew Blackwood Procedure Summary Date Anesthesia Start Anesthesia Stop Room / Location 11/29/[address] [facility] OR 14 / [facility] MAIN OR Procedure Diagnosis Surgeon Responsible Provider @ENDARTERECTOMY, CAROTID, VERTEBRAL,SUBCLAVIAN W\WO PATCH GRAFT (WRVU 21.16) (Right Neck) Stenosis of right carotid artery (carotid stenosis) ZwolaElder rocha MD Chaimberg, Kathleen H, MD All Anesthesia Providers: Anesthesiologist: Tamika Sanchez MD PREPRESS OPERATOR: Gera Powell CRNA Last (1hr) Vitals: BP 110/47 (11/29/16 1145) Temp 36.6 ??C (97.9 ??F) (11/29/16 1130) Pulse 64 (11/29/16 1145) Resp 11 (11/29/16 1145) SpO2 99 % (11/29/16 1145) Patient Location: PACU/[facility] Level of Consciousness: Awake and Alert Pain Management: Satisfactory Analgesia PONV: None Cardiovascular Status: At Baseline and Hemodynamically Stable Respiratory Status: At Baseline and Room Air Postoperative Fluid Status: Intravascular EUvolemia Possible Anesthetic Complications: NONE apparent at time of evaluation Final Primary Anesthesia Type: General (The anesthetic type performed was the same as planned.) Comments: Awake, alert and neurologically intact TAMIKA SANCHEZ MD Anesthesia Preprocedure Evaluation - Tamika Sanchez MD - 11/29/2016 6:54 AM EST Pre-Anesthesia Evaluation for: Andrew Blackwood a 76 y.o. male. Procedure(s): @ENDARTERECTOMY, CAROTID, VERTEBRAL,SUBCLAVIAN W\WO PATCH GRAFT (WRVU 21.16) Patient Active Problem List Diagnosis ??? Carotid stenosis ??? ASCVD (arteriosclerotic cardiovascular disease) ?? CABG [facility] about 1988 ?? Stent to unspecified [...] Hyperlipemia ??? LBBB (left bundle branch block) Past Medical History Diagnosis Date ??? Carotid stenosis 09/13/2016 Past Surgical History Procedure Laterality Date ??? Pro upper gi endoscopy, diagnostic 05/28/2014 EGD, UPPER GI ENDOSCOPY performed by Philippe Khan MD at [facility] ENDOSCOPY ??? Pro colonoscopy, diagnostic 05/28/2014 COLONOSCOPY, DIAGNOSTIC performed by Philippe Khan MD at [facility] ENDOSCOPY Social History Substance Use Topics ??? Smoking status: Former Smoker Quit date: 01/07/1989 ??? Smokeless tobacco: Never Used ??? Alcohol use 0.6 oz/week 1 Cans of beer per week Comment: Infrequently [place] History Drug Use No No Known Allergies Medications: MAR and/or home medications have been reviewed. Physical Exam: Vitals: 11/29/16 0620 BP: 141/53 Pulse: 76 Resp: 18 Body mass index is 30.96 kg/(m^2). Height: 167.6 cm (5' 6) Weight - Scale: 87 kg (191 lb 12.8 oz) Airway Assessment: Mallampati: II TM distance: >3 FB Neck ROM: full Cardiovascular Assessment: Rhythm: regular Rate: normal Pulmonary Assessment: breath sounds clear to auscultation Dental Assessment: (+) upper dentures and lower dentures Misc Assessment: Anesthesia Plan: ASA 3 general, with a(n) intravenous induction 76 yo former smoker with known ASCVD s/p remote CABG and more recently (Oct 2016) ZEYAD placement to symptomatic LCx lesion now presents for Right CEA. Carotid stenosis discovered incidentally during pre-cath workup. Now on dual antiplatelet therapy, preserved EF. Wears CPAP for VIKRAM, denies previous problems with GA. Discussed risks/benefits GAETT, arterial line monitoring. Informed Consent: Anesthetic plan and risks discussed with patient. Use of blood products discussed with patient who. Plan discussed with PREPRESS OPERATOR. PAT Staff Note documented in this encounter Plan of Treatment Not on filedocumented as of this encounter Visit Diagnoses Not on filedocumented in this encounter Administered Medications Inactive Administered Medications - up to 3 most recent administrations Medication Order MAR Action Action Date Dose Rate Site ceFAZolin (ANCEF) 2g in dextrose 5% Given 11/29/2016 11:09 AM ES T 2 g 50 mL 2 g, Intravenous, ONCE, 1 dose, On Mon11/29/16 at 0645, Administer over 30 Minutes, Redose every 3 hours if CrCl is greater than 20. Redose every 8 hours if CrCl is less than 20., Day of Surgery (Day of Procedure), Indication for (Active or Suspected): Prophylaxis Given 11/29/2016 8:09 AM EST 2 g esmolol (BREVIBLOC) injection Given 11/29/2016 8:01 AM EST 20 mg PRN, Starting on Mon11/29/16 at 0801, Until Mon11/29/16 at 1134, Anesthesia Intra-op, Routine fentaNYL 50 mcg/mL multi-dose injection Given 11/29/2016 8:01 AM EST 100 mcg PRN, Starting on Mon11/29/16 at 0801, Until Mon11/29/16 at 1134, Pain, Anesthesia Intra-op, Routine Given 11/29/2016 7:39 AM EST 150 mcg heparin (porcine) injection Given 11/29/2016 9:47 AM EST 2,000 Units PRN, Starting on Mon11/29/16 at 0857, Until Mon11/29/16 at 1134, Anesthesia Intra-op, Routine Given 11/29/2016 8:57 AM EST 10,000 Units lactated ringers infusion New Bag 11/29/2016 7:14 AM EST CONTINUOUS PRN, Starting on Mon11/29/16 at 0751, Until Mon11/29/16 at 1134, Anesthesia Intra-op lactated ringers infusion New Bag 11/29/2016 7:51 AM EST CONTINUOUS PRN, Starting on Mon11/29/16 at 0751, Until Mon11/29/16 at 1134, Anesthesia Intra-op lidocaine (PF) (XYLOCAINE) 100 mg/5 mL (2 %) Given 01/2017 7:41 AM EST 100 mg injection PRN, Starting on Mon11/29/16 at 0741, Until Mon11/29/16 at 1134, Anesthesia Intra-op, Routine ondansetron (ZOFRAN) injection Given 11/29/2016 11:12 AM EST 8 mg PRN, Starting on Mon11/29/16 at 1112, Until Mon11/29/16 at 1134, Nausea, Anesthesia Intra-op, Routine PHENYLephrine Rate/Dose Change 11/29/2016 11:07 20 mcg/min 15 mL/hr (LEIGHTON-SYNEPHRINE) 20 mg in AM EST sodium chloride 250 mL (standard [employer]ULT [employer] greater than 20kg) infusion CONTINUOUS PRN, Starting on Mon11/29/16 at 0808, Until Mon11/29/16 at 1134, Anesthesia Intra-op, Routine Rate/Dose Change 11/29/2016 10:49 AM EST 40 mcg/min 30 mL/hr Rate/Dose Change 11/29/2016 10:19 AM EST 60 mcg/min 45 mL/hr PHENYLephrine HCl in NS (PF) Given 11/29/2016 10:18 AM EST 80 mc g (LEIGHTON-SYNEPHRINE) 0.8 mg/10 mL (80 mcg/mL) multi-dose injection Syrg PRN, Starting on Mon11/29/16 at 0839, Until Mon11/29/16 at 1134, Anesthesia Intra-op, Routine Given 11/29/2016 9:17 AM EST 80 mcg Given 11/29/2016 9:04 AM EST 80 mcg propofol (DIPRIVAN) 10 mg/mL bolus injection Given 01/2017 10:48 AM EST 40 mg (Anesthesia) PRN, Starting on Mon11/29/16 at 0742, Until Mon11/29/16 at 1134, Anesthesia Intra-op Given 11/29/2016 7:44 AM EST 40 mg Given 11/29/2016 7:42 AM EST 60 mg protamine injection Given 11/29/2016 10:43 AM EST 10 mg PRN, Starting on Mon11/29/16 at 1039, Until Mon11/29/16 at 1134, Anesthesia Intra-op, Routine Given 11/29/2016 10:41 AM EST 10 mg Given 11/29/2016 10:39 AM EST 10 mg rocuronium (ZEMURON) multi-dose injectio n Given 11/29/2016 8:39 AM EST 10 mg PRN, Starting on Mon11/29/16 at 0743, Until Mon11/29/16 at 1134, Anesthesia Intra-op, Routine Given 11/29/2016 7:43 AM EST 60 mg documented in this encounter Care Teams Medication Aide Relationship Specialty Start Date End Date Duncan Mccain DO PCP - General 04/25/14 [address] [place] [address] documented as of this encounter
--- OUTSIDE RECORDS SUMMARY | 2022-06-14 00:50 | XMS_ITS | Encounter Summary ---
:1940 [place] [address] Care Team Providers Name Role Phone Duncan Mccain DO Primary Care Provider Reason for Visit Auth/Cert Specialty Diagnoses / Procedures Referred By Contact Refer red To Contact Diagnoses ASCVD (arteriosclerotic cardiovascular disease) ASCVD Procedures CARDIAC CATHETERIZATION Referral ID Status Reason Start Date Expiration Date Visits Requ ested Visits Authorized [id number] 1 1 Encounter Details Date Type Department Care Team Description 10/25/2016 - Hospital Short Stay Unit at [facility] ASCVD ( arteriosclerotic cardiovascular disease); 10/26/2016 Encounter Obdulia Cruz MD Chest tightness or pressure [facility] [address] Mata CARDIOLOGY [place], [place] DEPT. [address] [place], [place] [phone] [id number] Social History Tobacco Use Types Packs/Day Years Used Date Former Smoker Quit: 01/07/19 89 Smokeless Tobacco: Never Used Alcohol Use Standard Drinks/Week Comments Yes 1 (1 standard drink = 0.6 oz pure alcoho l) Infrequently [place] Alcohol Habits Answer Date Recorded How often do you have a drink containing Not asked alcohol? How many drinks containing alcohol do you have Not asked on a typical day when you are drinking? How often do you have six or more drinks on one Not asked occasion? Comment: Infrequently [place] 10/25/2016 Sex Assigned at Date Recorded Not on file documented as of this encounter Last Filed Vital Signs Vital Sign Reading Time Taken Comments Blood Pressure 130/57 10/26/2016 8:32 AM EST Pulse 90 10/26/2016 8:32 AM EST Temperature 36.2 ??C (97.2 ??F) 10/26/2016 7:21 AM EST Respiratory Rate 16 10/26/2016 7:21 AM EST Oxygen Saturation 95% 10/26/2016 7:21 AM EST Inhaled Oxygen Concentration - - Weight 90.7 kg (200 lb) 10/25/2016 8:33 AM EST Height 167.6 cm (5' 6) 10/25/2016 8:33 AM EST Body Mass Index 32.28 10/25/2016 8:33 AM EST documented in this encounter Discharge Summaries Che Lawson MD - 10/26/2016 8:36 AM EST Discharge Summary Patient Name: Andrew Blackwood Patient Age: 76 y.o. Language: Singaporean Race: White Ethnicity: Not nor Admit date: [...] ??? ASCVD (arteriosclerotic cardiovascular disease) ?? CABG [facility] about 1988 ?? Stent to unspecified [...] dose of clopidogrel 600 mg given in blood and plasma laboratory assistant. Recommend dual antiplatelet therapy (DAPT) with low [...] rosuvastatin 10 mg Refills: 0 FLUZONE HIGH-DOSE 2015- (PF) 180 mcg/0.5 mL Syrg Generic drug: [...] 150-25-1 mg-mcg-mg Cap Generic drug: Iron Polysacch [id number] Refills: 0 Smoking Status at Discharge: History [...] appointments: -During 8am-5pm Monday through Monday call [phone] to speak with a nurse in the cardiology clinic -All other times call [phone] and ask to speak to the sharepoint solutions developer information scientist. MEDICATIONS - you need to be on [...] Primary care provider: Cardiology: Duncan Mccain DO [phone] Follow up as planned or as needed. KOFFI Penaloza [phone] 11-15-2016 General Instructions None Future Appointments and Orders Future Appointments Provider Department Dept Phone 11/15/2016 1:30 PM Tuan Gibbs PA Cardiology [phone] 11/15/2016 2:30 PM Petty Long T V[facility] Lab [phone] 11/15/2016 3:00 PM Elder Jha MD Vascular Surgery [phone] Discharge References/Attachments None documented in this encounter Discharge Instructions Patient InstructionsChe Lawson MD - 10/25/2016 5:34 PM EST Cardiology Instructions Call your doctor if: Chest pain, dyspnea, pain or swelling in legs occurs. If you have non-emergent questions between now and the time of your follow up appointments: -During 8am-5pm Monday through Monday call [phone] to speak with a nurse in the cardiology clinic -All other times call [phone] and ask to speak to the sharepoint solutions developer information scientist. MEDICATIONS - you need to be on [...] Primary care provider: Cardiology: Duncan Mccain DO [phone] Follow up as planned or as needed. KOFFI Penaloza [phone] 11-15-2016 documented in this encounter Medications at [...] and symptoms have been reviewed with patient. LuluChe MD - 10/26/2016 8:31 AM EST Patient Name: Andrew Blackwood Patient Age: 76 y.o. Birthdate: 1940 Admit date: 10/25/2016 Attending Physician: [facility] MD Inpatient Interventional Cardiology Discharge Day Note [...] cardiology on 11-15-2016 Che Lawson MD Interventional Cartridge Feeder Associated attestation - [facility] MD - [...] at rest. Walking briskly from unit to CV, up the stair sand back BP 140/56 [...] (arteriosclerotic cardiovascular disease) Overview Note: ?? CABG [facility] about 1988 ?? Stent to unspecified [...] discharge in am Che Lawson MD Interventional Cartridge Feeder Tuan Gibbs PA - 10/25/2016 9:42 AM [...] encounter Miscellaneous Notes Consult Note - Kitty Sun RN - 10/26/2016 9:44 AM EST Andrew Blackwood [...] to the outpatient cardiac rehabilitation program at [facility] vs. [facility] was discussed. Patient adamantly declines a referral [...] procedure are in LDL) the results section. VICE PRESIDENT LENDING 10/26/2016 12:00 SCAN AM EST EKG 12-LEAD Routine 10/25/2016 5:53 PM Chest tightness or Res ults for this EST pressure procedure are i n the results section. EKG 12-LEAD STAT 10/25/2016 12:09 Chest tightness or Resul ts for this PM EST pressure procedure are i n the results section. CARDIAC ENZYMES STAT 10/25/2016 11:30 Results for this ([facility]) AM EST procedure are i n the [...] 458 ms MUSE SYSTEM (Bezet) Calculated R Searcy 42 degrees MUSE SYSTEM Calculated T Searcy 164 degrees MUSE SYSTEM INTERPRETATION Normal sinus rhythm MUSE SYSTEM Left bundle branch block Abnormal ECG When compared with ECG of 25-OCT-2016 17:53, (unconfirmed) No significant change was found Confirmed by MD Arechiga Jon ([id number]) on 10/26/2016 6:06:1 1 PM Specimen Anatomical Collection Method Collection Time Receive d Time (Source) Location / / Volume Laterality 10/26/2016 7:12 AM 6 6:06 EST PM EST [facility] MD ECG ORDERABLES Performing Organization Address City/State/ZIP Code Phon e Number MUSE SYSTEM (ABNORMAL) Differential, Automated (10/26/2016 4:55 AM EST) [facility] Method Time Signature Neutrophils % 79.3 % [facility] Neutr Abs (ANC) 6.58 (H) 1.70 - [facility] 6.10 [facility] x10(3)/[facility] L LABORATORY Lymphocytes % 7.1 % [facility] Lymphocytes Abs 0.6 (L) 0.9 - 3.2 [facility] x10(3)/[facility] LABORATORY Monocytes % 10.5 % [facility] Monocyte Abs 0.9 0.3 - 0.9 [facility] x10(3)/[facility] LABORATORY Eosinophils % 2.0 % [facility] Eosinophils Abs 0.2 0.0 - 0.4 [facility] x10(3)/[facility] LABORATORY Basophils % 0.6 % [facility] Basophils Abs 0.0 0.0 - 0.1 [facility] x10(3)/[facility] LABORATORY Immature Gran % 0.50 % [facility] Comment: Immature granulocytes(IG's)percentage an d absolute count will include metamyelocytes, myelocytes, and promyelo cytes. Blood smears from CBCs yielding IG's will be scanned manually for concor dance. If this scan disagrees with the automated IG or if promyelocytes are not ed, a manual differential will be performed. [facility] Gran Abs 0.04 0.00 - 0.04 x10(3)/[facility] MAR Y [facility] Specimen Anatomical Collection Method Collection Time Receive d Time (Source) Location / / Volume Laterality Blood specimen 10/26/2016 4:55 AM 016 5:03 (specimen) EST AM EST Resulting Agency Comment Spec In Lab [facility] MD HEMATOLOGY ORDERABLES Performing Organization Address City/State/[place] [address] Hemogram (10/26/2016 4:55 AM EST) P athologist Signature WBC 8.3 4.0 - 9.5 [facility] x10(3)/[facility] LABORATORY RBC 4.78 4.58 - [facility] 5.54 [facility] x10(6)/[facility] LABORATORY Hemoglobin 14.7 13.7 - [facility] 16.5 gm/dL [facility] Hematocrit 42.5 40.5 - [facility] 48.5 % [facility] MCV 88.9 82.9 - [facility]1 [facility] LAB[facility]AT[facility] MCH 30.8 27.5 - [facility] 32.1 pg [facility] MCHC 34.6 32.0 - [facility] 35.7 gm/dL [facility] Platelets 211 145 - 357 [facility] x10(3)/[facility] LABORATORY RDWSD 41.6 36.0 - [facility] 45.0 [facility] LABORATORY RDWCV 12.7 11.4 - [facility] 13.8 % [facility] MPV 8.7 7.6 - 12.9 [facility] LABORATORY nRBC % Auto 0.0 % [facility] nRBC Abs Auto 0.000 0.000 - [facility] 0.000 [facility] x10(3)/[facility] LABORATORY Specimen Anatomical Collection Method Collection Time Receive d Time (Source) Location / / Volume Laterality Blood specimen 10/26/2016 4:55 AM 016 5:03 (specimen) EST AM EST Resulting Agency Comment Spec In Lab [facility] MD HEMATOLOGY ORDERABLES Performing Organization Address City/State/[place] [address] Lipid Panel (10/26/2016 4:55 AM EST) P athologist Signature Chol, Total 111 <=199 mg/dL [facility] Comment: Recommendations of the NCEP Adult Treatm ent Panel for the following risk cutoff thresholds for the [place] populatio n: Desirable: <200 mg/dL Borderline High: 200-239 mg/dL High: > or = 240 mg/dL Triglycerides 71 <=149 mg/dL [facility] Comment: Reference Range: Normal triglycerides: ??<150 mg/dL Borderline high: ??150-199 mg/dL High: ??200-499 mg/dL Very high: ??>pa=045 mg/dL MAN 2001; 285(19):1780-4393 HDL 42 >=40 mg/dL [facility] Comment: Reference range: ??Low HDL: ?? < 40 mg/dL ??Normal: ?40-60 mg/dL ??Desirable: > 60 mg/dL MAN 2001; 285(19):0446-8621 LDL Cholesterol 55 <=99 mg/dL [facility] Comment: Reference range: ?? Optimal: ?<100 mg/dL ?? Near Optimal/Above Optimal: ?? 100-1 29 mg/dL ?? Borderline high: ?130-159 mg/dL ?? High: ? 160-189 mg/dL ?? Very high: ?>fi=796 mg/dL MAN 2001: 285(19):5885-3776 Chol/HDL Ratio 2.[address] [facility] Comment: A Cholesterol to HDL ratio below 4:1 is desirable. ??Studies suggest that increased CAD risk occurs at ratios abov e 5 for females and above 6 for men. ? [place] [employer] Association ??(htt p://www.americanheart.org) ? Daisy Int Med, 1994; 121:641 ? AM J Med, 1998; 105(1A):48S Specimen Anatomical Collection Method Collection Time Receive d Time (Source) Location / / Volume Laterality Blood specimen 10/26/2016 4:55 AM 016 5:03 (specimen) EST AM EST Resulting Agency Comment Spec In Lab [facility] MD CHEMISTRY ORDERABLES Performing Organization Address City/State/[place] [address] (ABNORMAL) BMP w/fasting Glucose (10/26/2016 4:55 AM EST) athologist Signature Glucose 113 (H) 65 - 99 [facility] Fasting mg/dL [facility] Comment: ?Fasting* Glucose Interpretive C [...] of Diabetes Mellitus, Position Statement from the [place] Diabetes Association. ??Diabete s Care, Volume 33, Supplement 1, Nov 2009 BUN 8 (L) 10 - 20 mg/dL [facility] Creatinine 0.86 0.80 - 1.50 mg/dL [facility] Comment: Please note that the pediatric reference intervals supplied above were not validated at [facility]. Results from pediatri c patients should be interpreted in conjunction to the patient's age, height and muscle mass. Sodium 141 135 - 145 mmol/L [facility] Potassium 4.0 3.5 - 5.0 mmol/L [facility] Comment: Please note: ??Patients with WBC >100,00 0 may have falsely elevated Potassium levels. ??For accurate Potassium quantif ication in these patients send serum separator tube (gold top) for subsequent determinations. ??Contact the Clinical Chemistry Laboratory if there are any qu estions. Chloride 103 98 - 107 mmol/L [facility] CO2 24 22 - 31 mmol/L [facility] Anion Gap 14 5 - 15 mmol/L [facility] Calcium 8.9 8.5 - 10.5 mg/dL [facility] Estimated GFR >60 >=60 [facility] Comment: This estimated GFR (eGFR) [...] the following links into your internet browser. http://Vitriflex/DHnkdep http://Vitriflex/DHMCnkf Specimen Anatomical Collection Method Collection Time Receive d Time (Source) Location / / Volume Laterality Blood specimen 10/26/2016 4:55 AM 016 5:03 (specimen) EST AM EST Resulting Agency Comment Spec In Lab [facility] MD CHEMISTRY ORDERABLES Performing Organization Address City/State/[place] [address] (ABNORMAL) Cardiac Enzymes (10/26/2016 4:55 AM EST) athologist Signature Troponin-T 0.26 (H) <=0.03 [facility] ng/mL [facility] Comment: 0.03 ng/mL: Represents the [...] consensus document of the Joint Society of Cardiology/[place] College o f Cardiology Committee for the redefinition of myocardial infarction. ? ?Journal of the [place] College of Cardiology 2000; 36: 959-969] CK, Total 204 (H) 0 - 200 unit/L [facility] Comment: result rechecked-[id number] Specimen Anatomical Collection Method Collection Time Receive d Time (Source) Location / / Volume Laterality Blood specimen 10/26/2016 4:55 AM 016 5:03 (specimen) EST AM EST Resulting Agency Comment Spec In Lab [facility] MD CHEMISTRY ORDERABLES Performing Organization Address City/State/[place] [address] SCAN DOC: VICE PRESIDENT LENDING (10/26/2016 12:00 AM EST) Narrative This result [...] 481 ms MUSE SYSTEM (Bezet) Calculated P Searcy 55 degrees MUSE SYSTEM Calculated R Searcy 48 degrees MUSE SYSTEM Calculated T Searcy -161 degrees MUSE SYSTEM INTERPRETATION Normal sinus [...] Cee MD ECG ORDERABLES Performing Organization Address City/[facility]/ZIP Code Phon e Number MUSE SYSTEM EKG [...] 477 ms MUSE SYSTEM (Bezet) Calculated P Searcy 76 degrees MUSE SYSTEM Calculated R Searcy 45 degrees MUSE SYSTEM Calculated T Searcy 129 degrees MUSE SYSTEM INTERPRETATION Normal sinus [...] Cee MD ECG ORDERABLES Performing Organization Address [facility] Phon e Number MUSE SYSTEM Cardiac Enzymes (10/25/2016 11:30 AM EST) P athologist Signature Troponin-T <0.03 <=0.03 [facility] ng/mL [facility] Comment: 0.03 ng/mL: Represents the [...] consensus document of the Joint Society of Cardiology/[place] College o f Cardiology Committee for the redefinition of myocardial infarction. ? ?Journal of the [place] College of Cardiology 2000; 36: 959-969] CK, Total 100 0 - 200 unit/L [facility] Specimen Anatomical Collection Method Collection Time Receive d Time (Source) Location / / Volume Laterality Blood specimen 10/25/2016 11:30 6 (specimen) AM EST 12:04 PM EST Resulting Agency Comment Spec In Lab [facility] MD CHEMISTRY ORDERABLES Performing Organization Address City/[facility]/[place] [address] EKG 12 Lead (10/25/2016 8:56 AM EST) Component Value Ref Range Test Analysis Performed Pathologis t Method Time At Signature Ventricular rate 78 BPM MUSE SYSTEM Atrial Rate 78 BPM MUSE SYSTEM P-R Interval 178 ms MUSE SYSTEM QRS Duration 172 ms MUSE SYSTEM Q-T Interval 430 ms MUSE SYSTEM QTC Calculated 490 ms MUSE SYSTEM (Bezet) Calculated P Searcy 72 degrees MUSE SYSTEM Calculated R Searcy 38 degrees MUSE SYSTEM Calculated T Searcy 154 degrees MUSE SYSTEM INTERPRETATION Normal sinus [...] Cee MD ECG ORDERABLES Performing Organization Address City/[facility]/ZIP Code Phon e Number MUSE SYSTEM (ABNORMAL) Differential, Automated (10/25/2016 8:05 AM EST) Patholo gist Method Time Signature Neutrophils % 71.8 % [facility] Neutr Abs (ANC) 7.23 (H) 1.70 - [facility] 6.10 [facility] x10(3)/[facility] L LABORATORY Lymphocytes % 17.8 % [facility] Lymphocytes Abs 1.8 0.9 - 3.2 [facility] x10(3)/[facility] LABORATORY Monocytes % 8.0 % [facility] Monocyte Abs 0.8 0.3 - 0.9 [facility] x10(3)/[facility] LABORATORY Eosinophils % 1.2 % [facility] Eosinophils Abs 0.1 0.0 - 0.4 [facility] x10(3)/[facility] LABORATORY Basophils % 0.6 % [facility] Basophils Abs 0.1 0.0 - 0.1 [facility] x10(3)/[facility] LABORATORY Immature Gran % 0.60 % [facility] Comment: Immature granulocytes(IG's)percentage an d absolute count will include metamyelocytes, myelocytes, and promyelo cytes. Blood smears from CBCs yielding IG's will be scanned manually for concor dance. If this scan disagrees with the automated IG or if promyelocytes are not ed, a manual differential will be performed. [facility] Gran Abs 0.06 (H) 0.00 - 0.04 x10(3)/[facility] LABORATORY Specimen Anatomical Collection Method Collection Time Receive d Time (Source) Location / / Volume Laterality Blood specimen 10/25/2016 8:05 AM 016 8:09 (specimen) EST AM EST Resulting Agency Comment Spec In Lab [facility] MD HEMATOLOGY ORDERABLES Performing Organization Address City/State/ZIP Code Phon e Number [place] [id number] (ABNORMAL) Hemogram (10/25/2016 8:05 AM EST) Analysis Performed At Patho logist Time Signature WBC 10.1 (H) 4.0 - 9.5 [facility] x10(3)/[facility] LABORATORY RBC 5.42 4.58 - [facility] 5.54 [facility] x10(6)/[facility] LABORATORY Hemoglobin 16.3 13.7 - [facility] 16.[facility] gm/dL [facility] Hematocrit 48.5 40.5 - [facility] 48.5 % [facility] MCV 89.5 82.9 - [facility] 93.1 fL [facility] MCH 30.1 27.5 - [facility] 32.1 pg [facility] MCHC 33.6 32.0 - [facility] 35.7 gm/dL [facility] Platelets 288 145 - 357 [facility] x10(3)/[facility] LABORATORY RDWSD 41.2 36.0 - [facility]OLANDGILL 45.0 [facility] LABORATORY RDWCV 12.5 11.4 - OBD[facility] CRUZ 13.8 % [facility] LABORATORY MPV 8.8 7.6 - 12.9 [facility] LABORATORY nRBC % Auto 0.0 % [facility] nRBC Abs Auto 0.000 0.000 - [facility] GILL 0.000 [facility] x10(3)/[facility] LABORATORY Specimen Anatomical Collection Method Collection Time Receive d Time (Source) Location / / Volume Laterality Blood specimen 10/25/2016 8:05 AM 016 8:09 (specimen) EST AM EST Resulting Agency Comment Spec In Lab [facility] MD HEMATOLOGY ORDERABLES Performing Organization Address City/State/[place] [address] (ABNORMAL) BMP w/fasting Glucose (10/25/2016 8:05 AM EST) athologist Signature Glucose 141 (H) 65 - 99 [facility] Fasting mg/dL [facility] Comment: ?Fasting* Glucose Interpretive C [...] of Diabetes Mellitus, Position Statement from the [place] [employer]. ??Diabete s Care, Volume 33, Supplement 1, Nov 2009 BUN 12 10 - 20 mg/dL [facility] Creatinine 0.95 0.80 - 1.50 mg/dL [facility] Comment: Please note that the pediatric reference intervals supplied above were not validated at [facility]. Results from pediatri c patients should be interpreted in conjunction to the patient's age, height and muscle mass. Sodium 140 135 - 145 mmol/L [facility] Potassium 4.0 3.5 - 5.0 mmol/L [facility] Comment: Please note: ??Patients with WBC >100,00 0 may have falsely elevated Potassium levels. ??For accurate Potassium quantif ication in these patients send serum separator tube (gold top) for subsequent determinations. ??Contact the Clinical Chemistry Laboratory if there are any qu estions. Chloride 100 98 - 107 mmol/L [facility] CO2 24 22 - 31 mmol/L [facility] Anion Gap 16 (H) 5 - 15 mmol/L [facility] Calcium 9.7 8.5 - 10.5 mg/dL [facility] Estimated GFR >60 >=60 [facility] Comment: This estimated GFR (eGFR) [...] the following links into your internet browser. http://Vitriflex/DHnkdep http://Vitriflex/DHMCnkf Specimen Anatomical Collection Method Collection Time Receive d Time (Source) Location / / Volume Laterality Blood specimen 10/25/2016 8:05 AM 016 8:09 (specimen) EST AM EST Resulting Agency Comment Spec In Lab [facility] MD CHEMISTRY ORDERABLES Performing Organization Address City/State/[place] [address] documented in this encounter Visit Diagnoses Diagnosis ASCVD (arteriosclerotic cardiovascular d isease) Unspecified cardiovascular disease Chest tightness or pressure Other chest pain documented in this encounter Administered Medications Inactive [...] Unit), Routine lisinopril (PRINIVIL;ZESTRIL) tablet 40 mg Given 10/25/2016 5:40 PM EST 40 mg 40 mg, Oral, DAILY, First dose on Mon10/25/16 at 1530, Until Discontinued, Routine meTOPROLOL tartrate (LOPRESSOR) tablet 5 0 mg Given 10/26/2016 8:32 AM EST 50 mg 50 mg, Oral, 2 TIMES DAILY, First dose on Mon10/25/16 at 1430, Until Discontinued, Routine Given 10/25/2016 5:41 PM EST 50 mg rosuvastatin (CRESTOR) tablet 10 mg Given 10/25/2016 [...] 10/25/2016 10/26/2016 amLODIPine (NORVASC) tablet 10 mg 1741 (Given - Provider: Mirna Maynard RN) 10 mg, Oral, DAILY, First dose on Mon at 1530, Until Discontinued, Routine aspirin EC tablet 81 mg 1741 (Given - Provider: Mirna Maynard RN) 81 [...] (CANCELED) 1 131 (Given - Provider: Viv Flores RN) ONCE PRN, Starting Mon10/25/16 at 1131, Until Mon10/25/16 at 1140, Intra- Operative (Intra-Procedure), Routine fentaNYL 50 mcg/mL multi-dose injection (CANCELED) 1034 (Given - Provider: Viv Flores, ARTUR) ONCE PRN, Starting Mon10/25/16 at 1034, Until Mon10/25/16 at 1140, Intra- Operative (Intra-Procedure), Routine heparin (porcine) injection (CANCELED) 1 043 (Given - Provider: Viv Flores RN)1107 (Given - Provider: Che Lawson MD) ONCE PRN, Starting Mon10/25/16 at 1043, Until Mon10/25/16 at 1140, Cath (Intra-Procedure), Routine iohexol (OMNIPAQUE) 350 mg/mL solution (CANCELED) 1139 (Given - Provider: Fish [facility]ee MD) ONCE PRN, Starting Mon10/25/16 at 1139, Until Mon10/25/16 at 1140, Cath (Intra-Procedure), Routine midazolam (PF) (VERSED) 1 mg/mL multi-dose injection (CANCEL ED) 1035 (Given - Provider: Viv Flores RN) ONCE PRN, Starting Mon10/25/16 at 1035, Until Mon10/25/16 at 1140, Cath (Intra-Procedure), Routine nitroGLYcerin (NITROSTAT) SL tablet 0.4 mg 0.4 mg, Sublingual, EVERY 5 MIN PRN, Sta rting Mon10/25/16 at 1412, Until Mon10/26/16 at 1212, Chest pain, SL nitroglycerin may be repeated every 5 minutes as needed up to 3 doses, Routine nitroGLYcerin 100 mcg/mL intracoronary dilution (CANCELED) 1114 (Given - Provider: Viv Flores, ARTUR) ONCE PRN, Starting Mon10/25/16 at 1114, Until Mon10/25/16 at 1140, Cath (Intra-Procedure), Routine nitroGLYcerin 100 mcg/mL intracoronary dilution (CANCELED) 1130 (Given - Provider: Viv Flores, RN) ONCE PRN, Starting Mon10/25/16 at 1130, Until Mon10/25/16 at 1140, Cath (Intra-Procedure), Routine documented in this encounter Care Teams Computer Numerical Control Grinder Relationship Specialty Start Date End Date Adán, Duncan, DO PCP - General 04/25/14 [address] [place] [address] documented as of this encounter
--- OUTSIDE RECORDS SUMMARY | 2022-06-14 00:50 | XMS_ITS | Encounter Summary ---
:1940 Author Organization [facility] [place] [address] Care Team Providers Name Role Phone Duncan Mccain DO Primary Care Provider Reason for Referral Diagnostic Test (Routine) - Closed Specialty Diagnoses / Procedures Referred By Contact Refer red To Contact Cardiology Diagnoses Angina pectoris ASCVD (arteriosclerotic cardiovascular disease) Leif Arechiga MD [facility] Non-Inv Card Lab Procedures Echocardiogram Transthoracic(Leb) [facility] [place] [address] [place] [address] Fax: Referral ID Status Reason Start Date Expiration Date Visits V isits Requested Authorized [id number] Closed Specialty 07/05/2016 07/05/2017 1 1 Service Requested Reason for Visit Reason Comments Chest Pain Encounter Details Date Type Department Care Team Description 01/07/2016 Office Visit Cardiology at [facility] Geni, Angina pectoris; [facility] MD Leif ASCVD (arteriosclerotic cardiovascular d isease) [facility] [address] CARDIOLOGY DEPT. [phone] [place], [place] [address] Social History Tobacco Use Types Packs/Day Years Used Date Former Smoker Quit: 01/07/19 89 Sex Assigned at Date Recorded Not on file documented as of this encounter Last Filed Vital Signs Vital Sign Reading Time Taken Comments Blood Pressure 180/60 01/07/2016 10:20 AM EST Pulse 66 01/07/2016 10:20 AM EST reg Temperature - - Respiratory Rate - - Oxygen Saturation 98% 01/07/2016 10:20 AM EST on melvin m air Inhaled Oxygen Concentration - - Weight 86.2 kg (190 lb) 01/07/2016 10:20 AM EST Height 162.6 cm (5' 4) 01/07/2016 10:20 AM EST Body Mass Index 32.61 01/07/2016 10:20 AM EST documented in this encounter Progress Notes Leif Arechiga MD - 01/07/2016 11:44 AM EST Images from the original note were not included. [facility] [place] [address] CARDIOLOGY OUTPATIENT CONSULTATION [facility] [place] Office [place] Jaison [id number] 01/07/2016 REFERRING PROVIDER: Duncan Mccain CHIEF COMPLAINT: Chief Complaint Patient presents with ??? Chest Pain PROBLEM LIST Patient Active Problem List Diagnosis ??? ASCVD (arteriosclerotic cardiovascular disease) ?? CABG [facility] about 1988 ?? Stent to unspecified [...] Hyperlipemia ??? LBBB (left bundle branch block) HISTORY OF PRESENT ILLNESS: This 75-year-old man was kindly referred by Dr. Duncan Mccain for evaluation of chest pain. He has a significant past cardiac history and tells me that he underwent bypass surgery at [facility] in [place], [place] in 1988. He can recall no details of the procedure. He says that in 1994 he had a stent placed one of his heart arteries. He says that he had beenentirely free of angina since 1994 until recently. On December 03 or while at a casino in [facility] he apparently developed some typical anginal symptoms while walking within the casino. This was in his central chest and was not associated with any radiation. He was diaphoretic. He got some medical assistance and was given 2 nitroglycerin tab lets which quickly relieved his symptoms. He did not seek subsequent medical care. He saw his PCP, Dr. Mccain, upon his return home and was thereafter scheduled for a nuclear stress test and this outpatient consult. Of interest, he has had no repeat of his chest pain. He is reasonably active and is currently expressing no chest discomfort, dyspnea, palpitations, lightheadedness, orthopnea, PND, or edema. PAST MEDICAL HISTORY: Reviewed and updated as appropriate in the medical record. Please refer to detailed Problem List above for current listing of active medical problems. MEDICATIONS: Current Outpatient Prescriptions Medication Sig Dispense Refill ??? ferrous sulfate 325 mg (65 mg iron) Tablet 0 ??? FLUZONE HIGH-DOSE , PF, 180 mcg/0.5 mL Syringe 0 ??? POLY-IRON 150 FORTE 150-25-1 mg-mcg-mg Capsule 0 ??? amLODIPine (NORVASC) 10 mg Tablet 0 ??? metoprolol tartrate (LOPRESSOR) 50 mg [...] Take 10 mg by mouth daily. ??? omeprazole (PRILOSEC) 10 mg capsule Take 10 mg by mouth daily. No current facility-administered medications for this visit. ALLERGIES: Review of patient's allergies indicates no known allergies. SOCIAL HISTORY: He is and lives with his in [place], [place]. 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 He was a smoker until he quit in 1987. He drinks an occasionalbeer. He tracks 3-4 caffeinated beverages per day. He does not consume chocolate. FAMILY HISTORY: His father with palpitations of a stroke at age 65. His mother with lung cancer and diabetes at age 65. He has 2 sisters and 3 brothers, none with heart disease or cancer. He has 2 children, both healthy. REVIEW OF SYSTEMS: General: No weight loss, fatigue, anorexia, insomnia, or fever. Eyes: No visual loss, double vision, drainage, eye pain, or dry eyes. ENT: No sore throat or dry mouth. Pulmonary: No shortness of breath, cough, or hemoptysis. Hem/Lymph: No swollen glands, fever, or bleeding. GI: No abdominal pain, change in bowel habits, melena, nausea, vomiting or dysphagia. : No urethral discharge, dysuria, frequency, or nocturia. Endocrine: No hot spells, cold spells. Musculoskeletal: No limb pain, joint pain, or joint swelling. Neuro: No focal weakness, ataxia, confusion, paresthesias or headache. Skin: No rashes or dry skin. Psych: No depression, anxiety, suicidal ideation. Cardiac: See HPI PHYSICAL EXAMINATION: Vital Signs: BP 180/60 mmHg Pulse 66 Ht 162.6 cm (5' 4) Wt 86.183 kg (190 lb) BMI 32.60 kg/m2 SpO2 98% Exam Details: On physical examination he appeared in no acute distress. His vital signs are listed above. Of note, his blood pressure was fairly elevated. Head exam was generally normal. There was no scleral icterus or corneal arcus. Mucus membranes were moist. Neck was supple and without jugular venous distension, thyromegaly, or carotid bruits. Carotids were easily palpable bilaterally. There was no adenopathy. Lungs were clear to auscultation and percussion, and with normal diaphragmatic excursion. No wheezes or rales were noted. His heart exam revealed a regular rhythm. He had a soft grade 2/6 s ystolic ejection murmur at the left lower sternal border. He had no rubs or gallops. His abdomen wassomewhat protuberant but otherwise unremarkable. No masses, no tenderness, and no organomegaly. He had at most a trace of lower extremity edema. DATA: 12-lead EKG: This revealed normal sinus rhythm with left bundle-branch block. ASSESSMENT: In summary, this is a 75-year-old man with remote bypass surgery and subsequent stentingof the coronary artery who has been entirely symptom-free until early November when he had a single episode of chest discomfort while walking in a casino. His symptoms were quickly relieved with nitroglycerin and he has felt extremely well since then. He had a nuclear stress test today which showed a large fixed defect (scar) involving the distribution of his LAD. He showed no significant ischemia. Itis hard to know what to make of his event. It is conceivable that he infarcted and since he did not seek medical attention without an office enzymes were elevated, however his duration of pain was relat ively short and this seems unlikely. It is conceivable that he has some fixed disease and in the context of some excitement and elevated blood pressure within the casino that this led to some demand ischemia. Either way, at this point he is symptom-free and his stress test did not show anything other than some trivial ischemia around the periphery of his predominant scar. We reviewed the situation indetail. I recommended conservative approach. Regarding his blood pressure elevation, he tells me that this is highly unusual in that his typical home blood pressures in the 120 to 1:30 systolic range and a diastolic in the 60-65 range. He tells me that his systolic blood pressure when checked in his primary care physician's office recently was 110. Presumably, he has some component of whitecoat hypertension. In reviewing his medications, my only thought is that he is on a relatively low dose of Crestor. High intensity therapy would suggest he should be on 20 or 40 mg daily. He would like to discuss this with his primary care physician. RECOMMENDATIONS: 1. Continue current medications 2. Keep a close eye on his blood pressure 3. Conservative approach to single episode of chest discomfort given that his substance stress test shows only scar 4. Consider increasing Crestor dosage to 20 mg in keeping with most recent guidelines 5. Cardiology follow-up with preceding echocardiogram in 6 months Thank you for requesting this consultation. For questions, please feel free to contact me via any ofthe following mechanisms: Email: [email or web address] documented in this encounter Plan of Treatment Not on filedocumented as of this encounter Procedures Procedure Name Priority Date/Time Associated Diagnosis Comme nts EKG 12-LEAD Routine 01/07/2016 10:33 AM Angina pectoris Resul ts for this EST procedure are i n the results section . documented in this encounter Results ECHOCARDIOGRAM COMPLETE W CONTRAST (08/19/2016 3:11 PM EDT) P athologist Signature EF 64 HEARTftopia SYSTEM Specimen (Source) Anatomical Location Collection Method / Collectio n Time Received Time / Laterality Volume 08/19/2016 Narrative HEARTLAB SYSTEM - 08/19/2016 3:43 PM EDT Procedure: ?Transthoracic Echocardiogram Patient: ?ZEBROWSKI MASOUD ? (Age): 1940(76y) Med Rec#: ? [id number] ?Sex: ?M ? Site Loc: ? [facility] ?Ht / Wt: ??163(cm)/86(kg) Pt. Loc: ?Echo Lab ?BSA: ?1.92 Study Date: ?? 08/19/2016 ?Pt. Type: Outpatient Tape: ? Referring: Leif Arechiga Reading: Dru Victor ([id number]) Sizer Machine: Rajesh Wallace Diagnosis: *ICD-10-PCS Angina pectoris, unspecifie d (I20.9) *ICD-10-PCS Atherosclerotic heart disea se of [place] coronary artery without angina pectoris (I25.10) CPT Codes: *Echo Full (35613) *Spectral Doppler (32687) *Color Doppler (36366) *Optison ([id number]) Rhythm: ? Sinus BP: ? 130/60 SUMMARY: 1. The left ventricular chamber size is normal. ??There is normal global left ventricular systolic function. ??Th e quantitative left ventricular ejection fraction by biplane Dumont's m ethod is 64% with hypokinesis at the mid to apical septum - although this is confounded by the LBBB that can contribute to abnormal septal motion . 2. The right ventricle is normal in size . ??Right ventricular global systolic function is probably normal. 3. No significant valvular abnormalities . 4. Other details as below. Findings ? : Study Quality: ? Technically limited Left Ventricle: ? The left ventricul ar chamber size is normal. ?Basal septal hypertrophy is observ ed. ?There is no evidence of LVOT obstr uction. ?No ventricular septal defect is vi sualized. ?There is normal global left ventri cular systolic function. ?The quantitative left ventricular ejection fraction by biplane Dumont's method is 64%. ?There are left ventricular segment al wall motion abnormalities present, as shown in the diagram below. ?There is a left ventricular septal wall motion abnormality observed, possibly due to the presence of a left b undle branch block. ?The ??mid anteroseptal, and ??apic al anterior wall segments are hypokinetic (score 2). ?Overall wallmotion score index is ??1.13 Left Atrium: ? The left atrium is no rmal in size. Right Ventricle: ? The right ventric le is normal in size. ?Right ventricular global systolic function is probably normal. ?The estimated pulmonary artery sys tolic pressure is 35 mmHg. ?The estimated right atrial pressur e is 3 mmHg. Right Atrium: ? The right atrium is normal in size. Aortic Valve: ? The aortic valve is tricuspid. ?The aortic valve leaflets are mild ly thickened. ?Systolic excursion of the aortic v alve is normal. ?There is aortic annular calcificat ion. ?There is no evidence of aortic zachary ve stenosis. ?There is no evidence of aortic reg urgitation. Mitral Valve: ? There is thickening of the anterior mitral valve leaflet. ?Mitral valve leaflet mobility appe ars normal. ?There is no evidence of mitral babar nosis. ?There is trace mitral regurgitatio n present. Tricuspid Valve: ? The tricuspid zachary ve leaflets are morphologically normal. ?There is trace tricuspid regurgita tion present. Pulmonic Valve: ? The pulmonic valve is probably normal. Pericardium: ? There is no pericardi al effusion. ?A pericardial fat pad is visualize d. Aorta: ? The aortic root is normal i n size. ?The ascending aorta is normal in s ize. ?The aortic arch was not well visua lized. Pulmonary Artery: ? The main pulmona ry artery is probably normal in size. Venous: ? The inferior vena cava is poorly visualized. Misc: ? Two-dimensional echo, spectr al Doppler and color Doppler performed. ?Optison contrast (one 3 ml vial) w as used to enhance endocardial definition. Excess contrast was discarde d. Chambers 2D ?Value ?Units (Range) ? RVIDd ??Base ? 3.3 ?cm ? IVSd (2D) ? 1.3 ?cm ? LVPWd (2D) ?1.1 ?cm ? IVS:LVPW ratio (2D) 1.3 ?ratio ? LVIDd (2D) ?4.1 ?cm ? LVIDs (2D) ?2.4 ?cm ? LVIDd (2D) index ?2.2 ?cm/m2 ? LVIDs (2D) index ?1.3 ?cm/m2 ? LV FS (2D) ?42 ? % ? EF Teichholz (2D) ?? 73 ? % ? Ao root diameter (2D3.2 ?cm (2.1 - 3.6) ? Ascending Ao ?2.8 ?cm (2 - 3.5) ? Volumes/Mass ?Value ?Units (Range) ? LA Area 4 CH ?18 ? cm2 (<21) ? RA AREA 4CH ? 12 ? cm2 ? LA ESV SP 4CH (MOD) 52.2 ? ml ? LA ESV SP 2CH (MOD) 55.4 ? ml ? LA ESV BP (MOD) ? 54.3 ? ml ? LA ESV BP (MOD) inde28.3 ? ml/m2 ? LV ESV SP 4CH (MOD) 38.1 ? ml ? LV ESV SP 2CH (MOD) 55.1 ? ml ? LV EDV BP ? 128 ?ml ? LV ESV BP ? 45.8 ? ml ? BP EF (MOD) ? 64 ? % ? LV mass (2D) ?172.2 ?g ? LV mass (2D) index ??89.7 ? g/m2 ? Diastolic/Systolic Function ?Value ?Units (Range) ? MV E-wave Vmax ?0.8 ?m/sec ? MV deceleration [id number] ?msec ? MV A-wave Vmax ?0.9 ?m/sec ? MV E:A ratio ?0.9 ?ratio ? LV septal e' Vmax ?? 0.1 ?m/sec ? LV lateral e' Vmax ??0.1 ?m/sec ? LV average e' Vmax ??0.1 ?m/sec ? LV E:e' septal ratio13.6 ? ratio ? LV E:e' lateral rati11.6 ? ratio ? LV average E:e' rati13.6 ? ratio ? Aortic Valve ?Value ?Units (Range) ? LVOT diameter ? 2 ?cm ? Tricuspid Valve ?Value ?Units (Range) ? TAPSE ? 1.8 ?cm ? TR Vmax ? 2.9 ?m/sec ? TR peak gradient ?32 ? mmHg ? RAP ? 3 ?mmHg ? RVSP ?35 ? mmHg ? Measurement Trending Name ? 08/19/2016 ? LV EDV BP ?1 28 LVIDd (2D) ? 4. 14 LV ESV BP ?4 5.8 LA ESV BP (MOD) ?54.3 LVIDs (2D) ? 2. 41 Wall Motion: Segment Name ?Rest ? Base-Anteroseptal ?? Normal ? Base-Anterior ? Normal ? Base-Anterolateral ??Normal ? Base-Posterolateral Normal ? Base-Inferior ? Normal ? Base-Inferoseptal ?? Normal ? Mid-Anteroseptal ?Hypokinetic ? Mid-Anterior ?Normal ? Mid-Anterolateral ?? Normal ? Mid-Posterolateral ??Normal ? Mid-Inferior ?Normal ? Mid-Inferoseptal ?Normal ? [place]-Septal ? Normal ? [place]-Anterior ? Hypokinetic ? [place]-Lateral ?Normal ? [place]-Inferior ? Normal ? [place]-Tip ?Normal ? This report has been electronically sign ed by: _ Dru Victor MD ? 08/19/2016 15:43:24 Images reviewed and interpretation verif ied [facility] Cardiac Ultrasound Laboratory Procedure Note Dru Victor MD - 08/19/2016Forma tting of this note might be different from the original. Procedure: Transthoracic Echocardiogram Patient: JAISON MEREDITH (Age): (76y) Med Rec#: [id number] Sex: M Site Loc: [facility] Ht / Wt: 163(cm)/86(kg) Pt. Loc: Echo Lab BSA: 1.92 Study Date: 08/19/2016 Pt. Type: Outpati ent Tape: Referring: Leif Arechiga Reading: Dru Victor ([id number]) Sizer Machine: Rajesh Wallace Diagnosis: *ICD-10-PCS Angina pectoris, unspecifie d (I20.9) *ICD-10-PCS Atherosclerotic heart disea se of [place] coronary artery without angina pectoris (I25.10) CPT Codes: *Echo Full (58208) *Spectral Doppler (93437) *Color Doppler (00704) *Optison ([id number]) Rhythm: Sinus BP: 130/60 SUMMARY: 1. The left ventricular chamber size is normal. There is normal global left ventricular systolic function. The quantitative left ventricular ejection fraction by biplane Dumont's m ethod is 64% with hypokinesis at the mid to apical septum - although this is confounded by the LBBB that can contribute to abnormal septal motion . 2. The right ventricle is normal in size . Right ventricular global systolic function is probably normal. 3. No significant valvular abnormalities . 4. Other details as below. Findings : Study Quality: Technically limited Left Ventricle: The left ventricular reji mber size is normal. Basal septal hypertrophy is observed. There is no evidence of LVOT obstructio n. No ventricular septal defect is visuali zed. There is normal global left ventricular systolic function. The quantitative left ventricular eject ion fraction by biplane Dumont's method is 64%. There are left ventricular segmental wa ll motion abnormalities present, as shown in the diagram below. There is a left ventricular septal wall motion abnormality observed, possibly due to the presence of a left b undle branch block. The mid anteroseptal, and apical anteri or wall segments are hypokinetic (score 2). Overall wallmotion score index is 1.13 Left Atrium: The left atrium is normal i n size. Right Ventricle: The right ventricle is normal in size. Right ventricular global systolic funct ion is probably normal. The estimated pulmonary artery systolic pressure is 35 mmHg. The estimated right atrial pressure is 3 mmHg. Right Atrium: The right atrium is normal in size. Aortic Valve: The aortic valve is tricus pid. The aortic valve leaflets are mildly th ickened. Systolic excursion of the aortic valve is normal. There is aortic annular calcification. There is no evidence of aortic valve st enosis. There is no evidence of aortic regurgit ation. Mitral Valve: There is thickening of the anterior mitral valve leaflet. Mitral valve leaflet mobility appears n ormal. There is no evidence of mitral stenosis . There is trace mitral regurgitation pre sent. Tricuspid Valve: The tricuspid valve sasha flets are morphologically normal. There is trace tricuspid regurgitation present. Pulmonic Valve: The pulmonic valve is pr obably normal. Pericardium: There is no pericardial eff usion. A pericardial fat pad is visualized. Aorta: The aortic root is normal in size . The ascending aorta is normal in size. The aortic arch was not well visualized . Pulmonary Artery: The main pulmonary art abdulaziz is probably normal in size. Venous: The inferior vena cava is poorly visualized. Misc: Two-dimensional echo, spectral Dop pler and color Doppler performed. Optison contrast (one 3 ml vial) was us ed to enhance endocardial definition. Excess contrast was discarde d. Chambers 2D Value Units (Range) RVIDd Base 3.3 cm IVSd (2D) 1.3 cm LVPWd (2D) 1.1 cm IVS:LVPW ratio (2D) 1.3 ratio LVIDd (2D) 4.1 cm LVIDs (2D) 2.4 cm LVIDd (2D) index 2.2 cm/m2 LVIDs (2D) index 1.3 cm/m2 LV FS (2D) 42 % EF Teichholz (2D) 73 % Ao root diameter (2D3.2 cm (2.1 - 3.6) Ascending Ao 2.8 cm (2 - 3.5) Volumes/Mass Value Units (Range) LA Area 4 CH 18 cm2 (<21) RA AREA 4CH 12 cm2 LA ESV SP 4CH (MOD) 52.2 ml LA ESV SP 2CH (MOD) 55.4 ml LA ESV BP (MOD) 54.3 ml LA ESV BP (MOD) inde28.3 ml/m2 LV ESV SP 4CH (MOD) 38.1 ml LV ESV SP 2CH (MOD) 55.1 ml LV EDV BP 128 ml LV ESV BP 45.8 ml BP EF (MOD) 64 % LV mass (2D) 172.2 g LV mass (2D) index 89.7 g/m2 Diastolic/Systolic Function Value Units (Range) MV E-wave Vmax 0.8 m/sec MV deceleration [id number] msec MV A-wave Vmax 0.9 m/sec MV E:A ratio 0.9 ratio LV septal e' Vmax 0.1 m/sec LV lateral e' Vmax 0.1 m/sec LV average e' Vmax 0.1 m/sec LV E:e' septal ratio13.6 ratio LV E:e' lateral rati11.6 ratio LV average E:e' rati13.6 ratio Aortic Valve Value Units (Range) LVOT diameter 2 cm Tricuspid Valve Value Units (Range) TAPSE 1.8 cm TR Vmax 2.9 m/sec TR peak gradient 32 mmHg RAP 3 mmHg RVSP 35 mmHg Measurement Trending Name 08/19/2016 LV EDV BP 128 LVIDd (2D) 4.14 LV ESV BP 45.8 LA ESV BP (MOD) 54.3 LVIDs (2D) 2.41 Wall Motion: Segment Name Rest Base-Anteroseptal Normal Base-Anterior Normal Base-Anterolateral Normal Base-Posterolateral Normal Base-Inferior Normal Base-Inferoseptal Normal Mid-Anteroseptal Hypokinetic Mid-Anterior Normal Mid-Anterolateral Normal Mid-Posterolateral Normal Mid-Inferior Normal Mid-Inferoseptal Normal [place]-Septal Normal [place]-Anterior Hypokinetic [place]-Lateral Normal [place]-Inferior Normal [place]-Tip Normal This report has been electronically sign ed by: _ Dru Victor MD 08/19/2016 15:43: 24 Images reviewed and interpretation verif ied [facility] Cardiac Ultrasound Laboratory Leif Arechiga MD ECHO ORDERABLES Performing Organization Address City/State/ZIP Code Phon e Number HEARTLAB SYSTEM EKG 12 Lead (01/07/2016 10:33 AM EST) [facility] Method Time Signature Ventricular rate 68 BPM MUSE SYSTEM Atrial Rate 68 BPM MUSE SYSTEM P-R Interval 160 ms MUSE SYSTEM QRS Duration 172 ms MUSE SYSTEM Q-T Interval 430 ms MUSE SYSTEM QTC Calculated 457 ms MUSE SYSTEM (Bezet) Calculated P [place] 6 degrees MUSE SYSTEM Calculated R [place] 65 degrees MUSE SYSTEM Calculated T [place] -160 degrees MUSE SYSTEM INTERPRETATION Normal sinus rhythm MUSE SYSTEM Left bundle branch block Abnormal ECG No previous ECGs available Confirmed by MD FERRER ALAN ([id number]) on 01/07/2016 3:23:08 PM Specimen Anatomical Collection Method Collection Time Receive d Time (Source) Location / / Volume Laterality 01/07/2016 10:33 01/07/2016 3:23 AM EST PM EST Leif Arechiga MD ECG ORDERABLES Performing Organization Address City/State/ZIP Code Phon e Number MUSE SYSTEM documented in this encounter Visit Diagnoses Diagnosis Angina pectoris Other and unspecified angina pectoris ASCVD (arteriosclerotic cardiovascular d isease) Unspecified cardiovascular disease Angina pectoris Other and unspecified angina pectoris ASCVD (arteriosclerotic cardiovascular d isease) Unspecified cardiovascular disease documented in this encounter Care Teams [employer] Relationship Specialty Start Date End Date Duncan Mccain DO PCP - General 04/25/[address] [place] [address] documented as of this encounter
--- OUTSIDE RECORDS SUMMARY | 2022-06-14 00:50 | XMS_ITS | Encounter Summary ---
:1940 Author Organization [facility] [place] [address] Care Team Providers Name Role Phone Duncan Mccain DO Primary Care Provider Reason for Referral Diagnostic Test (Routine) - Closed Specialty Diagnoses / Procedures Referred By Contact Refer red To Contact Cardiology Diagnoses Angina pectoris ASCVD (arteriosclerotic cardiovascular disease) Leif Arechiga MD [facility] Non-Inv Card Lab Procedures Echocardiogram Transthoracic(Leb) [facility] CARDIOLOGY DEPT. [place], [place] [address] [place] [phone] Fax: Referral ID Status Reason Start Date Expiration Date Visits V isits Requested Authorized [id number] Closed Specialty 07/05/2016 07/05/2017 1 1 Service Requested Reason for Visit Diagnostic Test (Routine) - Closed Specialty Diagnoses / Procedures Referred By Contact Refer red To Contact Cardiology Diagnoses Angina pectoris ASCVD (arteriosclerotic cardiovascular disease) Leif Arechiga MD [facility] Non-Inv Card Lab Procedures Echocardiogram Transthoracic(Leb) [facility] CARDIOLOGY DEPT. [place], [place] [address] [place] [phone] Fax: Referral ID Status Reason Start Date Expiration Date Visits V isits Requested Authorized [id number] Closed Specialty 07/05/2016 07/05/2017 1 1 Service Requested Encounter Details Date Type Department Care Team Description 08/19/2016 Hospital Encounter Non-Invasive [place], Angina p ectoris; Cardiology Lab Obdulia Yadav MD ASCVD (arteriosclerotic cardiovascular d isease) [facility] [address] [place]. [place] [address] [phone] Social History Tobacco Use Types Packs/Day Years [...] Name Priority Date/Time Associated Diagnosis Comme nts ECHOCARDIOGRAM Routine 08/19/2016 3:11 Angina pectoris Results for this COMPLETE W CONTRAST PM EDT ASCVD procedur e are in (arteriosclerotic the result s cardiovascular section. disease) documented in this encounter Results ECHOCARDIOGRAM COMPLETE W CONTRAST (08/19/2016 3:11 PM EDT) P athologist Signature EF 64 HEARTLAB SYSTEM Specimen (Source) Anatomical Location Collection Method / Collectio n Time Received Time / Laterality Volume 08/19/2016 Narrative HEART[facility] SYSTEM - 08/19/2016 3:43 PM EDT Procedure: ?Transthoracic Echocardiogram Patient: ?ZEBROWSKI MASOUD ? (Age): 1940(76y) Med Rec#: ? [id number] ?Sex: ?M ? Site Loc: ? [facility] ?Ht / Wt: ??163(cm)/86(kg) Pt. Loc: ?Echo Lab ?BSA: ?1.92 Study Date: ?? 08/19/2016 ?Pt. Type: Outpatient Tape: ? 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 Sinus BP: ? 130/60 SUMMARY: [...] E-wave Vmax ?0.8 ?m/sec ? MV deceleration [id number] ?msec ? MV A-wave Vmax ?0.9 ?m/sec [...] ? Mid-Inferior ?Normal ? Mid-Inferoseptal ?Normal ? [place]-Septal ? Normal ? [place]-Anterior ? Hypokinetic ? [place]-Lateral ?Normal ? [place]-Inferior ? Normal ? [place]-Tip ?Normal ? This report has been electronically sign ed by: _ Dru Victor MD ? 08/19/2016 15:43:24 Images reviewed and interpretation verif ied [facility] Cardiac Ultrasound Laboratory Procedure Note Dru Victor MD - 08/19/2016Forma tting of this note might be different from the original. Procedure: Transthoracic Echocardiogram Patient: MONAE BOWER(Age): (76y) Med Rec#: [id number] Sex: M Site Loc: [facility] Ht / Wt: 163(cm)/86(kg) Pt. Loc: Echo Lab BSA: 1.92 Study Date: 08/19/2016 Pt. 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 The [...] MV E-wave Vmax 0.8 m/sec MV deceleration [id number] msec MV A-wave Vmax 0.9 m/sec MV [...] Normal Mid-Posterolateral Normal Mid-Inferior Normal Mid-Inferoseptal Normal [place]-Septal Normal [place]-Anterior Hypokinetic [place]-Lateral Normal [place]-Inferior Normal [place]-Tip Normal This report has been electronically sign ed by: _ Dru Victor MD 08/19/2016 15:43: 24 Images reviewed and interpretation verif ied [facility] Cardiac Ultrasound Laboratory Leif Arechiga MD ECHO ORDERABLES Performing Organization Address City/State/ZIP Code Phon e Number HEARTLAB SYSTEM documented in this encounter Visit Diagnoses Diagnosis Angina pectoris Other and unspecified angina pectoris ASCVD (arteriosclerotic cardiovascular d isease) Unspecified cardiovascular disease documented in this encounter Administered Medications Inactive Administered Medications - up to 3 most recent administrations Medication Order MAR Action Action Date Dose Rate Site perflutren protein-A microspheres Given 08/19/2016 3:12 PM EDT 3 mLs (OPTISON) 0.22 mg/mL injection 3 mL 3 mL, Intravenous, ONCE PRN, 1 dose, Starting on Mon08/19/16 at 1512, Until Mon08/19/16 at 1512, for enhancement of sub-optimal echo images, Echo Lab (Intra-Procedure), Routine documented in this encounter Care Teams Packing House Supervisor Relationship Specialty Start Date End Date Duncan Mccain DO PCP - General 04/25/[address] [place] [address] documented as of this encounter
--- OUTSIDE RECORDS SUMMARY | 2022-06-14 00:50 | XMS_ITS | Encounter Summary ---
:1940 Author Organization [facility] [place] [address] Care Team Providers Name Role Phone Duncan Mccain DO Primary Care Provider Reason for Visit Reason Comments Coronary Artery Disease Follow-up Encounter Details Date Type Department Care Team Description 11/15/2016 Office Visit Cardiology at [facility] Tuan Gibbs Encounter to discuss test re sults; [facility] RONI Davis ASCVD (arteriosclerotic cardiovascular d isease) [facility] [address] CARDIOLOGY DEPT. [phone] [place] [id number] Social History Tobacco Use Types Packs/Day Years Used Date Former Smoker Quit: 01/07/19 89 Smokeless Tobacco: Never Used Alcohol Use Standard Drinks/Week Comments Yes 1 (1 standard drink = 0.6 oz pure alcoho l) Infrequently [place] Alcohol Habits Answer Date Recorded How often do you have a drink containing Not asked alcohol? How many drinks containing alcohol do you have Not asked on a typical day when you are drinking? How often do you have six or more drinks on one Not asked occasion? Comment: Infrequently [place] 10/25/2016 Sex Assigned at Date Recorded Not on file documented as of this encounter Last Filed Vital Signs Vital Sign Reading Time Taken Comments Blood Pressure 160/60 11/15/2016 1:34 PM EST Pulse 76 11/15/2016 1:34 PM EST Temperature - - Respiratory Rate - - Oxygen Saturation 96% 11/15/2016 1:34 PM EST room ai r Inhaled Oxygen Concentration - - Weight 90.3 kg (199 lb) 11/15/2016 1:34 PM EST Height 167.6 cm (5' 6) 11/15/2016 1:34 PM EST Body Mass Index 32.12 11/15/2016 1:34 PM EST documented in this encounter Progress Notes Tuan Gibbs PA - 11/15/2016 1:30 PM EST HPI: Mr. Blackwood is here for follow-up status post coronary intervention 3 weeks ago. He is being considered for carotid endarterectomy of a high-grade right carotid artery. This was discovered on a routine visit about a month ago and confirmed with a carotid ultrasound. He was seen by Dr. Jha. He underwent cardiac catheterization as part of the preoperative clearance. Since his recent coronary intervention he reports the shortness of breath is much improved and he has not had angina. He is easily able to climb flight of stairs without shortness of breath or chest pain. He can walk on level ground for at least 15 minutes, also without angina. His last echocardiogram dated August 19, 2016 can be seen below. 1. The left ventricular chamber size is normal. There is normal global left ventricular systolic function. The quantitative left ventricular ejection fraction by biplane Dumont's method is 64% with hypokinesis at the mid to apical septum - although this is confounded by the LBBB that can contribute to abnormal septal motion. 2. The right ventricle is normal in size. Right ventricular global systolic function is probably normal. 3. No significant valvular abnormalities. Cardiac catheterization dated October 25, 2016 ? Left Anterior Descending There was a [...] had an eccentric single discrete 80% stenosis. This was stented with a 2.5 mm ZEYAD. ? Right Coronary Artery There was mild diffuse disease of the entire vessel segment of the right coronary artery (RCA) and it was calcified. The RCA was moderate in size. ? Ramus There was a 20% single discrete stenosis of the proximal segment of the ramus. The ramus was small. ? Patient Active Problem List Diagnosis ??? Carotid stenosis ??? ASCVD (arteriosclerotic cardiovascular disease) ?? CABG [facility] about 1988 ?? Stent to unspecified coronary [...] branch block) Current Outpatient Prescriptions Medication Sig Dispense Refill ??? clopidogrel (PLAVIX) 75 mg Tablet Take 1 tablet by mouth daily. 90 tablet 1 ??? ascorbic acid, vitamin C, (VITAMIN C) 500 mg Tablet, Chewable Take 500 mg by mouth. ??? FLUZONE HIGH-DOSE , PF, 180 mcg/0.5 mL Syringe 0 ??? POLY-IRON 150 FORTE 150-25-1 mg-mcg-mg Capsule 0 ??? amLODIPine (NORVASC) 10 mg Tablet Take 10 mg by mouth daily. 0 ??? metoprolol tartrate (LOPRESSOR) 50 mg tablet Take 50 mg by mouth 2 times daily. Indications: Hypertension ??? aspirin 81 mg EC tablet Take 81 mg by mouth daily. Indications: Thrombosis Prevention after PCI ??? lisinopril (PRINIVIL;ZESTRIL) 40 mg tablet Take 40 mg by mouth daily. Indications: Hypertension ??? rosuvastatin (CRESTOR) 10 mg tablet Take 10 mg by mouth daily. ??? nitroGLYcerin (NITROSTAT) 0.[address] 0.4 mg under the tongue every 5 minutes as needed. Reported on 11/15/2016 Indications: Angina Allergies: Review of patient's allergies indicates no known allergies. Interval ROS: Patient denies cough, fever, PND, orthopnea, activity intolerance, leg swelling, change in bowel habit, presyncope or syncope. Physical Exam: Blood pressure 160/60, pulse 76, height 167.6 cm (5' 6), weight 90.3 kg (199 lb), SpO2 96 %. General: WD, WN HEENT: No JVD. High-pitched right carotid bruit . Lungs: Clear to A+P Cor: RR, normal S1, S2. PMI not displaced. No murmur or gallop Assessment: Stable status post recent stenting of his [place] left circumflex coronary artery LV function is adequate with wall motion abnormalities consistent with a prior thoracotomy and a left bundle branch block. Plan: Proceed with surgery as planned. He needs to continue Plavix for at least 6 months and aspirin for life. His other current medications are appropriate. I discussed this patients history, exam and studies, including the recent PCI with Dr. Ned Browne. He agrees this gentleman may proceed with surgery as planned. documented in this encounter Plan of Treatment Not on filedocumented as of this encounter Visit Diagnoses Diagnosis Encounter to discuss test results Other specified counseling ASCVD (arteriosclerotic cardiovascular d isease) Unspecified cardiovascular disease documented in this encounter Care Teams Senior Trial Attorney Relationship Specialty Start Date End Date Duncan Mccain DO PCP - General 04/25/[address] [place] [address] [address] [place] [address] documented as of this encounter
--- OUTSIDE RECORDS SUMMARY | 2022-06-14 00:50 | XMS_ITS | Encounter Summary ---
:1940 [place] [address] Care Team Providers Name Role Phone Duncan Mccain DO Primary Care Provider Encounter Details Date Type Department Care Team Description 11/15/2016 [facility], RVT artery, u nspecified [place] [phone] Social History Tobacco Use Types Packs/Day Years Used Date Former Smoker Quit: 01/07/19 89 Smokeless Tobacco: Never Used Alcohol Use Standard Drinks/Week Comments Yes 1 (1 standard drink = 0.6 oz pure alcoho l) Infrequently [place] Alcohol Habits Answer Date Recorded How often do you have a drink containing Not asked alcohol? How many drinks containing alcohol do you have Not asked on a typical day when you are drinking? How often do you have six or more drinks on one Not asked occasion? Comment: Infrequently [place] 10/25/2016 Sex Assigned at Date Recorded [...] Associated Diagnosis Comme nts CAROTID DUPLEX, Routine 11/15/2016 2:32 PM Stenosis of carotid Results for this UNILATERAL EST artery, unspecified procedur e are in laterality the results section. documented in this encounter Results Carotid Duplex, Unilateral (11/15/2016 2:32 PM EST) Component Value Ref Test Analysis Performed At [facility] Range Method Time Signature VB Text Department: Vascular Surgery Lab VASCUBASE Report Patient: [id number] (MASOUD BLACKWOOD) CPT: 91473 ICD10: I65.29;I65.21 Referring Physician: REYES KHAN ?? [...] laterality documented in this encounter Care Teams Energy Infrastructure Engineer Relationship Specialty Start Date End Date Duncan Mccain DO PCP - General 04/25/[address] [place] [address] documented as of this encounter
--- OUTSIDE RECORDS SUMMARY | 2022-06-14 00:50 | XMS_ITS | Encounter Summary ---
:1940 Author Organization [facility] Address [facility] [address] [address] Care Team Providers Name Role Phone Duncan Mccain DO Primary Care Provider Reason for Visit Reason Onset Date Comments Shortness of Breath 10/12/2016 Encounter Details Date Type Department Care Team Description 10/12/2016 Telephone Cardiology at [facility] Magno Meraz, Shortness of Breath [facility] [place] [address] [facility] [phone] CARDIOLOGY DEPT. [place], [place] [address] (Wo rk) Social History Tobacco Use Types Packs/Day Years Used Date Former Smoker Quit: 01/07/19 89 Sex Assigned at Date Recorded Not on file documented as of this encounter Miscellaneous Notes Telephone Encounter - Magno Meraz MD - 10/12/2016 1:18 PM EST While covering consultation service today, I received a call from Dr. Mccain regarding concerns of progressive dyspnea (?anginal equivalent) in this man who also has carotid stenosis and may need intervention on that issue in the near term by Dr. Jha. The patient had initially resisted cardiac catheterization earlier this fall but is now amenable. I have arranged for him to undergo an expeditedcardiac cath in the near future as requested. RONI Penaloza, knows the patient from a visit last month so I have asked that he be the provider to perform the consenting process as planned. documented in this encounter Plan of Treatment Not on filedocumented as of this encounter Visit Diagnoses Not on filedocumented in this encounter Care Teams Plaster Maker Relationship Specialty Start Date End Date Duncan Mccain DO PCP - General 04/25/14 [address] [place] [address] documented as of this encounter
--- OUTSIDE RECORDS SUMMARY | 2022-06-14 00:50 | XMS_ITS | Encounter Summary ---
:1940 Author Organization [facility] [place] [address] Care Team Providers Name Role Phone Duncan Mccain DO Primary Care Provider Encounter Details Date Type Department Care Team Description 08/26/2016 Telephone Cardiology at [facility] Prosper Schuler, [place] [address] Social History Tobacco Use Types Packs/Day Years Used Date Former Smoker Quit: 01/07/19 89 Sex Assigned at Date Recorded Not on file documented as of this encounter Miscellaneous Notes Telephone Encounter - Tyrell Ceballos MD - 08/26/2016 1:12 PM EDT I spoke with Dr. Mccain. Patient is now getting MCKNIGHT and with a bit more effort, angina. Currentlyclass III. Dr. Mccain requests appt soon and I agree. Given presence of bypass grafts, would favor angiography. No rest pain to suggest need for admission at this time. I called scheduling and we will get him in next week for precath visit. BWA Telephone Encounter - Prosper Schuler, RN - 08/26/2016 10:[address] Mccain would like to discuss this patient with you as he would like the patient to see you next week for rapidly accelerating angina. Please call Dr. Mccain at [phone] at your earliest convenience. documented in this encounter Plan of Treatment Not on filedocumented as of this encounter Visit Diagnoses Not on filedocumented in this encounter Care Teams Php Consultant Relationship Specialty Start Date End Date Duncan Mccain DO PCP - General 04/25/[address] [place] [address] documented as of this encounter
--- OUTSIDE RECORDS SUMMARY | 2022-06-14 00:51 | XMS_ITS | Encounter Summary ---
:1940 Author Organization [facility] [place] [address] Care Team Providers Name Role Phone Duncan Mccain DO Primary Care Provider Reason for Visit Diagnostic Test (Routine) - Closed Specialty Diagnoses / Procedures Referred By Contact Refer red To Contact Radiology Diagnoses Unstable angina Duncan Mccain DO [facility] Rad Nuclear Med Procedures NM myocardial perfusion scan, pharmacologic NM stress myocardial perfusion scan single- pharmacologic [address] [facility] [address] [place] [address] Phone: Fax: Referral ID Status Reason Start Date Expiration Date Visits V isits Requested Authorized [id number] Closed Specialty 12/23/2015 12/22/2016 1 1 Service Requested Encounter Details Date Type Department Care Team Description 12/30/2015 Hospital Encounter Nuclear Medicine at Duncan Mccain DO [facility] [address] [address] [place] [address] [phone] Social History Tobacco Use Types Packs/Day Years [...] this STRESS AND REST EST procedure ar e in MYOCARDIAL PERFUSION the res ults section. documented in this encounter Visit Diagnoses Not on filedocumented in this encounter Administered Medications Inactive Administered Medications - up to 3 most recent administrations Medication Order MAR Action Action Date Dose Rate Site regadenoson (LEXISCAN) Given 12/30/2015 2:15 PM EST 0.4 mg Right Arm injection 0.4 mg 0.4 mg, Intravenous, ONCE, 1 dose, On Mon12/30/15 at 1415, Routine technetium (Tc-99m) sestamibi Given 12/30/2015 11:12 AM EST 12.8 mCi Right Arm injection 12.8 mCi 12.8 mCi, Intravenous, ONCE PRN, 1 dose, Starting on Mon12/30/15 at 1113, Until Mon12/30/15 at 1112, Per Protocol, Routine technetium (Tc-99m) sestamibi Given 12/30/2015 1:51 PM EST 36.2 mCi Right Arm injection 36.2 mCi 36.2 mCi, Intravenous, ONCE PRN, 1 dose, Starting on Mon12/30/15 at 1351, Until Mon12/30/15 at 1351, Per Protocol, Routine documented in this encounter Care Teams Financial Adviser Relationship Specialty Start Date End Date Duncan Mccain DO PCP - General 04/25/[address] [place] [address] documented as of this encounter
--- OUTSIDE RECORDS SUMMARY | 2022-06-14 00:51 | XMS_ITS | Encounter Summary ---
:[address] [facility] [place] [address] Care Team Providers Name Role Phone Adán Duncan HICKS Primary Care Provider Encounter Details Date Type Department Care Team Description 05/28/[address] [facility] Philippe Khan MD EGD, UPPER GI [facility] [place] [address] GASTROENTEROLOGY DEPT. [place], [place] [address] Social History Tobacco Use Types Packs/Day Years Used Date Never Assessed Sex Assigned at Date Recorded Not on file documented as of this encounter Last Filed Vital Signs Vital Sign Reading Time Taken Comments Blood Pressure 132/50 05/28/2014 2:21 PM EDT Pulse 79 05/28/2014 2:21 PM EDT Temperature - - Respiratory Rate 16 05/28/2014 2:21 PM EDT Oxygen Saturation 96% 05/28/2014 2:21 PM EDT Inhaled Oxygen Concentration - - Weight - - Height - - Body Mass Index - - documented in this encounter Discharge Instructions Discharge InstructionsLeeanne Vang RN - 05/28/2014 2:27 PM EDT UPPER GI ENDOSCOPY WHAT TO EXPECT AFTER THE PROCEDURE Medications You may have a mild sore throat. Ice chips, popsicles, over the counter throat lozenges or spray may help numb your throat. This procedure should not cause a fever. Call your healthcare provider or seek immediate medical attention if: You have trouble swallowing. You have belly pain. Your stools are black or tarlike or have streaks of blood. You are sick to your stomach or cannot keep fluids down. Watch closely for changes in your health, and be sure to contact your doctor IF Your throat still hurts after a day or two You do not get better as expected. Colonoscopy and small area possible bleed ( AVMs) What to expect after the procedure You may feel a little more gassy or bloated than usual, this is normal. You should expect the return of normal bowel function in the next 2 to 3 days. Because some polyps were removed, you may see a little blood with the next few bowel movements, this should be a small amount ( less than a few tablespoons) and will resolve on it's own. ACTIVITY Because of the sedation that you received Your judgement and reaction time are effected ?? Go home and rest for the remainder for the day. You may resume your normal activities tomorrow ?? Change from one position to the next slowly because you may lose your balance unexpectedly. ?? Be careful on stairs, as you may be unsteady. FOR THE NEXT 24 HRS ?? DO NOT DRIVE OR OPERATE MACHINERY ?? DO NOT DRINK ALCOHOLIC BEVERAGES ?? DO NOT SIGN LEGAL DOCUMENTS ?? If you are a smoker: DO NOT SMOKE WHILE YOU ARE ALONE Diet ?? Start by eating small portions of foods that ordinarily will not upset your stomach, avoid gas producing foods for the next few days. ?? Be gentle with what you choose to start with ?? A soft diet may be helpful for the next 3 days as this may help to keep your stools soft. ?? Drink plenty of fluids ( unless your doctor has told you not to). Medicines Avoid medicines that influence the way your blood clots for the next week. These would include anti-inflammatory medicine, such as ibuprofen( Advil, Motrin) and naproxen ( Aleve). If you need something for discomfort, Tylenol (Acetaminophen) is safe if used as directed. Your Doctor will tell you whento restart your prescribed blood thinners. Resume Iron as in past The IV site-- slight tenderness, or redness is normal, you can use warm compresses if you get concerned. If the tenderness +/or redness increases or foul drainage and a red streak occurs, please contact your PCP immediately. When should you call for help? Call 911 anytime you think you may need emergency care. For example If you pass out (loss of consciousness) If you pass maroon or bloody stools If you have severe belly pain Call your healthcare provider or seek immediate medical care if: Your stools are black or tar like Your stools have streaks of blood that is more pronounced with each BM You have belly pain, or your belly is swollen and firm You vomit You have a fever You are very dizzy Watch closely for changes in your health, and be sure to contact your doctor if you have any problems. Your Doctor will let you know when you will need your next colonoscopy. The results of your test andyour risk for colorectal cancer will help your doctor decide how often you need to be checked. Monday-Monday Clinic [phone] 8a-5p Same Day Endo [phone] 7a-8p Otherwise contact [phone] and ask to speak to the counseling director merchandising execution associate Follow up care is a lala part of your treatment and safety. Be sure to make and go to all appointments, and call your doctor if you are having problems. Discharge instructions reviewed with patient who expresses understanding Patient InstructionsPhilippe Khan MD - 05/28/2014 2:17 PM EDT Please see Recommendations in the Provation procedure report which is documented in the procedural note in [facility]. documented in this encounter Medications at Time of Discharge Medication Sig Dispensed Refills Start Date End Date metoprolol tartrate Take 50 mg by mouth [...] by mouth 0 10 mg tablet daily. omeprazole (PRILOSEC) Take 10 mg by mouth 0 09/02/2016 10 mg capsule daily. documented as of this encounter H&P Notes Philippe Khan MD - 05/28/2014 1:02 PM EDT Gastroenterology and Hepatology Pre-Procedure History and Physical Exam Procedure: EGD: Colonoscopy: Indication: Iron deficiency anemia There is no problem list on file for this patient. EXAM: Obese WM NAD HEENT: Airway examined, oropharynx clear LUNGS: Clear to auscultation HEART: Regular rate and rhythm, normal S1, S2 ABDOMEN: Normal bowel sounds, soft, non tender, non distended, A/P Proceed with the planned endoscopic procedure. Risks and benefits of the procedure explained to the patient. Consent signed. documented in this encounter Miscellaneous Notes Mispauloaneous - Provider, Scanning - 05/28/2014 9:45 PM EDT OR Attestation - Philippe Khan MD - 05/28/2014 2:17 PM EDT Attestation: Case Date: 05/28/2014 I performed this procedure without the involvement of a resident. PHILIPPE KHAN MD 05/28/2014 Miscellaneous - Provider, Scanning - 05/28/2014 1:53 PM EDT documented in this encounter Plan of Treatment Not on filedocumented as of this encounter Procedures Procedure Name Priority Date/Time Associated Comments Diagnosis COLONOSCOPY, 05/28/2014 1:10 PM Fe Def. DIAGNOSTIC EDT EGD, UPPER GI 05/28/2014 1:10 PM Fe Def. ENDOSCOPY EDT COLONOSCOPY Routine 05/28/2014 1:04 PM Results f or this EDT procedure are i n the results section. UPPER GI ENDOSCOPY Routine 05/28/2014 1:03 PM Res ults for this EDT procedure are i n the results section. documented in this encounter Results COLONOSCOPY (05/28/2014 1:04 PM EDT) Component Value Ref Test Analysis Performed At [facility] Range Method Time Signature COLONOSCOPY [facility] PROVATION Endoscopy Patient Name: Andrew Jaison ? Procedure Date: 05/28/2014 1:04 PM ? N: [id number] ? Date of : 1940 ? Age: 74 ? Order #: [id number] ? Procedure: ? Colonoscopy Indications: ? Unexplained iron deficiency anemia Providers: ? Philippe Khan MD, Sherrie Beyer, ? Yadira Martinez, Franny pretty Referring MD: ?Duncan Mccain, DO Medicines: ? Midazolam 4.5 mg IV, Fentanyl 175 ? micrograms IV Complications: ? No immediate complications. Procedure: ? Pre-Anesthesia Assessment: ? - Prior to the procedure, a H istory ? and Physical was performed, a nd ? patient medications and aller gies ? were reviewed. The patient is ? competent. The risks and bene fits of ? the procedure and the sedatio n ? options and risks were discus sed with ? the patient. All questions we re ? answered and informed consent was ? obtained. Patient identificat ion and ? proposed procedure were verif ied by ? the physician and the nurse landry n the ? pre-procedure area. Mental St atus ? Examination: alert and orient ed. ? Airway Examination: normal ? oropharyngeal airway and neck ? mobility. Respiratory Examina tion: ? clear to auscultation. CV ? Examination: normal. Prophyla ctic ? Antibiotics: The patient does not ? require prophylactic antibiot ics. ? Prior Anticoagulants: The pat ient has ? taken aspirin, last dose was 1 day ? prior to procedure. ASA Grade ? Assessment: III - A patient w ith ? severe systemic disease. Afte r ? reviewing the risks and benef its, the ? patient was deemed in satisfa ctory ? condition to undergo the proc edure. ? The anesthesia plan was to us e ? moderate sedation / analgesia ? (conscious sedation). Immedia tely ? prior to administration of ? medications, the patient was ? re-assessed for adequacy to r eceive ? sedatives. The heart rate, ? respiratory rate, oxygen satu rations, ? blood pressure, adequacy of p ulmonary ? ventilation, and response to care ? were monitored throughout the ? procedure. The physical statu s of the ? patient was re-assessed after the ? procedure. ? The procedure, indications, b enefits, ? risks and alternatives were e xplained ? to the patient. Specifically ? discussed were potential ? complications including, but not ? limited to, bleeding, perfora tion, ? infection, missing a cancer, and ? adverse medication reactions. The ? patient was placed in the lef t ? lateral decubitus position, a nd a ? digital rectal exam was perfo rmed. ? The Colonoscope was inserted in the ? anus and under direct visuali zation, ? advanced to the cecum, identi fied by ? appendiceal orifice & ileocec al ? valve. Careful inspection was made as ? the colonoscope was withdrawn . The ? colonoscopy was performed wit h ? difficulty due to restricted mobility ? of the colon and a tortuous c olon. ? Successful completion of the ? procedure was aided by anshul wheeler the ? dose of sedation medication, changing ? the patient to a supine posit ion and ? applying abdominal pressure. The ? patient tolerated the procedu re well. ? The quality of the bowel prep aration ? was good. ? Findings: ? The digital rectal exam was abnormal. Findings ? include a symmetrically enlarged prostate. ? Several small angiodysplasias were found in the ? cecum. Coagulation for hemostasis using argon plasma ? at 0.8 liters/minute and 20 nath was successful. ? Estimated blood loss was minimal. ? Internal hemorrhoids were found during retroflexion. ? Impression: ?- Enlarged prostate found on digit al ? rectal exam. ? - Internal hemorrhoids. ? 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 Treated with thermal therapy. Recommendation: ?- No aspirin, ibuprofen, naproxen, o r ? other non-steroidal anti-infl ammatory ? drugs for 7 days. ? - Iron sulfate therapy. ? - Monitor hemoglobin. ? - Repeat procedsures require propofol ? and extended prep. ? Procedure Code(s): ?? --- Professional --- ? 21131, Colonoscopy, flexible, ? proximal to splenic flexure; with ? control of bleeding (eg, inje ction, ? bipolar cautery, unipolar cau andie, ? laser, heater probe, stapler, plasma ? field return repairer) Diagnosis Code(s): ?? --- Professional --- ? 569.84, Angiodysplasia of int estine ? (without mention of hemorrhag e) ? --- Technical --- ? 569.84, Angiodysplasia of int estine ? (without mention of hemorrhag e) CPT (R) 2012 [employer]. All Rights Reserved. The codes documented in this report are preliminary and upon top ironer review may be revised to meet current compliance requirements. Philippe Khan MD 05/28/2014 2:07 PM This report has been signed electronically. Number of Addenda: 0 Note Initiated On: 05/28/2014 1:04 PM Specimen (Source) Anatomical Collection Method Collection Time Re ceived Time Location / / Volume Laterality 05/28/2014 1:04 PM EDT Duncan Mccain DO GENERAL SURGICAL ORDERABLES Performing Organization Address City/State/ZIP Code Phon e Number PROVATION UPPER GI ENDOSCOPY (05/28/2014 1:03 PM EDT) Component Value Ref Test Analysis Performed At [facility] Range Method Time Signature UPPER GI [facility] PROVATION ENDOSCOPY Endoscopy Patient Name: Andrew Blackwood ? Procedure Date: 05/28/2014 1:03 PM ? Date of : 1940 ? Age: 74 ? Order #: [id number] ? Procedure: ? Upper GI endoscopy Indications: ? 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 Philippe Khan MD, Sherrie Beyer, ? Franny Ulloa MD: ?Duncan Mccain, DO Medicines: ? Midazolam 1.5 mg IV, Fentanyl 50 ? micrograms IV Complications: ? No immediate complications. Procedure: ? Pre-Anesthesia Assessment: ? - See today's colonoscopy rep ort for ? the History and Physical Exam . ? The procedure, indications, b enefits, ? risks and alternatives were e xplained ? to the patient. Specifically ? discussed were potential ? complications including, but not ? limited to, bleeding, perfora tion, ? infection, missing a cancer, and ? adverse medication reactions. The ? [facility] ? mouth, and advanced to the ird part ? of duodenum. The patient tole rated ? the procedure well. The upper GI ? endoscopy was accomplished wi out ? difficulty. The patient claude ated the ? procedure well. ? Findings: ? The oropharynx was normal. ? The Z-line was regular and was found 38 cm from the ? incisors. ? A single linear non bleeding erosion was found in the ? prepyloric region of the stomach. ? Mildly erythematous mucosa without active bleeding ? and with no stigmata of bleeding was found in the ? duodenal bulb. ? Impression: ?- Normal oropharynx. ? - Z-line regular, 38 cm from the ? incisors. ? - Prepyloric erosion and eryt hematous ? duodenopathy consistent with aspirin ? use.. Recommendation: ?- No aspirin, ibuprofen, naproxen, o r ? other non-steroidal anti-infl ammatory ? drugs for 7 days. ? - Iorn sulfate therapy. ? Procedure Code(s): ?? --- Professional --- ? 83555, Upper gastrointestinal ? endoscopy including esophagus , ? stomach, and either the duode num ? and/or jejunum as appropriate ; ? diagnostic, with or without ? collection of specimen(s) by brushing ? or washing (separate procedur e) Diagnosis Code(s): ?? --- Professional --- ? 280.0, Iron deficiency anemia ? secondary to blood loss (zigzag elastic attacher chitra) ? --- Technical --- ? 280.0, Iron deficiency anemia ? secondary to blood loss (zigzag elastic attacher chitra) CPT (R) 2012 [employer]. All Rights Reserved. The codes documented in this report are preliminary and upon top ironer review may be revised to meet current compliance requirements. Philippe Khan MD 05/28/2014 2:16 PM This report has been signed electronically. Number of Addenda: 0 Note Initiated On: 05/28/2014 1:03 PM Specimen (Source) Anatomical Collection Method Collection Time Re ceived Time Location / / Volume Laterality 05/28/2014 1:03 PM EDT Duncan Mccain DO GENERAL SURGICAL ORDERABLES Performing Organization Address City/State/ZIP Code Phon e Number PROVATION documented in this encounter Visit Diagnoses Not on filedocumented in this encounter Administered Medications Inactive Administered Medications - up to 3 most recent administrations Medication Order MAR Action Action Date Dose Rate Site fentaNYL 50mcg/mL injection Given 05/28/2014 2:08 PM EDT 25 mcg ONCE PRN, Starting on Mon05/28/14 at 1313, Until Mon05/28/14 at 1449, Pain, Intra-Operative (Intra-Procedure), Routine Given 05/28/2014 2:03 PM EDT 25 mcg Given 05/28/2014 1:28 PM EDT 25 mcg lactated ringers infusion New Bag 05/28/2014 12:11 PM EDT 100 mL/hr 100 mL/hr 100 mL/hr, Intravenous, CONTINUOUS, Starting on Mon05/28/14 at 1215, Until Mon05/28/14 at 1449, Endoscopy (Day of Procedure) midazolam (PF) (VERSED) 1 mg/mL injectio n Given 05/28/2014 2:08 PM EDT 0.5 mg ONCE PRN, Starting on Mon05/28/14 at 1313, Until Mon05/28/14 at 1449, Sleep, Intra-Operative (Intra-Procedure), Routine Given 05/28/2014 2:03 PM EDT 1 mg Given 05/28/2014 1:28 PM EDT 0.5 mg documented in this encounter Active and Recently Administered Medications Times are shown in EDT. Continuous Medication Order 05/26/2014 05/27/2014 05/28/2014 lactated ringers infusion (CANCELED) 1211 (New Bag - Provider: Magali Sandy RN) 100 mL/hr, at 100 mL/hr, Intravenous, CO NTINUOUS, Starting Mon05/28/14 at 1215, Until Mon05/28/14 at 1449, Endo (Day of Procedure) PRN Medication Order 05/26/2014 05/27/2014 05/28/2014 fentaNYL 50mcg/mL injection (CANCELED) 1313 (Given - Provider: Prerna Syed RN - Comment: initial dose for sedation)1318 (Given - Provider: Prerna Syed RN - Comment: titrating meds for sedation/comfort) ONCE PRN, Starting Mon05/28/14 at 1313, U ntil Mon05/28/14 at 1449, Pain, Intra- Operative (Intra-Procedure), Routine 132 1 (Given - Provider: Prerna Syed RN - Comment: titrating meds for sedation/comfort)1328 (Given - Provider: Prerna Syed RN - Comment: titrating meds for sedation/comfort)1403 (Given - Provider: Prerna Syed RN - Comment: sedating for EGD) 1408 (Given - Pr ovider: Prerna Syed RN - Comment: titrating meds for sedation for EGD) midazolam (PF) (VERSED) 1 mg/mL injection (CANCELED) 1313 (Given - Provider: Prerna Syed RN - Comment: initial dose for sedation)1318 (Given - Provider: Prerna Syed RN - Comment: titrating meds for sedation/comfort) ONCE PRN, Starting Mon05/28/14 at 1313, U ntil Mon05/28/14 at 1449, Sleep, Intra- Operative (Intra-Procedure), Routine 132 1 (Given - Provider: Prerna Syed RN - Comment: titrating meds for sedation/comfort)1328 (Given - Provider: Prerna Syed RN - Comment: titrating meds for sedation/comfort)1403 (Given - Provider: Prerna Syed RN - Comment: sedating for EGD) 1408 (Given - Pr ovider: Prerna Syed RN - Comment: titrating meds for sedation for EGD) documented in this encounter Care Teams Laminating Machine Tender Relationship Specialty Start Date End Date Duncan Mccain DO PCP - General 04/25/[address] [place] [address] documented as of this encounter
--- OUTSIDE RECORDS SUMMARY | 2022-06-14 00:51 | XMS_ITS | Encounter Summary ---
:1940 Author Organization [facility] Address [facility] [place] [address] Care Team Providers Name Role Phone Adán Duncan HICKS Primary Care Provider Encounter Details Date Type Department Care Team Description 05/28/2014 Hospital Encounter Gastroenterology at [facility] Philippe Khan, [facility] [place] [address] [facility] [phone] CENTER GASTROENTEROLOGY DEPT. [place], [place] [address] Social History Tobacco Use Types [...] you need to be checked. Monday-Monday Clinic [phone] 8a-5p Same Day Endo [phone] 7a-8p Otherwise contact [phone] and ask to speak to the frame trimmer national opelint analyst Follow up care is a lala part [...] signed. documented in this encounter Miscellaneous Notes Miscellaneous - Provider, Scanning - 05/28/2014 9:45 PM [...] Component Value Ref Test Analysis Performed At [facility] Range Method Time Signature COLONOSCOPY [facility] PROVATION Endoscopy Patient Name: Andrew Blackwood ? Procedure Date: 05/28/2014 1:04 PM ? Date of : 1940 ? Age: 74 ? Order #: [id number] ? Procedure: ? Colonoscopy Indications: ? Unexplained [...] by ? the physician and the nurse i n the ? pre-procedure area. Mental St [...] the ? procedure was aided by anshul sing the ? dose of sedation medication, changing [...] Procedure Code(s): ?? --- Professional --- ? 49690, Colonoscopy, flexible, ? proximal to splenic flexure; with ? control of bleeding (eg, inje ction, ? bipolar cautery, unipolar cau andie, ? laser, heater probe, stapler, plasma ? gym teacher) Diagnosis Code(s): ?? --- Professional --- ? 569.84, Angiodysplasia of int estine ? (without mention of hemorrhag e) ? --- Technical --- ? 569.84, Angiodysplasia of int estine ? (without mention of hemorrhag e) CPT (R) 2012 [place] [employer]. All Rights Reserved. The codes documented in this report are preliminary and upon wind turbine machinist review may be revised to meet current [...] Component Value Ref Test Analysis Performed At [facility] Range Method Time Signature UPPER GI [facility] PROVATION ENDOSCOPY Endoscopy Patient Name: Andrew Blackwood ? Procedure Date: 05/28/2014 1:03 PM ? Date of : 1940 ? Age: 74 ? Order #: [id number] ? Procedure: ? Upper GI endoscopy Indications: [...] reactions. The ? Endoscope was introduced thro [facility] the ? mouth, and advanced to the [facility] part ? of duodenum. The patient tole rated ? the procedure well. The upper GI ? endoscopy was accomplished wi [facility] ? difficulty. The patient claude ated the [...] Procedure Code(s): ?? --- Professional --- ? 46845, Upper gastrointestinal ? endoscopy including esophagus , ? stomach, and either the duode num ? and/or jejunum as appropriate ; ? diagnostic, with or without ? collection of specimen(s) by brushing ? or washing (separate procedur e) Diagnosis Code(s): ?? --- Professional --- ? 280.0, Iron deficiency anemia ? secondary to blood loss (chrome worker chitra) ? --- Technical --- ? 280.0, Iron deficiency anemia ? secondary to blood loss (chrome worker chitra) CPT (R) 2012 [place] [employer]. All Rights Reserved. The codes documented in this report are preliminary and upon wind turbine machinist review may be revised to meet current [...] MAR Action Action Date Dose Rate Site lactated ringers infusion New Bag 05/28/2014 12:11 PM 100 mL/hr 100 mL/hr 100 mL/hr, Intravenous, EDT CONTINUOUS, Starting on Mon05/28/14 at 1215, Until Mon05/28/14 at 1449, Endoscopy (Day of Procedure) documented in this encounter Active and Recently [...] PRN, Starting Mon05/28/14 at 1313, U ntil 05/28/14 at 1449, Sleep, Intra- Operative (Intra-Procedure), Routine [...] EGD) documented in this encounter Care Teams Acls Specialist Relationship Specialty Start Date End Date Duncan Mccain DO PCP - General 04/25/[address] [place] [address] documented as of this encounter
--- OUTSIDE RECORDS SUMMARY | 2022-06-14 00:51 | XMS_ITS | Encounter Summary ---
:1940 [place] [address] Care Team Providers Name Role Phone Duncan Mccain DO Primary Care Provider Encounter Details Date Type Department Care Team Description 12/30/2015 Hospital Encounter Non-Invasive Cardiology Lab Unstable angina [facility] [place] [address] Social History Tobacco Use Types Packs/Day [...] Name Priority Date/Time Associated Diagnosis Comme nts NUCLEAR PHARMACOLOGIC Routine 12/30/2015 1:59 PM Unstable zarina na STRESS CARDIOLOGY EST documented in this encounter Results Nuclear Pharmacologic Stress Cardiology (12/30/2015 1:59 PM EST) Specimen (Source) Anatomical Location Collection Method / Collectio n Time Received Time / Laterality Volume Narrative This result has an attachment that is no t available. Duncan Mccain DO CARDIAC SERVICES ORDERABLES documented in this encounter Visit Diagnoses Diagnosis Unstable angina Intermediate coronary syndrome documented in this encounter Care Teams Photovoltaic Installer Relationship Specialty Start Date End Date Duncan Mccain DO PCP - General 04/25/14 [address] [place] [address] documented as of this encounter
--- OUTSIDE RECORDS SUMMARY | 2022-06-14 00:51 | XMS_ITS | Encounter Summary ---
:1940 Author Organization [facility] [place] [address] Care Team Providers Name Role Phone Duncan Mccain DO Primary Care Provider Reason for Referral Diagnostic Test (Routine) - Closed Specialty Diagnoses / Procedures Referred By Contact Refer red To Contact Radiology Diagnoses Unstable angina Duncan Mccain DO [facility] Rad Nuclear Med Procedures NM myocardial perfusion scan, pharmacologic NM stress myocardial perfusion scan single- pharmacologic [address] [place], [place] [address] [place] [address] Phone: Fax: Referral ID Status Reason Start Date Expiration Date Visits V isits Requested Authorized [id number] Closed Specialty 12/23/2015 12/22/2016 1 1 Service Requested Reason for Visit Diagnostic Test (Routine) - Closed Specialty Diagnoses / Procedures Referred By Contact Refer red To Contact Radiology Diagnoses Unstable angina Duncan Mccain DO [facility] Rad Nuclear Med Procedures NM myocardial perfusion scan, pharmacologic NM stress myocardial perfusion scan single- pharmacologic [address] [place], [place] [address] [place] [address] Phone: Fax: Referral ID Status Reason Start Date Expiration Date Visits V isits Requested Authorized [id number] Closed Specialty 12/23/2015 12/22/2016 1 1 Service Requested Encounter Details Date Type Department Care Team Description 12/30/2015 Hospital Encounter Nuclear Medicine at [facility] as, Unstable angina [address] [place] [id number] [phone] (Wo rk) Social History Tobacco Use Types [...] a minimal amount of joe-infarct ischemia. 2. Anteroseptal and apical hypokinesis w ith a calculated LVEF of 57%. I have personally reviewed the image(s) and the residents interpretation and agree with the findings, Al Smith at 12/30/2015 5:38 PM Duncan MAX NM ORDERABLES documented in this encounter Visit Diagnoses Diagnosis Unstable angina Intermediate coronary syndrome documented in this encounter Care Teams Hose Cementer Relationship Specialty Start Date End Date Duncan Mccain DO PCP - General 04/25/[address] [place] [address] [address] [place] [address] documented as of this encounter
--- OUTSIDE RECORDS SUMMARY | 2022-06-14 00:51 | XMS_ITS | Encounter Summary ---
:1940 Author Organization [facility] [place] [address] Care Team Providers Name Role Phone Duncan Mccain DO Primary Care Provider Reason for Visit Diagnostic Test (Routine) - Closed Specialty Diagnoses / Procedures Referred By Contact Refer red To Contact Radiology Diagnoses Unstable angina Duncan Mccain DO [facility] Rad Nuclear Med Procedures NM myocardial perfusion scan, pharmacologic NM stress myocardial perfusion scan single- pharmacologic [address] [facility] [address] [place] [address] Phone: Fax: Referral ID Status Reason Start Date Expiration Date Visits V isits Requested Authorized [id number] Closed Specialty 12/23/2015 12/22/2016 1 1 Service Requested Encounter Details Date Type Department Care Team Description 12/30/2015 Hospital Encounter Nuclear Medicine at Duncan Mccain DO [facility] [address] [address] [place] [address] [phone] Social History Tobacco Use Types Packs/Day Years [...] on filedocumented in this encounter Care Teams Channel Opener Relationship Specialty Start Date End Date Duncan Mccain DO PCP - General 04/25/[address] [place] [address] documented as of this encounter
--- OUTSIDE RECORDS SUMMARY | 2022-06-14 00:52 | XMS_ITS | Encounter Summary ---
:[address] [facility] Address [address] [place] [address] Care Team Providers Name Role Phone Unavailable Primary Care Provider Unavailable Encounter Details Date Type Department Care Team Description 06/09/2011 Results Only [facility] Cristian Vazquez MD Laboratory Services - [address] [place] [address] [place] [address] [place] [address] [phone] Social History Tobacco Use Types Packs/Day Years Used Date Never Assessed Sex Assigned at Date Recorded Not on file documented as of this encounter Plan of Treatment Not on filedocumented as of this encounter Procedures Procedure Name Priority Date/Time Associated Diagnosis Comme [facility] SURGICAL PATHOLOGY Routine 06/09/2011 0:00 EDT Re sults for this procedure are i n the results section. documented in this encounter Results SURGICAL PATHOLOGY (06/09/2011 0:00 EDT) Pathology Report: SURGICAL PATHOLOGY REPORT ? [facility] Reports generated via Gate[employer] interface contain original data; ? LAB however they are lacking the format of the original report. ? Caution should be taken when reading/interpreting unformatted reports. ? Name: ? ZEBROWSKI, CHEST ER ? Accession #: ? [id number] ? : ? 1940 (Age: 71) ??M ? Collec t Date: ? 06/09/2011 ? Location: ? [facility] ? R eceive Date: ? 06/10/2011 ? Provider: JACOB NYELSON MD ? Copy to: KAYLI F CHE DO ? Final Pathologic Diagnosis: ? Colon, 15 cm, biopsy: ? - Colonic mucosa with surfac e hyperplastic change. ??See comment. ? Comment: ? Deeper levels have be en examined. ??(Dr. Crabtree)/[facility] ? Document reviewed and electr onically signed by: ? NYA C GOTTLIEB MD ? Report ??Date: 06/13/2011 17 :34 ? By the signature above, the attending physician certifies that he/she has ? personally conducted a gross and/or microscopic examination of the described ? specimens and rendered or co nfirmed the above diagnosis. ? Specimen(s) Received: ? Bx 15 cm ? Clinical History: ? Hx polyp ? Gross Description: ? Received in formalin labelled Jaison, Andrew and biopsy 15 cm are ?? two pink-bishop irregular soft tissues, 0.5 x 0.2 x 0.2 cm and 0.6 x 0.2 x 0.1 cm ?? submitted in toto in a singl e cassette. (LJosiah Rogers)/mpl ? End of Report ? Specimen Performing Organization Address City/State/ZIP Code Phon e Number [facility] [address] [place] [address] SERVICES [facility] [address] [place] [address] documented in this encounter Visit Diagnoses Not on filedocumented in this encounter
--- OUTSIDE RECORDS SUMMARY | 2022-06-14 00:52 | XMS_ITS | Encounter Summary ---
:1940 Author Organization [facility] Address [address] [place] [address] Care Team Providers Name Role Phone Unavailable Primary Care Provider Unavailable Encounter Details Date Type Department Care Team Description 10/03/2007 Results Only [facility] - Praveen Dover MD conversion [address] [place] [address] [place] [address] [phone] Social History Tobacco Use Types Packs/Day Years Used Date Never Assessed Sex Assigned at Date Recorded Not on file documented as of this encounter Plan of Treatment Not on filedocumented as of this encounter Procedures Procedure Name Priority Date/Time Associated Diagnosis Comme nts SURGICAL PATHOLOGY Routine 10/03/2007 0:00 EST Re sults for this procedure are i n the results section. documented in this encounter Results SURGICAL PATHOLOGY (10/03/2007 0:00 EST) Pathology Report: SURGICAL PATHOLOGY REPORT [facility] M[facility] Reports generated via electronic interface contain sal ginal data; LAB however they are lacking the format of the original re port. Caution should be taken when reading/interpreting unfo rmatted reports. Name: ? TINY BLACKWOOD ER ? Accession #: ? [id number] ? : ? 1940 (Age: 67) ??M ? Collect Date: ? 10/03/2007 ? Location: ? [facility] ? Receive Date: ? 007 ? Provider: PRAVEEN DESAI MD Copy to: ? Final Pathologic Diagnosis: ? Appendix, appendectomy: 1. ?Acute suppurative appendicitis with transmural inflammation. 2. ? Acute fibrinous serositis. Document reviewed and electronically signed by: Jerome Farah MD Report ??Date: 10/10/2007 17:10 By the signature above, the attending physician certif ies that he/she has personally conducted a gross and/or microscopic examin ation of the described specimens and rendered or confirmed the above diagnosi s. Specimen(s) Received: ? Appendix Clinical History: ? Appendicitis Gross Description: ? Received in formalin labelled Ze browski and appendix is a vermiform appendix measuring 9.0 cm in length and varies f rom 0.4 cm in diameter at the resection margin to 1.2 cm in diameter at the mi d section. ?? Attached to the appendix is a large bishop-yell ow lobulated mesoappendix measuring 7.5 x 2.4 x 1.3 cm. ??The serosal surface of the appendix is bishop-red w ith a delicate yellow exudate covering the distal tip and central portion of the appendix. ??The appendiceal lumen is filled with soft brown fecal mate rial and a purulent exudate. ??A fecalith is not grossly identified. ??The lumen is dilated and the wall is bishop-white and measures 0.2 cm in thickness. ?? Three medical collections representative sections, including the inked resection margin en face , are submitted in one cassette. (Bryan Jackson/[facility] End of Report Specimen Performing Organization Address City/State/ZIP Code Phon e Number [facility] [address] [place] [address] SERVICES [facility] [address] [place] [address] documented in this encounter Visit Diagnoses Not on filedocumented in this encounter
--- OUTSIDE RECORDS SUMMARY | 2022-06-14 00:52 | XMS_ITS | Clinical Summary ---
:1940 Author Organization [facility] Address [address] [place] [address] Care Team Providers Name Role Phone Duncan Mccain DO Primary Care Provider Social History Tobacco Use Types Packs/Day Years Used Date Never Assessed Sex Assigned at Date Recorded Not on file Plan of Treatment Health Maintenance Due Date Last Done Comments Fall Risk Screening 02/19/2005 Care Teams Web Design Specialist Relationship Specialty Start Date End Date Duncan Mccain, PCP - General 10/19/11 [facility] [address] [place] [address]
--- OUTSIDE RECORDS SUMMARY | 2022-06-14 00:52 | XMS_ITS | Encounter Summary ---
:1940 Author Organization [facility] Address [address] [place] [address] Care Team Providers Name Role Phone Duncan Mccain DO Primary Care Provider Encounter Details Date Type Department Care Team Description 04/11/2012 Results Only [facility] Praveen Gupta MD Laboratory Services - [address] [place] [address] 0 [facility] [place] [address] [phone] Social History Tobacco Use Types Packs/Day Years Used Date Never Assessed Sex Assigned at Date Recorded Not on file documented as of this encounter Plan of Treatment Not on filedocumented as of this encounter Procedures Procedure Name Priority Date/Time Associated Diagnosis Comme nts SURGICAL PATHOLOGY Routine 04/11/2012 0:00 EDT Re sults for this procedure are i n the results section. documented in this encounter Results SURGICAL PATHOLOGY (04/11/2012 0:00 EDT) Pathology Report: SURGICAL PATHOLOGY REPORT RE[facility] MACK Reports generated via electronic interface contain sla ginal data; LAB however they are lacking the format of the original re port. Caution should be taken when reading/interpreting unfo rmatted reports. Name: ? TINY BLACKWOOD ? Accession #: ? [id number] ? : ? 1940 (Age: 72) ??M ? Collect Date: ? 04/11/2012 ? Location: ? [facility] ? Receive Date: ? 012 ? Provider: PRAVEEN GUPTA MD Copy to: DUNCAN MCCAIN DO ? Final Pathologic Diagnosis: A. ?Stomach, antrum, biopsy: 1. ?Antral-oxyntic mucosa with mild ly reactive foveolar changes. 2. ? No active gastritis , goblet cells, intestinal metaplasia, Helicobacter pylori-like microorganisms, or dysplasia. B. ?Stomach, body, biopsy: 1. ?Oxyntic mucosa with no specific histo pathologic diagnosis. 2. ? No active gastritis , goblet cells, intestinal metaplasia, Helicobacter pylori-like microorganisms, or dysplasia. Document reviewed and electronically signed by: Diaz Lehman MD Report ??Date: 04/13/2012 15:00 By the signature above, the attending physician certif ies that he/she has personally conducted a gross and/or microscopic examin ation of the described specimens and rendered or confirmed the above diagnosi s. Specimen(s) Received: A. ?Gastric antrum bx (#1) B. ? Gastric body bx (#2) Clinical History: ? H/O PUD with heme pos stool Gross Description: ? Received in formalin labelled Andrew Blackwood and gastric antrum bx are two bishop-pink irregular soft tissue fragments measuring 0.2 x 0.2 x 0.2 cm and 0.3 x 0.3 x 0.2 cm. ??The specimen is entirely sub mitted as (A). Received in formalin hal d Andrew Blackwood and gastric body bx are two bishop-pink irregular soft tiss ue fragments measuring 0.5 x 0.2 x 0.2 cm and 0.8 x 0.2 x 0.2 cm. ??The specimen is entirely submitted as (B). ??(Alphonso Scruggs)/[facility] End of Report Specimen Performing Organization Address City/State/ZIP Code Phon e Number [facility] [address] [place] [address] SERVICES [facility] [address] [place] [address] documented in this encounter Visit Diagnoses Not on filedocumented in this encounter Care Teams Vp Business Development Relationship Specialty Start Date End Date Duncan Mccain, PCP - General 10/19/11 [address] [place] [address] documented as of this encounter
--- NOTE | 2022-06-14 07:15 | DI.US_ITS ---
APPROVED REPORT EXAM: Comprehensive 2D, Doppler, and color-flow Echocardiogram Patient Location: Out-Patient Car Conditioner: Sophie Bello RDCS (AE) Indications: ICM, CAD, Atherosclerotic heart disease Other Information Study Quality: Adequate Conclusion Normal left ventricular wall thickness and chamber size. Estimated ejection fraction is 45%. There is mild global hypokinesis Normal right ventricular size and systolic function Both atria are normal in size Trileaflet aortic valve without stenosis or regurgitation Mild mitral annular calcification. Trace mitral regurgitation Normal tricuspid valve with trace regurgitation. Estimated right ventricular systolic pressure is 25 mmHg Wall motion Left Ventricle The left ventricle is normal size. Left ventricular systolic function is mildly decreased. There is n ormal left ventricular wall thickness. There is global hypokinesis of the left ventricle. There is no ventricular septal defect visualized. LVEF is 45%. Right Ventricle The right ventricle is normal size. The right ventricular systolic function is normal. The RVSP is 25 .0mmHg. Atria The left atrium size is normal. The right atrium size is normal. Aortic Valve The aortic valve is normal in structure. Aortic valve is trileaflet. There is no aortic valvular sten osis. No aortic regurgitation is present. Mitral Valve Mild mitral annular calcification. No evidence of mitral valve stenosis. Trace mitral regurgitation. Tricuspid Valve The tricuspid valve is normal in structure. There is no tricuspid valve stenosis. Trace tricuspid reg urgitation. Pulmonic Valve The pulmonary valve is normal in structure. There is no pulmonic valvular stenosis. Trace pulmonic re gurgitation. Great Vessels The aortic root is normal in size. The ascending aorta is normal in size. Aortic arch is not well vis ualized. IVC is normal in size and collapses >50% with inspiration. Pericardium There is no pericardial effusion. 2D Dimensions IVSD d PLAX 1.12 cm M: 0.6-1.2 LV Vol A2C d MOD 98.0 mL LVPW d PLAX 1.11 cm M: 0.6 - 1.2 LV Vol A4C d MOD 86.8 mL LVID d PLAX 4.64 cm M: 4.2 - 5.8 LA vol/ BSA A2C s A-L 19.8 mL/m2 LVDs 3.50 cm M: 2.5 - 4.0 LA vol/ BSA A4C s A-L 16.0 mL/m2 Ao Root d 3.30 cm M: 3.1 - 3.7 LA Vol/ BSA Biplane s A-L 18.8 mL/m2 RA Area A4C 15.68 cm2 LA Area A4C s MOD 12.77 cm2 RA Vol/ BSA A4C s A-L 23.0 mL/m2 LA Area A2C s MOD 15.02 cm2 Ao Asc Diam d 3.23 cm M: 2.6 - 3.4 LV EF A4C MOD 45.2 % LV EF Teichholz 47.4 % LV EF A2C MOD 45.9 % LVEF ([facility]) 46.71 % M: 52 - 72 LV EF Biplane MOD 46.7 % LV Volume 74.83 mL M: 62 - 150 SV 46.13 mL LV Volume Index 38.57 mL/m2 M: 34 - 74 SV Index 23.78 mL/m2 LV Vol Biplane MOD 98.7 mL FS 23.75 % M-Mode TAPSE 1.06 cm (M/F) >1.7 LV Diastology MV E' medial 0.050 (>0.07 m/s) E/A Ratio 0.7 LV E/e MED 14.05 (<14) MV E Vmax 0.70 (0.4-1.3 m/s) MV E' lateral 0.068 (>0.1 m/s) MV A Vmax 0.95 (0.4-1.3 m/s) LV E/e LAT 10.20 (<14) MV E/A Ratio 0.72 MV E/E' medial 14.07 MV E/E' lateral 10.21 Aortic Valve LVOT Area 3.24 cm2 AoV Area Vmax 2.32 cm2 LVOT Vmax 0.97 m/s AoV Area/ BSA (Vmax) 1.19 cm2/m2 LVOT Mean Darryn. 0.66 m/s APURVA Mean Darryn. 2.20 cm2 LVOT Peak Grad 3.8 mmHg APURVA Mean Darryn. Index 1.14 cm2/m2 LVOT Mean Grad 2.0 mmHg LVOT VTI 0.245 m LVOT Diam s 2.00 cm AoV Vmax 1.36 m/s Velocity Ratio 0.71 AoV Mean Darryn. 0.97 m/s AoV Peak Grad 7.4 mmHg LVOT SV 79.62 mL AoV Mean Grad 4.2 mmHg AoV VTI 0.336 m AoV Area VTI 2.37 cm2 AoV Area/ BSA (VTI) 1.22 cm/m2 Mitral Valve MV DT 234 (160-240 msec) MV PHT 68 msec MV Area PHT 3.24 cm2 MV VTI 0.305 m MV Area VTI 2.61 (4.0-6.0 cm2) Pulmonary Valve PV Vmax 1.21 (0.5-1.5 m/s) RVOT Peak Gr. 2.83 mmHg PV Peak Grad 5.9 mmHg RVOT Mean Gr. 1.20 mmHg PV Mean Grad 2.4 mmHg RVOT VTI 0.182 m PV VTI 0.239 m RVOT Vmax 0.84 m/s Tricuspid Valve TR Peak Grad 22.0 mmHg TR Vmax 2.35 m/s RA Pressure 3.00 mmHg RVSP (TR) 25.0 mmHg
== END ==
PROVIDERS: Visit Provider Internal Medicine Cardiovascular Disease
DX: I25.10 Atherosclerotic heart disease of native coronary artery without angina pectoris (principal)
CPT/HCPCS: 93306

== ENCOUNTER 2022-06-27 09:32 | Outpatient (CLI) | payer MEDICARE, OTHER, SELFPAY ==
--- NOTE | 2022-06-27 09:30 | RT.EKG_ITS ---
APPROVED REPORT Exam: Resting ECG Reason for Exam: [facility] Patient Location: O HR:71 bpm ECG Measurements Heart Rate 71 AXIS IA 224 P -20 QRSd 170 QRS 8 QT 448 T 126 QTc 487 Conclusion Sinus rhythm...normal P axis, V-rate 50- 99 Prolonged IA interval...IA >220, V-rate 50- 90 Probable left atrial enlargement...P >50mS, <-0.10mV V1 Left bundle branch block...QRSd>120, broad/notched R
== END 2022-06-27 09:33 | disposition home or self-care (01) ==
LOC: DI.CARD 09:33
PROVIDERS: Visit Provider Internal Medicine Cardiovascular Disease
DX: I25.10 Atherosclerotic heart disease of native coronary artery without angina pectoris (principal); I42.9 Cardiomyopathy, unspecified; R94.31 Abnormal electrocardiogram [ECG] [EKG]
CPT/HCPCS: 93010

== ENCOUNTER → 2022-06-27 10:21 | Outpatient (BNVA) | payer MEDICARE, OTHER, SELFPAY | PROVIDERS: Visit Provider Internal Medicine Cardiovascular Disease | DX: I25.810 Atherosclerosis of coronary artery bypass graft(s) without angina pectoris (principal); I44.7 Left bundle-branch block, unspecified; I50.1 Left ventricular failure, unspecified; I10 Essential (primary) hypertension; Z95.1 Presence of aortocoronary bypass graft | CPT/HCPCS: 93005; 99214 ==

== ENCOUNTER 2022-08-18 03:53 | Outpatient (CLI) | payer MEDICARE, OTHER, SELFPAY ==
[2022-08-18 12:58] LABS: HCT 44.4 % (40.0-50.0); HGB 14.5 g/dL (13.5-17.5); MCH 30.8 pg (27.0-33.0); MCHC 32.7 % (32.0-36.0); MCV 94 fL (80-95); MPV 9.2 fL (8.0-11.0); Platelet Count 305 10^3/uL (130-400); RBC 4.71 10^6/uL (4.36-5.78); RDW 12.6 % (11.8-14.1); RDW-SD 43.9 fL
[2022-08-18 13:41] LABS: ALT 26 U/L (16-63); AST 19 U/L (15-37); Albumin 4.1 g/dL (3.4-5.0); Alkaline Phosphatase 51 U/L (46-116); Anion Gap 7.4 mmol/L (3-11); BUN 23 mg/dL (7-18); Bilirubin, Total 0.6 mg/dL (0.2-1.0); CO2 29.6 mmol/L (21.0-32.0); CREATININE 1.2 mg/dL (0.70-1.30); Calcium 9.5 mg/dL (8.5-10.1); Calculated LDL 68 mg/dL (<100); Chloride 103 mmol/L (98-107); Cholesterol 139 mg/dL (<200); Estimated GFR 60.38 (mL/min/1.73m2); Glucose 116 mg/dL (74-106); HDL Cholesterol 59 mg/dL (40-60); Potassium 5.2 mmol/L (3.5-5.1); Sodium 140 mmol/L (136-145); Total Protein 7.3 g/dL (6.4-8.2); Triglyceride 60 mg/dL (<150)
== END 2022-08-18 03:54 | disposition home or self-care (01) ==
LOC: LOS 03:53
DX: E78.5 Hyperlipidemia, unspecified (principal); I10 Essential (primary) hypertension; D50.9 Iron deficiency anemia, unspecified; I65.21 Occlusion and stenosis of right carotid artery
CPT/HCPCS: 36415; 80053; 80061; 85027

== ENCOUNTER 2023-03-01 09:29 | Outpatient (CLI) | payer MEDICARE, OTHER, SELFPAY ==
[2023-03-01 09:30] LABS: HGB 13.3 g/dL (13.5-17.5); MCH 31.3 pg (27.0-33.0); MCHC 34.1 % (32.0-36.0); MCV 92 fL (80-95); MPV 8.6 fL (8.0-11.0); Platelet Count 276 10^3/uL (130-400); RBC 4.25 10^6/uL (4.36-5.78); RDW 13.2 % (11.8-14.1); RDW-SD 43.9 fL; WBC 10.43 10^3/uL (4.4-10.8)
[2023-03-01 10:15] LABS: Anion Gap 7.1 mmol/L (3-11); BUN 21 mg/dL (7-18); CO2 28.9 mmol/L (21.0-32.0); CREATININE 1.1 mg/dL (0.70-1.30); Calcium 9.1 mg/dL (8.5-10.1); Chloride 105 mmol/L (98-107); Estimated GFR 66.61 (mL/min/1.73m2); Glucose 112 mg/dL (74-106); Potassium 5.5 mmol/L (3.5-5.1); Sodium 141 mmol/L (136-145)
[2023-03-03 11:57] LABS: Coag FactorVIII Activity Assay 252 % (55 - 200); von Willebrand Factor Activity 245 % (55 - 200); von Willebrand Factor Ag 280 % (55 - 200)
== END 2023-03-01 09:30 | disposition home or self-care (01) ==
LOC: LBO 09:35
PROVIDERS: PCP Nurse Practitioner Family; Visit Provider Nurse Practitioner Family
DX: I10 Essential (primary) hypertension (principal); D64.9 Anemia, unspecified; Z83.2 Family history of diseases of the blood and blood-forming organs and certain disorders involving the immune mechanism
CPT/HCPCS: 36415; 80048; 85027; 85240; 85246; 85390; 85397

== ENCOUNTER → 2023-06-26 09:41 | Outpatient (BNVA) | payer MEDICARE, OTHER, SELFPAY | PROVIDERS: PCP Nurse Practitioner Family; Visit Provider Internal Medicine Cardiovascular Disease | DX: I25.810 Atherosclerosis of coronary artery bypass graft(s) without angina pectoris (principal); I25.5 Ischemic cardiomyopathy; I10 Essential (primary) hypertension | CPT/HCPCS: 99214 ==

== ENCOUNTER → 2023-07-17 04:01 | Outpatient (CLI) | payer MEDICARE, OTHER, SELFPAY ==
--- NOTE | 2023-07-17 07:45 | DI.US_ITS ---
Exam(s) US RENAL EXAM: US RENAL CLINICAL HISTORY: PVR,urinary retention,benign prostatic hypertrophy,r33.8,n40.1. TECHNIQUE: Preston scale, color and spectral Doppler were used. FINDINGS: Renal size in cm: Right: 12.4. Left: 12.0. Echogenicity: Normal. Hydronephrosis: There is visualization of the proximal ureters bilaterally. The renal pelves are nor mal in appearance. Both ureteral jets were visualized. Cyst or mass: No. Nephrolithiasis: No. Other findings: None. Bladder:Normal. Ureteral jets: Right: Visualized and unremarkable. Left: Visualized and unremarkable. Prevoid vol:429 cc Postvoid vol:9 cc Prostate: 30 cc Renal color flow: Symmetric and within normal limits. IMPRESSION: 1. Upper limits of normal size of the prostate gland. DATA REPOSITORY:
== END ==
PROVIDERS: PCP Nurse Practitioner Family; Visit Provider Nurse Practitioner Family
DX: N40.1 Benign prostatic hyperplasia with lower urinary tract symptoms (principal); R33.8 Other retention of urine
CPT/HCPCS: 76770

== ENCOUNTER → 2023-08-24 08:46 | Outpatient (BNVA) | payer MEDICARE, OTHER, SELFPAY | PROVIDERS: PCP Nurse Practitioner Family; Referring Provider Nurse Practitioner Family; Visit Provider Nurse Practitioner Gerontology | DX: N40.1 Benign prostatic hyperplasia with lower urinary tract symptoms (principal); R39.89 Other symptoms and signs involving the genitourinary system; N13.8 Other obstructive and reflux uropathy; I10 Essential (primary) hypertension | CPT/HCPCS: 51798; 81003; 99214 ==

== ENCOUNTER 2024-03-20 09:46 | Outpatient (CLI) | payer MEDICARE, OTHER, SELFPAY ==
[2024-03-20 13:31] LABS: ALT 26 U/L (16-63); AST 13 U/L (15-37); Albumin 4.2 g/dL (3.4-5.0); Alkaline Phosphatase 57 U/L (46-116); BUN 16 mg/dL (7-18); Bilirubin, Total 0.4 mg/dL (0.2-1.0); CREATININE 1.1 mg/dL (0.70-1.30); Calcium 9.8 mg/dL (8.5-10.1); Chloride 104 mmol/L (98-107); Estimated GFR 66.19 (mL/min/1.73m2); Glucose 113 mg/dL (74-106); Sodium 140 mmol/L (136-145); Total Protein 7.1 g/dL (6.4-8.2)
[2024-03-20 13:38] LABS: Hemoglobin A1C 6.2 % (<5.7)
[2024-03-21 19:47] LABS: Calculated LDL 54 mg/dL (<100); Cholesterol 129 mg/dL (<200); HDL Cholesterol 54 mg/dL (40-60); Triglyceride 106 mg/dL (<150)
== END 2024-03-20 09:47 | disposition home or self-care (01) ==
LOC: LOS 09:46
PROVIDERS: PCP Nurse Practitioner Family; Referring Provider Nurse Practitioner Family; Visit Provider Nurse Practitioner Family
DX: R73.03 Prediabetes (principal); E78.2 Mixed hyperlipidemia
CPT/HCPCS: 36415; 80053; 80061; 83036

== ENCOUNTER 2024-06-24 07:54 | Outpatient (CLI) | payer MEDICARE, OTHER, SELFPAY ==
--- NOTE | 2024-06-24 07:45 | RT.EKG_ITS ---
APPROVED REPORT Exam: Resting ECG Reason for Exam: CAD Patient Location: O HR:57 bpm ECG Measurements Heart Rate 57 AXIS DE 198 P 34 QRSd 175 QRS 20 QT 470 T 106 QTc 458 Conclusion Sinus rhythm...normal P axis, V-rate 50- 99 Left bundle branch block...QRSd>120, broad/notched R Baseline wander in lead(s) I,III,aVL
== END 2024-06-24 07:55 | disposition home or self-care (01) ==
LOC: DI.CARD 07:55
PROVIDERS: PCP Nurse Practitioner Family; Visit Provider Internal Medicine Cardiovascular Disease
DX: I25.10 Atherosclerotic heart disease of native coronary artery without angina pectoris (principal); I44.7 Left bundle-branch block, unspecified; I25.5 Ischemic cardiomyopathy
CPT/HCPCS: 93010

== ENCOUNTER → 2024-06-24 09:31 | Outpatient (BNVA) | payer MEDICARE, OTHER, SELFPAY | PROVIDERS: PCP Nurse Practitioner Family; Visit Provider Internal Medicine Cardiovascular Disease | DX: I44.7 Left bundle-branch block, unspecified (principal); I25.10 Atherosclerotic heart disease of native coronary artery without angina pectoris; I10 Essential (primary) hypertension; I25.5 Ischemic cardiomyopathy; Z95.1 Presence of aortocoronary bypass graft | CPT/HCPCS: 93005; 99213 ==

== ENCOUNTER 2024-09-18 10:38 | Outpatient (CLI) | payer MEDICARE, OTHER, SELFPAY ==
[2024-09-18 12:11] LABS: HCT 39.3 % (40.0-50.0); HGB 12.9 g/dL (13.5-17.5); MCHC 32.8 % (32.0-36.0); MCV 95 fL (80-95); MPV 9.1 fL (8.0-11.0); Platelet Count 298 10^3/uL (130-400); RBC 4.16 10^6/uL (4.36-5.78); RDW 13.2 % (11.8-14.1); RDW-SD 45.9 fL
[2024-09-18 13:27] LABS: TSH (W/Ref FT4) 1.83 uIU/mL (0.36-3.74)
== END 2024-09-18 10:39 | disposition home or self-care (01) ==
LOC: LOS 10:39
PROVIDERS: PCP Nurse Practitioner Family; Referring Provider Nurse Practitioner Family; Visit Provider Nurse Practitioner Family
DX: R53.83 Other fatigue (principal); R30.0 Dysuria; Z01.30 Encounter for examination of blood pressure without abnormal findings
CPT/HCPCS: 36415; 85027; 84443

== ENCOUNTER 2025-02-11 21:41 | Outpatient (REF) | payer MEDICARE, OTHER, SELFPAY ==
[2025-02-11 22:17] LABS: Iron 53 ug/dL (65-175); Total Iron Binding Capacity 337 ug/dL (250-450)
[2025-02-11 23:13] LABS: ALT 20 U/L (16-63); AST 13 U/L (15-37); Albumin 4.4 g/dL (3.4-5.0); Alkaline Phosphatase 62 U/L (46-116); Anion Gap 11.8 mmol/L (3-11); BUN 22 mg/dL (7-18); Bilirubin, Total 0.7 mg/dL (0.2-1.0); CO2 26.2 mmol/L (21.0-32.0); CREATININE 1.4 mg/dL (0.70-1.30); Calcium 9.8 mg/dL (8.5-10.1); Chloride 101 mmol/L (98-107); Estimated GFR 49.56 (mL/min/1.73m2); Ferritin 100 ng/mL (26-388); Glucose 155 mg/dL (74-106); Potassium 4.7 mmol/L (3.5-5.1); Sodium 139 mmol/L (136-145); TSH (W/Ref FT4) 1.17 uIU/mL (0.36-3.74); Total Protein 6.9 g/dL (6.4-8.2); Vitamin B12 953 pg/mL (193-986)
[2025-02-11 23:18] LABS: Folate > 20.0 ng/mL (8.6-20.0)
[2025-02-13 11:02] LABS: Transferrin 268 mg/dL (201-352)
== END 2025-02-11 21:42 | disposition home or self-care (01) ==
LOC: LBN 21:41
PROVIDERS: PCP Nurse Practitioner Family; Visit Provider Nurse Practitioner Family
DX: D64.9 Anemia, unspecified (principal)
CPT/HCPCS: 80053; 82607; 82728; 82746; 83540; 83550; 84443; 84466; 85025

== ENCOUNTER 2025-02-20 10:04 | Outpatient (CLI) | payer MEDICARE, OTHER, SELFPAY ==
[2025-02-20 10:28] LABS: Abs Immature Grans 0.05 10^3/uL (0.0-0.06); Absolute Basophil Count 0.05 10^3/uL (0.0-0.2); Absolute Eosinophil Count 0.25 10^3/uL (0.0-0.7); Absolute Lymphocyte Count 1.53 10^3/uL (1.2-3.4); Absolute Monocyte Count 1.02 10^3/uL (0.1-0.8); Absolute Neutrophil Count 6.23 10^3/uL (1.2-6.7); Basophils % 0.5 %; Eosinophils % 2.7 %; HCT 36.8 % (40.0-50.0); HGB 12.3 g/dL (13.5-17.5); Immature Grans % 0.5 %; Lymphocytes % 16.8 %; MCH 31.5 pg (27.0-33.0); MCHC 33.4 % (32.0-36.0); MCV 94 fL (80-95); MPV 9.2 fL (8.0-11.0); Monocytes % 11.2 %; Neutrophils % 68.3 %; Platelet Count 269 10^3/uL (130-400); RBC 3.91 10^6/uL (4.36-5.78); RDW 13.6 % (11.8-14.1); RDW-SD 46.7 fL; Reticulocyte 1.7 % (0.5-2.4); WBC 9.13 10^3/uL (4.4-10.8)
== END 2025-02-20 10:05 | disposition home or self-care (01) ==
LOC: LBO 10:05
PROVIDERS: PCP Nurse Practitioner Family; Visit Provider Nurse Practitioner Family
DX: D64.9 Anemia, unspecified (principal)
CPT/HCPCS: 36415; 85025; 85045

== ENCOUNTER → 2025-07-07 12:35 | Outpatient (BNVA) | payer MEDICARE, OTHER, SELFPAY | PROVIDERS: PCP Nurse Practitioner Family; Referring Provider Nurse Practitioner Family; Visit Provider Registered Nurse | DX: I25.10 Atherosclerotic heart disease of native coronary artery without angina pectoris (principal) | CPT/HCPCS: 99214 ==